=== PATIENT | male | born 1985 | race Caucasian/White ===

== ENCOUNTER 2016-03-06 23:48 | Emergency (ER) | payer OTHER ==
[2016-03-06 23:56] VITALS: RESP 20
--- NOTE | 2016-03-07 00:38 | ED ---
Abdominal Pain HPI - General Chief Complaint: Abdominal Pain Stated Complaint: Feeding Tube Replacement Time Seen by Provider: 03/07/16 00:32 Source: family, RN notes reviewed Mode of arrival: wheelchair Limitations: altered mental status, physical limitation - History of Present Illness Initial Comments: Patient is a 30-year-old male with chief complaint of his feeding tube has been removed. Patient's parents report that this happened multiple hours ago. He states that is draining from the site. Patient has been seen in the emergency room before for similar complaint. They state that he has a size 16 PEG tube. Patient has had the PEG tube for approximately 3 years. - Related Data Home Medications Medication Instructions Recorded Confirmed Hydrocortisone [Cortef] 10 mg PEG/G-TUBE BID 07/07/13 09/28/15 lamoTRIgine [LaMICtal] 25 mg PEG/G-TUBE BID 07/07/13 09/28/15 Aspirin 81 mg PEG/G-TUBE DAILY 07/12/14 09/28/15 Ranitidine HCl 150 mg PEG/G-TUBE BID PRN 09/28/15 09/28/15 Previous Rx's Medication Instructions Recorded Glycerin Adult Suppository 1 each RECTAL ONCE #4 supp 03/07/16 Allergies Allergy/AdvReac Type Severity Reaction Status Date / Time docusate sodium [From Colace] Allergy Rash/Hives Verified 03/06/16 23:56 lansoprazole [From Prevacid] Allergy Unknown Verified 03/06/16 23:56 metoclopramide HCl Allergy Unknown Verified 03/06/16 23:56 [From Reglan] peanut Allergy Rash/Hives Verified 03/06/16 23:56 Review of Systems ROS Statement: Those systems with pertinent positive or pertinent negative responses have been documented in the HPI. ROS Other: All systems not noted in ROS Statement are negative. Past Medical History Past Medical History: Cancer, CVA/TIA Additional Past Medical History / Comment(s): brain tumor, spinal cord tumor, seizure, HYPOTHERMIA R/T BRAIN TUMOR History of Any Multi-Drug Resistant Organisms: None Reported Past Surgical History: Ventriculoperitoneal Shunt Additional Past Surgical History / Comment(s): peg tube, svp research and strategic analysis shunt, BRAIN, SPINAL CORD Past Psychological History: No Psychological Hx Reported Smoking Status: Never smoker Past Alcohol Use History: None Reported Past Drug Use History: None Reported General Exam Limitations: altered mental status, physical limitation General appearance: alert, in no apparent distress Head exam: Present: atraumatic, normocephalic, normal inspection Eye exam: Present: normal appearance, PERRL, EOMI. Absent: scleral icterus, conjunctival injection, periorbital swelling ENT exam: Present: normal exam, mucous membranes moist Neck exam: Present: normal inspection. Absent: tenderness, meningismus, lymphadenopathy Respiratory exam: Present: normal lung sounds bilaterally. Absent: respiratory distress, wheezes, rales, rhonchi, stridor Cardiovascular Exam: Present: regular rate, normal rhythm, normal heart sounds, other. Absent: systolic murmur, diastolic murmur, rubs, gallop, clicks GI/Abdominal exam: Present: soft, distended (abdomen does feel firm showing signs of constipation. ), normal bowel sounds, other (evidence of Peg tube site and mild drainage. ). Absent: tenderness, guarding, rebound, rigid Extremities exam: Present: normal inspection, full ROM, normal capillary refill. Absent: tenderness, pedal edema, joint swelling, calf tenderness Back exam: Present: normal inspection Neurological exam: Present: alert Psychiatric exam: Present: normal affect, normal mood Skin exam: Present: warm, dry, intact, normal color. Absent: rash Course Vital Signs 03/06/16 03/07/16 23:53 00:56 Temperature 96.5 F L 97.7 F Pulse Rate 78 82 Respiratory 20 20 Rate Blood Pressure 95/74 102/74 O2 Sat by Pulse 96 97 Oximetry Procedures - Feeding Tube Replacement Reason for Replacement: fell out Initial Tube Inserted: greater than 2 weeks Type of Tube: gastrostomy Use of Tube: medications and feeding Insertion Site Prior to Procedure: clean, tender, GI fluid leaking Anesthesia Used: Lidocaine 1% Amount of Anesthesia Used (mls): 4 Nigerian Tube Size (F): 14 Balloon Size (mls): 5 Used for Assist in Placement: other Verification of Placement: auscultation, KUB Tube Secured by: tape/dressing Patient Tolerated Procedure: well, no complications Complications: other (initial complications after a few attempts, myself, STACY [place]. Dr. Ko was able to place tube successfully. ) Medical Decision Making - Medical Decision Making Patient is a 30 year old male with feeding tube dislocation a few hours ago. After a few failed attempts, a new 14 welsh feeding tube was placed by Dr. Ko. Xray shows significant stool and confirms placement. Patient given glyceriin suppository to use at home. Patient parents understand treatment plan and will comply. return parameters discussed. Disposition Clinical Impression: Encounter for feeding tube placement, Constipation Disposition: HOME SELF-CARE Condition: Good Instructions: How to Use and Care for Your PEG Tube (ED) Additional Instructions: Patient instructed to follow-up with primary care provider if any alarming signs or symptoms occur. Return the EC if feeding tube is removed. Use suppositories as directed. Prescriptions: Glycerin Adult Suppository 1 each RECTAL ONCE #4 supp Referrals: Whitney Ruiz MD [Primary Care Provider] - 1-2 days Time of Disposition: 02:40
[2016-03-07] MEDS ORDERED: LIDOCAINE 2% GEL 30 ML TUBE TOPICAL ONE (00:46)
--- NOTE | 2016-03-07 02:28 | XR ---
EXAMINATION TYPE: XR abdomen 2V DATE OF EXAM: 03/07/2016 2:14 AM COMPARISON: 09/28/2015 HISTORY: Feeding tube insertion. TECHNIQUE: 3 views. FINDINGS: There is a gastrostomy tube over the left upper quadrant. There is apparent ventriculoperitoneal shun t catheters. There is no evidence of intestinal obstruction or pneumoperitoneum. Fecal pattern is nor mal. I see no sign of constipation. There is no evidence of a mass. Lung bases are clear. IMPRESSION: Nonacute abdomen.
[2016-03-07] MEDS ORDERED: GLYCERIN ADULT SUPPOSITORY 1 EACH RECTAL STA (02:39)
[2016-03-07 02:50] VITALS: BP 102/74; PULSE 82; TEMP 97.7
== END 2016-03-07 02:50 | disposition home or self-care (01) ==
LOC: EC 23:48 → EEVIPCON 23:48 → EC 03-07 02:50
DX: Z43.1 Encounter for attention to gastrostomy (principal); K59.00 Constipation, unspecified; Z98.2 Presence of cerebrospinal fluid drainage device; Z88.8 Allergy status to other drugs, medicaments and biological substances; Z91.010 Allergy to peanuts; Z79.82 Long term (current) use of aspirin; Z79.899 Other long term (current) drug therapy; G40.909 Epilepsy, unspecified, not intractable, without status epilepticus
CPT/HCPCS: 43760; 74020; 99284

== ENCOUNTER → 2016-06-07 | Outpatient (CLI) | payer OTHER ==
[2016-06-07 08:32] LABS: CH 33.2; CHCM 33.3; HCT 51.4 % (39.0-53.0); HDW 3.13; HGB 16.7 gm/dL (13.0-17.5); MCH 32.6 pg (25.0-35.0); MCHC 32.5 g/dL (31.0-37.0); MCV 100.4 fL (80.0-100.0); Macrocytosis Slight; Mean Platelet Volume 9.9; RBC 5.12 m/uL (4.30-5.90); RDW 15.4 % (11.5-15.5); WBC 6.1 k/uL (3.8-10.6)
--- NOTE | 2016-06-07 15:47 | US ---
EXAMINATION TYPE: US abdomen comp/pelvis limited DATE OF EXAM: 06/07/2016 8:18 AM COMPARISON: CT 12/12/2015 CLINICAL HISTORY: 30-year-old male K76.9 nontraumatic N28.9 Kidney Lesion. Liver lesions and kidney l esion seen on previous CT. TECHNIQUE: Multiple sonographic images of the abdomen and bladder were obtained. FINDINGS: Liver Length: 15.3 cm Gallbladder Wall: 0.2 cm CBD: 0.3 cm Spleen: 12.8 cm Right Kidney: 9.0 x 4.9 x 5.0 cm Left Kidney: 10.3 x 5.8 x 4.9 cm Pancreas: visualized portions wnl, body and tail obscured by overlying midline bowel gas Liver: scanned intercostally, limited by rib shadowing, left lobe obscured by overlying midline ismael l gas. There are 1.4cm and 0.8cm hyperechoic non vascular lesions seen in right lobe the larger of w hich likely corresponds to the right hepatic lobe lesion seen on 12/12/2015 measuring 1.3 cm. The lef t lobe lesion seen on prior CT is not visualized on the current study. Gallbladder: Limited by rib shadowing. No abnormal gallbladder distention, wall thickening, perichol ecystic fluid, or shadowing calculi. CBD: visualized portions within normal limits Spleen: visualized portions within normal limits, limited by rib shadowing Right Kidney: No hydronephrosis. There is a 1.4 cm exophytic cyst at the lateral midpole. Internal ec hoes are felt to be artifactual or could represent debris. This likely corresponds to the lesion seen on prior CT. Left Kidney: visualized portions within normal limits, limited by rib shadowing Upper IVC: Not well seen. Abd Aorta: visualized portions wnl, proximal and distal portions obscured by overlying midline bowel gas Bladder: No gross abnormality. Bilateral Jets Seen yes. Small amount of free fluid seen posterior to bladder IMPRESSION: 1. A 1.4 cm and 0.8 cm echogenic lesion within the right hepatic lobe. One of these corresponds well to the previously seen CT lesion. However, the left lobe lesion seen on prior CT is not visualized on the current study. Findings may represent hemangiomas. More definitive characterization can be consi dered with a liver MRI. Otherwise, six-month follow-up ultrasound can be considered. 2. A 1.4 cm exophytic cyst from the lateral right kidney compatible with the previously questioned ri ght renal lesion. 3. Trace pelvic free fluid adjacent to the bladder.
== END | disposition home or self-care (01) ==
LOC: RADUSWWP 07:07
PROVIDERS: ATTEND Family Medicine
DX: N28.1 Cyst of kidney, acquired (principal); K76.9 Liver disease, unspecified
CPT/HCPCS: 36415; 76700; 76857; 85027

== ENCOUNTER 2016-07-12 11:18 | Emergency (ER) | payer OTHER ==
[2016-07-12 11:25] VITALS: BP 107/74; PULSE 60; RESP 18; TEMP 94.1
--- NOTE | 2016-07-12 11:50 | ED ---
General Adult HPI - General Chief complaint: Recheck/Abnormal Lab/Rx Stated complaint: HOLE IN FEEDING TUBE Time Seen by Provider: 07/12/16 11:31 Source: patient, family, RN notes reviewed, old records reviewed Mode of arrival: ambulatory Limitations: no limitations - History of Present Illness Initial comments: Chief complaint history of present illness is a 30-year-old male here with parents. The patient has had brain cancer and surgeries on the brain and subsequent strokes. He is debilitated. Receive his nourishment through a PEG tube. His current PEG tube is malfunctioning. Leaking. Needs to be replaced. No other complaints or problems this time. - Related Data Home Medications Medication Instructions Recorded Confirmed Hydrocortisone [Cortef] 10 mg PEG/G-TUBE BID 07/07/13 07/12/16 lamoTRIgine [LaMICtal] 25 mg PEG/G-TUBE BID 07/07/13 07/12/16 Ranitidine HCl 150 mg PEG/G-TUBE BID PRN 09/28/15 07/12/16 Allergies Allergy/AdvReac Type Severity Reaction Status Date / Time docusate sodium [From Colace] Allergy Rash/Hives Verified 07/12/16 11:39 lansoprazole [From Prevacid] Allergy Unknown Verified 07/12/16 11:39 metoclopramide HCl Allergy Unknown Verified 07/12/16 11:39 [From Reglan] peanut Allergy Rash/Hives Verified 07/12/16 11:39 Review of Systems ROS Statement: Those systems with pertinent positive or pertinent negative responses have been documented in the HPI. Review of systems no other complaints other than the leaking PEG tube at this time. 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 Family history noncontributory ALLERGIES docusate, lansoprazole metoclopramide peanuts. Nonsmoker nondrinker. ROS Other: All systems not noted in ROS Statement are negative. Past Medical History Past Medical History: Cancer, CVA/TIA Additional Past Medical History / Comment(s): brain tumor, spinal cord tumor, seizure, HYPOTHERMIA R/T BRAIN TUMOR History of Any Multi-Drug Resistant Organisms: None Reported Past Surgical History: Ventriculoperitoneal Shunt Additional Past Surgical History / Comment(s): peg tube, vp site shunt, BRAIN, SPINAL CORD Past Psychological History: No Psychological Hx Reported Smoking Status: Never smoker Past Alcohol Use History: None Reported Past Drug Use History: None Reported General Exam - General Exam Comments Initial Comments: The patient's here just for replacement of a malfunctioning deteriorating PEG tube. His vital signs shows temperature 94.1 pulse 60 respiratory rate 18 pulse ox 94 % room air blood pressure 107/74. Examination of the current PEG tube finds it to have a hole and is leaking. He can't administer the patient's feedings. Limitations: no limitations Course Vital Signs 07/12/16 11:20 Temperature 94.1 F L Pulse Rate 60 Respiratory 18 Rate Blood Pressure 107/74 O2 Sat by Pulse 94 L Oximetry Procedures - Procedures Initial comment: Procedure; patient is here just for replacement of his feeding PEG tube. A Kazakh 14 feeding PEG tube with balloon was reinserted without difficulty. Dr. Hines Disposition Clinical Impression: Leaking PEG tube Disposition: HOME SELF-CARE Condition: Fair Instructions: How to Use and Care for Your PEG Tube (ED) Additional Instructions: Follow-up with family doctor and kilnman as needed Referrals: Whitney Ruiz MD [Primary Care Provider] - 1-2 days Time of Disposition: 12:17
== END 2016-07-12 12:21 | disposition home or self-care (01) ==
LOC: EC 11:18
DX: K94.23 Gastrostomy malfunction (principal); R53.81 Other malaise; Z79.52 Long term (current) use of systemic steroids; Z79.899 Other long term (current) drug therapy; Z88.8 Allergy status to other drugs, medicaments and biological substances; Z91.010 Allergy to peanuts; Z85.841 Personal history of malignant neoplasm of brain; Z86.73 Personal history of transient ischemic attack (TIA), and cerebral infarction without residual deficits; Z86.69 Personal history of other diseases of the nervous system and sense organs; Z98.890 Other specified postprocedural states; Z98.2 Presence of cerebrospinal fluid drainage device; Y73.8 Miscellaneous gastroenterology and urology devices associated with adverse incidents, not elsewhere classified
CPT/HCPCS: 43760; 99283

== ENCOUNTER → 2017-01-04 | Outpatient (CLI) | payer OTHER ==
--- NOTE | 2017-01-04 11:08 | US ---
EXAMINATION TYPE: US abdomen complete DATE OF EXAM: 01/04/2017 COMPARISON: US 06/07/2016, CT 12/11/2016 CLINICAL HISTORY: 31-year-old male K76.9 Liver disease, unspecified. TECHNIQUE: Multiple sonographic images of the abdomen are obtained. FINDINGS: GREENS TIER NOTES: Extremely difficult and limited exam due to patient mental status and feeding tube in mid abdomen. Follow up to previous ultrasound Liver Length: 15.4 cm Gallbladder Wall: 0.2 cm CBD: 0.4 cm Spleen: 13.0 cm Right Kidney: 8.9 x 4.3 x 4.0 cm Left Kidney: 9.0 x 5.3 x 4.8 cm Pancreas: Obscured by bowel gas Liver: Limited evaluation due to rib shadowing and overlying bowel gas. Left hepatic lobe not visual ized due to bowel gas and intercostal windows. Two hyperechoic areas visualized in the right lobe, la rgest measuring 1.6 x 1.5 x 1.6 cm. This previously measured 1.3 x 1.4 x 1.1 cm on 06/07/2016 Gallbladder: wnl Evidence for sonographic Funez's sign: No CBD: wnl as visualized, distal portion obscured by bowel gas Spleen: Measuring upper limits of normal Right Kidney: No hydronephrosis. Redemonstrated mid pole cyst measuring 1.4 cm. Left Kidney: No hydronephrosis. Upper IVC: wnl as visualized Abd Aorta: Obscured by overlying bowel gas IMPRESSION: 1. Technically limited exam as mentioned above. 2. There are 2 hyperechoic lesions redemonstrated in the right liver lobe. These are minimally larger after 7 months with the largest measuring 1.6 x 1.6 cm versus 1.4 x 1.3 cm, previously. While марина iomas are possible, these remain due to their CT appearance. Either continued short interval follow-u p is recommended versus further characterization such as with liver MRI.
== END | disposition home or self-care (01) ==
LOC: RADUSWWP 08:42
PROVIDERS: ATTEND Family Medicine
DX: K76.9 Liver disease, unspecified (principal); R56.9 Unspecified convulsions
CPT/HCPCS: 36415; 76700; 80175

== ENCOUNTER 2017-01-31 12:39 | Emergency (ER) | payer OTHER ==
--- NOTE | 2017-01-31 13:02 | ED ---
General Adult HPI - General Chief complaint: Recheck/Abnormal Lab/Rx Stated complaint: FEEDING TUBE Time Seen by Provider: 01/31/17 12:50 Source: family, RN notes reviewed Mode of arrival: wheelchair Limitations: altered mental status, physical limitation - History of Present Illness Initial comments: Patient 31-year-old male with a past medical history for brain tumor, who presents to the emergency room today with his mother with a chief complaint of needing a new PEG tube. Please have PEG tube in place since 2012. This current tube has been in for the last 6 months. Mother states that during feeding last night noticed that there seemed to be a small hole on the side in some of the fluid was leaking out on the side of the tube. She states she did take it was an electrical tape. She denies any other complaints or symptoms. Patient denies any recent fever, nausea or vomiting, or any other complaints. - Related Data Home Medications Medication Instructions Recorded Confirmed Hydrocortisone [Cortef] 10 mg PEG/G-TUBE BID 07/07/13 07/12/16 lamoTRIgine [LaMICtal] 25 mg PEG/G-TUBE BID 07/07/13 07/12/16 Ranitidine HCl 150 mg PEG/G-TUBE BID PRN 09/28/15 07/12/16 Allergies Allergy/AdvReac Type Severity Reaction Status Date / Time docusate sodium [From Colace] Allergy Rash/Hives Verified 01/31/17 12:49 lansoprazole [From Prevacid] Allergy Unknown Verified 01/31/17 12:49 metoclopramide HCl Allergy Unknown Verified 01/31/17 12:49 [From Reglan] peanut Allergy Rash/Hives Verified 01/31/17 12:49 Review of Systems ROS Statement: Those systems with pertinent positive or pertinent negative responses have been documented in the HPI. ROS Other: All systems not noted in ROS Statement are negative. Past Medical History Past Medical History: Cancer, CVA/TIA, Seizure Disorder Additional Past Medical History / Comment(s): brain tumor, spinal cord tumor, seizure, HYPOTHERMIA R/T BRAIN TUMOR History of Any Multi-Drug Resistant Organisms: None Reported Past Surgical History: Ventriculoperitoneal Shunt Additional Past Surgical History / Comment(s): peg tube, vp of global marketing shunt, BRAIN, SPINAL CORD Past Psychological History: No Psychological Hx Reported Smoking Status: Never smoker Past Alcohol Use History: None Reported Past Drug Use History: None Reported General Exam - General Exam Comments Initial Comments: General: The patient is awake and alert, in no distress, and does not appear acutely ill. Eye: Pupils are equal, round and reactive to light, extra-ocular movements are intact. No nystagmus. There is normal conjunctiva bilaterally. Ears, nose, mouth and throat: There are moist mucous membranes and no oral lesions. Neck: The neck is supple, there is no tenderness or JVD. Cardiovascular: There is a regular rate and rhythm. No murmur, rub or gallop is appreciated. Respiratory: Lungs are clear to auscultation, respirations are non-labored, breath sounds are equal. No wheezes, stridor, rales, or rhonchi. Gastrointestinal: Soft, non-distended, non-tender abdomen without masses or organomegaly noted. Bowel sounds are unremarkable. Neurological: There are no obvious motor or sensory deficits. Skin: Skin is warm and dry and no rashes or lesions are noted. Limitations: altered mental status, physical limitation Course Vital Signs 01/31/17 01/31/17 12:41 13:13 Temperature 76.6 F L Pulse Rate 61 57 L Respiratory 18 18 Rate Blood Pressure 107/82 108/79 O2 Sat by Pulse 95 95 Oximetry Procedures - Procedures Initial comment: Patient did have a PEG tube in place. Balloon was deflated. Skin around the area was cleaned with ChloraPrep and a new PEG tube was placed and balloon inflated. Medical Decision Making - Medical Decision Making Patient will be discharged home to follow-up with family doctor. Advised return if any symptoms increase worsen. Disposition Clinical Impression: Leaking PEG tube Disposition: HOME SELF-CARE Condition: Good Instructions: How to Use and Care for Your PEG Tube (ED) Referrals: Whitney Ruiz MD [Primary Care Provider] - 1-2 days Time of Disposition: 13:49
[2017-01-31 14:16] VITALS: BP 107/62; PULSE 58; RESP 17; TEMP 97.4
== END 2017-01-31 14:15 | disposition home or self-care (01) ==
LOC: EC 12:39
DX: K94.23 Gastrostomy malfunction (principal); G40.909 Epilepsy, unspecified, not intractable, without status epilepticus; Z79.52 Long term (current) use of systemic steroids; Z79.899 Other long term (current) drug therapy; Z88.8 Allergy status to other drugs, medicaments and biological substances; Z91.010 Allergy to peanuts
CPT/HCPCS: 43760; 99282

== ENCOUNTER 2017-07-18 21:36 | Inpatient (IN) | payer OTHER ==
[2017-07-18] MEDS ORDERED: SODIUM CHLORIDE 0.9% 500 ML IV STA (22:09)
[2017-07-18] MEDS ORDERED: SODIUM CHLORIDE 0.9% 1,000 ML IV STA (22:09)
[2017-07-18 22:20] LABS: Basophils % (A) 0 %; Eosinophils % (A) 0 %; HGB 18.2 gm/dL (13.0-17.5); Lymphocytes # (A) 0.9 k/uL (1.0-4.8); Lymphocytes % (A) 6 %; MCH 31.4 pg (25.0-35.0); MCHC 32.9 g/dL (31.0-37.0); MCV 95.5 fL (80.0-100.0); Mean Platelet Volume 9.9; Monocytes # (A) 1.4 k/uL (0-1.0); Monocytes % (A) 10 %; Neutrophils # (A) 11.4 k/uL (1.3-7.7); Neutrophils % (A) 81 %; Platelet Count 182 k/uL (150-450); RBC 5.79 m/uL (4.30-5.90); RDW 14.5 % (11.5-15.5)
[2017-07-18 22:21] LABS: HCT 55.3 % (39.0-53.0)
[2017-07-18 22:27] LABS: ALT 81 U/L (21-72); AST 53 U/L (17-59); Albumin 4.2 g/dL (3.5-5.0); Alkaline Phosphatase 121 U/L (38-126); Amylase 54 U/L (30-110); Anion Gap 17 mmol/L; Blood Urea Nitrogen 15 mg/dL (9-20); Calcium 10.1 mg/dL (8.4-10.2); Carbon Dioxide 18 mmol/L (22-30); Chloride 110 mmol/L (98-107); Glucose 120 mg/dL (74-99); Lipase 71 U/L (23-300); Sodium 145 mmol/L (137-145); Total Bilirubin 2.2 mg/dL (0.2-1.3); Total Protein 7.3 g/dL (6.3-8.2)
--- NOTE | 2017-07-18 22:39 | XR ---
EXAMINATION TYPE: XR abdomen acute w cxr DATE OF EXAM: 07/18/2017 COMPARISON: Abdomen 03/07/2016 HISTORY: Abdominal pain and gas TECHNIQUE: Supine and upright chest and abdomen images. FINDINGS: There are bilateral shunt catheters. Lungs are clear of consolidation. There is no heart failure. The re is some large bowel intestinal gas and fecal material. There is no sign of free air. There is no e vidence of a mass. I see no pathologic calcifications over the kidneys. There appears to be gastrosto my tube. IMPRESSION: Nonacute abdomen. No active cardiopulmonary disease. No adverse change compared to old exam.
[2017-07-18 23:26] LABS: Appearance,Urine Clear (Clear); Bilirubin,Urine Negative (Negative); Blood,Urine Negative (Negative); Color,Urine Light Orange; Glucose,Urine (UA) Negative (Negative); Ketones,Urine 1+ (Negative); Leukocyte Esterase,Urine Negative (Negative); Mucus,Urine Moderate /hpf; Nitrite,Urine Negative (Negative); Protein,Urine 1+ (Negative); RBC,Urine 3 /hpf (0-5); Specific Gravity,Urine 1.026 (1.001-1.035); Sperm,Urine Occasional /hpf; WBC,Urine 4 /hpf (0-5)
[2017-07-18] MEDS ORDERED: PIPERACILLIN-TAZOBACTAM 3.375 GM in DEXTROSE/WATER 1 50ML.BAG IVPB STA (23:48)
--- NOTE | 2017-07-19 00:59 | CT ---
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 TECHNIQUE: Helical acquisition of images was performed from the lung bases through the pelvis. CONTRAST: Performed without Oral Contrast and with IV Contrast, patient injected with 100 mL of Isovue 300. FINDINGS: There is patchy atelectasis at the lung bases. Liver spleen pancreas appear normal. Bile ducts are no t dilated. Gallbladder appears normal. There is no sign of free air. There is retained fecal material in the right colon. There are peritoneal catheters noted. There is a small amount of free fluid in the pelvis. The kidneys show satisfactory contrast opacification. There is no hydronephrosis. Ureter s are not dilated. Urinary bladder is almost empty. IMPRESSION: THERE ARE DOUBLE VENTRICULOPERITONEAL SHUNT CATHETERS. THERE IS SOME FREE FLUID IN THE PELVIS. THERE IS ALSO SOME MILD FAT STRANDING IN THE PELVIS. THE POSSIBILITY OF PERITONITIS SHOULD BE CONSIDERED. T HIS IS A CHANGE COMPARED TO OLD CT SCAN. THERE IS NEW MILD INFILTRATE AND ATELECTASIS AT THE POSTERIO R LUNG BASES. NO EVIDENCE OF A BOWEL OBSTRUCTION.
[2017-07-19] MEDS ORDERED: metroNIDAZOLE-NS PMX 500 MG in SALINE 1 100ML.BAG IVPB STA (01:09)
--- NOTE | 2017-07-19 01:23 | ED ---
Abdominal Pain HPI - General Chief Complaint: Abdominal Pain Stated Complaint: Abd Pain Time Seen by Provider: 07/18/17 21:57 Source: patient Mode of arrival: ambulatory Limitations: no limitations - History of Present Illness Initial Comments: 31 years old male, he is nonverbal his caregivers his mom she noticed that his heart rate was elevated and numb he was in a discomfort because of the abdominal pain, this was also noticed by the caregiver nurse he does have a history of brain surgeries, he has a shunt for the ventricles to [place]. Mom is concerned about constipation. He only moves his bowels with the enema did not system is 3 his mother and she is not concerned about other things apart from tachycardia and abdominal pain I she felt that he has a fever of mild degree - Related Data Home Medications Medication Instructions Recorded Confirmed Hydrocortisone [Cortef] 10 mg PEG/G-TUBE BID 07/07/13 07/18/17 lamoTRIgine [LaMICtal] 25 mg PEG/G-TUBE HS 07/07/13 07/18/17 Allergies Allergy/AdvReac Type Severity Reaction Status Date / Time docusate sodium [From Colace] Allergy Rash/Hives Verified 07/18/17 22:21 lansoprazole [From Prevacid] Allergy Unknown Verified 07/18/17 22:21 metoclopramide HCl Allergy Unknown Verified 07/18/17 22:21 [From Reglan] peanut Allergy Rash/Hives Verified 07/18/17 22:21 Review of Systems ROS Statement: Those systems with pertinent positive or pertinent negative responses have been documented in the HPI. ROS Other: All systems not noted in ROS Statement are negative. Past Medical History Past Medical History: Cancer, CVA/TIA, Seizure Disorder Additional Past Medical History / Comment(s): brain tumor, spinal cord tumor, seizure, HYPOTHERMIA R/T BRAIN TUMOR History of Any Multi-Drug Resistant Organisms: None Reported Past Surgical History: Ventriculoperitoneal Shunt Additional Past Surgical History / Comment(s): peg tube, [employer] shunt, BRAIN, SPINAL CORD Past Psychological History: No Psychological Hx Reported Smoking Status: Never smoker Past Alcohol Use History: None Reported Past Drug Use History: None Reported General Exam - General Exam Comments Initial Comments: General: The patient is awake and alert, in no distress, and does not appear acutely ill. Skin: Skin is warm and dry and no rashes or lesions are noted. Eye: Pupils are equal, round and reactive to light, extra-ocular movements are intact; there is normal conjunctiva bilaterally. Ears, nose, mouth and throat: There are moist mucous membranes and no oral lesions. Neck: The neck is supple, there is no tenderness or JVD. Cardiovascular: There is a regular rate and rhythm. No murmur, rub or gallop is appreciated. Noticed tachycardia Respiratory: To auscultation bilateral, noticed times of secretions bilateral Gastrointestinal: Abdomen is quite hard, did discuss that with his mother said if this is baseline she said now mostly his abdomen is soft this exam makes me very bad peritonitis when you palpate down and he shows signs of distress Back: There is no tenderness to palpation in the midline. There is no obvious deformity. Musculoskeletal: Normal ROM, no tenderness, There is no pedal edema. There is no calf tenderness or swelling. No cords were appreciated. Neurological: CN II-XII intact, Cranial nerves III through XII are intact. There are no obvious motor or sensory deficits. Coordination appears grossly intact. Speech is normal. Psychiatric: Cooperative, Limitations: no limitations Course Vital Signs 07/18/17 07/18/17 07/18/17 21:40 21:48 22:48 Temperature 97.8 F 98.4 F Pulse Rate 134 H 127 H 103 H Respiratory 24 18 20 Rate Blood Pressure 100/76 117/82 117/78 O2 Sat by Pulse 91 L 89 L 97 Oximetry 07/18/17 23:00 Temperature Pulse Rate 115 H Respiratory 20 Rate Blood Pressure 124/99 O2 Sat by Pulse 97 Oximetry EKG sinus tachycardia ventricular rate is 124 [place] interval is 172 QRS duration is 88 QT/QTc is 312/448 review of this EKG reveals some mom T-wave inversions from V2 to V6 no ST elevation noticed Medical Decision Making - Lab Data Result diagrams: 07/18/17 22:03 07/18/17 22:03 Lab Results 07/18/17 07/18/17 07/18/17 Range/Units 22:03 22:03 22:03 WBC 14.0 H (3.8-10.6) k/uL RBC 5.79 (4.30-5.90) m/uL Hgb 18.2 H (13.0-17.5) gm/dL Hct 55.3 H (39.0-53.0) % MCV 95.5 (80.0-100.0) fL MCH 31.4 (25.0-35.0) pg MCHC 32.9 (31.0-37.0) g/dL RDW 14.5 (11.5-15.5) % Plt Count 182 (150-450) k/uL Neutrophils % 81 % Lymphocytes % 6 % Monocytes % 10 % Eosinophils % 0 % Basophils % 0 % Neutrophils # 11.4 H (1.3-7.7) k/uL Lymphocytes # 0.9 L (1.0-4.8) k/uL Monocytes # 1.4 H (0-1.0) k/uL Eosinophils # 0.0 (0-0.7) k/uL Basophils # 0.0 (0-0.2) k/uL Sodium 145 (137-145) mmol/L Potassium 4.0 (3.5-5.1) mmol/L Chloride 110 H (98-107) mmol/L Carbon Dioxide 18 L (22-30) mmol/L Anion Gap 17 mmol/L BUN 15 (9-20) mg/dL Creatinine 0.50 L (0.66-1.25) mg/dL Est GFR (CKD-EPI)AfAm >90 (>60 ml/min/1.73 sqM) Est GFR (CKD-EPI)NonAf >90 (>60 ml/min/1.73 sqM) Glucose 120 H (74-99) mg/dL Plasma Lactic Acid Terrence 1.6 (0.7-2.0) mmol/L Calcium 10.1 (8.4-10.2) mg/dL Total Bilirubin 2.2 H (0.2-1.3) mg/dL AST 53 (17-59) U/L ALT 81 H (21-72) U/L Alkaline Phosphatase 121 (38-126) U/L Total Protein 7.3 (6.3-8.2) g/dL Albumin 4.2 (3.5-5.0) g/dL Amylase 54 (30-110) U/L Lipase 71 (23-300) U/L Urine Color Urine Appearance (Clear) Urine pH (5.0-8.0) Ur Specific [place] (1.001-1.035) Urine Protein (Negative) Urine Glucose (UA) (Negative) Urine Ketones (Negative) Urine Blood (Negative) Urine Nitrite (Negative) Urine Bilirubin (Negative) Urine Urobilinogen (<2.0) mg/dL Ur Leukocyte Esterase (Negative) Urine RBC (0-5) /hpf Urine WBC (0-5) /hpf Urine Mucus (None) /hpf Urine Sperm (None) /hpf 07/18/17 Range/Units 23:12 WBC (3.8-10.6) k/uL RBC (4.30-5.90) m/uL Hgb (13.0-17.5) gm/dL Hct (39.0-53.0) % MCV (80.0-100.0) fL MCH (25.0-35.0) pg MCHC (31.0-37.0) g/dL RDW (11.5-15.5) % Plt Count (150-450) k/uL Neutrophils % % Lymphocytes % % Monocytes % % Eosinophils % % Basophils % % Neutrophils # (1.3-7.7) k/uL Lymphocytes # (1.0-4.8) k/uL Monocytes # (0-1.0) k/uL Eosinophils # (0-0.7) k/uL Basophils # (0-0.2) k/uL Sodium (137-145) mmol/L Potassium (3.5-5.1) mmol/L Chloride (98-107) mmol/L Carbon Dioxide (22-30) mmol/L Anion Gap mmol/L BUN (9-20) mg/dL Creatinine (0.66-1.25) mg/dL Est GFR (CKD-EPI)AfAm (>60 ml/min/1.73 sqM) Est GFR (CKD-EPI)NonAf (>60 ml/min/1.73 sqM) Glucose (74-99) mg/dL Plasma Lactic Acid Terrence (0.7-2.0) mmol/L Calcium (8.4-10.2) mg/dL Total Bilirubin (0.2-1.3) mg/dL AST (17-59) U/L ALT (21-72) U/L Alkaline Phosphatase (38-126) U/L Total Protein (6.3-8.2) g/dL Albumin (3.5-5.0) g/dL Amylase (30-110) U/L Lipase (23-300) U/L Urine Color Light Will Urine Appearance Clear (Clear) Urine pH 6.0 (5.0-8.0) Ur Specific [place] 1.026 (1.001-1.035) Urine Protein 1+ H (Negative) Urine Glucose (UA) Negative (Negative) Urine Ketones 1+ H (Negative) Urine Blood Negative (Negative) Urine Nitrite Negative (Negative) Urine Bilirubin Negative (Negative) Urine Urobilinogen 4.0 (<2.0) mg/dL Ur Leukocyte Esterase Negative (Negative) Urine RBC 3 (0-5) /hpf Urine WBC 4 (0-5) /hpf Urine Mucus Moderate H (None) /hpf Urine Sperm Occasional H (None) /hpf Critical Care Time Total Critical Care Time: 45 Critical Care Time: Unfortunately patient is nonverbal that he safely disposition white count is 14 CO2 was 18 total bili was slightly elevated urinalysis is normal and initial x-ray of the abdomen and chest were unremarkable examination noticed that his son and her belly was quite hard HEENT exam made my index of suspicion quite high for peritonitis CT abdomen was done and we start him on a antibiotics he was started on Zosyn and Flagyl he was resuscitated that did slow the tachycardia to some extent but every time he examined his belly his heart rate to 03/03/2019 plus, we discussed that with the Dr. Temple he be admitted to ICU Dr. Antonio will be consulted Disposition Clinical Impression: Peritonitis, Abdominal pain, Tachycardia Disposition: ADMITTED IP TO THIS HOSP Condition: Good Referrals: Whitney Ruiz MD [Primary Care Provider] - 1-2 days
[2017-07-19] MEDS ORDERED: NALOXONE 0.4 MG/ML 1 ML VIAL IV PRN (01:24)
[2017-07-19] MEDS ORDERED: MORPHINE SULFATE 2 MG/ML SYRINGE IV PRN (01:24)
[2017-07-19] MEDS ORDERED: ACETAMINOPHEN SUPPOSITORY 650 MG SUPP RECTAL PRN (01:24)
[2017-07-19] MEDS ORDERED: DEXTROSE 5%-0.9% NACL 1,000 ML IV SCH (01:30)
[2017-07-19] MEDS ORDERED: ONDANSETRON 4 MG/2 ML VIAL IVP STA (02:25)
[2017-07-19] MEDS: HYDROCORTISONE 10 MG TAB PEG/G-TUBE SCH (02:44)
[2017-07-19] MEDS: lamoTRIgine 25 MG TAB PEG/G-TUBE SCH (02:45)
[2017-07-19 04:38] LABS: Glucose,Whole Blood 145 mg/dL (75-99)
[2017-07-19 06:38] LABS: Basophils % (A) 0 %; Eosinophils % (A) 0 %; HCT 50.3 % (39.0-53.0); HGB 16.6 gm/dL (13.0-17.5); Lymphocytes # (A) 0.7 k/uL (1.0-4.8); Lymphocytes % (A) 6 %; MCH 31.9 pg (25.0-35.0); MCHC 33.1 g/dL (31.0-37.0); MCV 96.4 fL (80.0-100.0); Mean Platelet Volume 10.2; Monocytes % (A) 9 %; Neutrophils % (A) 84 %; Platelet Count 134 k/uL (150-450); RBC 5.21 m/uL (4.30-5.90); RDW 14.6 % (11.5-15.5)
[2017-07-19 06:55] LABS: Anion Gap 12 mmol/L; Blood Urea Nitrogen 14 mg/dL (9-20); Carbon Dioxide 23 mmol/L (22-30); Chloride 108 mmol/L (98-107); Glucose 134 mg/dL (74-99); Magnesium 1.8 mg/dL (1.6-2.3); Phosphorus 3.2 mg/dL (2.5-4.5); Potassium 4.2 mmol/L (3.5-5.1); Sodium 143 mmol/L (137-145)
[2017-07-19] MEDS ORDERED: Magnesium Replacement Protocol 1 EACH MISC MISCELLANE PRN (06:59)
[2017-07-19] MEDS ORDERED: PROPOFOL 100 ML IV ONE ×2 (07:43→09:54)
[2017-07-19] MEDS ORDERED: NOREPINEPHRIN 4 MG-0.9% NS PMX 4 MG/250 ML ML IV ONE (07:57)
[2017-07-19] MEDS ORDERED: fentaNYL (PF) 50 MCG/ML 2 ML AMP ONE (08:02)
--- NOTE | 2017-07-19 08:26 | XR ---
EXAMINATION TYPE: XR chest 1V DATE OF EXAM: 07/19/2017 COMPARISON: 07/19/2017 HISTORY: Endotracheal tube placement TECHNIQUE: Single frontal view of the chest is obtained. FINDINGS: Endotracheal tube appears slightly cephalad in position and could be advanced approximatel y 2 cm for optimal placement. Multiple overlying ventriculoperitoneal catheters are seen. New multifo liban linear left-sided probable atelectasis is seen. Cardiomediastinal silhouette is stable and nonenl arged. Osseous structures appear intact. IMPRESSION: Slight cephalad placement of the endotracheal tube. This could be advanced approximately 2 cm for optimal placement. New multifocal subsegmental left atelectasis.
--- NOTE | 2017-07-19 08:45 | P.PCN ---
Date of Procedure: 07/19/17 Preoperative Diagnosis: Brain tumor with [employer] shunt Paraplegia Mentally challenged patient High risk for aspiration due to difficulty maintaining the airway reflexes with high secretions Postoperative Diagnosis: Brain tumor with T[employer] shunt Paraplegia Mentally challenged patient Secured airway with endotracheal intubation Procedure(s) Performed: Endotracheal intubation using kaleidoscope Anesthesia: MAGO Surgeon: Tiffany Solitario Pathology: none sent Condition: stable Disposition: ICU Description of Procedure: This is a 31-year-old mentally challenged gentleman with history of brain tumor with T[employer] shunt and gastric tube. The patient has a history of paraplegia. Anesthesia services were called by the ICU staff to help with intubation of this gentleman. The patient was placed in the supine position his gastric tube was suctioned. He was then given propofol 200 mg and fentanyl 50 g IV,a choline was given due to his history of paraplegia and risk of hyperkalemia. I used [place] scope scope with size 3 blade. A size 8 endotracheal tube was passed through the vocal cords easily. The tube was taped at 22 cm by the patient's teeth. There was positive end-tidal CO2. Chest x-ray is pending to verify tube placement.
[2017-07-19 08:46] LABS: Appearance,Urine Cloudy (Clear); Bilirubin,Urine Negative (Negative); Blood,Urine Large (Negative); Color,Urine Dark Brown; Glucose,Urine (UA) Negative (Negative); Ketones,Urine 1+ (Negative); Leukocyte Esterase,Urine Small (Negative); Nitrite,Urine Negative (Negative); PH, Urine 5.5 (5.0-8.0); Protein,Urine 1+ (Negative); RBC,Urine >182 /hpf (0-5); WBC,Urine 60 /hpf (0-5)
[2017-07-19 09:01] LABS: ABG Base Excess -4.3 mmol/L; ABG HCO3 22 mmol/L (21-25); ABG Oxygen Saturation 99.5 % (94-97); ABG PCO2 41 mmHg (35-45); ABG PH 7.33 (7.35-7.45); ABG PO2 280 mmHg (83-108); ABG TCO2 23 mmol/L (19-24)
[2017-07-19] MEDS ORDERED: LORazepam 2 MG/ML INJ IV PRN (09:02)
[2017-07-19] MEDS ORDERED: LORazepam 2 MG/ML INJ ONE (09:03)
[2017-07-19] MEDS ORDERED: LORazepam 2 MG/ML INJ IV STA (09:03)
--- NOTE | 2017-07-19 09:34 | XR ---
EXAMINATION TYPE: XR chest 1V DATE OF EXAM: 07/19/2017 COMPARISON: 07/18/2017 HISTORY: Pain TECHNIQUE: Single frontal view of the chest is obtained. FINDINGS: Shunt catheters are again noted and there is a coarsened interstitium with subsegmental ch anges in both lung bases. No pneumothorax. No definite pleural effusion. IMPRESSION: Mild prominence of interstitium may relate to poor inspiration rather than venous conges tion or interstitial pneumonitis correlate clinically. Linear changes at the lung base on the left gill ggestive of atelectasis
[2017-07-19] MEDS ORDERED: PROPOFOL 1,000 MG in EMPTY BAG 1 BAG IV SCH (10:00)
[2017-07-19] MEDS ORDERED: CEFEPIME 1 GM in SODIUM CHLORIDE 0.9% 50 ML IVPB SCH (10:15)
[2017-07-19] MEDS: MAGNESIUM SULFATE-D5W PMX 1 GM in DEXTROSE/WATER 1 100ML.BAG IVPB SCH ×2 (10:43→12:04)
[2017-07-19] MEDS: metroNIDAZOLE-NS PMX 500 MG in SALINE 1 100ML.BAG IVPB SCH ×3 (10:53→20:22)
[2017-07-19] MEDS: HEPARIN SODIUM,PORCINE 5,000 UNIT/ML 1 ML VIAL SQ SCH ×2 (11:13→16:07)
[2017-07-19 13:19] LABS: Hemoglobin A1C 4.1 % (4.0-6.0)
[2017-07-19] MEDS ORDERED: SODIUM CHLORIDE 0.9% 1,000 ML IV ONE (13:52)
--- NOTE | 2017-07-19 14:44 | P.CONS ---
History of Present Illness - Reason for Consult Consult date: 07/19/17 - Chief Complaint abdominal pain - History of Present Illness 31-year-old male with a history of brain tumor with multiple surgeries over the years, mostly done at [facility]. Presents to the emergency center because of family became concerned that he was having increasing abdominal pain, difficulty with nutrition and that when they were feeding him through his PEG tube he seemed to be having some discomfort and retching. He apparently normally has some difficulties with some constipation and they do utilize a bowel program with enema. Apparently no recent stooling and with the abdominal discomforts was brought to the emergency center. The patient did appear to be ill, was found evidence of a leukocytosis. His temperature was 97 for which the parents relate is quite high for him because he has temperature regulation difficulties after his brain tumor and radiation. The patient was admitted to hospital and to the intensive care unit with concerns to peritonitis with a computed tomography scan showing evidence of some inflammation of the abdomen and with the 2 ventriculoperitoneal shunts present cause concern. With a relatively short period of time the patient had rapid onset of respiratory failure necessitating intubation with mechanical ventilation and some sedation. Of note his PEG tube also dislodged spontaneously, the family relates this has happened multiple times over the years. The patient this time appears to be comfortable status post intubation and sedation. Patient's mother provides further history. Review of Systems ROS unobtainable: due to endotracheal tube (however the patient's mother does relate that the patient was having some abdominal pain prior to admission. It was also having the difficulties related to tube feeds. He has not had a history of prior respiratory failure or peritonitis.) Past Medical History Past Medical History: Cancer, CVA/TIA, Seizure Disorder Additional Past Medical History / Comment(s): brain tumor, spinal cord tumor, seizure, HYPOTHERMIA R/T BRAIN TUMOR, 2 newly diagnosed brain tumors per mother (07/19/17) History of Any Multi-Drug Resistant Organisms: None Reported Past Surgical History: Ventriculoperitoneal Shunt Additional Past Surgical History / Comment(s): peg tube, vp site shunt, BRAIN, SPINAL CORD Past Anesthesia/Blood Transfusion Reactions: No Reported Reaction Past Psychological History: No Psychological Hx Reported Additional Psychological History / Comment(s): care for by the family and the family home. Apparently when he is well he can be up and ambulating. He does have the ability to communicate somewhat. there is no travel, no history, no animal exposures, no tobacco or alcohol use Smoking Status: Never smoker Past Alcohol Use History: None Reported Past Drug Use History: None Reported Medications and Allergies Home Medications and Allergies Comment(s): Current Medications Acetaminophen (Tylenol Suppository) 650 mg RECTAL Q4HR PRN PRN Reason: Fever And/ Or Mild Pain Chlorhexidine Gluconate (Peridex) 15 ml MUCOUS MEM BID [facility] Heparin Sodium (Porcine) (Heparin) 5,000 unit SQ Q8HR [facility] Last Admin: 07/19/17 11:13 Dose: 5,000 unit Hydrocortisone (Cortef) 10 mg PEG/G-TUBE BID [facility] Last Admin: 07/19/17 02:44 Dose: 10 mg Metronidazole 500 mg/ IV (Solution) 100 mls @ 100 mls/hr IVPB Q6H [facility] Last Admin: 07/19/17 14:34 Dose: 100 mls/hr Dextrose/Sodium Chloride (Dextrose 5%-Ns Iv Soln) 1,000 mls @ 65 mls/hr IV .[id number] [facility] Last Admin: 07/19/17 02:43 Dose: 65 mls/hr Propofol 1,000 mg/ IV Solution 100 mls @ 0 mls/hr IV .Q0M ROSA M; Titrate PRN Reason: Protocol Last Admin: 07/19/17 14:36 Dose: 25.19 mcg/kg/min, 9.6 mls/hr Cefepime HCl 1 gm/ Sodium (Chloride) 50 mls @ 100 mls/hr IVPB Q12HR [facility] Last Admin: 07/19/17 10:43 Dose: 100 mls/hr Sodium Chloride (Saline 0.9%) 1,000 mls @ 999 mls/hr IV .Q1H1M ONE Stop: 07/19/17 14:52 Last Admin: 07/19/17 14:34 Dose: 999 mls/hr Lamotrigine (Lamictal) 25 mg PEG/G-TUBE HS [facility] Last Admin: 07/19/17 02:45 Dose: 25 mg Lorazepam (Ativan) 2 mg IV Q2HR PRN PRN Reason: Sedation Miscellaneous Information (Magnesium Per Protocol) 1 each MISCELLANE DAILY PRN ; Protocol PRN Reason: Per Protocol Morphine Sulfate (Morphine Sulfate (Inj)) 2 mg IV Q2HR PRN PRN Reason: Pain Scale 4 to 5 Last Admin: 07/19/17 08:30 Dose: 2 mg Naloxone HCl (Narcan) 0.2 mg IV Q2M PRN PRN Reason: Opioid Reversal Home Medications Medication Instructions Recorded Confirmed Type Hydrocortisone [Cortef] 10 mg PEG/G-TUBE BID 07/07/13 07/18/17 History lamoTRIgine [LaMICtal] 25 mg PEG/G-TUBE HS 07/07/13 07/18/17 History Allergies Allergy/AdvReac Type Severity Reaction Status Date / Time docusate sodium [From Colace] Allergy Rash/Hives Verified 07/18/17 22:21 lansoprazole [From Prevacid] Allergy Unknown Verified 07/18/17 22:21 metoclopramide HCl Allergy Unknown Verified 07/18/17 22:21 [From Reglan] peanut Allergy Rash/Hives Verified 07/18/17 22:21 Physical Exam Vitals: Vital Signs Temp Pulse Pulse Resp BP BP Pulse Ox 07/19/17 13:00 105 H 14 82/60 99 07/19/17 12:40 105 H 89/65 98 07/19/17 12:00 111 H 14 86/58 98 07/19/17 11:30 115 H 13 83/74 98 07/19/17 11:00 97.5 F L 116 H 13 93/69 98 07/19/17 10:30 123 H 14 103/77 97 07/19/17 10:00 118 H 20 103/72 98 07/19/17 09:30 121 H 14 84/68 96 07/19/17 09:00 91 14 126/75 99 07/19/17 08:30 102 H 17 116/75 99 07/19/17 08:20 111 H 13 114/87 99 07/19/17 08:10 111 H 15 85/70 99 07/19/17 08:00 142 H 93 14 104/77 98 07/19/17 07:50 95 34 H 113/77 91 L 07/19/17 07:40 95 32 H 113/77 94 L 07/19/17 07:30 81 32 H 113/77 95 07/19/17 07:20 95 32 H 105/79 88 L 07/19/17 07:10 89 32 H 105/79 89 L 07/19/17 07:00 82 28 H 105/79 94 L 07/19/17 06:50 93 28 H 105/79 89 L 07/19/17 06:40 100 29 H 105/79 91 L 07/19/17 06:30 104 H 32 H 105/79 88 L 07/19/17 06:20 89 24 102/70 89 L 07/19/17 06:10 89 33 H 102/70 92 L 07/19/17 06:04 93 23 07/19/17 06:00 80 24 102/70 96 07/19/17 05:30 95 23 102/70 97 07/19/17 05:00 77 18 104/75 97 07/19/17 04:36 97.3 F L 96 20 104/75 97 07/19/17 04:30 95 18 109/79 95 07/19/17 03:00 104 H 18 115/79 97 07/19/17 02:00 98 187 H 111/78 97 07/19/17 01:44 98 F 93 16 120/70 95 07/19/17 01:00 99 20 115/89 96 07/19/17 00:00 102 H 20 116/88 95 07/18/17 23:00 115 H 20 124/99 97 07/18/17 22:48 103 H 20 117/78 97 07/18/17 21:48 98.4 F 127 H 18 117/82 89 L 07/18/17 21:40 97.8 F 134 H 24 100/76 91 L Intake and Output 07/18/17 07/19/17 07/19/17 22:59 06:59 14:59 Intake Total 65 2390 Output Total 275 Balance 65 2115 Intake: IV 65 2390 0.9 NACL 1575 Dextrose 5%-0.9% NaCl 1, 65 815 000 ml @ 65 mls/hr IV . [id number] [facility] Rx#:[id number] Output: Urine 275 Other: Voiding Method Diaper Diaper Weight 63.503 kg 63.503 kg 31-year-old male with evidence of the prior craniotomies HEENT: Anicteric conjunctiva are pink and moist nasal mucosa grossly intact without significant lesions, there is no thrushvisual around the endotracheal tube.the craniotomy scars are healed but there is distinct irregularity to the bony shape Neck: The neck is supple without significant lymphadenopathy or thyromegaly. Lungs: there is symmetrical air entry with bibasilar crackles no bronchial sounds are heard Heart: Regular rate and rhythm with an audible S1-S2, no S3 no S4. There is no significant murmur click or rub, PMI was nondisplaced. Abdomen: few bowel sounds, abdomen is firm but not rigid, no hepatosplenomegaly is noted. No palpable mass. Extremities: The upper extremities have excellent pulses they are symmetric, no significant petechiae or telangiectasia. No splinter hemorrhages were noted. The lower extremities are free from significant edema. The peripheral pulses were 2+ and symmetric. Neuro: the patient is intubated sedated and mechanically ventilated Results CBC & Chem 7: 07/19/17 05:49 07/19/17 05:49 Labs: Abnormal Lab Results - Last 24 Hours (Table) 07/18/17 07/18/17 07/18/17 Range/Units 22:03 22:03 23:12 WBC 14.0 H (3.8-10.6) k/uL Hgb 18.2 H (13.0-17.5) gm/dL Hct 55.3 H (39.0-53.0) % Plt Count (150-450) k/uL Neutrophils # 11.4 H (1.3-7.7) k/uL Lymphocytes # 0.9 L (1.0-4.8) k/uL Monocytes # 1.4 H (0-1.0) k/uL ABG pH (7.35-7.45) ABG pO2 (83-108) mmHg ABG O2 Saturation (94-97) % Chloride 110 H (98-107) mmol/L Carbon Dioxide 18 L (22-30) mmol/L Creatinine 0.50 L (0.66-1.25) mg/dL Glucose 120 H (74-99) mg/dL POC Glucose (mg/dL) (75-99) mg/dL Total Bilirubin 2.2 H (0.2-1.3) mg/dL ALT 81 H (21-72) U/L Ur Specific [place] (1.001-1.035) Urine Protein 1+ H (Negative) Urine Ketones 1+ H (Negative) Urine Blood (Negative) Ur Leukocyte Esterase (Negative) Urine RBC (0-5) /hpf Urine WBC (0-5) /hpf Urine Mucus Moderate H (None) /hpf Urine Sperm Occasional H (None) /hpf 07/19/17 07/19/17 07/19/17 Range/Units 04:35 05:49 05:49 WBC 12.0 H (3.8-10.6) k/uL Hgb (13.0-17.5) gm/dL Hct (39.0-53.0) % Plt Count 134 L (150-450) k/uL Neutrophils # 10.0 H (1.3-7.7) k/uL Lymphocytes # 0.7 L (1.0-4.8) k/uL Monocytes # (0-1.0) k/uL ABG pH (7.35-7.45) ABG pO2 (83-108) mmHg ABG O2 Saturation (94-97) % Chloride 108 H (98-107) mmol/L Carbon Dioxide (22-30) mmol/L Creatinine 0.50 L (0.66-1.25) mg/dL Glucose 134 H (74-99) mg/dL POC Glucose (mg/dL) 145 H (75-99) mg/dL Total Bilirubin (0.2-1.3) mg/dL ALT (21-72) U/L Ur Specific [place] (1.001-1.035) Urine Protein (Negative) Urine Ketones (Negative) Urine Blood (Negative) Ur Leukocyte Esterase (Negative) Urine RBC (0-5) /hpf Urine WBC (0-5) /hpf Urine Mucus (None) /hpf Urine Sperm (None) /hpf 07/19/17 07/19/17 Range/Units 07:42 08:32 WBC (3.8-10.6) k/uL Hgb (13.0-17.5) gm/dL Hct (39.0-53.0) % Plt Count (150-450) k/uL Neutrophils # (1.3-7.7) k/uL Lymphocytes # (1.0-4.8) k/uL Monocytes # (0-1.0) k/uL ABG pH 7.33 L (7.35-7.45) ABG pO2 280 H (83-108) mmHg ABG O2 Saturation 99.5 H (94-97) % Chloride (98-107) mmol/L Carbon Dioxide (22-30) mmol/L Creatinine (0.66-1.25) mg/dL Glucose (74-99) mg/dL POC Glucose (mg/dL) (75-99) mg/dL Total Bilirubin (0.2-1.3) mg/dL ALT (21-72) U/L Ur Specific [place] 1.040 H (1.001-1.035) Urine Protein 1+ H (Negative) Urine Ketones 1+ H (Negative) Urine Blood Large H (Negative) Ur Leukocyte Esterase Small H (Negative) Urine RBC >182 H (0-5) /hpf Urine WBC 60 H (0-5) /hpf Urine Mucus (None) /hpf Urine Sperm (None) /hpf Laboratory Results WBC 12.0 k/uL (3.8-10.6) H 07/19/17 05:49 RBC 5.21 m/uL (4.30-5.90) 07/19/17 05:49 Hgb 16.6 gm/dL (13.0-17.5) 07/19/17 05:49 Hct 50.3 % (39.0-53.0) 07/19/17 05:49 MCV 96.4 fL (80.0-100.0) 07/19/17 05:49 MCH 31.9 pg (25.0-35.0) 07/19/17 05:49 MCHC 33.1 g/dL (31.0-37.0) 07/19/17 05:49 RDW 14.6 % (11.5-15.5) 07/19/17 05:49 Plt Count 134 k/uL (150-450) L 07/19/17 05:49 Neutrophils % 84 % 07/19/17 05:49 Lymphocytes % 6 % 07/19/17 05:49 Monocytes % 9 % 07/19/17 05:49 Eosinophils % 0 % 07/19/17 05:49 Basophils % 0 % 07/19/17 05:49 Neutrophils # 10.0 k/uL (1.3-7.7) H 07/19/17 05:49 Lymphocytes # 0.7 k/uL (1.0-4.8) L 07/19/17 05:49 Monocytes # 1.0 k/uL (0-1.0) 07/19/17 05:49 Eosinophils # 0.0 k/uL (0-0.7) 07/19/17 05:49 Basophils # 0.0 k/uL (0-0.2) 07/19/17 05:49 Sample Site LRadial 07/19/17 07:42 ABG pH 7.33 (7.35-7.45) L 07/19/17 07:42 ABG pCO2 41 mmHg (35-45) 07/19/17 07:42 ABG pO2 280 mmHg (83-108) H 07/19/17 07:42 ABG HCO3 22 mmol/L (21-25) 07/19/17 07:42 ABG Total CO2 23 mmol/L (19-24) 07/19/17 07:42 ABG O2 Saturation 99.5 % (94-97) H 07/19/17 07:42 ABG Base Excess -4.3 mmol/L 07/19/17 07:42 Blas Test Yes 07/19/17 07:42 FiO2 100 % 07/19/17 07:42 Sodium 143 mmol/L (137-145) 07/19/17 05:49 Potassium 4.2 mmol/L (3.5-5.1) 07/19/17 05:49 Chloride 108 mmol/L (98-107) H 07/19/17 05:49 Carbon Dioxide 23 mmol/L (22-30) 07/19/17 05:49 Anion Gap 12 mmol/L 07/19/17 05:49 BUN 14 mg/dL (9-20) 07/19/17 05:49 Creatinine 0.50 mg/dL (0.66-1.25) L 07/19/17 05:49 Est GFR (CKD-EPI)AfAm >90 (>60 ml/min/1.73 sqM) 07/19/17 05:49 Est GFR (CKD-EPI)NonAf >90 (>60 ml/min/1.73 sqM) 07/19/17 05:49 Glucose 134 mg/dL (74-99) H 07/19/17 05:49 POC Glucose (mg/dL) 145 mg/dL (75-99) H 07/19/17 04:35 POC Glu Die Hardener ID 07/19/17 04:[address] Glu mg/dL 71 07/18/17 22:03 Hemoglobin A1c 4.1 % (4.0-6.0) 07/18/17 22:03 Plasma Lactic Acid [place] 1.6 mmol/L (0.7-2.0) 07/18/17 22:03 Calcium 9.0 mg/dL (8.4-10.2) 07/19/17 05:49 Phosphorus 3.2 mg/dL (2.5-4.5) 07/19/17 05:49 Magnesium 1.8 mg/dL (1.6-2.3) 07/19/17 05:49 Total Bilirubin 2.2 mg/dL (0.2-1.3) H 07/18/17 22:03 AST 53 U/L (17-59) 07/18/17 22:03 ALT 81 U/L (21-72) H 07/18/17 22:03 Alkaline Phosphatase 121 U/L (38-126) 07/18/17 22:03 Total Protein 7.3 g/dL (6.3-8.2) 07/18/17 22:03 Albumin 4.2 g/dL (3.5-5.0) 07/18/17 22:03 Amylase 54 U/L (30-110) 07/18/17 22:03 Lipase 71 U/L (23-300) 07/18/17 22:03 Urine Color Dark Brown 07/19/17 08:32 Urine Appearance Cloudy (Clear) 07/19/17 08:32 Urine pH 5.5 (5.0-8.0) 07/19/17 08:32 Ur Specific [place] 1.040 (1.001-1.035) H 07/19/17 08:32 Urine Protein 1+ (Negative) H 07/19/17 08:32 Urine Glucose (UA) Negative (Negative) 07/19/17 08:32 Urine Ketones 1+ (Negative) H 07/19/17 08:32 Urine Blood Large (Negative) H 07/19/17 08:32 Urine Nitrite Negative (Negative) 07/19/17 08:32 Urine Bilirubin Negative (Negative) 07/19/17 08:32 Urine Urobilinogen 2.0 mg/dL (<2.0) 07/19/17 08:32 Ur Leukocyte Esterase Small (Negative) H 07/19/17 08:32 Urine RBC >182 /hpf (0-5) H 07/19/17 08:32 Urine WBC 60 /hpf (0-5) H 07/19/17 08:32 Urine Mucus Moderate /hpf (None) H 07/18/17 23:12 Urine Sperm Occasional /hpf (None) H 07/18/17 23:12 Assessment and Plan (1) Abdominal pain Narrative/Plan: 31-year-old male with history of brain tumor cared for by his family and home over the years presents to the emergency center with a couple day history of abdominal pain. Associated with this there was some difficulties with his tube feeds and that in a couple of days before admission he seemed to have some retching and discomfort with the tube feeds. Of note upon care in the intensive care unit his PEG tube has spontaneously fallen out and surgery has been called for further evaluation. Concerns at this time will be for underlying sepsis as the etiology of his respiratory failure. There is concern he could have aspiration pneumonia. The computed tomography scan does reveal evidence of some inflammation of the abdominal cavity consistent with some peritonitis but no evidence of any [place] free air or ruptured viscus. Antibiotic therapy with Zosyn will be utilized at this time. The metronidazole may be discontinued at the third dose if he has further improvement. The patient had a temperature of 97.5 which the family relates is quite high for him. Concern that could be part of his underlying sepsis. Also with his adrenal insufficiency with the concerns that he needs further steroid supplementation and hydrocortisone 100 mg twice per day as requested at this time with a dose now. He be further followed by critical care. Blood cultures are requested Sputum and urine cultures are in process The case is discussed with the mother who was present Surgical consultation will be occurring. Current Visit: Yes Status: Acute Code(s): R10.9 - UNSPECIFIED ABDOMINAL PAIN SNOMED Code(s): 85317271 (2) Peritonitis Current Visit: Yes Status: Acute Code(s): K65.9 - PERITONITIS, UNSPECIFIED SNOMED Code(s): 17874121 (3) Adrenal insufficiency Current Visit: Yes Status: Acute Code(s): E27.40 - UNSPECIFIED ADRENOCORTICAL INSUFFICIENCY SNOMED Code(s): 487308516 (4) Respiratory failure Current Visit: Yes Status: Acute Code(s): J96.90 - RESPIRATORY FAILURE, UNSP , UNSP W HYPOXIA OR HYPERCAPNIA SNOMED Code(s): 224360702
[2017-07-19] MEDS: HYDROCORTISONE SUCCINATE 100 MG/2 ML VIAL IV SCH ×2 (15:41→21:21)
[2017-07-19] MEDS ORDERED: CEFDINIR ORAL SUSP 1,500 MG/60 ML BOTTLE PO STA (15:50)
[2017-07-19] MEDS: PIPERACILLIN-TAZOBACTAM 3.375 GM in DEXTROSE/WATER 1 50ML.BAG IVPB SCH (16:08)
--- NOTE | 2017-07-19 16:11 | P.GSHP ---
History of Present Illness H&P Date: 07/19/17 Chief Complaint: Abdominal pain Patient is a 31-year-old male with a history of meningioma requiring 3 separate ventriculoperitoneal shunts in the past. Last shunt revision 4 years ago. Most of his neurosurgical care is through [facility] at this time. He apparently has a history of chronic constipation. He has in the past on 30 days between bowel movements. Last week he was constipated but finally did have a bowel movement on Saturday. This was large per the family. Her last 2 days or so the family noticed his abdomen and be more distended and he appeared to be having some discomfort. He was having some difficulty with discomfort with standing. The patient is nonverbal although there is some communication made to his family that they comprehend. His heart rate was noted to be elevated. He was found have an elevated white blood cell count on arrival. He has been afebrile although does not mild fevers normally as a result of his neurosurgical issues. He has a 14-[place]oz[place] PEG tube which is a balloon KALYAN. This fell out accidentally ironically while he was in the ICU. They have not been having issues with his tube feeds. No vomiting described. Patient underwent CAT scan abdomen and pelvis. CAT scan shows 3 shunts entering the upper abdomen extending into the pelvis. There are fluid collections adjacent to the distal sigmoid proximal rectum that seemed to be related to the INSTALLATION AND SERVICE TECHNICIAN shunts. This portion of colon is showing evidence of inflammation with wall thickening. The bowel was collapsed at this point making it somewhat difficult to evaluate fully. The proximal sigmoid and distal rectum both appear normal however. There is some haziness in the fat in the pelvis adjacent to the colon at that location. There is no evidence of pneumoperitoneum seen. I first evaluated the patient's morning around 7 AM. The patient was having some degree of respiratory distress which necessitated intubation subsequently. Patient was tachycardic again this morning with low urine output although heart rate now in the 70s with clearish urine currently. Lactic acid was normal. No aspiration was identified however aspiration pneumonia is part of the working diagnosis currently. Patient apparently has recurrent meningiomas that may require upcoming intervention by neurosurgery. Patient's family would like to hold off on transfer to [facility] if possible. - Review of Systems ROS unobtainable: Reports: due to mental status Past Medical History Past Medical History: Cancer, CVA/TIA, Seizure Disorder Additional Past Medical History / Comment(s): brain tumor, spinal cord tumor, seizure, HYPOTHERMIA R/T BRAIN TUMOR, 2 newly diagnosed brain tumors per mother (07/19/17) History of Any Multi-Drug Resistant Organisms: None Reported Past Surgical History: Ventriculoperitoneal Shunt Additional Past Surgical History / Comment(s): peg tube, vp respiratory shunt, BRAIN, SPINAL CORD Past Anesthesia/Blood Transfusion Reactions: No Reported Reaction Past Psychological History: No Psychological Hx Reported Additional Psychological History / Comment(s): care for by the family and the family home. Apparently when he is well he can be up and ambulating. He does have the ability to communicate somewhat. there is no travel, no history, no animal exposures, no tobacco or alcohol use Smoking Status: Never smoker Past Alcohol Use History: None Reported Past Drug Use History: None Reported Medications and Allergies Home Medications Medication Instructions Recorded Confirmed Type Hydrocortisone [Cortef] 10 mg PEG/G-TUBE BID 07/07/13 07/18/17 History lamoTRIgine [LaMICtal] 25 mg PEG/G-TUBE HS 07/07/13 07/18/17 History Allergies Allergy/AdvReac Type Severity Reaction Status Date / Time docusate sodium [From Colace] Allergy Rash/Hives Verified 07/18/17 22:21 lansoprazole [From Prevacid] Allergy Unknown Verified 07/18/17 22:21 metoclopramide HCl Allergy Unknown Verified 07/18/17 22:21 [From Reglan] peanut Allergy Rash/Hives Verified 07/18/17 22:21 Surgical - Exam Vital Signs Temp Pulse Resp BP Pulse Ox 97.8 F 134 H 24 100/76 91 L 07/18/17 21:40 07/18/17 21:40 07/18/17 21:40 07/18/17 21:40 07/18/17 21:40 Physical exam: General: Well-developed, well-nourished HEENT: Normocephalic, sclerae nonicteric, multiple scalp incision scars Abdomen: Distended, lower abdominal tenderness appreciated, no masses or hernias noted, prior scars from shunts noted Extremities: No edema Neuro: Prior to intubation patient was arousable Results - Labs 07/19/17 05:49 07/19/17 05:49 Abnormal Lab Results - Last 24 Hours (Table) 07/18/17 07/18/17 07/18/17 Range/Units 22:03 22:03 23:12 WBC 14.0 H (3.8-10.6) k/uL Hgb 18.2 H (13.0-17.5) gm/dL Hct 55.3 H (39.0-53.0) % Plt Count (150-450) k/uL Neutrophils # 11.4 H (1.3-7.7) k/uL Lymphocytes # 0.9 L (1.0-4.8) k/uL Monocytes # 1.4 H (0-1.0) k/uL ABG pH (7.35-7.45) ABG pO2 (83-108) mmHg ABG O2 Saturation (94-97) % Chloride 110 H (98-107) mmol/L Carbon Dioxide 18 L (22-30) mmol/L Creatinine 0.50 L (0.66-1.25) mg/dL Glucose 120 H (74-99) mg/dL POC Glucose (mg/dL) (75-99) mg/dL Total Bilirubin 2.2 H (0.2-1.3) mg/dL ALT 81 H (21-72) U/L Ur Specific Banks (1.001-1.035) Urine Protein 1+ H (Negative) Urine Ketones 1+ H (Negative) Urine Blood (Negative) Ur Leukocyte Esterase (Negative) Urine RBC (0-5) /hpf Urine WBC (0-5) /hpf Urine Mucus Moderate H (None) /hpf Urine Sperm Occasional H (None) /hpf 07/19/17 07/19/17 07/19/17 Range/Units 04:35 05:49 05:49 WBC 12.0 H (3.8-10.6) k/uL Hgb (13.0-17.5) gm/dL Hct (39.0-53.0) % Plt Count 134 L (150-450) k/uL Neutrophils # 10.0 H (1.3-7.7) k/uL Lymphocytes # 0.7 L (1.0-4.8) k/uL Monocytes # (0-1.0) k/uL ABG pH (7.35-7.45) ABG pO2 (83-108) mmHg ABG O2 Saturation (94-97) % Chloride 108 H (98-107) mmol/L Carbon Dioxide (22-30) mmol/L Creatinine 0.50 L (0.66-1.25) mg/dL Glucose 134 H (74-99) mg/dL POC Glucose (mg/dL) 145 H (75-99) mg/dL Total Bilirubin (0.2-1.3) mg/dL ALT (21-72) U/L Ur Specific [place] (1.001-1.035) Urine Protein (Negative) Urine Ketones (Negative) Urine Blood (Negative) Ur Leukocyte Esterase (Negative) Urine RBC (0-5) /hpf Urine WBC (0-5) /hpf Urine Mucus (None) /hpf Urine Sperm (None) /hpf 07/19/17 07/19/17 Range/Units 07:42 08:32 WBC (3.8-10.6) k/uL Hgb (13.0-17.5) gm/dL Hct (39.0-53.0) % Plt Count (150-450) k/uL Neutrophils # (1.3-7.7) k/uL Lymphocytes # (1.0-4.8) k/uL Monocytes # (0-1.0) k/uL ABG pH 7.33 L (7.35-7.45) ABG pO2 280 H (83-108) mmHg ABG O2 Saturation 99.5 H (94-97) % Chloride (98-107) mmol/L Carbon Dioxide (22-30) mmol/L Creatinine (0.66-1.25) mg/dL Glucose (74-99) mg/dL POC Glucose (mg/dL) (75-99) mg/dL Total Bilirubin (0.2-1.3) mg/dL ALT (21-72) U/L Ur Specific [place] 1.040 H (1.001-1.035) Urine Protein 1+ H (Negative) Urine Ketones 1+ H (Negative) Urine Blood Large H (Negative) Ur Leukocyte Esterase Small H (Negative) Urine RBC >182 H (0-5) /hpf Urine WBC 60 H (0-5) /hpf Urine Mucus (None) /hpf Urine Sperm (None) /hpf Microbiology - Last 24 Hours (Table) 07/19/17 08:32 Urine Culture - Preliminary Urine,Catheterized Diabetes panel 07/18/17 07/18/17 07/19/17 Range/Units 22:03 22:03 05:49 Sodium 145 143 (137-145) mmol/L Potassium 4.0 4.2 (3.5-5.1) mmol/L Chloride 110 H 108 H (98-107) mmol/L Carbon Dioxide 18 L 23 (22-30) mmol/L BUN 15 14 (9-20) mg/dL Creatinine 0.50 L 0.50 L (0.66-1.25) mg/dL Glucose 120 H 134 H (74-99) mg/dL Hemoglobin A1c 4.1 (4.0-6.0) % Calcium 10.1 9.0 (8.4-10.2) mg/dL AST 53 (17-59) U/L ALT 81 H (21-72) U/L Alkaline Phosphatase 121 (38-126) U/L Total Protein 7.3 (6.3-8.2) g/dL Albumin 4.2 (3.5-5.0) g/dL Calcium panel 07/18/17 07/19/17 Range/Units 22:03 05:49 Calcium 10.1 9.0 (8.4-10.2) mg/dL Phosphorus 3.2 (2.5-4.5) mg/dL Albumin 4.2 (3.5-5.0) g/dL Pituitary panel 07/18/17 07/19/17 Range/Units 22:03 05:49 Sodium 145 143 (137-145) mmol/L Potassium 4.0 4.2 (3.5-5.1) mmol/L Chloride 110 H 108 H (98-107) mmol/L Carbon Dioxide 18 L 23 (22-30) mmol/L BUN 15 14 (9-20) mg/dL Creatinine 0.50 L 0.50 L (0.66-1.25) mg/dL Glucose 120 H 134 H (74-99) mg/dL Calcium 10.1 9.0 (8.4-10.2) mg/dL Adrenal panel 07/18/17 07/19/17 Range/Units 22:03 05:49 Sodium 145 143 (137-145) mmol/L Potassium 4.0 4.2 (3.5-5.1) mmol/L Chloride 110 H 108 H (98-107) mmol/L Carbon Dioxide 18 L 23 (22-30) mmol/L BUN 15 14 (9-20) mg/dL Creatinine 0.50 L 0.50 L (0.66-1.25) mg/dL Glucose 120 H 134 H (74-99) mg/dL Calcium 10.1 9.0 (8.4-10.2) mg/dL Total Bilirubin 2.2 H (0.2-1.3) mg/dL AST 53 (17-59) U/L ALT 81 H (21-72) U/L Alkaline Phosphatase 121 (38-126) U/L Total Protein 7.3 (6.3-8.2) g/dL Albumin 4.2 (3.5-5.0) g/dL Assessment and Plan (1) Abdominal pain Narrative/Plan: Patient with evidence of inflammatory changes in the pelvis along with abdominal pain. No definite perforation identified on recent CAT scan. Advise supportive care with IV antibiotics. Appreciate infectious disease input. Case was discussed by phone with Dr. Bowen. Continue ventilatory support and pulmonary consultation. Monitor hemodynamics. Repeat labs tomorrow. [place]- term follow-up CAT scan tenderly plan for Saturday or Saturday. If surgery is felt to be indicated would recommend evaluation at [facility] even the proximity of the INSTALLATION AND SERVICE TECHNICIAN shunt's to the area of inflammatory change. This was discussed with the family in detail. Current Visit: Yes Status: Acute Code(s): R10.9 - UNSPECIFIED ABDOMINAL PAIN SNOMED Code(s): 72164177
[2017-07-19] MEDS ORDERED: IOPAMIDOL-300 CONTRAST 30 ML VIAL (ORAL USE) PO ONE (16:15)
--- NOTE | 2017-07-19 16:33 | XR ---
EXAMINATION TYPE: XR abdomen 1V DATE OF EXAM: 07/19/2017 COMPARISON: NONE INDICATION: PEG tube placement TECHNIQUE: Single view abdomen supine view FINDINGS: Abundant bowel gas is present. Fecal debris is in the ascending colon. Psoas margins are normal. No organomegaly is present. Contrast is within a catheter. Contrast within the abdomen is within the stomach and duodenum. Shunt catheters are present within the abdomen as well. IMPRESSION: 1. Contrast appears to extend from the stomach into the duodenum. No extravasation of contrast is dago dent.
[2017-07-19] MEDS: NOREPINEPHRIN 4 MG-0.9% NS PMX 4 MG/250 ML ML IV SCH (17:28)
[2017-07-19] MEDS: SODIUM CHLORIDE 0.9% 1,000 ML IV SCH (17:30)
[2017-07-19] MEDS: CHLORHEXIDINE GLUCONATE 15 ML CUP MUCOUS MEM SCH (21:21)
[2017-07-20] MEDS: PIPERACILLIN-TAZOBACTAM 3.375 GM in DEXTROSE/WATER 1 50ML.BAG IVPB SCH ×3 (01:07→15:55)
[2017-07-20] MEDS: HEPARIN SODIUM,PORCINE 5,000 UNIT/ML 1 ML VIAL SQ SCH ×3 (01:07→15:56)
[2017-07-20] MEDS: SODIUM CHLORIDE 0.9% 1,000 ML IV SCH (01:08)
[2017-07-20] MEDS: metroNIDAZOLE-NS PMX 500 MG in SALINE 1 100ML.BAG IVPB SCH ×4 (02:04→20:43)
[2017-07-20 04:49] LABS: Basophils % (A) 0 %; Eosinophils % (A) 0 %; Lymphocytes # (A) 0.7 k/uL (1.0-4.8); Lymphocytes % (A) 6 %; MCH 32.3 pg (25.0-35.0); MCHC 32.9 g/dL (31.0-37.0); MCV 98.2 fL (80.0-100.0); Mean Platelet Volume 10.5; Monocytes # (A) 0.5 k/uL (0-1.0); Monocytes % (A) 4 %; Neutrophils # (A) 9.3 k/uL (1.3-7.7); Neutrophils % (A) 88 %; Platelet Count 132 k/uL (150-450); RBC 3.97 m/uL (4.30-5.90); RDW 14.3 % (11.5-15.5); WBC 10.6 k/uL (3.8-10.6)
[2017-07-20 05:00] LABS: Anion Gap 10 mmol/L; Blood Urea Nitrogen 8 mg/dL (9-20); Calcium 8.1 mg/dL (8.4-10.2); Carbon Dioxide 20 mmol/L (22-30); Glucose 123 mg/dL (74-99); Magnesium 2.2 mg/dL (1.6-2.3); Phosphorus 2.1 mg/dL (2.5-4.5); Potassium 3.6 mmol/L (3.5-5.1); Sodium 151 mmol/L (137-145)
[2017-07-20 05:02] LABS: Chloride 121 mmol/L (98-107)
[2017-07-20 05:10] LABS: HGB 12.8 gm/dL (13.0-17.5)
[2017-07-20 05:38] LABS: ABG HCO3 20 mmol/L (21-25); ABG Oxygen Saturation 99.1 % (94-97); ABG PCO2 40 mmHg (35-45); ABG PH 7.31 (7.35-7.45); ABG PO2 161 mmHg (83-108); ABG TCO2 21 mmol/L (19-24)
[2017-07-20 06:53] LABS: Glucose,Whole Blood 117 mg/dL (75-99)
--- NOTE | 2017-07-20 07:20 | XR ---
EXAMINATION TYPE: XR chest 1V portable DATE OF EXAM: 07/20/2017 COMPARISON: 07/19/2017 HISTORY: Ventilatory dependent respiratory failure TECHNIQUE: Single frontal view of the chest is obtained. FINDINGS: Endotracheal tube has been slightly advanced in the interim and is appropriately placed te rminating at the level aortic arch. Enteric tube has its fenestrated portion coursing beyond the michael roesophageal junction and is appropriately placed. The previously seen left midlung atelectasis has r esolved. Overall the lungs are clear. Multiple ventriculoperitoneal shunts are unchanged. Osseous str uctures appear intact. Cardia mediastinal silhouette is within normal limits of size. IMPRESSION: Improved aeration of the lungs. No focal consolidation.
[2017-07-20] MEDS: CHLORHEXIDINE GLUCONATE 15 ML CUP MUCOUS MEM SCH (08:29)
[2017-07-20] MEDS: HYDROCORTISONE SUCCINATE 100 MG/2 ML VIAL IV SCH ×3 (09:18→20:43)
[2017-07-20] MEDS ORDERED: Phosphorus Replacement Protoco 1 EACH MISC MISCELLANE PRN (12:22)
[2017-07-20] MEDS ORDERED: Potassium Replacement Protocol 1 EACH MISC MISCELLANE PRN (12:22)
[2017-07-20 12:49] LABS: Glucose,Whole Blood 95 mg/dL (75-99)
[2017-07-20] MEDS ORDERED: POTASSIUM PHOSPHATE 10 MMOL in SODIUM CHLORIDE 0.9% 250 ML IV ONE (13:00)
[2017-07-20] MEDS: SCOPOLAMINE 1.5MG/72HR PATCH TRANSDERM SCH (13:02)
[2017-07-20] MEDS: POTASSIUM CHLORIDE 10 MEQ in WATER FOR INJECTION 1 100ML.BAG IVPB SCH ×2 (13:08→15:13)
[2017-07-20] MEDS: DEXTROSE 5% IN WATER 1,000 ML IV SCH (13:09)
[2017-07-20] MEDS: NOREPINEPHRIN 4 MG-0.9% NS PMX 4 MG/250 ML ML IV SCH (13:15)
[2017-07-20] MEDS: HYDROCORTISONE 10 MG TAB PEG/G-TUBE SCH (14:20)
[2017-07-20 14:29] LABS: ABG Base Excess -0.1 mmol/L; ABG HCO3 25 mmol/L (21-25); ABG PCO2 38 mmHg (35-45); ABG PH 7.41 (7.35-7.45); ABG PO2 255 mmHg (83-108); ABG TCO2 26 mmol/L (19-24)
--- NOTE | 2017-07-20 14:33 | P.CNPUL ---
History of Present Illness Consult date: 07/19/17 (Late entry note, critical care time spend 60 min) Reason for consult: dyspnea, hypoxemia, other Chief complaint: Abdominal discomfort and pain, respiratory failure History of present illness: 31-year-old male who presented into the hospital with abdominal discomfort and pain started about a day to prior coming to the hospital, patient underwent a computed tomography scan of the abdomen pelvis in emergency department found to have evidence of peritonitis no evidence of acute abdomen however has been noted patient admitted into the ICU under service of Dr. Temple, in ICU patient initially was on 2 L oxygen however has been noted to excessive amount of oral secretions in respiratory secretions with gurgling sounds oxygen saturation continue to drop down on and in spite of increasing the fractional inspired oxygen at 100% patient becomes very tachypneic tachycardic and eventually was intubated for airway protection, labs reviewed computed tomography scan of the chest reviewed and medications reviewed as well along with radiographic studies. Data predominantly obtained from the chart as well as the father present at bedside. Patient has a significant history of brain tumors with multiple resections in the past in his early years due to intracranial hypertension patient underwent a MAMMOGRAPHER shunt a year ago patient developed acute stroke as well since then patient is extremely predispose to infections, patient has a spontaneously breathing but has problems associated with swallowing dysfunction requiring suctioning of the mouth he also has a PEG tube , patient does follow up at [facility] Patient presents to the emergency center because of family became concerned that he was having increasing abdominal pain, difficulty with nutrition and that when they were feeding him through his PEG tube he seemed to be having some discomfort and retching. He apparently normally has some difficulties with some constipation and they do utilize a bowel program with enema. Apparently no recent stooling and with the abdominal discomforts was brought to the emergency center. The patient did appear to be ill, was found evidence of a leukocytosis. His temperature was 97 for which the parents relate is quite high for him because he has temperature regulation difficulties after his brain tumor and radiation. The patient was admitted to hospital and to the intensive care unit with concerns to peritonitis with a computed tomography scan showing evidence of some inflammation of the abdomen and with the 2 ventriculoperitoneal shunts present cause concern. With a relatively short period of time the patient had rapid onset of respiratory failure necessitating intubation with mechanical ventilation and some sedation. Of note his PEG tube also dislodged spontaneously, the family relates this has happened multiple times over the years. During evaluation in that the patient in the ICU he is post intubated on propofol drip currently when setting includes assist control rate of 14 breathing 14, tidal volume is 400, 100% oxygen, PEEP of 5, patient has a Rodriguez' s catheter with very minimal urine output patient is also on propofol drip, IV fluids are being given D5 normal saline a liter has been given currently patient is on 100 mL an hour PEG tube site is intact Review of Systems All systems: negative Past Medical History Past Medical History: Cancer, CVA/TIA, Seizure Disorder Additional Past Medical History / Comment(s): brain tumor, spinal cord tumor, seizure, HYPOTHERMIA R/T BRAIN TUMOR, 2 newly diagnosed brain tumors per mother (07/19/17) History of Any Multi-Drug Resistant Organisms: None Reported Past Surgical History: Ventriculoperitoneal Shunt Additional Past Surgical History / Comment(s): peg tube, global vp creative + content marketing shunt, BRAIN, SPINAL CORD Past Anesthesia/Blood Transfusion Reactions: No Reported Reaction Past Psychological History: No Psychological Hx Reported Additional Psychological History / Comment(s): care for by the family and the family home. Apparently when he is well he can be up and ambulating. He does have the ability to communicate somewhat. there is no travel, no history, no animal exposures, no tobacco or alcohol use Smoking Status: Never smoker Past Alcohol Use History: None Reported Past Drug Use History: None Reported Medications and Allergies Home Medications Medication Instructions Recorded Confirmed Type Hydrocortisone [Cortef] 10 mg PEG/G-TUBE BID 07/07/13 07/18/17 History lamoTRIgine [LaMICtal] 25 mg PEG/G-TUBE HS 07/07/13 07/18/17 History Allergies Allergy/AdvReac Type Severity Reaction Status Date / Time docusate sodium [From Colace] Allergy Rash/Hives Verified 07/18/17 22:21 lansoprazole [From Prevacid] Allergy Unknown Verified 07/18/17 22:21 metoclopramide HCl Allergy Unknown Verified 07/18/17 22:21 [From Reglan] peanut Allergy Rash/Hives Verified 07/18/17 22:21 Physical Exam Vitals: Vital Signs Temp Pulse Pulse Resp BP Pulse Ox 07/20/17 13:00 72 19 105/79 97 07/20/17 12:30 58 L 15 90/58 97 07/20/17 12:00 97.9 F 56 L 14 92/56 97 07/20/17 11:30 56 L 14 92/56 96 07/20/17 11:00 97.6 F 64 14 97/51 96 07/20/17 10:30 63 14 95/55 95 07/20/17 10:00 94 F L 85 14 103/64 96 07/20/17 09:30 92 14 101/72 88 L 07/20/17 09:00 63 14 107/78 98 07/20/17 08:30 93.9 F L 59 L 14 115/81 99 07/20/17 08:00 39 L 14 104/66 99 07/20/17 07:30 40 L 14 112/69 99 07/20/17 07:00 42 L 14 119/64 99 07/20/17 06:30 45 L 14 107/63 98 07/20/17 06:00 45 L 14 97/65 99 07/20/17 05:30 43 L 14 97/65 99 07/20/17 05:00 46 L 14 91/60 99 07/20/17 04:30 46 L 14 94/57 99 07/20/17 04:00 97.6 F 49 L 14 95/62 100 07/20/17 03:30 50 L 14 111/73 99 07/20/17 03:00 49 L 14 100/70 99 07/20/17 02:30 67 14 89/54 100 07/20/17 02:00 47 L 14 89/54 99 07/20/17 01:30 47 L 14 110/70 99 07/20/17 01:00 50 L 14 100/60 100 07/20/17 00:30 51 L 14 95/60 100 07/20/17 00:00 97.8 F 56 L 14 99/59 100 07/19/17 23:30 51 L 14 107/67 100 07/19/17 23:00 51 L 14 95/62 99 07/19/17 22:30 52 L 14 96/61 99 07/19/17 22:00 54 L 14 100/63 99 07/19/17 21:30 59 L 14 98/74 99 07/19/17 21:00 60 14 108/75 99 07/19/17 20:30 63 14 96/63 99 07/19/17 20:00 97.6 F 59 L 14 96/65 99 07/19/17 19:30 61 14 95/60 99 07/19/17 19:00 92 22 93/73 98 07/19/17 18:30 67 13 92/63 99 07/19/17 18:00 69 13 92/63 99 07/19/17 17:30 70 13 93/63 99 07/19/17 17:00 65 14 89/61 99 07/19/17 16:30 80 13 92/64 98 07/19/17 16:00 97.6 F 79 93 14 91/62 98 07/19/17 15:30 78 14 95/66 100 07/19/17 15:00 77 14 86/61 99 07/19/17 14:30 91 13 76/57 98 Intake and Output 07/19/17 07/20/17 07/20/17 22:59 06:59 14:59 Intake Total 1411.44 1350.0 788.56 Output Total 925 465 502 Balance 486.44 885.0 286.56 Intake: IV 1350 1350.0 450 0.9 NACL 1200 1200 350 Piperacillin-Tazobactam 3 50 50.0 .375 gm In Dextrose/Water 1 50ml.bag @ 12.5 mls/hr IVPB Q8HR [facility] Rx#: [id number] metroNIDAZOLE-NS PMX 500 100 100 mg In Saline 1 100ml.bag @ 100 mls/hr IVPB [facility] Rx#:[id number] metroNIDAZOLE-NS PMX 500 100 mg In Saline 1 100ml.bag @ 100 mls/hr IVPB Q6H [facility] Rx#:[id number] Intake, IV Titration 61.44 338.56 Amount Norepinephrin 4 mg-0.9% 250 Ns Pmx 4 mg In 250 ml @ Titrate IV .Q0M [facility] Rx#: [id number] Piperacillin-Tazobactam 3 50.0 .375 gm In Dextrose/Water 1 50ml.bag @ 12.5 mls/hr IVPB Q8HR [facility] Rx#: [id number] Propofol 1,000 mg In 61.44 38.56 Empty Bag 1 bag @ Titrate IV .Q0M [facility] Rx#: [id number] Output: Gastric Drainage 50 Urine [id number] Other: Voiding Method Indwelling Catheter Indwelling Catheter Indwelling Catheter Weight 69.6 kg - Constitutional General appearance: mild distress, no acute distress, obese - EENT Evidence of prior multiple brain surgeries, detailed exam couldn't be performed Eyes: anicteric sclerae, PERRLA, poor dentition Ears: bilateral: normal - Neck Neck: normal ROM Thyroid: bilateral: normal size - Respiratory Respiratory: bilateral: CTA - Cardiovascular Heart sounds: normal: S1, S2 - Gastrointestinal General gastrointestinal: decreased bowel sounds, distended, tenderness - Integumentary Integumentary: decreased turgor - Neurologic Detailed neurological examination couldn't be performed as patient intubated on respirator with full support - Psychiatric Sedated with propofol drip on ventilator Results - Laboratory Findings CBC and BMP: 07/20/17 04:12 07/20/17 04:12 ABG ABG pH 7.31 (7.35-7.45) L 07/20/17 05:32 ABG pCO2 40 mmHg (35-45) 07/20/17 05:32 ABG pO2 161 mmHg (83-108) H 07/20/17 05:32 ABG O2 Saturation 99.1 % (94-97) H 07/20/17 05:32 Abnormal lab findings: Abnormal Labs 07/18/17 07/18/17 07/18/17 22:03 22:03 23:12 WBC 14.0 H RBC Hgb 18.2 H Hct 55.3 H Plt Count Neutrophils # 11.4 H Lymphocytes # 0.9 L Monocytes # 1.4 H ABG pH ABG pO2 ABG HCO3 ABG O2 Saturation Sodium Chloride 110 H Carbon Dioxide 18 L BUN Creatinine 0.50 L Glucose 120 H POC Glucose (mg/dL) Calcium Phosphorus Total Bilirubin 2.2 H ALT 81 H Ur Specific [place] Urine Protein 1+ H Urine Ketones 1+ H Urine Blood Ur Leukocyte Esterase Urine RBC Urine WBC Urine Mucus Moderate H Urine Sperm Occasional H 07/19/17 07/19/17 07/19/17 04:35 05:49 05:49 WBC 12.0 H RBC Hgb Hct Plt Count 134 L Neutrophils # 10.0 H Lymphocytes # 0.7 L Monocytes # ABG pH ABG pO2 ABG HCO3 ABG O2 Saturation Sodium Chloride 108 H Carbon Dioxide BUN Creatinine 0.50 L Glucose 134 H POC Glucose (mg/dL) 145 H Calcium Phosphorus Total Bilirubin ALT Ur Specific [place] Urine Protein Urine Ketones Urine Blood Ur Leukocyte Esterase Urine RBC Urine WBC Urine Mucus Urine Sperm 07/19/17 07/19/17 07/20/17 07:42 08:32 04:12 WBC RBC 3.97 L Hgb 12.8 L D Hct Plt Count 132 L Neutrophils # 9.3 H Lymphocytes # 0.7 L Monocytes # ABG pH 7.33 L ABG pO2 280 H ABG HCO3 ABG O2 Saturation 99.5 H Sodium Chloride Carbon Dioxide BUN Creatinine Glucose POC Glucose (mg/dL) Calcium Phosphorus Total Bilirubin ALT Ur Specific [place] 1.040 H Urine Protein 1+ H Urine Ketones 1+ H Urine Blood Large H Ur Leukocyte Esterase Small H Urine RBC >182 H Urine WBC 60 H Urine Mucus Urine Sperm 07/20/17 07/20/17 07/20/17 04:12 05:32 06:51 WBC RBC Hgb Hct Plt Count Neutrophils # Lymphocytes # Monocytes # ABG pH 7.31 L ABG pO2 161 H ABG HCO3 20 L ABG O2 Saturation 99.1 H Sodium 151 H Chloride 121 H* Carbon Dioxide 20 L BUN 8 L Creatinine 0.40 L Glucose 123 H POC Glucose (mg/dL) 117 H Calcium 8.1 L Phosphorus 2.1 L Total Bilirubin ALT Ur Specific [place] Urine Protein Urine Ketones Urine Blood Ur Leukocyte Esterase Urine RBC Urine WBC Urine Mucus Urine Sperm - Diagnostic Findings Chest x-ray: report reviewed, image reviewed (Computed tomography scan of the abdominal and pelvis, acute abdominal series, multiple chest x-rays performed pre-and post intubation reviewed with findings as noted above) Assessment and Plan Assessment: Severe sepsis Acute peritonitis etiology not clear Acute hypoxic respiratory failure related to excessive amount of oral secretions and respiratory secretions was Ongoing severe sepsis Acute renal failure/oliguria related to above History of multiple brain tumors requiring resection and hydrocephalus Ammann status post MAMMOGRAPHER shunt History of recent stroke Metabolic acidosis related ongoing sepsis Plan: Ventilator support and adjust ventilator accordingly Broad-spectrum antibiotics at cephapirin 2 Flagyl Sedation with propofol as well as Ativan and morphine on as needed basis Fluid resuscitation and monitor renal functions closely Vasopressors as needed to keep the map over 65 Mchugh cultures including urine and blood and sputum DVT and peptic ulcer disease prophylaxis Further recommendations pending plan of care as per clinical response of patient care plan discussed with the staff Service as well as the family at length Critical care time spent 60 minutes Time with Patient: Greater than 30
--- NOTE | 2017-07-20 14:44 | P.PN ---
Subjective Progress Note Date: 07/20/17 Principal diagnosis: Severe sepsis, acute peritonitis, acute hypoxic respiratory failure, acute renal failure, brain tumor, high-grade S requiring ACADEMIC ADVISEMENT DIRECTOR shunt, history of stroke, severe profound metabolic acidosis, severe hypernatremia 07/20/2017, patient seen eval examined during the rounds clinically patient is is slightly stable in terms of hemodynamics but however continued to require low -dose vasopressors currently patient is on 6 mics of levo fed which is gradually being titrated down he is borderline bradycardic blood pressure is stable amount of oral secretions are slightly better, labs reviewed medications reviewed chest x-ray remains stable no new infiltrates are seen interstitial edema is seen, patient has been aggressively resuscitated with crystalloid, now adequate urine output has been noted. Labs reviewed medications reviewed sodium is up to 151 now renal functions remain stable, arterial blood gas and ventilator setting and data reviewed as well, mother is present at bedside care plan discussed with her at length as well 31-year-old male who presented into the hospital with abdominal discomfort and pain started about a day to prior coming to the hospital, patient underwent a computed tomography scan of the abdomen pelvis in emergency department found to have evidence of peritonitis no evidence of acute abdomen however has been noted patient admitted into the ICU under service of Dr. Temple, in ICU patient initially was on 2 L oxygen however has been noted to excessive amount of oral secretions in respiratory secretions with gurgling sounds oxygen saturation continue to drop down on and in spite of increasing the fractional inspired oxygen at 100% patient becomes very tachypneic tachycardic and eventually was intubated for airway protection, labs reviewed computed tomography scan of the chest reviewed and medications reviewed as well along with radiographic studies. Data predominantly obtained from the chart as well as the father present at bedside. Patient has a significant history of brain tumors with multiple resections in the past in his early years due to intracranial hypertension patient underwent a ACADEMIC ADVISEMENT DIRECTOR shunt a year ago patient developed acute stroke as well since then patient is extremely predispose to infections, patient has a spontaneously breathing but has problems associated with swallowing dysfunction requiring suctioning of the mouth he also has a PEG tube , patient does follow up at [facility] Patient presents to the emergency center because of family became concerned that he was having increasing abdominal pain, difficulty with nutrition and that when they were feeding him through his PEG tube he seemed to be having some discomfort and retching. He apparently normally has some difficulties with some constipation and they do utilize a bowel program with enema. Apparently no recent stooling and with the abdominal discomforts was brought to the emergency center. The patient did appear to be ill, was found evidence of a leukocytosis. His temperature was 97 for which the parents relate is quite high for him because he has temperature regulation difficulties after his brain tumor and radiation. The patient was admitted to hospital and to the intensive care unit with concerns to peritonitis with a computed tomography scan showing evidence of some inflammation of the abdomen and with the 2 ventriculoperitoneal shunts present cause concern. With a relatively short period of time the patient had rapid onset of respiratory failure necessitating intubation with mechanical ventilation and some sedation. Of note his PEG tube also dislodged spontaneously, the family relates this has happened multiple times over the years. During evaluation in that the patient in the ICU he is post intubated on propofol drip currently when setting includes assist control rate of 14 breathing 14, tidal volume is 400, 100% oxygen, PEEP of 5, patient has a Rodriguez' s catheter with very minimal urine output patient is also on propofol drip, IV fluids are being given D5 normal saline a liter has been given currently patient is on 100 mL an hour PEG tube site is intact Objective - Vital Signs Vital signs: Vital Signs Temp 97.9 F 07/20/17 12:00 Pulse 67 07/20/17 14:00 Resp 20 07/20/17 14:00 BP 116/82 07/20/17 14:00 Pulse Ox 95 07/20/17 14:00 Intake & Output 07/19/17 07/20/17 07/20/17 18:59 06:59 18:59 Intake Total 2990 2161.44 847.435 Output Total 750 915 712 Balance 2240 1246.44 135.435 Weight 63.503 kg 69.6 kg Intake: IV 2990 2100.0 500 0.9 NACL 2175 1800 350 Dextrose 5% in Water 1, 50 000 ml @ 50 mls/hr IV . Q20H [facility] Rx#:[id number] Dextrose 5%-0.9% NaCl 1, 815 000 ml @ 65 mls/hr IV . [id number] [facility] Rx#:[id number] Piperacillin-Tazobactam 3 100.0 .375 gm In Dextrose/Water 1 50ml.bag @ 12.5 mls/hr IVPB Q8HR [facility] Rx#: [id number] metroNIDAZOLE-NS PMX 500 200 mg In Saline 1 100ml.bag @ 100 mls/hr IVPB ONCE [facility] Rx#:[id number] metroNIDAZOLE-NS PMX 500 100 mg In Saline 1 100ml.bag @ 100 mls/hr IVPB Q6H [facility] Rx#:[id number] Intake, IV Titration 61.44 347.435 Amount Norepinephrin 4 mg-0.9% 258.875 Ns Pmx 4 mg In 250 ml @ Titrate IV .Q0M [facility] Rx#: [id number] Piperacillin-Tazobactam 3 50.0 .375 gm In Dextrose/Water 1 50ml.bag @ 12.5 mls/hr IVPB Q8HR [facility] Rx#: [id number] Propofol 1,000 mg In 61.44 38.56 Empty Bag 1 bag @ Titrate IV .Q0M [facility] Rx#: [id number] Output: Gastric Drainage 200 Urine 750 915 512 Other: Voiding Method Diaper Indwelling Catheter Indwelling Catheter - Exam - Constitutional General appearance: mild distress, no acute distress, obese - EENT Evidence of prior multiple brain surgeries, detailed exam couldn't be performed Eyes: anicteric sclerae, PERRLA, poor dentition Ears: bilateral: normal - Neck Neck: normal ROM Thyroid: bilateral: normal size - Respiratory Respiratory: bilateral: CTA - Cardiovascular Heart sounds: normal: S1, S2 - Gastrointestinal General gastrointestinal: decreased bowel sounds, distended, tenderness - Integumentary Integumentary: decreased turgor - Neurologic Detailed neurological examination couldn't be performed as patient intubated on respirator with full support - Psychiatric Sedated with propofol drip on ventilator - Labs CBC & Chem 7: 07/20/17 04:12 07/20/17 04:12 Labs: Abnormal Lab Results - Last 24 Hours (Table) 07/20/17 07/20/17 07/20/17 Range/Units 04:12 04:12 05:32 RBC 3.97 L (4.30-5.90) m/uL Hgb 12.8 L D (13.0-17.5) gm/dL Plt Count 132 L (150-450) k/uL Neutrophils # 9.3 H (1.3-7.7) k/uL Lymphocytes # 0.7 L (1.0-4.8) k/uL ABG pH 7.31 L (7.35-7.45) ABG pO2 161 H (83-108) mmHg ABG HCO3 20 L (21-25) mmol/L ABG O2 Saturation 99.1 H (94-97) % Sodium 151 H (137-145) mmol/L Chloride 121 H* (98-107) mmol/L Carbon Dioxide 20 L (22-30) mmol/L BUN 8 L (9-20) mg/dL Creatinine 0.40 L (0.66-1.25) mg/dL Glucose 123 H (74-99) mg/dL POC Glucose (mg/dL) (75-99) mg/dL Calcium 8.1 L (8.4-10.2) mg/dL Phosphorus 2.1 L (2.5-4.5) mg/dL 07/20/17 Range/Units 06:51 RBC (4.30-5.90) m/uL Hgb (13.0-17.5) gm/dL Plt Count (150-450) k/uL Neutrophils # (1.3-7.7) k/uL Lymphocytes # (1.0-4.8) k/uL ABG pH (7.35-7.45) ABG pO2 (83-108) mmHg ABG HCO3 (21-25) mmol/L ABG O2 Saturation (94-97) % Sodium (137-145) mmol/L Chloride (98-107) mmol/L Carbon Dioxide (22-30) mmol/L BUN (9-20) mg/dL Creatinine (0.66-1.25) mg/dL Glucose (74-99) mg/dL POC Glucose (mg/dL) 117 H (75-99) mg/dL Calcium (8.4-10.2) mg/dL Phosphorus (2.5-4.5) mg/dL Microbiology - Last 24 Hours (Table) 07/19/17 08:32 Urine Culture - Final Urine,Catheterized 07/19/17 08:22 Gram Stain - Preliminary Sputum Sputum Culture - Preliminary Pseudomonas spec Assessment and Plan Assessment: Severe sepsis Acute peritonitis etiology not clear Acute hypoxic respiratory failure related to excessive amount of oral secretions and respiratory secretions was Ongoing severe sepsis Acute renal failure/oliguria related to above History of multiple brain tumors requiring resection and hydrocephalus Ammann status post ACADEMIC ADVISEMENT DIRECTOR shunt History of recent stroke Metabolic acidosis related ongoing sepsis Plan: Ventilator support and adjust ventilator accordingly, will initiate weaning parameters taper down the sedation and put patient on CPAP and pressure support as tolerated and likely extubate Scopolamine patch H2 blockers in the form of Pepcid 20 mg IV every 12 Broad-spectrum antibiotics being adjusted by infectious disease services Follow up on culture results and report Monitor and observe off of sedation Taper and DC the levo fed drip Fluid resuscitation and monitor renal functions closely Vasopressors as needed to keep the map over 65 Mchugh cultures including urine and blood and sputum DVT and peptic ulcer disease prophylaxis Further recommendations pending plan of care as per clinical response of patient care plan discussed with the staff Discussed with the family at length Critical care time spent 35 minutes Time with Patient: Greater than 30
--- NOTE | 2017-07-20 15:05 | P.PN ---
Subjective Progress Note Date: 07/20/17 Principal diagnosis: Abdominal pain Patient has been doing well since last night. He did require some low-dose Levophed with the tip her band drip. His heart rate was also somewhat unusually low with the debridement however once it was held blood pressure and heart rate have improved. He was noted to be less distended. No bowel function. Going through weaning trials currently. Chest x-ray improved. White blood cell count improved as well. Objective - Vital Signs Vital signs: Vital Signs Temp 97.9 F 07/20/17 12:00 Pulse 67 07/20/17 14:00 Resp 20 07/20/17 14:00 BP 116/82 07/20/17 14:00 Pulse Ox 95 07/20/17 14:00 Intake & Output 07/19/17 07/20/17 07/20/17 18:59 06:59 18:59 Intake Total 2990 2161.44 847.435 Output Total 750 915 712 Balance 2240 1246.44 135.435 Weight 63.503 kg 69.6 kg Intake: IV 2990 2100.0 500 0.9 NACL 2175 1800 350 Dextrose 5% in Water 1, 50 000 ml @ 50 mls/hr IV . Q20H [facility] Rx#:[id number] Dextrose 5%-0.9% NaCl 1, 815 000 ml @ 65 mls/hr IV . [id number] [facility] Rx#:[id number] Piperacillin-Tazobactam 3 100.0 .375 gm In Dextrose/Water 1 50ml.bag @ 12.5 mls/hr IVPB Q8HR [facility] Rx#: [id number] metroNIDAZOLE-NS PMX 500 200 mg In Saline 1 100ml.bag @ 100 mls/hr IVPB ONCE [facility] Rx#:[id number] metroNIDAZOLE-NS PMX 500 100 mg In Saline 1 100ml.bag @ 100 mls/hr IVPB Q6H [facility] Rx#:[id number] Intake, IV Titration 61.44 347.435 Amount Norepinephrin 4 mg-0.9% 258.875 Ns Pmx 4 mg In 250 ml @ Titrate IV .Q0M [facility] Rx#: [id number] Piperacillin-Tazobactam 3 50.0 .375 gm In Dextrose/Water 1 50ml.bag @ 12.5 mls/hr IVPB Q8HR [facility] Rx#: [id number] Propofol 1,000 mg In 61.44 38.56 Empty Bag 1 bag @ Titrate IV .Q0M [facility] Rx#: [id number] Output: Gastric Drainage 200 Urine 750 915 512 Other: Voiding Method Diaper Indwelling Catheter Indwelling Catheter - Exam Abdomen: Soft, much less distended, no appreciable tenderness although difficult to fully evaluate currently - Labs CBC & Chem 7: 07/20/17 04:12 07/20/17 04:12 Labs: Abnormal Lab Results - Last 24 Hours (Table) 07/20/17 07/20/17 07/20/17 Range/Units 04:12 04:12 05:32 RBC 3.97 L (4.30-5.90) m/uL Hgb 12.8 L D (13.0-17.5) gm/dL Plt Count 132 L (150-450) k/uL Neutrophils # 9.3 H (1.3-7.7) k/uL Lymphocytes # 0.7 L (1.0-4.8) k/uL ABG pH 7.31 L (7.35-7.45) ABG pO2 161 H (83-108) mmHg ABG HCO3 20 L (21-25) mmol/L ABG Total CO2 (19-24) mmol/L ABG O2 Saturation 99.1 H (94-97) % Sodium 151 H (137-145) mmol/L Chloride 121 H* (98-107) mmol/L Carbon Dioxide 20 L (22-30) mmol/L BUN 8 L (9-20) mg/dL Creatinine 0.40 L (0.66-1.25) mg/dL Glucose 123 H (74-99) mg/dL POC Glucose (mg/dL) (75-99) mg/dL Calcium 8.1 L (8.4-10.2) mg/dL Phosphorus 2.1 L (2.5-4.5) mg/dL 07/20/17 07/20/17 Range/Units 06:51 13:43 RBC (4.30-5.90) m/uL Hgb (13.0-17.5) gm/dL Plt Count (150-450) k/uL Neutrophils # (1.3-7.7) k/uL Lymphocytes # (1.0-4.8) k/uL ABG pH (7.35-7.45) ABG pO2 255 H (83-108) mmHg ABG HCO3 (21-25) mmol/L ABG Total CO2 26 H (19-24) mmol/L ABG O2 Saturation 100.0 H (94-97) % Sodium (137-145) mmol/L Chloride (98-107) mmol/L Carbon Dioxide (22-30) mmol/L BUN (9-20) mg/dL Creatinine (0.66-1.25) mg/dL Glucose (74-99) mg/dL POC Glucose (mg/dL) 117 H (75-99) mg/dL Calcium (8.4-10.2) mg/dL Phosphorus (2.5-4.5) mg/dL Microbiology - Last 24 Hours (Table) 07/19/17 08:32 Urine Culture - Final Urine,Catheterized 07/19/17 08:22 Gram Stain - Preliminary Sputum Sputum Culture - Preliminary Pseudomonas spec Assessment and Plan (1) Abdominal pain Narrative/Plan: Continue IV antibiotics for suspected colitis and pelvic infection. Continue weaning trials. With the patient extubated our ability to perform serial exams will be improved. Current Visit: Yes Status: Acute Code(s): R10.9 - UNSPECIFIED ABDOMINAL PAIN SNOMED Code(s): 63235081
--- NOTE | 2017-07-20 17:25 | P.CONS ---
History of Present Illness - Reason for Consult Consult date: 07/20/17 Medical management - Chief Complaint Abdominal pain - History of Present Illness Patient is a 31-year-old male with a known history of Brain tumor with RESEARCH HYDROLOGIST shunt , Paraplegia, Mentally challenged patient, CVA/TIA and seizure disorder came to ER with complaints of abdominal discomfort 2 days prior to admission. Patient was also having some difficulties with the feeding tube. Patient is on PEG tube feeding. Patient's mom is his caregiver. 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 Patient also having some issues with constipation as well. CT of abdomen pelvis on admission showed there is patchy atelectasis at the lung bases. Livers pain pancreas appears normal. There are double ventriculoperitoneal shunt catheters. There is some free fluid in the pelvis. There is also some mild fat stranding in the pelvis the possibility of adenitis should be considered. There is a change compared to old computed tomography scan. There is new mild infiltrate and atelectasis in the posterior lung bases. No evidence of bowel obstruction. Patient went into respiratory failure and is currently sedated and intubated. Patient is being treated for 4 colitis and possible aspiration pneumonia as well. Patient was also started on hydrocortisone 100 mg twice daily due to adrenal insufficiency. ID and pulmonary is following. X-rays abdomen on 07/19/2017 showed contrast appears to extend from the stomach into the duodenum no extravasation of contrast is evident. Chest x-ray today showed improved aeration of the lungs. No focal consolidation. Review of Systems Review of systems could not be obtained from the patient. Past Medical History Past Medical History: Cancer, CVA/TIA, Seizure Disorder Additional Past Medical History / Comment(s): brain tumor, spinal cord tumor, seizure, HYPOTHERMIA R/T BRAIN TUMOR, 2 newly diagnosed brain tumors per mother (07/19/17) History of Any Multi-Drug Resistant Organisms: None Reported Past Surgical History: Ventriculoperitoneal Shunt Additional Past Surgical History / Comment(s): peg tube, vp strategic planning shunt, BRAIN, SPINAL CORD Past Anesthesia/Blood Transfusion Reactions: No Reported Reaction Past Psychological History: No Psychological Hx Reported Additional Psychological History / Comment(s): care for by the family and the family home. Apparently when he is well he can be up and ambulating. He does have the ability to communicate somewhat. there is no travel, no history, no animal exposures, no tobacco or alcohol use Smoking Status: Never smoker Past Alcohol Use History: None Reported Past Drug Use History: None Reported Medications and Allergies Home Medications Medication Instructions Recorded Confirmed Type Hydrocortisone [Cortef] 10 mg PEG/G-TUBE BID 07/07/13 07/18/17 History lamoTRIgine [LaMICtal] 25 mg PEG/G-TUBE HS 07/07/13 07/18/17 History Allergies Allergy/AdvReac Type Severity Reaction Status Date / Time docusate sodium [From Colace] Allergy Rash/Hives Verified 07/18/17 22:21 lansoprazole [From Prevacid] Allergy Unknown Verified 07/18/17 22:21 metoclopramide HCl Allergy Unknown Verified 07/18/17 22:21 [From Reglan] peanut Allergy Rash/Hives Verified 07/18/17 22:21 Physical Exam Vitals: Vital Signs Temp Pulse Pulse Resp BP Pulse Ox 07/20/17 11:00 97.6 F 64 14 97/51 96 07/20/17 10:30 63 14 95/55 95 07/20/17 10:00 94 F L 85 14 103/64 96 07/20/17 09:30 92 14 101/72 88 L 07/20/17 09:00 63 14 107/78 98 07/20/17 08:30 93.9 F L 59 L 14 115/81 99 07/20/17 08:00 39 L 14 104/66 99 07/20/17 07:30 40 L 14 112/69 99 07/20/17 07:00 42 L 14 119/64 99 07/20/17 06:30 45 L 14 107/63 98 07/20/17 06:00 45 L 14 97/65 99 07/20/17 05:30 43 L 14 97/65 99 07/20/17 05:00 46 L 14 91/60 99 07/20/17 04:30 46 L 14 94/57 99 07/20/17 04:00 97.6 F 49 L 14 95/62 100 07/20/17 03:30 50 L 14 111/73 99 07/20/17 03:00 49 L 14 100/70 99 07/20/17 02:30 67 14 89/54 100 07/20/17 02:00 47 L 14 89/54 99 07/20/17 01:30 47 L 14 110/70 99 07/20/17 01:00 50 L 14 100/60 100 07/20/17 00:30 51 L 14 95/60 100 07/20/17 00:00 97.8 F 56 L 14 99/59 100 07/19/17 23:30 51 L 14 107/67 100 07/19/17 23:00 51 L 14 95/62 99 07/19/17 22:30 52 L 14 96/61 99 07/19/17 22:00 54 L 14 100/63 99 07/19/17 21:30 59 L 14 98/74 99 07/19/17 21:00 60 14 108/75 99 07/19/17 20:30 63 14 96/63 99 07/19/17 20:00 97.6 F 59 L 14 96/65 99 07/19/17 19:30 61 14 95/60 99 07/19/17 19:00 92 22 93/73 98 07/19/17 18:30 67 13 92/63 99 07/19/17 18:00 69 13 92/63 99 07/19/17 17:30 70 13 93/63 99 07/19/17 17:00 65 14 89/61 99 07/19/17 16:30 80 13 92/64 98 07/19/17 16:00 97.6 F 79 93 14 91/62 98 07/19/17 15:30 78 14 95/66 100 07/19/17 15:00 77 14 86/61 99 07/19/17 14:30 91 13 76/57 98 07/19/17 14:00 98 13 82/56 99 07/19/17 13:30 100 13 83/56 99 07/19/17 13:00 105 H 14 82/60 99 07/19/17 12:40 105 H 89/65 98 Intake and Output 07/19/17 07/20/17 07/20/17 22:59 06:59 14:59 Intake Total 1411.44 1350.0 637.5 Output Total 925 465 252 Balance 486.44 885.0 385.5 Intake: IV 1350 1350.0 350 0.9 NACL 1200 1200 250 Piperacillin-Tazobactam 3 50 50.0 .375 gm In Dextrose/Water 1 50ml.bag @ 12.5 mls/hr IVPB Q8HR [facility] Rx#: [id number] metroNIDAZOLE-NS PMX 500 100 100 mg In Saline 1 100ml.bag @ 100 mls/hr IVPB ONCE [facility] Rx#:[id number] metroNIDAZOLE-NS PMX 500 100 mg In Saline 1 100ml.bag @ 100 mls/hr IVPB Q6H [facility] Rx#:[id number] Intake, IV Titration 61.44 287.5 Amount Norepinephrin 4 mg-0.9% 250 Ns Pmx 4 mg In 250 ml @ Titrate IV .Q0M [facility] Rx#: [id number] Piperacillin-Tazobactam 3 37.5 .375 gm In Dextrose/Water 1 50ml.bag @ 12.5 mls/hr IVPB Q8HR [facility] Rx#: [id number] Propofol 1,000 mg In 61.44 Empty Bag 1 bag @ Titrate IV .Q0M [facility] Rx#: [id number] Output: Gastric Drainage 50 Urine 925 465 202 Other: Voiding Method Indwelling Catheter Indwelling Catheter Indwelling Catheter Weight 69.6 kg PHYSICAL EXAMINATION: Patient is lying in the bed comfortably. Patient currently sedated and intubated. HEENT: Normocephalic. Neck is supple. Pupils reactive. Nostrils clear. Oral cavity is moist. Ears reveal no drainage. Neck reveals no JVD, carotid bruits, or thyromegaly. CHEST EXAMINATION: Trachea is central. Endotracheal tube in place. Symmetrical expansion. Bibasilar crackles and minimal rhonchi CARDIAC: Normal S1, S2 with no gallops. No murmurs ABDOMEN: Soft. Bowel sounds normal. No organomegaly. No abdominal bruits. Extremities: reveal no edema. No clubbing or cyanosis Neurologically patient is currently sedated and intubated. Skin: No rash or skin lesions. Psychiatric: Could not assessed completely Musculoskeletal: No joint swelling or deformity. Results CBC & Chem 7: 07/20/17 04:12 07/20/17 04:12 Labs: Abnormal Lab Results - Last 24 Hours (Table) 07/20/17 07/20/17 07/20/17 Range/Units 04:12 04:12 05:32 RBC 3.97 L (4.30-5.90) m/uL Hgb 12.8 L D (13.0-17.5) gm/dL Plt Count 132 L (150-450) k/uL Neutrophils # 9.3 H (1.3-7.7) k/uL Lymphocytes # 0.7 L (1.0-4.8) k/uL ABG pH 7.31 L (7.35-7.45) ABG pO2 161 H (83-108) mmHg ABG HCO3 20 L (21-25) mmol/L ABG O2 Saturation 99.1 H (94-97) % Sodium 151 H (137-145) mmol/L Chloride 121 H* (98-107) mmol/L Carbon Dioxide 20 L (22-30) mmol/L BUN 8 L (9-20) mg/dL Creatinine 0.40 L (0.66-1.25) mg/dL Glucose 123 H (74-99) mg/dL POC Glucose (mg/dL) (75-99) mg/dL Calcium 8.1 L (8.4-10.2) mg/dL Phosphorus 2.1 L (2.5-4.5) mg/dL 07/20/17 Range/Units 06:51 RBC (4.30-5.90) m/uL Hgb (13.0-17.5) gm/dL Plt Count (150-450) k/uL Neutrophils # (1.3-7.7) k/uL Lymphocytes # (1.0-4.8) k/uL ABG pH (7.35-7.45) ABG pO2 (83-108) mmHg ABG HCO3 (21-25) mmol/L ABG O2 Saturation (94-97) % Sodium (137-145) mmol/L Chloride (98-107) mmol/L Carbon Dioxide (22-30) mmol/L BUN (9-20) mg/dL Creatinine (0.66-1.25) mg/dL Glucose (74-99) mg/dL POC Glucose (mg/dL) 117 H (75-99) mg/dL Calcium (8.4-10.2) mg/dL Phosphorus (2.5-4.5) mg/dL Microbiology - Last 24 Hours (Table) 07/19/17 08:22 Gram Stain - Preliminary Sputum Sputum Culture - Preliminary Pseudomonas spec 07/19/17 08:32 Urine Culture - Preliminary Urine,Catheterized Assessment and Plan Assessment: Acute hypoxic respiratory failure due to sepsis from aspiration with excessive oral secretions.. Currently on mechanical ventilator. Severe sepsis/septic shock requiring pressor support Acute colitis and possible pneumonia/aspiration Hypernatremia History of multiple brain surgeries due to Brain tumor with RESEARCH HYDROLOGIST shunt, Paraplegia Mentally challenged patient Recent CVA/TIA and seizure disorder Metabolic acidosis Plan: Patient be continued on mechanical ventilator. Currently and he was in the form of Zosyn and metronidazole. ID and pulmonary is following. Placed on scopolamine patch. IV fluids with D5 water. GI and DVT prophylaxis. Further recommendations based on the clinical course. Thank you for your consult Time with Patient: Greater than 30
[2017-07-20 18:05] LABS: Glucose,Whole Blood 96 mg/dL (75-99)
[2017-07-20] MEDS: lamoTRIgine 25 MG TAB PEG/G-TUBE SCH (20:44)
[2017-07-20] MEDS: FAMOTIDINE 20 MG/2 ML VIAL IV SCH (20:44)
[2017-07-21 00:22] LABS: Glucose,Whole Blood 94 mg/dL (75-99)
[2017-07-21] MEDS: HEPARIN SODIUM,PORCINE 5,000 UNIT/ML 1 ML VIAL SQ SCH ×3 (00:29→16:38)
[2017-07-21] MEDS: PIPERACILLIN-TAZOBACTAM 3.375 GM in DEXTROSE/WATER 1 50ML.BAG IVPB SCH ×3 (00:29→16:38)
[2017-07-21] MEDS: metroNIDAZOLE-NS PMX 500 MG in SALINE 1 100ML.BAG IVPB SCH ×4 (02:33→21:37)
[2017-07-21 04:42] LABS: Basophils % (A) 0 %; Eosinophils # (A) 0.1 k/uL (0-0.7); Eosinophils % (A) 1 %; HCT 37.4 % (39.0-53.0); HGB 12.3 gm/dL (13.0-17.5); Lymphocytes # (A) 1.6 k/uL (1.0-4.8); Lymphocytes % (A) 19 %; MCH 32.2 pg (25.0-35.0); MCHC 32.7 g/dL (31.0-37.0); MCV 98.2 fL (80.0-100.0); Mean Platelet Volume 8.7; Monocytes # (A) 0.4 k/uL (0-1.0); Monocytes % (A) 5 %; Neutrophils # (A) 6.5 k/uL (1.3-7.7); Neutrophils % (A) 74 %; Platelet Count 147 k/uL (150-450); RBC 3.81 m/uL (4.30-5.90); RDW 14.6 % (11.5-15.5); WBC 8.8 k/uL (3.8-10.6)
[2017-07-21 04:53] LABS: INR 1.1 (<1.2); Prothrombin Time 10.6 sec (9.0-12.0)
[2017-07-21 05:00] LABS: ALT 44 U/L (21-72); AST 17 U/L (17-59); Albumin 2.4 g/dL (3.5-5.0); Alkaline Phosphatase 62 U/L (38-126); Anion Gap 12 mmol/L; Blood Urea Nitrogen 8 mg/dL (9-20); Calcium 8.1 mg/dL (8.4-10.2); Carbon Dioxide 22 mmol/L (22-30); Chloride 118 mmol/L (98-107); Glucose 105 mg/dL (74-99); Phosphorus 2.4 mg/dL (2.5-4.5); Sodium 152 mmol/L (137-145); Total Bilirubin 0.6 mg/dL (0.2-1.3); Total Protein 4.7 g/dL (6.3-8.2)
[2017-07-21 05:05] LABS: Potassium 2.9 mmol/L (3.5-5.1)
[2017-07-21] MEDS: POTASSIUM CHLORIDE 10 MEQ in WATER FOR INJECTION 1 100ML.BAG IVPB SCH ×5 (05:34→13:26)
--- NOTE | 2017-07-21 07:22 | XR ---
EXAMINATION: XR chest 1V portable DATE AND TIME: 07/21/2017 6:26 AM ORDERING PROVIDER: Ho Antonio CLINICAL INDICATION: Tube placement TECHNIQUE: Upright AP portable COMPARISON: 07/20/2017 5:02 AM DESCRIPTION: The patient has been extubated in the interim. There is mild interval worsening in the overall lung inflation pattern in the interim, with ill-defin ed added opacity particularly seen in the right mid and lower lung zone. The hemidiaphragms are eleva trey, mildly more so than the prior study, consistent with low lung inflation at the moment of x-ray e xposure. Pleural spaces are negative as seen. Mildly enlarged cardiac silhouette redemonstrated. Bones and soft tissues are unremarkable. IMPRESSION: 1. POST EXTUBATION CHEST RADIOGRAPH. 2. PULMONARY FINDINGS LIKELY REPRESENTING ATELECTASIS; CONCURRENT MILD INTERSTITIAL PHASE PULMONARY E HANSA CAN BE CONSIDERED CLINICALLY.
[2017-07-21] MEDS: HYDROCORTISONE SUCCINATE 100 MG/2 ML VIAL IV SCH ×2 (08:05→21:38)
[2017-07-21] MEDS: FAMOTIDINE 20 MG/2 ML VIAL IV SCH ×2 (08:05→21:37)
[2017-07-21] MEDS: DEXTROSE 5% IN WATER 1,000 ML IV SCH ×3 (09:02→22:59)
--- NOTE | 2017-07-21 11:03 | P.PN ---
Subjective Progress Note Date: 07/21/17 (Critical care time spent 35 minutes) Principal diagnosis: Severe sepsis, acute peritonitis, acute hypoxic respiratory failure, acute renal failure, right lower lobe pneumonia likely aspiration and gram-negative related, Pseudomonas pneumonia, brain tumor, high-grade S requiring PAINTER PLATE shunt, history of stroke, severe profound metabolic acidosis, severe hypernatremia 07/21/2017, patient seen eval examined during the rounds clinically patient has been doing slightly better now, patient has been successfully weaned and extubated however postextubation patient has a significant problem of excessive oral secretions which were suctioned deeply by the RN and the family members which did help however patient needs to be induced and gag physical stimulation in order to bring up the secretions, issues about tracheostomy have been discussed with the family they feel it being a last resort currently patient FiO2 has been tapered down to 7 L now, patient continued to require levo fed he is on 6 mics are treated when he was sleeping is in mid 40s however when he is awake came up to 60, systolic blood pressure is in 90s, maps around 65 with a levo fed of 6 mics patient has been making adequate urine sodium however noted to be going slightly up patient may very well be is still volume depleted side, currently has been gently rehydrated with D5, I have reviewed the chest x-ray there is a new developing right lower lobe infiltrate are seen with the sputum being positive for Pseudomonas consistent with gram-negative pseudomonas pneumonia, patient is currently on IV Zosyn and vancomycin tolerating well, white cell count is coming down, hemoglobin remained stable no further declining hemoglobin has been noted no more coffee-ground stuff noted to be coming out through either PEG or through patient vomiting, sodium is 152, potassium is 2.9, renal functions remain stable, discussed the care plan with the mother present at bedside at length 07/20/2017, patient seen eval examined during the rounds clinically patient is is slightly stable in terms of hemodynamics but however continued to require low -dose vasopressors currently patient is on 6 mics of levo fed which is gradually being titrated down he is borderline bradycardic blood pressure is stable amount of oral secretions are slightly better, labs reviewed medications reviewed chest x-ray remains stable no new infiltrates are seen interstitial edema is seen, patient has been aggressively resuscitated with crystalloid, now adequate urine output has been noted. Labs reviewed medications reviewed sodium is up to 151 now renal functions remain stable, arterial blood gas and ventilator setting and data reviewed as well, mother is present at bedside care plan discussed with her at length as well 31-year-old male who presented into the hospital with abdominal discomfort and pain started about a day to prior coming to the hospital, patient underwent a computed tomography scan of the abdomen pelvis in emergency department found to have evidence of peritonitis no evidence of acute abdomen however has been noted patient admitted into the ICU under service of Dr. Temple, in ICU patient initially was on 2 L oxygen however has been noted to excessive amount of oral secretions in respiratory secretions with gurgling sounds oxygen saturation continue to drop down on and in spite of increasing the fractional inspired oxygen at 100% patient becomes very tachypneic tachycardic and eventually was intubated for airway protection, labs reviewed computed tomography scan of the chest reviewed and medications reviewed as well along with radiographic studies. Data predominantly obtained from the chart as well as the father present at bedside. Patient has a significant history of brain tumors with multiple resections in the past in his early years due to intracranial hypertension patient underwent a PAINTER PLATE shunt a year ago patient developed acute stroke as well since then patient is extremely predispose to infections, patient has a spontaneously breathing but has problems associated with swallowing dysfunction requiring suctioning of the mouth he also has a PEG tube , patient does follow up at [facility] Patient presents to the emergency center because of family became concerned that he was having increasing abdominal pain, difficulty with nutrition and that when they were feeding him through his PEG tube he seemed to be having some discomfort and retching. He apparently normally has some difficulties with some constipation and they do utilize a bowel program with enema. Apparently no recent stooling and with the abdominal discomforts was brought to the emergency center. The patient did appear to be ill, was found evidence of a leukocytosis. His temperature was 97 for which the parents relate is quite high for him because he has temperature regulation difficulties after his brain tumor and radiation. The patient was admitted to hospital and to the intensive care unit with concerns to peritonitis with a computed tomography scan showing evidence of some inflammation of the abdomen and with the 2 ventriculoperitoneal shunts present cause concern. With a relatively short period of time the patient had rapid onset of respiratory failure necessitating intubation with mechanical ventilation and some sedation. Of note his PEG tube also dislodged spontaneously, the family relates this has happened multiple times over the years. During evaluation in that the patient in the ICU he is post intubated on propofol drip currently when setting includes assist control rate of 14 breathing 14, tidal volume is 400, 100% oxygen, PEEP of 5, patient has a Rodriguez' s catheter with very minimal urine output patient is also on propofol drip, IV fluids are being given D5 normal saline a liter has been given currently patient is on 100 mL an hour PEG tube site is intact Objective - Vital Signs Vital signs: Vital Signs Temp 98.3 F 07/21/17 08:00 Pulse 46 L 07/21/17 10:00 Resp 24 07/21/17 10:00 BP 87/57 07/21/17 10:00 Pulse Ox 96 07/21/17 10:00 Intake & Output 07/20/17 07/21/17 07/21/17 18:59 06:59 18:59 Intake Total 1272.435 975.0 487.75 Output Total 854 265 155 Balance 418.435 710.0 332.75 Weight 73.7 kg Intake: IV 700 962.5 375.0 0.9 NACL 350 Dextrose 5% in Water 1, 250 600 150 000 ml @ 50 mls/hr IV . Q20H ROSA M Rx#:[id number] Piperacillin-Tazobactam 3 62.5 25.0 .375 gm In Dextrose/Water 1 50ml.bag @ 12.5 mls/hr IVPB Q8HR ROSA M Rx#: [id number] Potassium Chloride 10 meq 200 100 In Water For Injection 1 100ml.bag @ 100 mls/hr IVPB Q1H ROSA M Rx#: [id number] metroNIDAZOLE-NS PMX 500 100 100 100 mg In Saline 1 100ml.bag @ 100 mls/hr IVPB Q6H ROSA M Rx#:[id number] Intake, IV Titration 572.435 12.5 112.75 Amount Norepinephrin 4 mg-0.9% 258.875 0 112.75 Ns Pmx 4 mg In 250 ml @ Titrate IV .Q0M ROSA M Rx#: [id number] Piperacillin-Tazobactam 3 75.0 12.5 .375 gm In Dextrose/Water 1 50ml.bag @ 12.5 mls/hr IVPB Q8HR ROSA M Rx#: [id number] Potassium Chloride 10 meq 200 In Water For Injection 1 100ml.bag @ 100 mls/hr IVPB Q1H ROSA M Rx#: [id number] Propofol 1,000 mg In 38.56 Empty Bag 1 bag @ Titrate IV .Q0M ROSA M Rx#: [id number] Output: Gastric Drainage 200 Urine 654 265 155 Other: Voiding Method Indwelling Catheter Indwelling Catheter Indwelling Catheter # Voids 1 - Exam - Constitutional General appearance: mild distress, no acute distress, obese, readily arousable - EENT Evidence of prior multiple brain surgeries, detailed exam couldn't be performed Eyes: anicteric sclerae, PERRLA, poor dentition Ears: bilateral: normal - Neck Neck: normal ROM Thyroid: bilateral: normal size - Respiratory Respiratory: bilateral: Coarse breath sounds with crackles predominantly on the right base - Cardiovascular Heart sounds: normal: S1, S2 - Gastrointestinal General gastrointestinal: decreased bowel sounds, distended, tenderness, the tenderness and distention appears to have improved compared to yesterday exam - Integumentary Integumentary: decreased turgor - Neurologic Detailed neurological examination couldn't be performed as patient fairly incapacitated and mostly does not follow commands sleep most of the time - Psychiatric Unable to assess due to his baseline neurological status - Labs CBC & Chem 7: 07/21/17 04:25 07/21/17 04:25 Labs: Abnormal Lab Results - Last 24 Hours (Table) 07/20/17 07/21/17 07/21/17 Range/Units 13:43 04:25 04:25 RBC 3.81 L (4.30-5.90) m/uL Hgb 12.3 L (13.0-17.5) gm/dL Hct 37.4 L (39.0-53.0) % Plt Count 147 L (150-450) k/uL ABG pO2 255 H (83-108) mmHg ABG Total CO2 26 H (19-24) mmol/L ABG O2 Saturation 100.0 H (94-97) % Sodium 152 H (137-145) mmol/L Potassium 2.9 L* (3.5-5.1) mmol/L Chloride 118 H (98-107) mmol/L BUN 8 L (9-20) mg/dL Creatinine 0.50 L (0.66-1.25) mg/dL Glucose 105 H (74-99) mg/dL Calcium 8.1 L (8.4-10.2) mg/dL Phosphorus 2.4 L (2.5-4.5) mg/dL Total Protein 4.7 L (6.3-8.2) g/dL Albumin 2.4 L (3.5-5.0) g/dL Microbiology - Last 24 Hours (Table) 07/19/17 16:05 Blood Culture - Preliminary Blood No Growth after 24 hours 07/19/17 15:43 Blood Culture - Preliminary Blood No Growth after 24 hours 07/19/17 08:32 Urine Culture - Final Urine,Catheterized 07/19/17 08:22 Gram Stain - Preliminary Sputum Sputum Culture - Preliminary Pseudomonas spec Assessment and Plan Assessment: Severe sepsis and septic shock Acute aspiration pneumonia right lower lobe related to gram-negative organism( pseudomonas aeruginosa Acute peritonitis etiology not clear Acute hypoxic respiratory failure related to excessive amount of oral secretions and respiratory secretions was Ongoing severe sepsis and contributed from aspiration pneumonia and Pseudomonas pneumonia Acute renal failure/oliguria related to above, significantly improved with aggressive fluid resuscitation Severe hypernatremia History of multiple brain tumors requiring resection and hydrocephalus Ammann status post PAINTER PLATE shunt History of recent stroke Metabolic acidosis related ongoing sepsis Plan: Oral care deep suctioning as tolerated along with supplemental oxygen, titrated oxygen down as tolerated Discussed with surgical services if gentle rehydration through the PEG tube can be initiated with close monitoring and observation that will help hypernatremia as well, will aim free water 30-40 mL an hour a total of a liter in one day approximately Scopolamine patch H2 blockers in the form of Pepcid 20 mg IV every 12 Broad-spectrum antibiotics being adjusted by infectious disease services Follow up on culture results and report Monitor and observe off of sedation Taper and DC the levo fed drip Fluid resuscitation and monitor renal functions closely Vasopressors as needed to keep the map over 65 Mchugh cultures including urine and blood and sputum results reviewed DVT and peptic ulcer disease prophylaxis Further recommendations pending plan of care as per clinical response of patient care plan discussed with the staff Discussed with the family at length Critical care time spent 35 minutes Time with Patient: Greater than 30
[2017-07-21 11:50] LABS: Glucose,Whole Blood 131 mg/dL (75-99)
--- NOTE | 2017-07-21 12:46 | P.PN ---
Subjective Progress Note Date: 07/21/17 Principal diagnosis: Abdominal pain Patient doing better today. He was extubated last night. Earlier today he denied pain when asked by myself and the nursing staff however with his mother present he complained of mild pain. His white blood cell count is normal. He is afebrile. Objective - Vital Signs Vital signs: Vital Signs Temp 97.8 F 07/21/17 12:00 Pulse 48 L 07/21/17 12:00 Resp 20 07/21/17 12:00 BP 109/68 07/21/17 12:00 Pulse Ox 95 07/21/17 12:00 Intake & Output 07/20/17 07/21/17 07/21/17 18:59 06:59 18:59 Intake Total 1272.435 975.0 760.75 Output Total 854 265 250 Balance 418.435 710.0 510.75 Weight 73.7 kg Intake: IV 700 962.5 600.0 0.9 NACL 350 Dextrose 5% in Water 1, 100 000 ml @ 100 mls/hr IV . Q10H ROSA M Rx#:[id number] Dextrose 5% in Water 1, 250 600 250 000 ml @ 50 mls/hr IV . Q20H ROSA M Rx#:[id number] Piperacillin-Tazobactam 3 62.5 50.0 .375 gm In Dextrose/Water 1 50ml.bag @ 12.5 mls/hr IVPB Q8HR ROSA M Rx#: [id number] Potassium Chloride 10 meq 200 100 In Water For Injection 1 100ml.bag @ 100 mls/hr IVPB Q1H ROSA M Rx#: [id number] metroNIDAZOLE-NS PMX 500 100 100 100 mg In Saline 1 100ml.bag @ 100 mls/hr IVPB Q6H ROSA M Rx#:[id number] Intake, IV Titration 572.435 12.5 160.75 Amount Norepinephrin 4 mg-0.9% 258.875 0 160.75 Ns Pmx 4 mg In 250 ml @ Titrate IV .Q0M ROSA M Rx#: [id number] Piperacillin-Tazobactam 3 75.0 12.5 .375 gm In Dextrose/Water 1 50ml.bag @ 12.5 mls/hr IVPB Q8HR ROSA M Rx#: [id number] Potassium Chloride 10 meq 200 In Water For Injection 1 100ml.bag @ 100 mls/hr IVPB Q1H ROSA M Rx#: [id number] Propofol 1,000 mg In 38.56 Empty Bag 1 bag @ Titrate IV .Q0M ROSA M Rx#: [id number] Output: Gastric Drainage 200 Urine 654 265 250 Other: Voiding Method Indwelling Catheter Indwelling Catheter Indwelling Catheter # Voids 1 - Exam Abdomen: Soft, mild distention, mild left lower quadrant tenderness - Labs CBC & Chem 7: 07/21/17 04:25 07/21/17 10:01 Labs: Abnormal Lab Results - Last 24 Hours (Table) 07/20/17 07/21/17 07/21/17 Range/Units 13:43 04:25 04:25 RBC 3.81 L (4.30-5.90) m/uL Hgb 12.3 L (13.0-17.5) gm/dL Hct 37.4 L (39.0-53.0) % Plt Count 147 L (150-450) k/uL ABG pO2 255 H (83-108) mmHg ABG Total CO2 26 H (19-24) mmol/L ABG O2 Saturation 100.0 H (94-97) % Sodium 152 H (137-145) mmol/L Potassium 2.9 L* (3.5-5.1) mmol/L Chloride 118 H (98-107) mmol/L BUN 8 L (9-20) mg/dL Creatinine 0.50 L (0.66-1.25) mg/dL Glucose 105 H (74-99) mg/dL POC Glucose (mg/dL) (75-99) mg/dL Calcium 8.1 L (8.4-10.2) mg/dL Phosphorus 2.4 L (2.5-4.5) mg/dL Total Protein 4.7 L (6.3-8.2) g/dL Albumin 2.4 L (3.5-5.0) g/dL 07/21/17 Range/Units 11:48 RBC (4.30-5.90) m/uL Hgb (13.0-17.5) gm/dL Hct (39.0-53.0) % Plt Count (150-450) k/uL ABG pO2 (83-108) mmHg ABG Total CO2 (19-24) mmol/L ABG O2 Saturation (94-97) % Sodium (137-145) mmol/L Potassium (3.5-5.1) mmol/L Chloride (98-107) mmol/L BUN (9-20) mg/dL Creatinine (0.66-1.25) mg/dL Glucose (74-99) mg/dL POC Glucose (mg/dL) 131 H (75-99) mg/dL Calcium (8.4-10.2) mg/dL Phosphorus (2.5-4.5) mg/dL Total Protein (6.3-8.2) g/dL Albumin (3.5-5.0) g/dL Microbiology - Last 24 Hours (Table) 07/19/17 08:22 Gram Stain - Final Sputum Sputum Culture - Final Pseudomonas aeruginosa 07/19/17 16:05 Blood Culture - Preliminary Blood No Growth after 24 hours 07/19/17 15:43 Blood Culture - Preliminary Blood No Growth after 24 hours 07/19/17 08:32 Urine Culture - Final Urine,Catheterized Assessment and Plan (1) Abdominal pain Narrative/Plan: Continue antibiotics. Will check repeat CAT scan tomorrow. Will start free water through PEG tube because of his rising sodium level. Current Visit: Yes Status: Acute Code(s): R10.9 - UNSPECIFIED ABDOMINAL PAIN SNOMED Code(s): 29480485
[2017-07-21] MEDS: NOREPINEPHRIN 4 MG-0.9% NS PMX 4 MG/250 ML ML IV SCH (13:26)
[2017-07-21 18:56] LABS: Glucose,Whole Blood 131 mg/dL (75-99)
[2017-07-21] MEDS: lamoTRIgine 25 MG TAB PEG/G-TUBE SCH (21:38)
--- NOTE | 2017-07-21 23:21 | P.PN ---
Subjective Progress Note Date: 07/21/17 Principal diagnosis: Colitis and pneumonia possible aspiration Patient is a 31-year-old male with a known history of Brain tumor with ELECTRON BEAM [employer] shunt , Paraplegia, Mentally challenged patient, CVA/TIA and seizure disorder came to ER with complaints of abdominal discomfort 2 days prior to admission. Patient was also having some difficulties with the feeding tube. Patient is on PEG tube feeding. Patient's mom is his caregiver. 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 Patient also having some issues with constipation as well. CT of abdomen pelvis on admission showed there is patchy atelectasis at the lung bases. Livers pain pancreas appears normal. There are double ventriculoperitoneal shunt catheters. There is some free fluid in the pelvis. There is also some mild fat stranding in the pelvis the possibility of adenitis should be considered. There is a change compared to old computed tomography scan. There is new mild infiltrate and atelectasis in the posterior lung bases. No evidence of bowel obstruction. Patient went into respiratory failure and is currently sedated and intubated. Patient is being treated for 4 colitis and possible aspiration pneumonia as well. Patient was also started on hydrocortisone 100 mg twice daily due to adrenal insufficiency. ID and pulmonary is following. X-rays abdomen on 07/19/2017 showed contrast appears to extend from the stomach into the duodenum no extravasation of contrast is evident. Chest x-ray today showed improved aeration of the lungs. No focal consolidation. 07/21/2017 Patient was extubated yesterday. Otherwise patient is in no acute distress. Saturating well on nausea cannula. Patient is being continued on antibiotics in the form of Zosyn and metronidazole. No abdominal tenderness. No fever no chills. WBC count is normal. Otherwise potassium level is 2. 9 this morning which is being replaced. Review of systems could not be obtained from the patient. Discussed with his mother at bedside in detail. Active Medications Generic Name Dose Route Start Last Admin Trade Name Freq PRN Reason Stop Dose Admin Acetaminophen 650 mg 07/19/17 01:24 Tylenol Suppository RECTAL Q4HR PRN Fever And/ Or Mild Pain Famotidine 20 mg 07/20/17 21:00 07/21/17 21:37 Pepcid IV 20 mg Q12HR ROSA M Administration Heparin Sodium (Porcine) 5,000 unit 07/19/17 08:00 07/21/17 16:38 Heparin SQ 5,000 unit Q8HR ROSA M Administration Hydrocortisone Sodium Succinate 50 mg 07/20/17 14:45 07/21/17 21:38 Solu-Cortef IV 50 mg Q12HR ROSA M Administration Metronidazole 500 mg/ IV 100 mls @ 100 mls/hr 07/19/17 08:00 07/21/17 21:37 Solution IVPB 100 mls/hr Q6H ROSA M Administration Piperacillin/Tazobactam/ 50 mls @ 12.5 mls/hr 07/19/17 16:00 07/21/17 16:38 Dextrose 3.375 gm/ IV Solution IVPB 12.5 mls/hr Q8HR ROSA M Administration Norepinephrine Bitartrate 4 mg in 250 mls @ 0 mls/hr 07/19/17 16:00 07/21/17 18:05 Levophed-0.9% Nacl 4 Mg/250ml Pmx IV 3 mcg/min .Q0M ROSA M 11.25 mls/hr Protocol Titration Titrate Dextrose/Water 1,000 mls @ 100 mls/hr 07/21/17 10:27 07/21/17 22:59 Dextrose 5%-Water Iv Soln IV 100 mls/hr .Q10H ROSA M Administration Iopamidol 30 ml 07/21/17 12:44 Isovue-300 30 Ml (For Oral Use) PO 07/22/17 12:[address] Scan Lamotrigine 25 mg 07/19/17 21:00 07/21/17 21:38 Lamictal PEG/G-TUBE 25 mg HS ROSA M Administration Lorazepam 2 mg 07/19/17 09:02 Ativan IV Q2HR PRN Sedation Miscellaneous Information 1 each 07/19/17 06:59 Magnesium Per Protocol MISCELLANE DAILY PRN Per Protocol Protocol Miscellaneous Information 1 each 07/20/17 12:22 Phosphorus Per Protocol MISCELLANE DAILY PRN Per Protocol Protocol Miscellaneous Information 1 each 07/20/17 12:22 Potassium Per Protocol MISCELLANE DAILY PRN Per Protocol Protocol Morphine Sulfate 2 mg 07/19/17 01:24 07/19/17 08:30 Morphine Sulfate (Inj) IV 2 mg Q2HR PRN Administration Pain Scale 4 to 5 Naloxone HCl 0.2 mg 07/19/17 01:24 Narcan IV Q2M PRN Opioid Reversal Scopolamine 1 patch 07/20/17 12:30 07/20/17 13:02 Transderm-Scop 1.5mg/72hr Patch TRANSDERM 1 patch Q72H ROSA M Administration Objective - Vital Signs Vital signs: Vital Signs Temp 97.8 F 07/21/17 12:00 Pulse 43 L 07/21/17 15:00 Resp 23 07/21/17 15:00 BP 98/67 07/21/17 15:00 Pulse Ox 98 07/21/17 15:00 Intake & Output 07/20/17 07/21/17 07/21/17 18:59 06:59 18:59 Intake Total 1272.435 975.0 1526.313 Output Total 854 265 362 Balance 418.435 710.0 1164.313 Weight 73.7 kg Intake: IV 700 962.5 1100.0 0.9 NACL 350 Dextrose 5% in Water 1, 400 000 ml @ 100 mls/hr IV . Q10H ROSA M Rx#:[id number] Dextrose 5% in Water 1, 250 600 250 000 ml @ 50 mls/hr IV . Q20H ROSA M Rx#:[id number] Piperacillin-Tazobactam 3 62.5 50.0 .375 gm In Dextrose/Water 1 50ml.bag @ 12.5 mls/hr IVPB Q8HR ROSA M Rx#: [id number] Potassium Chloride 10 meq 200 200 In Water For Injection 1 100ml.bag @ 100 mls/hr IVPB Q1H ROSA M Rx#: [id number] metroNIDAZOLE-NS PMX 500 100 100 200 mg In Saline 1 100ml.bag @ 100 mls/hr IVPB Q6H ROSA M Rx#:[id number] Intake, IV Titration 572.435 12.5 386.313 Amount Norepinephrin 4 mg-0.9% 258.875 0 186.313 Ns Pmx 4 mg In 250 ml @ Titrate IV .Q0M ROSA M Rx#: [id number] Piperacillin-Tazobactam 3 75.0 12.5 .375 gm In Dextrose/Water 1 50ml.bag @ 12.5 mls/hr IVPB Q8HR ROSA M Rx#: [id number] Potassium Chloride 10 meq 200 In Water For Injection 1 100ml.bag @ 100 mls/hr IVPB Q1H ROSA M Rx#: [id number] Potassium Chloride 10 meq 200 In Water For Injection 1 100ml.bag @ 100 mls/hr IVPB Q1H ROSA M Rx#: [id number] Propofol 1,000 mg In 38.56 Empty Bag 1 bag @ Titrate IV .Q0M ROSA M Rx#: [id number] Other 40 Output: Gastric Drainage 200 Urine 654 265 362 Other: Voiding Method Indwelling Catheter Indwelling Catheter Indwelling Catheter # Voids 1 - Exam PHYSICAL EXAMINATION: Patient is lying in the bed comfortably, no acute distress, awake alert but not oriented. patient is mentally challenged HEENT: Normocephalic. Neck is supple. Pupils reactive. Nostrils clear. Oral cavity is moist. Ears reveal no drainage. Neck reveals no JVD, carotid bruits, or thyromegaly. CHEST EXAMINATION: Trachea is central. Symmetrical expansion. Diminished bibasilar air entry. Minimal crackles. No wheezing. Lung alfaro clear to auscultation and percussion. CARDIAC: Normal S1, S2 with no gallops. No murmurs ABDOMEN: Soft. Nontender. Bowel sounds normal. No organomegaly. No abdominal bruits. Extremities: reveal no edema. No clubbing or cyanosis Neurologically awake, alert. Patient does have paraplegia Skin: No rash or skin lesions. Psychiatric: Coperative. Could not be assessed completely Musculoskeletal: No joint swelling or deformity. Normal range of motion. - Labs CBC & Chem 7: 07/21/17 04:25 07/21/17 16:09 Labs: Abnormal Lab Results - Last 24 Hours (Table) 07/21/17 07/21/17 07/21/17 Range/Units 04:25 04:25 11:48 RBC 3.81 L (4.30-5.90) m/uL Hgb 12.3 L (13.0-17.5) gm/dL Hct 37.4 L (39.0-53.0) % Plt Count 147 L (150-450) k/uL Sodium 152 H (137-145) mmol/L Potassium 2.9 L* (3.5-5.1) mmol/L Chloride 118 H (98-107) mmol/L BUN 8 L (9-20) mg/dL Creatinine 0.50 L (0.66-1.25) mg/dL Glucose 105 H (74-99) mg/dL POC Glucose (mg/dL) 131 H (75-99) mg/dL Calcium 8.1 L (8.4-10.2) mg/dL Phosphorus 2.4 L (2.5-4.5) mg/dL Total Protein 4.7 L (6.3-8.2) g/dL Albumin 2.4 L (3.5-5.0) g/dL Microbiology - Last 24 Hours (Table) 07/19/17 08:22 Gram Stain - Final Sputum Sputum Culture - Final Pseudomonas aeruginosa 07/19/17 16:05 Blood Culture - Preliminary Blood No Growth after 24 hours 07/19/17 15:43 Blood Culture - Preliminary Blood No Growth after 24 hours 07/19/17 08:32 Urine Culture - Final Urine,Catheterized Assessment and Plan Assessment: Acute hypoxic respiratory failure due to sepsis from aspiration with excessive oral secretions.. Currently extubated on 07/20/2017. Severe sepsis/septic shock requiring pressor support Acute colitis and possible pneumonia/aspiration Hypernatremia History of multiple brain surgeries due to Brain tumor with ELECT[employer] shunt, Paraplegia Mentally challenged patient Recent CVA/TIA and seizure disorder Metabolic acidosis Plan: Patient patient is saturating well on nasal cannula oxygen. Currently and he was in the form of Zosyn and metronidazole. ID and pulmonary is following. Placed on scopolamine patch. IV fluids with D5 water. GI and DVT prophylaxis. Further recommendations based on the clinical course. Prognosis is guarded. Thank you for your consult Time with Patient: Greater than 30
[2017-07-21 23:39] LABS: Glucose,Whole Blood 124 mg/dL (75-99)
[2017-07-22] MEDS: PIPERACILLIN-TAZOBACTAM 3.375 GM in DEXTROSE/WATER 1 50ML.BAG IVPB SCH ×3 (00:10→15:06)
[2017-07-22] MEDS: HEPARIN SODIUM,PORCINE 5,000 UNIT/ML 1 ML VIAL SQ SCH ×3 (00:10→15:08)
[2017-07-22] MEDS: metroNIDAZOLE-NS PMX 500 MG in SALINE 1 100ML.BAG IVPB SCH ×3 (02:53→13:34)
[2017-07-22 04:35] LABS: Basophils % (A) 1 %; Eosinophils % (A) 1 %; HCT 36.4 % (39.0-53.0); HGB 12.1 gm/dL (13.0-17.5); Lymphocytes # (A) 1.1 k/uL (1.0-4.8); Lymphocytes % (A) 26 %; MCH 31.9 pg (25.0-35.0); MCHC 33.2 g/dL (31.0-37.0); MCV 96.2 fL (80.0-100.0); Mean Platelet Volume 9.1; Monocytes # (A) 0.3 k/uL (0-1.0); Monocytes % (A) 6 %; Neutrophils # (A) 2.8 k/uL (1.3-7.7); Neutrophils % (A) 65 %; Platelet Count 168 k/uL (150-450); RBC 3.79 m/uL (4.30-5.90); RDW 14.2 % (11.5-15.5); WBC 4.3 k/uL (3.8-10.6)
[2017-07-22 04:47] LABS: Anion Gap 9 mmol/L; Blood Urea Nitrogen 3 mg/dL (9-20); Calcium 7.8 mg/dL (8.4-10.2); Carbon Dioxide 28 mmol/L (22-30); Chloride 110 mmol/L (98-107); Glucose 129 mg/dL (74-99); Magnesium 1.7 mg/dL (1.6-2.3); Phosphorus 2.7 mg/dL (2.5-4.5); Sodium 147 mmol/L (137-145)
[2017-07-22 04:49] LABS: Potassium 2.9 mmol/L (3.5-5.1)
[2017-07-22 06:01] LABS: Glucose,Whole Blood 137 mg/dL (75-99)
[2017-07-22] MEDS: POTASSIUM CHLORIDE 10 MEQ in WATER FOR INJECTION 1 100ML.BAG IVPB SCH ×3 (06:37→08:22)
[2017-07-22] MEDS: MAGNESIUM SULFATE-D5W PMX 1 GM in DEXTROSE/WATER 1 100ML.BAG IVPB SCH ×2 (06:37→08:27)
[2017-07-22] MEDS: DEXTROSE 5% IN WATER 1,000 ML IV SCH ×2 (06:57→17:46)
--- NOTE | 2017-07-22 08:25 | XR ---
EXAMINATION TYPE: XR chest 1V portable DATE OF EXAM: 07/22/2017 COMPARISON: 07/21/2017 HISTORY: Tube for TECHNIQUE: Single frontal view of the chest is obtained. FINDINGS: There is mild interval worsening in the overall lung inflation pattern in the interim, wit h ill-defined added opacity particularly seen in the right mid and lower lung zone. The hemidiaphragm s are elevated, mildly more so than the prior study, consistent with low lung inflation at the moment of x- ray exposure. Pleural spaces are negative as seen. Mildly enlarged cardiac silhouette redemons trated. Bones and soft tissues are unremarkable. IMPRESSION: Interval improvement areas of consolidation on the right with persistent interstitial alexandria nges and areas of subsegmental consolidation. Differential include pneumonia or CHF.
[2017-07-22] MEDS: HYDROCORTISONE SUCCINATE 100 MG/2 ML VIAL IV SCH ×2 (08:34→21:58)
[2017-07-22] MEDS: FAMOTIDINE 20 MG/2 ML VIAL IV SCH ×2 (08:34→21:58)
[2017-07-22] MEDS: POTASSIUM BICARBONATE/CIT AC 20 MEQ TABLET.EFF NG-TUBE SCH ×4 (08:34→14:59)
[2017-07-22] MEDS: IOPAMIDOL-300 CONTRAST 30 ML VIAL (ORAL USE) PO PRN ×2 (08:55→09:42)
--- NOTE | 2017-07-22 11:11 | CT ---
EXAMINATION TYPE: CT abdomen pelvis w con DATE OF EXAM: 07/22/2017 COMPARISON: CT abdomen and pelvis from 3 days ago HISTORY: Pelvic inflammation. CT DLP: 2329 mGycm, Automated Exposure Control for Dose Reduction was Utilized. CONTRAST: CT scan of the abdomen and pelvis is performed with oral and with IV Contrast, patient injected with 100 mL of Isovue 300. FINDINGS: LUNG BASES: There are new small to tiny right greater than left pleural effusions and associated comp ressive atelectasis. LIVER/GB: There is better visualized 1.5 cm vague nonspecific hypodense lesion left hepatic dome axia l image 11. There is stable subcentimeter right hepatic hypodense lesion axial image 13. PANCREAS: No significant abnormality is seen. SPLEEN: No significant abnormality is seen. ADRENALS: No significant abnormality is seen. KIDNEYS: There are 3-5 small calculi redemonstrated scattered throughout both kidneys. There is symme tric cortical medullary uptake and excretion from both kidneys without evidence of hydronephrosis reid aterally. There are few subcentimeter low dense lesions throughout both kidneys too small to further characterize per presumed benign. There is stable exophytic 1.1 cm low dense lesion posteriorly upper to mid pole level right kidney axial image 32. New Rodriguez catheter is seen within urinary bladder. Fo yoshi balloon appears perhaps overinflated more prominent with air-fluid level. BOWEL: Oral contrast reaches level of rectum. There is no suspicious small or large bowel dilatation. There is mild wall thickening in the distal left colon and slightly redundant proximal to mid sigmoi d colon above left pelvic fluid collection. There is however interval improvement in fat stranding an d ill-defined fluid throughout the pelvis residual change left infracolic gutter and upper pelvis otilio r axial image 69 noted. PROSTATE/SEMINAL VESICLES: No gross abnormality seen. LYMPH NODES: No greater than 1cm abdominal or pelvic lymph nodes are appreciated. OSSEOUS STRUCTURES: No significant abnormality is seen. OTHER: There are persistent bilateral pelvic fluid collections with percutaneous shunt catheters. Lef t-sided collection measures 3.7 x 3.2 cm on axial image 73 increased in size from most recent study w ith more mass effect on adjacent sigmoid colon noted. Right-sided collection is diminished in size me asuring 4.4 x 2.0 cm axial image 76 from 4.8 x 2.7 cm prior study image 78. Right-sided tip terminate s just above fluid collection axial image 68 unchanged in position from prior. There is discontinuity of the right lateral catheter coronal image 9 over the mid abdomen similar prior. Left-sided cathete r terminates just inferior to the anterior aspect of liver axial image 25 this position is not signif icantly changed from prior also. IMPRESSION: 1. Interval improvement in degree of inflammatory change throughout the pelvis with some residual lef t-sided inflammatory change noted. Suspect residual mild colitis of the distal left and proximal to m id redundant sigmoid colon. 2. Persistent thin-walled pelvic fluid collections with local mass effect along course of right-sided [employer] shunt catheter. There is interval increase in size left-sided collection with more local mass eff ect noted. [employer] A[employer]ST shunt tip positioning has not changed in the interval and are both away from these flui d collections. There appears to be discontinuity of the lateral right-sided [employer] SYSTEM[employer] A[employer]ST shunt catheter redemon strated. Medial right-sided catheter is intact.
[2017-07-22 11:53] LABS: Glucose,Whole Blood 138 mg/dL (75-99)
[2017-07-22] MEDS: NOREPINEPHRIN 4 MG-0.9% NS PMX 4 MG/250 ML ML IV SCH (12:28)
[2017-07-22] MEDS ORDERED: SODIUM CHLORIDE 0.9% 500 ML IV ONE (16:45)
--- NOTE | 2017-07-22 17:17 | P.PN ---
Subjective Progress Note Date: 07/22/17 (Critical care time 35 minutes) Principal diagnosis: Severe sepsis, acute peritonitis, acute hypoxic respiratory failure, acute renal failure, right lower lobe pneumonia likely aspiration and gram-negative related, Pseudomonas pneumonia, brain tumor, high-grade S requiring [employer]LECTION [employer] LE[employer] shunt, history of stroke, severe profound metabolic acidosis, severe hypernatremia, hypokalemia 07/22/2017, patient seen eval examined during the rounds he is awake sitting upright on the bed, patient is still have significant oral secretion however intensity has improved, patient remains on levo fed drip and currently patient is on 2 mics blood pressure and maps are stable on that. Chest x-ray performed today reviewed and the infiltrate noted in the right basal and lower lobe slightly have shown evidence of clearing up, labs reviewed patient has significant hypernatremia which is slowly improving with free water which is being through the PEG tube, the patient is tolerating free water fairly well currently is on 20 mL an hour, IV fluids are D5 100 mL an hour, given that patient is still have hypotensive episodes and significant unchanged bradycardia which appears to be chronic we'll give another fluid resuscitation of normal saline about 500 mL and change the IV fluids to D5 half-normal suspect some of the hyper natremia and hypokalemia is likely related to high stress dose steroids, care plan discussed with staff as well as patient's mother at length, x-ray reviewed laboratory data reviewed, medications reviewed 07/21/2017, patient seen eval examined during the rounds clinically patient has been doing slightly better now, patient has been successfully weaned and extubated however postextubation patient has a significant problem of excessive oral secretions which were suctioned deeply by the RN and the family members which did help however patient needs to be induced and gag physical stimulation in order to bring up the secretions, issues about tracheostomy have been discussed with the family they feel it being a last resort currently patient FiO2 has been tapered down to 7 L now, patient continued to require levo fed he is on 6 mics are treated when he was sleeping is in mid 40s however when he is awake came up to 60, systolic blood pressure is in 90s, maps around 65 with a levo fed of 6 mics patient has been making adequate urine sodium however noted to be going slightly up patient may very well be is still volume depleted side, currently has been gently rehydrated with D5, I have reviewed the chest x-ray there is a new developing right lower lobe infiltrate are seen with the sputum being positive for Pseudomonas consistent with gram-negative pseudomonas pneumonia, patient is currently on IV Zosyn and vancomycin tolerating well, white cell count is coming down, hemoglobin remained stable no further declining hemoglobin has been noted no more coffee-ground stuff noted to be coming out through either PEG or through patient vomiting, sodium is 152, potassium is 2.9, renal functions remain stable, discussed the care plan with the mother present at bedside at length 07/20/2017, patient seen eval examined during the rounds clinically patient is is slightly stable in terms of hemodynamics but however continued to require low -dose vasopressors currently patient is on 6 mics of levo fed which is gradually being titrated down he is borderline bradycardic blood pressure is stable amount of oral secretions are slightly better, labs reviewed medications reviewed chest x-ray remains stable no new infiltrates are seen interstitial edema is seen, patient has been aggressively resuscitated with crystalloid, now adequate urine output has been noted. Labs reviewed medications reviewed sodium is up to 151 now renal functions remain stable, arterial blood gas and ventilator setting and data reviewed as well, mother is present at bedside care plan discussed with her at length as well 31-year-old male who presented into the hospital with abdominal discomfort and pain started about a day to prior coming to the hospital, patient underwent a computed tomography scan of the abdomen pelvis in emergency department found to have evidence of peritonitis no evidence of acute abdomen however has been noted patient admitted into the ICU under service of Dr. Temple, in ICU patient initially was on 2 L oxygen however has been noted to excessive amount of oral secretions in respiratory secretions with gurgling sounds oxygen saturation continue to drop down on and in spite of increasing the fractional inspired oxygen at 100% patient becomes very tachypneic tachycardic and eventually was intubated for airway protection, labs reviewed computed tomography scan of the chest reviewed and medications reviewed as well along with radiographic studies. Data predominantly obtained from the chart as well as the father present at bedside. Patient has a significant history of brain tumors with multiple resections in the past in his early years due to intracranial hypertension patient underwent a [employer]LECTION TE[employer] LEAD shunt a year ago patient developed acute stroke as well since then patient is extremely predispose to infections, patient has a spontaneously breathing but has problems associated with swallowing dysfunction requiring suctioning of the mouth he also has a PEG tube , patient does follow up at [facility] Patient presents to the emergency center because of family became concerned that he was having increasing abdominal pain, difficulty with nutrition and that when they were feeding him through his PEG tube he seemed to be having some discomfort and retching. He apparently normally has some difficulties with some constipation and they do utilize a bowel program with enema. Apparently no recent stooling and with the abdominal discomforts was brought to the emergency center. The patient did appear to be ill, was found evidence of a leukocytosis. His temperature was 97 for which the parents relate is quite high for him because he has temperature regulation difficulties after his brain tumor and radiation. The patient was admitted to hospital and to the intensive care unit with concerns to peritonitis with a computed tomography scan showing evidence of some inflammation of the abdomen and with the 2 ventriculoperitoneal shunts present cause concern. With a relatively short period of time the patient had rapid onset of respiratory failure necessitating intubation with mechanical ventilation and some sedation. Of note his PEG tube also dislodged spontaneously, the family relates this has happened multiple times over the years. During evaluation in that the patient in the ICU he is post intubated on propofol drip currently when setting includes assist control rate of 14 breathing 14, tidal volume is 400, 100% oxygen, PEEP of 5, patient has a Rodriguez' s catheter with very minimal urine output patient is also on propofol drip, IV fluids are being given D5 normal saline a liter has been given currently patient is on 100 mL an hour PEG tube site is intact Objective - Vital Signs Vital signs: Vital Signs Temp 98.8 F 07/22/17 08:00 Pulse 43 L 07/22/17 12:30 Resp 19 07/22/17 12:30 BP 92/53 07/22/17 12:30 Pulse Ox 98 07/22/17 12:30 Intake & Output 07/21/17 07/22/17 07/22/17 18:59 06:59 18:59 Intake Total 8850.800 4363.001 1393.249 Output Total 527 1440 1880 Balance 1454.063 707.001 -486.751 Weight 75.9 kg 75.9 kg Intake: IV 1425.0 1750.0 700 Dextrose 5% in Water 1, 700 1200 400 000 ml @ 100 mls/hr IV . Q10H [facility] Rx#:[id number] Dextrose 5% in Water 1, 250 000 ml @ 50 mls/hr IV . Q20H [facility] Rx#:[id number] Magnesium Sulfate-D5w Pmx 100 100 1 gm In Dextrose/Water 1 100ml.bag @ 100 mls/hr IVPB Q1H [facility] Rx#: [id number] NS 100 50 Piperacillin-Tazobactam 3 75.0 50.0 50 .375 gm In Dextrose/Water 1 50ml.bag @ 12.5 mls/hr IVPB Q8HR [facility] Rx#: [id number] Potassium Chloride 10 meq 200 In Water For Injection 1 100ml.bag @ 100 mls/hr IVPB Q1H [facility] Rx#: [id number] Potassium Chloride 10 meq 100 In Water For Injection 1 100ml.bag @ 100 mls/hr IVPB Q1H [facility] Rx#: [id number] metroNIDAZOLE-NS PMX 500 200 200 100 mg In Saline 1 100ml.bag @ 100 mls/hr IVPB Q6H [facility] Rx#:[id number] Intake, IV Titration 456.063 127.001 53.249 Amount Norepinephrin 4 mg-0.9% 256.063 127.001 53.249 Ns Pmx 4 mg In 250 ml @ Titrate IV .Q0M [facility] Rx#: [id number] Potassium Chloride 10 meq 200 In Water For Injection 1 100ml.bag @ 100 mls/hr IVPB Q1H [facility] Rx#: [id number] Other 100 270 640 Output: Urine 527 1440 1880 Other: Voiding Method Indwelling Catheter Indwelling Catheter Indwelling Catheter # Voids 1 # Bowel Movements 1 - Exam - Constitutional General appearance: mild distress, no acute distress, obese, readily arousable - EENT Evidence of prior multiple brain surgeries, detailed exam couldn't be performed Eyes: anicteric sclerae, PERRLA, poor dentition Ears: bilateral: normal - Neck Neck: normal ROM Thyroid: bilateral: normal size - Respiratory Respiratory: bilateral: Coarse breath sounds with crackles predominantly on the right base - Cardiovascular Heart sounds: normal: S1, S2 - Gastrointestinal General gastrointestinal: decreased bowel sounds, distended, tenderness, the tenderness and distention appears to have improved compared to yesterday exam - Integumentary Integumentary: decreased turgor - Neurologic Detailed neurological examination couldn't be performed as patient fairly incapacitated and mostly does not follow commands sleep most of the time - Psychiatric Unable to assess due to his baseline neurological status - Labs CBC & Chem 7: 07/22/17 03:56 07/22/17 11:27 Labs: Abnormal Lab Results - Last 24 Hours (Table) 07/21/17 07/21/17 07/22/17 Range/Units 18:54 23:37 03:56 RBC 3.79 L (4.30-5.90) m/uL Hgb 12.1 L (13.0-17.5) gm/dL Hct 36.4 L (39.0-53.0) % Sodium (137-145) mmol/L Potassium (3.5-5.1) mmol/L Chloride (98-107) mmol/L BUN (9-20) mg/dL Creatinine (0.66-1.25) mg/dL Glucose (74-99) mg/dL POC Glucose (mg/dL) 131 H 124 H (75-99) mg/dL Calcium (8.4-10.2) mg/dL 07/22/17 07/22/17 07/22/17 Range/Units 03:56 05:59 11:27 RBC (4.30-5.90) m/uL Hgb (13.0-17.5) gm/dL Hct (39.0-53.0) % Sodium 147 H (137-145) mmol/L Potassium 2.9 L* 3.1 L (3.5-5.1) mmol/L Chloride 110 H (98-107) mmol/L BUN 3 L (9-20) mg/dL Creatinine 0.46 L (0.66-1.25) mg/dL Glucose 129 H (74-99) mg/dL POC Glucose (mg/dL) 137 H (75-99) mg/dL Calcium 7.8 L (8.4-10.2) mg/dL 07/22/17 Range/Units 11:52 RBC (4.30-5.90) m/uL Hgb (13.0-17.5) gm/dL Hct (39.0-53.0) % Sodium (137-145) mmol/L Potassium (3.5-5.1) mmol/L Chloride (98-107) mmol/L BUN (9-20) mg/dL Creatinine (0.66-1.25) mg/dL Glucose (74-99) mg/dL POC Glucose (mg/dL) 138 H (75-99) mg/dL Calcium (8.4-10.2) mg/dL Microbiology - Last 24 Hours (Table) 07/19/17 16:05 Blood Culture - Preliminary Blood No Growth after 48 hours 07/19/17 15:43 Blood Culture - Preliminary Blood No Growth after 48 hours Assessment and Plan Assessment: Severe sepsis and septic shock Acute aspiration pneumonia right lower lobe related to gram-negative organism( pseudomonas aeruginosa Acute peritonitis etiology not clear Acute hypoxic respiratory failure related to excessive amount of oral secretions and respiratory secretions was Acute renal failure/oliguria related to above, significantly improved with aggressive fluid resuscitation Severe hypernatremia Severe hypokalemia History of multiple brain tumors requiring resection and hydrocephalus Ammann status post [employer]LECTION [employer] LEAD shunt History of recent stroke Metabolic acidosis related ongoing sepsis Plan: Oral care deep suctioning as tolerated along with supplemental oxygen, titrated oxygen down as tolerated Discussed with surgical services if gentle rehydration through the PEG tube can be initiated with close monitoring and observation that will help hypernatremia as well, will aim free water 40 mL an hour a total of a liter in one day approximately Scopolamine patch H2 blockers in the form of Pepcid 20 mg IV every 12 Broad-spectrum antibiotics being adjusted by infectious disease services Follow up on culture results and report Monitor and observe off of sedation Taper and DC the levo fed drip Will give the 500 mL of crystalloid bolus to see if patient can comes of levo fed drip Fluid resuscitation and monitor renal functions closely Vasopressors as needed to keep the map over 65 Mchugh cultures including urine and blood and sputum results reviewed DVT and peptic ulcer disease prophylaxis Further recommendations pending plan of care as per clinical response of patient care plan discussed with the staff Discussed with the family at length Critical care time spent 35 minutes Time with Patient: Greater than 30
--- NOTE | 2017-07-22 17:51 | P.PN ---
Subjective Progress Note Date: 07/22/17 31-year-old male with a history of brain tumor with multiple surgeries over the years, mostly done at [facility]. Presents to the emergency center because of family became concerned that he was having increasing abdominal pain, difficulty with nutrition and that when they were feeding him through his PEG tube he seemed to be having some discomfort and retching. He apparently normally has some difficulties with some constipation and they do utilize a bowel program with enema. Apparently no recent stooling and with the abdominal discomforts was brought to the emergency center. The patient did appear to be ill, was found evidence of a leukocytosis. His temperature was 97 for which the parents relate is quite high for him because he has temperature regulation difficulties after his brain tumor and radiation. The patient was admitted to hospital and to the intensive care unit with concerns to peritonitis with a computed tomography scan showing evidence of some inflammation of the abdomen and with the 2 ventriculoperitoneal shunts present cause concern. With a relatively short period of time the patient had rapid onset of respiratory failure necessitating intubation with mechanical ventilation and some sedation. Of note his PEG tube also dislodged spontaneously, the family relates this has happened multiple times over the years. The patient this time appears to be comfortable status post intubation and sedation. Patient's mother provides further history. 07/22/2017 patient is extubated, sitting upright, has his glasses on, opens his eyes and interacts with the observer briefly. Patient's mother is present and is pleased with his current level of activity. Patient appears to be comfortable. Appears to be having some difficulties with his oral secretions. Objective - Vital Signs Vital signs: Vital Signs Temp 98.8 F 07/22/17 08:00 Pulse 43 L 07/22/17 12:30 Resp 19 07/22/17 12:30 BP 92/53 07/22/17 12:30 Pulse Ox 98 07/22/17 12:30 Intake & Output 07/21/17 07/22/17 07/22/17 18:59 06:59 18:59 Intake Total 8071.801 6888.001 1393.249 Output Total 527 1440 1880 Balance 1454.063 707.001 -486.751 Weight 75.9 kg 75.9 kg Intake: IV 1425.0 1750.0 700 Dextrose 5% in Water 1, 700 1200 400 000 ml @ 100 mls/hr IV . Q10H ROSA M Rx#:[id number] Dextrose 5% in Water 1, 250 000 ml @ 50 mls/hr IV . Q20H ROSA M Rx#:[id number] Magnesium Sulfate-D5w Pmx 100 100 1 gm In Dextrose/Water 1 100ml.bag @ 100 mls/hr IVPB Q1H ROSA M Rx#: [id number] NS 100 50 Piperacillin-Tazobactam 3 75.0 50.0 50 .375 gm In Dextrose/Water 1 50ml.bag @ 12.5 mls/hr IVPB Q8HR ROSA M Rx#: [id number] Potassium Chloride 10 meq 200 In Water For Injection 1 100ml.bag @ 100 mls/hr IVPB Q1H ROSA M Rx#: [id number] Potassium Chloride 10 meq 100 In Water For Injection 1 100ml.bag @ 100 mls/hr IVPB Q1H ROSA M Rx#: [id number] metroNIDAZOLE-NS PMX 500 200 200 100 mg In Saline 1 100ml.bag @ 100 mls/hr IVPB Q6H ROSA M Rx#:[id number] Intake, IV Titration 456.063 127.001 53.249 Amount Norepinephrin 4 mg-0.9% 256.063 127.001 53.249 Ns Pmx 4 mg In 250 ml @ Titrate IV .Q0M ROSA M Rx#: [id number] Potassium Chloride 10 meq 200 In Water For Injection 1 100ml.bag @ 100 mls/hr IVPB Q1H ROSA M Rx#: [id number] Other 100 270 640 Output: Urine 527 1440 1880 Other: Voiding Method Indwelling Catheter Indwelling Catheter Indwelling Catheter # Voids 1 # Bowel Movements 1 - Exam 31-year-old male with evidence of the prior craniotomies HEENT: Anicteric conjunctiva are pink and moist nasal mucosa grossly intact without significant lesions, there is no thrush The HE has excellent hygiene at this time the craniotomy scars are healed but there is distinct irregularity to the bony shape Neck: The neck is supple without significant lymphadenopathy or thyromegaly. Lungs: there is symmetrical air entry with bibasilar crackles no bronchial sounds are heard, patient does need to have his mouth suctioned once while I'm in the room may be having some difficulties with handling his oral secretions Heart: Regular rate and rhythm with an audible S1-S2, no S3 no S4. There is no significant murmur click or rub, PMI was nondisplaced. Abdomen: few bowel sounds, abdomen is firm but not rigid, no hepatosplenomegaly is noted. No palpable mass. Extremities: The upper extremities have excellent pulses they are symmetric, no significant petechiae or telangiectasia. No splinter hemorrhages were noted. The lower extremities are free from significant edema. The peripheral pulses were 2+ and symmetric. Neuro: Extubated, sitting upright, glasses are on and does open his eyes and interact with the observer briefly. - Labs CBC & Chem 7: 07/22/17 03:56 07/22/17 11:27 Labs: Abnormal Lab Results - Last 24 Hours (Table) 07/21/17 07/21/17 07/22/17 Range/Units 18:54 23:37 03:56 RBC 3.79 L (4.30-5.90) m/uL Hgb 12.1 L (13.0-17.5) gm/dL Hct 36.4 L (39.0-53.0) % Sodium (137-145) mmol/L Potassium (3.5-5.1) mmol/L Chloride (98-107) mmol/L BUN (9-20) mg/dL Creatinine (0.66-1.25) mg/dL Glucose (74-99) mg/dL POC Glucose (mg/dL) 131 H 124 H (75-99) mg/dL Calcium (8.4-10.2) mg/dL 07/22/17 07/22/17 07/22/17 Range/Units 03:56 05:59 11:27 RBC (4.30-5.90) m/uL Hgb (13.0-17.5) gm/dL Hct (39.0-53.0) % Sodium 147 H (137-145) mmol/L Potassium 2.9 L* 3.1 L (3.5-5.1) mmol/L Chloride 110 H (98-107) mmol/L BUN 3 L (9-20) mg/dL Creatinine 0.46 L (0.66-1.25) mg/dL Glucose 129 H (74-99) mg/dL POC Glucose (mg/dL) 137 H (75-99) mg/dL Calcium 7.8 L (8.4-10.2) mg/dL 07/22/17 Range/Units 11:52 RBC (4.30-5.90) m/uL Hgb (13.0-17.5) gm/dL Hct (39.0-53.0) % Sodium (137-145) mmol/L Potassium (3.5-5.1) mmol/L Chloride (98-107) mmol/L BUN (9-20) mg/dL Creatinine (0.66-1.25) mg/dL Glucose (74-99) mg/dL POC Glucose (mg/dL) 138 H (75-99) mg/dL Calcium (8.4-10.2) mg/dL Microbiology - Last 24 Hours (Table) 07/19/17 16:05 Blood Culture - Preliminary Blood No Growth after 48 hours 07/19/17 15:43 Blood Culture - Preliminary Blood No Growth after 48 hours Laboratory Results WBC 4.3 k/uL (3.8-10.6) 07/22/17 03:56 RBC 3.79 m/uL (4.30-5.90) L 07/22/17 03:56 Hgb 12.1 gm/dL (13.0-17.5) L 07/22/17 03:56 Hct 36.4 % (39.0-53.0) L 07/22/17 03:56 MCV 96.2 fL (80.0-100.0) 07/22/17 03:56 MCH 31.9 pg (25.0-35.0) 07/22/17 03:56 MCHC 33.2 g/dL (31.0-37.0) 07/22/17 03:56 RDW 14.2 % (11.5-15.5) 07/22/17 03:56 Plt Count 168 k/uL (150-450) 07/22/17 03:56 Neutrophils % 65 % 07/22/17 03:56 Lymphocytes % 26 % 07/22/17 03:56 Monocytes % 6 % 07/22/17 03:56 Eosinophils % 1 % 07/22/17 03:56 Basophils % 1 % 07/22/17 03:56 Neutrophils # 2.8 k/uL (1.3-7.7) 07/22/17 03:56 Lymphocytes # 1.1 k/uL (1.0-4.8) 07/22/17 03:56 Monocytes # 0.3 k/uL (0-1.0) 07/22/17 03:56 Eosinophils # 0.0 k/uL (0-0.7) 07/22/17 03:56 Basophils # 0.0 k/uL (0-0.2) 07/22/17 03:56 PT 10.6 sec (9.0-12.0) 07/21/17 04:25 INR 1.1 (<1.2) 07/21/17 04:25 Sample Site R brachial 07/20/17 13:43 ABG pH 7.41 (7.35-7.45) 07/20/17 13:43 ABG pCO2 38 mmHg (35-45) 07/20/17 13:43 ABG pO2 255 mmHg (83-108) H 07/20/17 13:43 ABG HCO3 25 mmol/L (21-25) 07/20/17 13:43 ABG Total CO2 26 mmol/L (19-24) H 07/20/17 13:43 ABG O2 Saturation 100.0 % (94-97) H 07/20/17 13:43 ABG Base Excess -0.1 mmol/L 07/20/17 13:43 Blas Test Yes 07/20/17 13:43 FiO2 35 % 07/20/17 13:43 Sodium 147 mmol/L (137-145) H 07/22/17 03:56 Potassium 3.1 mmol/L (3.5-5.1) L 07/22/17 11:27 Chloride 110 mmol/L (98-107) H 07/22/17 03:56 Carbon Dioxide 28 mmol/L (22-30) 07/22/17 03:56 Anion Gap 9 mmol/L 07/22/17 03:56 BUN 3 mg/dL (9-20) L 07/22/17 03:56 Creatinine 0.46 mg/dL (0.66-1.25) L 07/22/17 03:56 Est GFR (CKD-EPI)AfAm >90 (>60 ml/min/1.73 sqM) 07/22/17 03:56 Est GFR (CKD-EPI)NonAf >90 (>60 ml/min/1.73 sqM) 07/22/17 03:56 Glucose 129 mg/dL (74-99) H 07/22/17 03:56 POC Glucose (mg/dL) 138 mg/dL (75-99) H 07/22/17 11:52 POC Glu [employer] Up And Delivery Driver ID Jessica Henderson 07/22/17 11:[address] Glu mg/dL 71 07/18/17 22:03 Hemoglobin A1c 4.1 % (4.0-6.0) 07/18/17 22:03 Plasma Lactic Acid Terrence 1.6 mmol/L (0.7-2.0) 07/18/17 22:03 Calcium 7.8 mg/dL (8.4-10.2) L 07/22/17 03:56 Phosphorus 2.7 mg/dL (2.5-4.5) 07/22/17 03:56 Magnesium 1.7 mg/dL (1.6-2.3) 07/22/17 03:56 Total Bilirubin 0.6 mg/dL (0.2-1.3) 07/21/17 04:25 AST 17 U/L (17-59) 07/21/17 04:25 ALT 44 U/L (21-72) 07/21/17 04:25 Alkaline Phosphatase 62 U/L (38-126) 07/21/17 04:25 Total Protein 4.7 g/dL (6.3-8.2) L 07/21/17 04:25 Albumin 2.4 g/dL (3.5-5.0) L 07/21/17 04:25 Amylase 54 U/L (30-110) 07/18/17 22:03 Lipase 71 U/L (23-300) 07/18/17 22:03 Urine Color Dark Brown 07/19/17 08:32 Urine Appearance Cloudy (Clear) 07/19/17 08:32 Urine pH 5.5 (5.0-8.0) 07/19/17 08:32 Ur Specific [place] 1.040 (1.001-1.035) H 07/19/17 08:32 Urine Protein 1+ (Negative) H 07/19/17 08:32 Urine Glucose (UA) Negative (Negative) 07/19/17 08:32 Urine Ketones 1+ (Negative) H 07/19/17 08:32 Urine Blood Large (Negative) H 07/19/17 08:32 Urine Nitrite Negative (Negative) 07/19/17 08:32 Urine Bilirubin Negative (Negative) 07/19/17 08:32 Urine Urobilinogen 2.0 mg/dL (<2.0) 07/19/17 08:32 Ur Leukocyte Esterase Small (Negative) H 07/19/17 08:32 Urine RBC >182 /hpf (0-5) H 07/19/17 08:32 Urine WBC 60 /hpf (0-5) H 07/19/17 08:32 Urine Mucus Moderate /hpf (None) H 07/18/17 23:12 Urine Sperm Occasional /hpf (None) H 07/18/17 23:12 Microbiology 07/19/17 16:05 Blood Blood Culture - Preliminary No Growth after 48 hours 07/19/17 15:43 Blood Blood Culture - Preliminary No Growth after 48 hours 07/19/17 08:22 Sputum Gram Stain - Final 07/19/17 08:22 Sputum Sputum Culture - Final Pseudomonas aeruginosa 07/19/17 08:32 Urine,Catheterized Urine Culture - Final Assessment and Plan (1) Abdominal pain Narrative/Plan: 31-year-old male with history of brain tumor cared for by his family and home over the years presents to the emergency center with a couple day history of abdominal pain. Associated with this there was some difficulties with his tube feeds and that in a couple of days before admission he seemed to have some retching and discomfort with the tube feeds. Of note upon care in the intensive care unit his PEG tube has spontaneously fallen out and surgery has been called for further evaluation. Concerns at this time will be for underlying sepsis as the etiology of his respiratory failure. There is concern he could have aspiration pneumonia. The computed tomography scan does reveal evidence of some inflammation of the abdominal cavity consistent with some peritonitis but no evidence of any [place]ia [place] free air or ruptured viscus. Antibiotic therapy with Zosyn will be utilized at this time. The metronidazole may be discontinued at the third dose if he has further improvement. The patient had a temperature of 97.5 which the family relates is quite high for him. Concern that could be part of his underlying sepsis. Also with his adrenal insufficiency with the concerns that he needs further steroid supplementation and hydrocortisone 100 mg twice per day as requested at this time with a dose now. He be further followed by critical care. Blood cultures are requested Sputum and urine cultures are in process The case is discussed with the mother who was present Surgical consultation 07/22/2017 the patient is extubated sitting upright in seems to be improved. Tolerating some free water per his PEG tube at this time. He is being followed by pulmonary critical care also. Recent chest x-ray shows no acute changes. Computed tomography scan has been performed and continues to show some changes related to the [employer] shunt into the right lower quadrant. However was improvement of inflammatory change of the pelvis with some mild residual colitis of the distal left and proximal sigmoid colon. At this time the patient has had some significant improvement. We'll continue Zosyn for now. Pseudomonas aeruginosa was discovered in the sputum culture at the time of his intubation and present on admission. Zosyn is adequate at this time. Seems to be tolerating free water through his PEG. Await surgical interpretation of the computed tomography scan for next potential steps. Leukocytosis has resolved. Family relates that with his brain tumor does not have fevers. Current Visit: Yes Status: Acute Code(s): R10.9 - UNSPECIFIED ABDOMINAL PAIN SNOMED Code(s): 51044296 (2) Peritonitis Current Visit: Yes Status: Acute Code(s): K65.9 - PERITONITIS, UNSPECIFIED SNOMED Code(s): 09478717 (3) Adrenal insufficiency Current Visit: Yes Status: Acute Code(s): E27.40 - UNSPECIFIED ADRENOCORTICAL INSUFFICIENCY SNOMED Code(s): 994496161 (4) Respiratory failure Current Visit: Yes Status: Acute Code(s): J96.90 - RESPIRATORY FAILURE, UNSP , UNSP W HYPOXIA OR HYPERCAPNIA SNOMED Code(s): 407955590
[2017-07-22] MEDS ORDERED: D5-0.45% NACL WITH KCL 20MEQ/L 1,000 ML IV SCH (18:00)
[2017-07-22 18:04] LABS: Glucose,Whole Blood 122 mg/dL (75-99)
--- NOTE | 2017-07-22 21:28 | P.PN ---
Subjective Progress Note Date: 07/22/17 Principal diagnosis: Abdominal pain Per the family the patient seems to be doing even better today. He is alert. Does admit to some pain however when asked. Off pressors currently. Objective - Vital Signs Vital signs: Vital Signs Temp 97.8 F 07/22/17 20:00 Pulse 50 L 07/22/17 20:00 Resp 24 07/22/17 20:00 BP 90/61 07/22/17 20:00 Pulse Ox 98 07/22/17 20:00 Intake & Output 07/22/17 07/22/17 07/23/17 06:59 18:59 06:59 Intake Total 2147.001 2512.249 160 Output Total 1440 2906 290 Balance 707.001 -393.751 -130 Weight 75.9 kg 75.9 kg Intake: IV 1750.0 1210 70 D5-0.45% NaCl with KCl 50 20Meq/l 1,000 ml @ 50 mls /hr IV .Q20H ROSA M Rx#: [id number] Dextrose 5% in Water 1, 1200 850 000 ml @ 100 mls/hr IV . Q10H ROSA M Rx#:[id number] Magnesium Sulfate-D5w Pmx 100 100 1 gm In Dextrose/Water 1 100ml.bag @ 100 mls/hr IVPB Q1H ROSA M Rx#: [id number] NS 100 110 20 Piperacillin-Tazobactam 3 50.0 50 .375 gm In Dextrose/Water 1 50ml.bag @ 12.5 mls/hr IVPB Q8HR ROSA M Rx#: [id number] Potassium Chloride 10 meq 100 In Water For Injection 1 100ml.bag @ 100 mls/hr IVPB Q1H ROSA M Rx#: [id number] metroNIDAZOLE-NS PMX 500 200 100 mg In Saline 1 100ml.bag @ 100 mls/hr IVPB Q6H ROSA M Rx#:[id number] Intake, IV Titration 127.001 662.249 50 Amount D5-0.45% NaCl with KCl 75 50 20Meq/l 1,000 ml @ 50 mls /hr IV .Q20H ROSA M Rx#: [id number] Norepinephrin 4 mg-0.9% 127.001 87.249 Ns Pmx 4 mg In 250 ml @ Titrate IV .Q0M ROSA M Rx#: [id number] Sodium Chloride 0.9% 500 500 ml @ 999 mls/hr IV .Q31M ONE Rx#:[id number] Other 270 640 40 Output: Urine 1440 2905 290 Emesis 1 Other: Voiding Method Indwelling Catheter Indwelling Catheter # Bowel Movements 1 2 - Exam Abdomen: Soft, nondistended, mild left lower quadrant tenderness - Labs CBC & Chem 7: 07/22/17 03:56 07/22/17 17:28 Labs: Abnormal Lab Results - Last 24 Hours (Table) 07/21/17 07/22/17 07/22/17 Range/Units 23:37 03:56 03:56 RBC 3.79 L (4.30-5.90) m/uL Hgb 12.1 L (13.0-17.5) gm/dL Hct 36.4 L (39.0-53.0) % Sodium 147 H (137-145) mmol/L Potassium 2.9 L* (3.5-5.1) mmol/L Chloride 110 H (98-107) mmol/L BUN 3 L (9-20) mg/dL Creatinine 0.46 L (0.66-1.25) mg/dL Glucose 129 H (74-99) mg/dL POC Glucose (mg/dL) 124 H (75-99) mg/dL Calcium 7.8 L (8.4-10.2) mg/dL 07/22/17 07/22/17 07/22/17 Range/Units 05:59 11:27 11:52 RBC (4.30-5.90) m/uL Hgb (13.0-17.5) gm/dL Hct (39.0-53.0) % Sodium (137-145) mmol/L Potassium 3.1 L (3.5-5.1) mmol/L Chloride (98-107) mmol/L BUN (9-20) mg/dL Creatinine (0.66-1.25) mg/dL Glucose (74-99) mg/dL POC Glucose (mg/dL) 137 H 138 H (75-99) mg/dL Calcium (8.4-10.2) mg/dL 07/22/17 Range/Units 18:03 RBC (4.30-5.90) m/uL Hgb (13.0-17.5) gm/dL Hct (39.0-53.0) % Sodium (137-145) mmol/L Potassium (3.5-5.1) mmol/L Chloride (98-107) mmol/L BUN (9-20) mg/dL Creatinine (0.66-1.25) mg/dL Glucose (74-99) mg/dL POC Glucose (mg/dL) 122 H (75-99) mg/dL Calcium (8.4-10.2) mg/dL Microbiology - Last 24 Hours (Table) 07/19/17 16:05 Blood Culture - Preliminary Blood No Growth after 72 hours 07/19/17 15:43 Blood Culture - Preliminary Blood No Growth after 72 hours Assessment and Plan (1) Abdominal pain Narrative/Plan: Repeat CAT scan from today was reviewed. The inflammatory changes in the pelvis are for the most part gone. There still remains fluid collections on either side of the distal sigmoid colon at the region of the [employer] shunt's. Unclear whether this represents infected fluid although suspect this is related to peritoneal shunt drainage. Continue antibiotics. Recommend neurosurgical evaluation once able to be seen by them. This can be performed as an outpatient assuming the patient continues to improve. Current Visit: Yes Status: Acute Code(s): R10.9 - UNSPECIFIED ABDOMINAL PAIN SNOMED Code(s): 67321017
[2017-07-22] MEDS: lamoTRIgine 25 MG TAB PEG/G-TUBE SCH (21:58)
[2017-07-23 00:24] LABS: Glucose,Whole Blood 92 mg/dL (75-99)
[2017-07-23] MEDS: PIPERACILLIN-TAZOBACTAM 3.375 GM in DEXTROSE/WATER 1 50ML.BAG IVPB SCH ×3 (00:28→16:57)
[2017-07-23] MEDS: HEPARIN SODIUM,PORCINE 5,000 UNIT/ML 1 ML VIAL SQ SCH ×3 (00:28→16:58)
--- NOTE | 2017-07-23 00:28 | P.PN ---
Subjective Progress Note Date: 07/22/17 Principal diagnosis: Colitis and pneumonia possible aspiration Patient is a 31-year-old male with a known history of Brain tumor with DATA STEWARD shunt , Paraplegia, Mentally challenged patient, CVA/TIA and seizure disorder came to ER with complaints of abdominal discomfort 2 days prior to admission. Patient was also having some difficulties with the feeding tube. Patient is on PEG tube feeding. Patient's mom is his caregiver. 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 Patient also having some issues with constipation as well. CT of abdomen pelvis on admission showed there is patchy atelectasis at the lung bases. Livers pain pancreas appears normal. There are double ventriculoperitoneal shunt catheters. There is some free fluid in the pelvis. There is also some mild fat stranding in the pelvis the possibility of adenitis should be considered. There is a change compared to old computed tomography scan. There is new mild infiltrate and atelectasis in the posterior lung bases. No evidence of bowel obstruction. Patient went into respiratory failure and is currently sedated and intubated. Patient is being treated for 4 colitis and possible aspiration pneumonia as well. Patient was also started on hydrocortisone 100 mg twice daily due to adrenal insufficiency. ID and pulmonary is following. X-rays abdomen on 07/19/2017 showed contrast appears to extend from the stomach into the duodenum no extravasation of contrast is evident. Chest x-ray today showed improved aeration of the lungs. No focal consolidation. 07/21/2017 Patient was extubated yesterday. Otherwise patient is in no acute distress. Saturating well on nausea cannula. Patient is being continued on antibiotics in the form of Zosyn and metronidazole. No abdominal tenderness. No fever no chills. WBC count is normal. Otherwise potassium level is 2. 9 this morning which is being replaced. 07/22/2017 Currently patient is saturating well on room air. No complaints of abdominal pain. No fever no chills. Repeat CT chest was ordered. Chest x-ray showed interval improvement ARDS of consolidation on the right with persistent interstitial changes and areas of subsegmental consolidation. Patient is being continued on antibiotics. No fever no chills. Review of systems could not be obtained from the patient. Discussed with his mother at bedside in detail. Active Medications Generic Name Dose Route Start Last Admin Trade Name Freq PRN Reason Stop Dose Admin Acetaminophen 650 mg 07/19/17 01:24 Tylenol Suppository RECTAL Q4HR PRN Fever And/ Or Mild Pain Famotidine 20 mg 07/20/17 21:00 07/21/17 21:37 Pepcid IV 20 mg Q12HR ROSA M Administration Heparin Sodium (Porcine) 5,000 unit 07/19/17 08:00 07/21/17 16:38 Heparin SQ 5,000 unit Q8HR ROSA M Administration Hydrocortisone Sodium Succinate 50 mg 07/20/17 14:45 07/21/17 21:38 Solu-Cortef IV 50 mg Q12HR ROSA M Administration Metronidazole 500 mg/ IV 100 mls @ 100 mls/hr 07/19/17 08:00 07/21/17 21:37 Solution IVPB 100 mls/hr Q6H ROSA M Administration Piperacillin/Tazobactam/ 50 mls @ 12.5 mls/hr 07/19/17 16:00 07/21/17 16:38 Dextrose 3.375 gm/ IV Solution IVPB 12.5 mls/hr Q8HR ROSA M Administration Norepinephrine Bitartrate 4 mg in 250 mls @ 0 mls/hr 07/19/17 16:00 07/21/17 18:05 Levophed-0.9% Nacl 4 Mg/250ml Pmx IV 3 mcg/min .Q0M ROSA M 11.25 mls/hr Protocol Titration Titrate Dextrose/Water 1,000 mls @ 100 mls/hr 07/21/17 10:27 07/21/17 22:59 Dextrose 5%-Water Iv Soln IV 100 mls/hr .Q10H ROSA M Administration Iopamidol 30 ml 07/21/17 12:44 Isovue-300 30 Ml (For Oral Use) PO 07/22/17 12:[address] Scan Lamotrigine 25 mg 07/19/17 21:00 07/21/17 21:38 Lamictal PEG/G-TUBE 25 mg HS ROSA M Administration Lorazepam 2 mg 07/19/17 09:02 Ativan IV Q2HR PRN Sedation Miscellaneous Information 1 each 07/19/17 06:59 Magnesium Per Protocol MISCELLANE DAILY PRN Per Protocol Protocol Miscellaneous Information 1 each 07/20/17 12:22 Phosphorus Per Protocol MISCELLANE DAILY PRN Per Protocol Protocol Miscellaneous Information 1 each 07/20/17 12:22 Potassium Per Protocol MISCELLANE DAILY PRN Per Protocol Protocol Morphine Sulfate 2 mg 07/19/17 01:24 07/19/17 08:30 Morphine Sulfate (Inj) IV 2 mg Q2HR PRN Administration Pain Scale 4 to 5 Naloxone HCl 0.2 mg 07/19/17 01:24 Narcan IV Q2M PRN Opioid Reversal Scopolamine 1 patch 07/20/17 12:30 07/20/17 13:02 Transderm-Scop 1.5mg/72hr Patch TRANSDERM 1 patch Q72H ROSA M Administration Objective - Vital Signs Vital signs: Vital Signs Temp 98.8 F 07/22/17 08:00 Pulse 52 L 07/22/17 19:00 Resp 21 07/22/17 19:00 BP 83/57 07/22/17 19:00 Pulse Ox 97 07/22/17 19:00 Intake & Output 07/22/17 07/22/17 07/23/17 06:59 18:59 06:59 Intake Total 2147.001 2512.249 60 Output Total 1440 2906 100 Balance 707.001 -393.751 -40 Weight 75.9 kg 75.9 kg Intake: IV 1750.0 1210 10 Dextrose 5% in Water 1, 1200 850 000 ml @ 100 mls/hr IV . Q10H ROSA M Rx#:[id number] Magnesium Sulfate-D5w Pmx 100 100 1 gm In Dextrose/Water 1 100ml.bag @ 100 mls/hr IVPB Q1H ROSA M Rx#: [id number] NS 100 110 10 Piperacillin-Tazobactam 3 50.0 50 .375 gm In Dextrose/Water 1 50ml.bag @ 12.5 mls/hr IVPB Q8HR ROSA M Rx#: [id number] Potassium Chloride 10 meq 100 In Water For Injection 1 100ml.bag @ 100 mls/hr IVPB Q1H ROSA M Rx#: [id number] metroNIDAZOLE-NS PMX 500 200 100 mg In Saline 1 100ml.bag @ 100 mls/hr IVPB Q6H ROSA M Rx#:[id number] Intake, IV Titration 127.001 662.249 50 Amount D5-0.45% NaCl with KCl 75 50 20Meq/l 1,000 ml @ 50 mls /hr IV .Q20H ROSA M Rx#: [id number] Norepinephrin 4 mg-0.9% 127.001 87.249 Ns Pmx 4 mg In 250 ml @ Titrate IV .Q0M [facility] Rx#: [id number] Sodium Chloride 0.9% 500 500 ml @ 999 mls/hr IV .Q31M ONE Rx#:[id number] Other 270 640 Output: Urine 1440 2905 100 Emesis 1 Other: Voiding Method Indwelling Catheter Indwelling Catheter # Bowel Movements 1 - Exam PHYSICAL EXAMINATION: Patient is lying in the bed comfortably, no acute distress, awake alert but not oriented. patient is mentally challenged HEENT: Normocephalic. Neck is supple. Pupils reactive. Nostrils clear. Oral cavity is moist. Ears reveal no drainage. Neck reveals no JVD, carotid bruits, or thyromegaly. CHEST EXAMINATION: Trachea is central. Symmetrical expansion. Diminished bibasilar air entry. Minimal crackles. No wheezing. Lung alfaro clear to auscultation and percussion. CARDIAC: Normal S1, S2 with no gallops. No murmurs ABDOMEN: Soft. Nontender. Bowel sounds normal. No organomegaly. No abdominal bruits. Extremities: reveal no edema. No clubbing or cyanosis Neurologically awake, alert. Patient does have paraplegia Skin: No rash or skin lesions. Psychiatric: Coperative. Could not be assessed completely Musculoskeletal: No joint swelling or deformity. Normal range of motion. - Labs CBC & Chem 7: 07/22/17 03:56 07/22/17 17:28 Labs: Abnormal Lab Results - Last 24 Hours (Table) 07/21/17 07/22/17 07/22/17 Range/Units 23:37 03:56 03:56 RBC 3.79 L (4.30-5.90) m/uL Hgb 12.1 L (13.0-17.5) gm/dL Hct 36.4 L (39.0-53.0) % Sodium 147 H (137-145) mmol/L Potassium 2.9 L* (3.5-5.1) mmol/L Chloride 110 H (98-107) mmol/L BUN 3 L (9-20) mg/dL Creatinine 0.46 L (0.66-1.25) mg/dL Glucose 129 H (74-99) mg/dL POC Glucose (mg/dL) 124 H (75-99) mg/dL Calcium 7.8 L (8.4-10.2) mg/dL 07/22/17 07/22/17 07/22/17 Range/Units 05:59 11:27 11:52 RBC (4.30-5.90) m/uL Hgb (13.0-17.5) gm/dL Hct (39.0-53.0) % Sodium (137-145) mmol/L Potassium 3.1 L (3.5-5.1) mmol/L Chloride (98-107) mmol/L BUN (9-20) mg/dL Creatinine (0.66-1.25) mg/dL Glucose (74-99) mg/dL POC Glucose (mg/dL) 137 H 138 H (75-99) mg/dL Calcium (8.4-10.2) mg/dL 07/22/17 Range/Units 18:03 RBC (4.30-5.90) m/uL Hgb (13.0-17.5) gm/dL Hct (39.0-53.0) % Sodium (137-145) mmol/L Potassium (3.5-5.1) mmol/L Chloride (98-107) mmol/L BUN (9-20) mg/dL Creatinine (0.66-1.25) mg/dL Glucose (74-99) mg/dL POC Glucose (mg/dL) 122 H (75-99) mg/dL Calcium (8.4-10.2) mg/dL Microbiology - Last 24 Hours (Table) 07/19/17 16:05 Blood Culture - Preliminary Blood No Growth after 72 hours 07/19/17 15:43 Blood Culture - Preliminary Blood No Growth after 72 hours Assessment and Plan Assessment: Acute hypoxic respiratory failure due to sepsis from aspiration with excessive oral secretions.. Currently extubated on 07/20/2017. Severe sepsis/septic shock requiring pressor support Acute colitis and possible pneumonia/aspiration Hypernatremia History of multiple brain surgeries due to Brain tumor with DATA STEWARD shunt, Paraplegia Mentally challenged patient Recent CVA/TIA and seizure disorder Metabolic acidosis Plan: Patient patient is saturating well on nasal cannula oxygen. Titrated down to room air. Currently and he was in the form of Zosyn . DC'd metronidazole. ID and pulmonary is following. Placed on scopolamine patch. IV fluids with D5 water. GI and DVT prophylaxis. Further recommendations based on the clinical course. Prognosis is guarded. Thank you for your consult Time with Patient: Greater than 30
[2017-07-23] MEDS: POTASSIUM BICARBONATE/CIT AC 20 MEQ TABLET.EFF NG-TUBE SCH ×2 (01:20→02:13)
[2017-07-23 04:17] LABS: Basophils % (A) 1 %; Eosinophils % (A) 1 %; HCT 38.8 % (39.0-53.0); HGB 12.9 gm/dL (13.0-17.5); Lymphocytes % (A) 20 %; MCH 31.9 pg (25.0-35.0); MCHC 33.1 g/dL (31.0-37.0); MCV 96.5 fL (80.0-100.0); Monocytes # (A) 0.3 k/uL (0-1.0); Monocytes % (A) 7 %; Neutrophils # (A) 3.4 k/uL (1.3-7.7); Neutrophils % (A) 71 %; Platelet Count 171 k/uL (150-450); RBC 4.03 m/uL (4.30-5.90); RDW 14.1 % (11.5-15.5); WBC 4.9 k/uL (3.8-10.6)
[2017-07-23 04:31] LABS: Anion Gap 9 mmol/L; Blood Urea Nitrogen 3 mg/dL (9-20); Calcium 8.1 mg/dL (8.4-10.2); Carbon Dioxide 23 mmol/L (22-30); Chloride 112 mmol/L (98-107); Glucose 97 mg/dL (74-99); Magnesium 2.2 mg/dL (1.6-2.3); Phosphorus 2.4 mg/dL (2.5-4.5); Potassium 4.2 mmol/L (3.5-5.1); Sodium 144 mmol/L (137-145)
[2017-07-23 08:02] LABS: Glucose,Whole Blood 102 mg/dL (75-99)
[2017-07-23] MEDS: POTASSIUM PHOSPHATE 10 MMOL in SODIUM CHLORIDE 0.9% 250 ML IV ONE ×2 (08:37→09:18)
[2017-07-23] MEDS: HYDROCORTISONE SUCCINATE 100 MG/2 ML VIAL IV SCH (08:37)
[2017-07-23] MEDS: FAMOTIDINE 20 MG/2 ML VIAL IV SCH ×2 (08:38→21:33)
[2017-07-23] MEDS ORDERED: SODIUM PHOSPHATE 10 MMOL in SODIUM CHLORIDE 0.9% 250 ML IVPB ONE (09:00)
--- NOTE | 2017-07-23 10:07 | XR ---
EXAMINATION TYPE: XR chest 1V portable DATE OF EXAM: 07/23/2017 COMPARISON: Prior chest x-ray 07/22/2017 HISTORY: Abnormal chest x-ray TECHNIQUE: Single frontal view of the chest is obtained. FINDINGS: Findings are similar to prior exam. Patient is rotated, lung volumes are low. Bilateral ve ntriculoperitoneal shunt tubing is present. There are overlying cardiac leads. No pneumothorax or ple ural effusion evident. Central vascularity and interstitium are similar in appearance. PEG tube prese nt in the left upper quadrant. Heart is enlarged. Vague groundglass opacity suspected within the lung s. IMPRESSION: Rotated expiratory exam. Correlate to exclude volume overload, pulmonary venous hyperten tresa and interstitial edema.
[2017-07-23] MEDS: SCOPOLAMINE 1.5MG/72HR PATCH TRANSDERM SCH (13:06)
[2017-07-23 13:07] LABS: Glucose,Whole Blood 96 mg/dL (75-99)
--- NOTE | 2017-07-23 13:39 | P.PN ---
Subjective Progress Note Date: 07/23/17 Principal diagnosis: Severe sepsis, acute peritonitis, acute hypoxic respiratory failure, acute renal failure, right lower lobe pneumonia likely aspiration and gram-negative related, Pseudomonas pneumonia, brain tumor, high-grade S requiring [employer] shunt, history of stroke, severe profound metabolic acidosis, severe hypernatremia, hypokalemia 07/23/2017, patient seen eval examined during the rounds clinically patient is doing much better he is been off of levo fed drip since last night, patient has adequate urine output he remains on IV fluid D5 half-normal saline 50 mL an hour with potassium tolerating very well patient is being replaced with potassium, potassium level has improved today, every feed has been initiated, patient has been getting free water through the PEG tube as well, amount of oral secretion has substantially improved since has been placed on scopolamine patch, labs and radiographic studies reviewed, medications reviewed 07/22/2017, patient seen eval examined during the rounds he is awake sitting upright on the bed, patient is still have significant oral secretion however intensity has improved, patient remains on levo fed drip and currently patient is on 2 mics blood pressure and maps are stable on that. Chest x-ray performed today reviewed and the infiltrate noted in the right basal and lower lobe slightly have shown evidence of clearing up, labs reviewed patient has significant hypernatremia which is slowly improving with free water which is being through the PEG tube, the patient is tolerating free water fairly well currently is on 20 mL an hour, IV fluids are D5 100 mL an hour, given that patient is still have hypotensive episodes and significant unchanged bradycardia which appears to be chronic we'll give another fluid resuscitation of normal saline about 500 mL and change the IV fluids to D5 half-normal suspect some of the hyper natremia and hypokalemia is likely related to high stress dose steroids, care plan discussed with staff as well as patient's mother at length, x-ray reviewed laboratory data reviewed, medications reviewed 07/21/2017, patient seen eval examined during the rounds clinically patient has been doing slightly better now, patient has been successfully weaned and extubated however postextubation patient has a significant problem of excessive oral secretions which were suctioned deeply by the RN and the family members which did help however patient needs to be induced and gag physical stimulation in order to bring up the secretions, issues about tracheostomy have been discussed with the family they feel it being a last resort currently patient FiO2 has been tapered down to 7 L now, patient continued to require levo fed he is on 6 mics are treated when he was sleeping is in mid 40s however when he is awake came up to 60, systolic blood pressure is in 90s, maps around 65 with a levo fed of 6 mics patient has been making adequate urine sodium however noted to be going slightly up patient may very well be is still volume depleted side, currently has been gently rehydrated with D5, I have reviewed the chest x-ray there is a new developing right lower lobe infiltrate are seen with the sputum being positive for Pseudomonas consistent with gram-negative pseudomonas pneumonia, patient is currently on IV Zosyn and vancomycin tolerating well, white cell count is coming down, hemoglobin remained stable no further declining hemoglobin has been noted no more coffee-ground stuff noted to be coming out through either PEG or through patient vomiting, sodium is 152, potassium is 2.9, renal functions remain stable, discussed the care plan with the mother present at bedside at length 07/20/2017, patient seen eval examined during the rounds clinically patient is is slightly stable in terms of hemodynamics but however continued to require low -dose vasopressors currently patient is on 6 mics of levo fed which is gradually being titrated down he is borderline bradycardic blood pressure is stable amount of oral secretions are slightly better, labs reviewed medications reviewed chest x-ray remains stable no new infiltrates are seen interstitial edema is seen, patient has been aggressively resuscitated with crystalloid, now adequate urine output has been noted. Labs reviewed medications reviewed sodium is up to 151 now renal functions remain stable, arterial blood gas and ventilator setting and data reviewed as well, mother is present at bedside care plan discussed with her at length as well 31-year-old male who presented into the hospital with abdominal discomfort and pain started about a day to prior coming to the hospital, patient underwent a computed tomography scan of the abdomen pelvis in emergency department found to have evidence of peritonitis no evidence of acute abdomen however has been noted patient admitted into the ICU under service of Dr. Temple, in ICU patient initially was on 2 L oxygen however has been noted to excessive amount of oral secretions in respiratory secretions with gurgling sounds oxygen saturation continue to drop down on and in spite of increasing the fractional inspired oxygen at 100% patient becomes very tachypneic tachycardic and eventually was intubated for airway protection, labs reviewed computed tomography scan of the chest reviewed and medications reviewed as well along with radiographic studies. Data predominantly obtained from the chart as well as the father present at bedside. Patient has a significant history of brain tumors with multiple resections in the past in his early years due to intracranial hypertension patient underwent a [employer] shunt a year ago patient developed acute stroke as well since then patient is extremely predispose to infections, patient has a spontaneously breathing but has problems associated with swallowing dysfunction requiring suctioning of the mouth he also has a PEG tube , patient does follow up at [facility] Patient presents to the emergency center because of family became concerned that he was having increasing abdominal pain, difficulty with nutrition and that when they were feeding him through his PEG tube he seemed to be having some discomfort and retching. He apparently normally has some difficulties with some constipation and they do utilize a bowel program with enema. Apparently no recent stooling and with the abdominal discomforts was brought to the emergency center. The patient did appear to be ill, was found evidence of a leukocytosis. His temperature was 97 for which the parents relate is quite high for him because he has temperature regulation difficulties after his brain tumor and radiation. The patient was admitted to hospital and to the intensive care unit with concerns to peritonitis with a computed tomography scan showing evidence of some inflammation of the abdomen and with the 2 ventriculoperitoneal shunts present cause concern. With a relatively short period of time the patient had rapid onset of respiratory failure necessitating intubation with mechanical ventilation and some sedation. Of note his PEG tube also dislodged spontaneously, the family relates this has happened multiple times over the years. During evaluation in that the patient in the ICU he is post intubated on propofol drip currently when setting includes assist control rate of 14 breathing 14, tidal volume is 400, 100% oxygen, PEEP of 5, patient has a Rodriguez' s catheter with very minimal urine output patient is also on propofol drip, IV fluids are being given D5 normal saline a liter has been given currently patient is on 100 mL an hour PEG tube site is intact Objective - Vital Signs Vital signs: Vital Signs Temp 97.7 F 07/23/17 08:00 Pulse 49 L 07/23/17 10:30 Resp 9 L 07/23/17 10:30 BP 90/63 07/23/17 10:30 Pulse Ox 95 07/23/17 10:30 Intake & Output 06/11/18 06/12/18 06/12/18 18:59 06:59 18:59 Intake Total 2732.249 1640.0 675 Output Total 2906 1425 275 Balance -173.751 215.0 400 Weight 75.9 kg 73.9 kg Intake: IV 1210 680.0 290 D5-0.45% NaCl with KCl 550 200 20Meq/l 1,000 ml @ 50 mls /hr IV .Q20H [facility]A M Rx#: [id number] Dextrose 5% in Water 1, 850 000 ml @ 100 mls/hr IV . Q10H ROSA M Rx#:[id number] Magnesium Sulfate-D5w Pmx 100 1 gm In Dextrose/Water 1 100ml.bag @ 100 mls/hr IVPB Q1H [facility] M Rx#: [id number] NS 110 80 40 Piperacillin-Tazobactam 3 50 50.0 50 .375 gm In Dextrose/Water 1 50ml.bag @ 12.5 mls/hr IVPB Q8HR ROSA M Rx#: [id number] metroNIDAZOLE-NS PMX 500 100 mg In Saline 1 100ml.bag @ 100 mls/hr IVPB Q6H [facility] Rx#:[id number] Intake, IV Titration 662.249 50 125 Amount D5-0.45% NaCl with KCl 75 50 20Meq/l 1,000 ml @ 50 mls /hr IV .Q20H [facility] Rx#: [id number] Norepinephrin 4 mg-0.9% 87.249 Ns Pmx 4 mg In 250 ml @ Titrate IV .Q0M [facility]A M Rx#: [id number] Sodium Chloride 0.9% 500 500 ml @ 999 mls/hr IV .Q31M [facility] Rx#:[id number] Sodium Phosphate 10 mmol 125 In Sodium Chloride 0.9% 250 ml @ 125 mls/hr IVPB ONCE ONE Rx#:[id number] Tube Feeding 240 80 Other 860 670 180 Output: Urine 2905 1425 275 Emesis 1 Other: Voiding Method Indwelling Catheter Indwelling Catheter Indwelling Catheter # Bowel Movements 2 - Exam - Constitutional General appearance: mild distress, no acute distress, obese, readily arousable - EENT Evidence of prior multiple brain surgeries, detailed exam couldn't be performed Eyes: anicteric sclerae, PERRLA, poor dentition Ears: bilateral: normal - Neck Neck: normal ROM Thyroid: bilateral: normal size - Respiratory Respiratory: bilateral: Coarse breath sounds with crackles predominantly on the right base - Cardiovascular Heart sounds: normal: S1, S2 - Gastrointestinal General gastrointestinal: decreased bowel sounds, distended, tenderness, the tenderness and distention appears to have improved compared to yesterday exam - Integumentary Integumentary: decreased turgor - Neurologic Detailed neurological examination couldn't be performed as patient fairly incapacitated and mostly does not follow commands sleep most of the time - Psychiatric Unable to assess due to his baseline neurological status - Labs CBC & Chem 7: 07/23/17 03:46 07/23/17 12:45 Labs: Abnormal Lab Results - Last 24 Hours (Table) 07/22/17 07/22/17 07/23/17 Range/Units 18:03 23:57 03:46 RBC 4.03 L (4.30-5.90) m/uL Hgb 12.9 L (13.0-17.5) gm/dL Hct 38.8 L (39.0-53.0) % Potassium 3.3 L (3.5-5.1) mmol/L Chloride (98-107) mmol/L BUN (9-20) mg/dL Creatinine (0.66-1.25) mg/dL POC Glucose (mg/dL) 122 H (75-99) mg/dL Calcium (8.4-10.2) mg/dL Phosphorus (2.5-4.5) mg/dL 07/23/17 07/23/17 Range/Units 03:46 07:57 RBC (4.30-5.90) m/uL Hgb (13.0-17.5) gm/dL Hct (39.0-53.0) % Potassium (3.5-5.1) mmol/L Chloride 112 H (98-107) mmol/L BUN 3 L (9-20) mg/dL Creatinine 0.40 L (0.66-1.25) mg/dL POC Glucose (mg/dL) 102 H (75-99) mg/dL Calcium 8.1 L (8.4-10.2) mg/dL Phosphorus 2.4 L (2.5-4.5) mg/dL Microbiology - Last 24 Hours (Table) 07/19/17 16:05 Blood Culture - Preliminary Blood No Growth after 72 hours 07/19/17 15:43 Blood Culture - Preliminary Blood No Growth after 72 hours Assessment and Plan Assessment: Severe sepsis and septic shock Acute aspiration pneumonia right lower lobe related to gram-negative organism( pseudomonas aeruginosa Chronic adrenal insufficiency Acute peritonitis etiology not clear Acute hypoxic respiratory failure related to excessive amount of oral secretions and respiratory secretions was Acute renal failure/oliguria related to above, significantly improved with aggressive fluid resuscitation Severe hypernatremia Severe hypokalemia History of multiple brain tumors requiring resection and hydrocephalus Ammann status post [employer] shunt History of recent stroke Metabolic acidosis related ongoing sepsis Plan: Oral care deep suctioning as tolerated along with supplemental oxygen, titrated oxygen down as tolerated Discussed with surgical services if gentle rehydration through the PEG tube to be maintained along with the 2 feet, will DC the supplemental IV rehydration We will stop hydrocortisone and reinitiate patient on Cortef 10 mg by mouth 2 times a day as taking at home Scopolamine patch H2 blockers in the form of Pepcid 20 mg IV every 12 Broad-spectrum antibiotics being adjusted by infectious disease services monitor renal functions closely Vasopressors as needed to keep the map over 65 Mchugh cultures including urine and blood and sputum results reviewed DVT and peptic ulcer disease prophylaxis Further recommendations pending plan of care as per clinical response of patient care plan discussed with the staff Discussed with the family at length Can be moved out of the ICU to MedSurg unit with remote telemetry Time with Patient: Greater than 30
[2017-07-23 14:20] VITALS: BMI 27.9
[2017-07-23] MEDS ORDERED: POTASSIUM BICARBONATE/CIT AC 20 MEQ TABLET.EFF NG-TUBE ONE (16:00)
--- NOTE | 2017-07-23 16:18 | P.PN ---
Subjective 31-year-old male with a known history of Brain tumor with BRAIDED RUG MAKER shunt, Paraplegia, Mentally challenged patient, CVA/TIA and seizure disorder came to ER with complaints of abdominal discomfort 2 days prior to admission. Patient was also having some difficulties with the feeding tube. Patient is on PEG tube feeding. Patient's mom is his caregiver. 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 Patient also having some issues with constipation as well. CT of abdomen pelvis on admission showed there is patchy atelectasis at the lung bases. Livers pain pancreas appears normal. There are double ventriculoperitoneal shunt catheters. There is some free fluid in the pelvis. There is also some mild fat stranding in the pelvis the possibility of adenitis should be considered. There is a change compared to old computed tomography scan. There is new mild infiltrate and atelectasis in the posterior lung bases. No evidence of bowel obstruction. Patient went into respiratory failure and is currently sedated and intubated. Patient is being treated for 4 colitis and possible aspiration pneumonia as well. Patient was also started on hydrocortisone 100 mg twice daily due to adrenal insufficiency. ID and pulmonary is following. X-rays abdomen on 07/19/2017 showed contrast appears to extend from the stomach into the duodenum no extravasation of contrast is evident. Chest x-ray today showed improved aeration of the lungs. No focal consolidation. 07/21/2017 Patient was extubated yesterday. Otherwise patient is in no acute distress. Saturating well on nausea cannula. Patient is being continued on antibiotics in the form of Zosyn and metronidazole. No abdominal tenderness. No fever no chills. WBC count is normal. Otherwise potassium level is 2. 9 this morning which is being replaced. 07/22/2017 Currently patient is saturating well on room air. No complaints of abdominal pain. No fever no chills. Repeat CT chest was ordered. Chest x-ray showed interval improvement ARDS of consolidation on the right with persistent interstitial changes and areas of subsegmental consolidation. Patient is being continued on antibiotics. No fever no chills. 07/23/2017 No overnight events, patient probably will transfer out of ICU today. Objective - Vital Signs Vital signs: Vital Signs Temp 97.7 F 07/23/17 12:00 Pulse 46 L 07/23/17 15:00 Resp 21 07/23/17 15:00 BP 83/57 07/23/17 15:00 Pulse Ox 95 07/23/17 15:00 Intake & Output 07/22/17 07/23/17 07/23/17 18:59 06:59 18:59 Intake Total 2732.249 1640.0 855 Output Total 2906 1425 525 Balance -173.751 215.0 330 Weight 75.9 kg 73.9 kg 73.9 kg Intake: IV 1210 680.0 470 D5-0.45% NaCl with KCl 550 350 20Meq/l 1,000 ml @ 50 mls /hr IV .Q20H ROSA M Rx#: [id number] Dextrose 5% in Water 1, 850 000 ml @ 100 mls/hr IV . Q10H ROSA M Rx#:[id number] Magnesium Sulfate-D5w Pmx 100 1 gm In Dextrose/Water 1 100ml.bag @ 100 mls/hr IVPB Q1H ROSA M Rx#: [id number] NS 110 80 70 Piperacillin-Tazobactam 3 50 50.0 50 .375 gm In Dextrose/Water 1 50ml.bag @ 12.5 mls/hr IVPB Q8HR ROSA M Rx#: [id number] metroNIDAZOLE-NS PMX 500 100 mg In Saline 1 100ml.bag @ 100 mls/hr IVPB Q6H ROSA M Rx#:[id number] Intake, IV Titration 662.249 50 125 Amount D5-0.45% NaCl with KCl 75 50 20Meq/l 1,000 ml @ 50 mls /hr IV .Q20H ROSA M Rx#: [id number] Norepinephrin 4 mg-0.9% 87.249 Ns Pmx 4 mg In 250 ml @ Titrate IV .Q0M ROSA M Rx#: [id number] Sodium Chloride 0.9% 500 500 ml @ 999 mls/hr IV .Q31M ONE Rx#:[id number] Sodium Phosphate 10 mmol 125 In Sodium Chloride 0.9% 250 ml @ 125 mls/hr IVPB ONCE ONE Rx#:[id number] Tube Feeding 240 80 Other 860 670 180 Output: Urine 2905 1425 525 Emesis 1 Other: Voiding Method Indwelling Catheter Indwelling Catheter Indwelling Catheter # Bowel Movements 2 1 - Exam PHYSICAL EXAMINATION: Patient is lying in the bed comfortably, no acute distress, awake alert but not oriented. patient is mentally challenged HEENT: Normocephalic. Neck is supple. Pupils reactive. Nostrils clear. Oral cavity is moist. Ears reveal no drainage. Neck reveals no JVD, carotid bruits, or thyromegaly. CHEST EXAMINATION: Trachea is central. Symmetrical expansion. Diminished bibasilar air entry. Minimal crackles. No wheezing. Lung alfaro clear to auscultation and percussion. CARDIAC: Normal S1, S2 with no gallops. No murmurs ABDOMEN: Soft. Nontender. Bowel sounds normal. No organomegaly. No abdominal bruits. Extremities: reveal no edema. No clubbing or cyanosis Neurologically awake, alert. Patient does have paraplegia Skin: No rash or skin lesions. Psychiatric: Coperative. Could not be assessed completely Musculoskeletal: No joint swelling or deformity. Normal range of motion. - Labs CBC & Chem 7: 07/23/17 03:46 07/23/17 12:45 Labs: Abnormal Lab Results - Last 24 Hours (Table) 07/22/17 07/22/17 07/23/17 Range/Units 18:03 23:57 03:46 RBC 4.03 L (4.30-5.90) m/uL Hgb 12.9 L (13.0-17.5) gm/dL Hct 38.8 L (39.0-53.0) % Potassium 3.3 L (3.5-5.1) mmol/L Chloride (98-107) mmol/L BUN (9-20) mg/dL Creatinine (0.66-1.25) mg/dL POC Glucose (mg/dL) 122 H (75-99) mg/dL Calcium (8.4-10.2) mg/dL Phosphorus (2.5-4.5) mg/dL 07/23/17 07/23/17 Range/Units 03:46 07:57 RBC (4.30-5.90) m/uL Hgb (13.0-17.5) gm/dL Hct (39.0-53.0) % Potassium (3.5-5.1) mmol/L Chloride 112 H (98-107) mmol/L BUN 3 L (9-20) mg/dL Creatinine 0.40 L (0.66-1.25) mg/dL POC Glucose (mg/dL) 102 H (75-99) mg/dL Calcium 8.1 L (8.4-10.2) mg/dL Phosphorus 2.4 L (2.5-4.5) mg/dL Microbiology - Last 24 Hours (Table) 07/19/17 16:05 Blood Culture - Preliminary Blood No Growth after 72 hours 07/19/17 15:43 Blood Culture - Preliminary Blood No Growth after 72 hours Assessment and Plan Plan: Acute hypoxic respiratory failure due to sepsis from aspiration with excessive oral secretions.. Currently extubated on 07/20/2017. 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 Titrated down to room air. Currently and he was in the form of Zosyn . Off metronidazole. ID and pulmonary is following. on scopolamine patch. GI and DVT prophylaxis. Further recommendations based on the clinical course. Prognosis is guarded. Patient is able to tolerate PEG tube feedings today patient was reinitiated on PEG tube feedings Thank you for your consult
--- NOTE | 2017-07-23 17:26 | P.PN ---
Subjective Progress Note Date: 07/23/17 Principal diagnosis: Abdominal pain Patient doing well today. He did have a seizure earlier. He had 4 loose stools since yesterday. Pain seems improved per the family compared to yesterday. Tolerating tube feeds at 30 mL per hour Objective - Vital Signs Vital signs: Vital Signs Temp 97.7 F 07/23/17 12:00 Pulse 46 L 07/23/17 15:00 Resp 21 07/23/17 15:00 BP 83/57 07/23/17 15:00 Pulse Ox 95 07/23/17 15:00 Intake & Output 07/22/17 07/23/17 07/23/17 18:59 06:59 18:59 Intake Total 2732.249 1640.0 855 Output Total 2906 1425 525 Balance -173.751 215.0 330 Weight 75.9 kg 73.9 kg 73.9 kg Intake: IV 1210 680.0 470 D5-0.45% NaCl with KCl 550 350 20Meq/l 1,000 ml @ 50 mls /hr IV .Q20H ROSA M Rx#: [id number] Dextrose 5% in Water 1, 850 000 ml @ 100 mls/hr IV . Q10H ROSA M Rx#:[id number] Magnesium Sulfate-D5w Pmx 100 1 gm In Dextrose/Water 1 100ml.bag @ 100 mls/hr IVPB Q1H ROSA M Rx#: [id number] NS 110 80 70 Piperacillin-Tazobactam 3 50 50.0 50 .375 gm In Dextrose/Water 1 50ml.bag @ 12.5 mls/hr IVPB Q8HR ROSA M Rx#: [id number] metroNIDAZOLE-NS PMX 500 100 mg In Saline 1 100ml.bag @ 100 mls/hr IVPB Q6H ROSA M Rx#:[id number] Intake, IV Titration 662.249 50 125 Amount D5-0.45% NaCl with KCl 75 50 20Meq/l 1,000 ml @ 50 mls /hr IV .Q20H ROSA M Rx#: [id number] Norepinephrin 4 mg-0.9% 87.249 Ns Pmx 4 mg In 250 ml @ Titrate IV .Q0M ROSA M Rx#: [id number] Sodium Chloride 0.9% 500 500 ml @ 999 mls/hr IV .Q31M ONE Rx#:[id number] Sodium Phosphate 10 mmol 125 In Sodium Chloride 0.9% 250 ml @ 125 mls/hr IVPB ONCE ONE Rx#:[id number] Tube Feeding 240 80 Other 860 670 180 Output: Urine 2905 1425 525 Emesis 1 Other: Voiding Method Indwelling Catheter Indwelling Catheter Indwelling Catheter # Bowel Movements 2 1 - Exam Abdomen: Soft, minimal left lower quadrant tenderness, nondistended - Labs CBC & Chem 7: 07/23/17 03:46 07/23/17 12:45 Labs: Abnormal Lab Results - Last 24 Hours (Table) 07/22/17 07/22/17 07/23/17 Range/Units 18:03 23:57 03:46 RBC 4.03 L (4.30-5.90) m/uL Hgb 12.9 L (13.0-17.5) gm/dL Hct 38.8 L (39.0-53.0) % Potassium 3.3 L (3.5-5.1) mmol/L Chloride (98-107) mmol/L BUN (9-20) mg/dL Creatinine (0.66-1.25) mg/dL POC Glucose (mg/dL) 122 H (75-99) mg/dL Calcium (8.4-10.2) mg/dL Phosphorus (2.5-4.5) mg/dL 07/23/17 07/23/17 Range/Units 03:46 07:57 RBC (4.30-5.90) m/uL Hgb (13.0-17.5) gm/dL Hct (39.0-53.0) % Potassium (3.5-5.1) mmol/L Chloride 112 H (98-107) mmol/L BUN 3 L (9-20) mg/dL Creatinine 0.40 L (0.66-1.25) mg/dL POC Glucose (mg/dL) 102 H (75-99) mg/dL Calcium 8.1 L (8.4-10.2) mg/dL Phosphorus 2.4 L (2.5-4.5) mg/dL Microbiology - Last 24 Hours (Table) 07/19/17 16:05 Blood Culture - Preliminary Blood No Growth after 72 hours 07/19/17 15:43 Blood Culture - Preliminary Blood No Growth after 72 hours Assessment and Plan (1) Abdominal pain Narrative/Plan: Continue antibiotics per infectious disease. Continue advancing tube feeds to goal. Outpatient evaluation by neurosurgery to help with management of pelvic fluid collections. Current Visit: Yes Status: Acute Code(s): R10.9 - UNSPECIFIED ABDOMINAL PAIN SNOMED Code(s): 82842643
[2017-07-23 17:47] LABS: Glucose,Whole Blood 98 mg/dL (75-99)
--- NOTE | 2017-07-23 20:21 | P.PN ---
Subjective Progress Note Date: 07/23/17 31-year-old male with a history of brain tumor with multiple surgeries over the years, mostly done at [facility]. Presents to the emergency center because of family became concerned that he was having increasing abdominal pain, difficulty with nutrition and that when they were feeding him through his PEG tube he seemed to be having some discomfort and retching. He apparently normally has some difficulties with some constipation and they do utilize a bowel program with enema. Apparently no recent stooling and with the abdominal discomforts was brought to the emergency center. The patient did appear to be ill, was found evidence of a leukocytosis. His temperature was 97 for which the parents relate is quite high for him because he has temperature regulation difficulties after his brain tumor and radiation. The patient was admitted to hospital and to the intensive care unit with concerns to peritonitis with a computed tomography scan showing evidence of some inflammation of the abdomen and with the 2 ventriculoperitoneal shunts present cause concern. With a relatively short period of time the patient had rapid onset of respiratory failure necessitating intubation with mechanical ventilation and some sedation. Of note his PEG tube also dislodged spontaneously, the family relates this has happened multiple times over the years. The patient this time appears to be comfortable status post intubation and sedation. Patient's mother provides further history. 07/22/2017 patient is extubated, sitting upright, has his glasses on, opens his eyes and interacts with the observer briefly. Patient's mother is present and is pleased with his current level of activity. Patient appears to be comfortable. Appears to be having some difficulties with his oral secretions. 07/23/2017 patient is showing some further improvement today. He has been well enough to be able to move out of the intensive care unit to the general medical floor. He is more awake and interactive and the parents are pleased with his current functional status. Scopolamine patch was added and with some drying of secretions seems to be more comfortable. He did have multiple loose stools of a thin watery material that did not have a distinct odor, of concern because of his history of prior C. diff but is not malodorous as would be expected. Objective - Vital Signs Vital signs: Vital Signs Temp 97.7 F 07/23/17 16:00 Pulse 55 L 07/23/17 17:30 Resp 23 07/23/17 17:30 BP 80/53 07/23/17 17:30 Pulse Ox 97 07/23/17 17:30 Intake & Output 07/23/17 07/23/17 07/24/17 06:59 18:59 06:59 Intake Total 1640.0 1475 Output Total 1425 675 Balance 215.0 800 Weight 73.9 kg 73.9 kg Intake: IV 680.0 520 D5-0.45% NaCl with KCl 550 350 20Meq/l 1,000 ml @ 50 mls /hr IV .Q20H ROSA M Rx#: [id number] NS 80 70 Piperacillin-Tazobactam 3 50.0 100 .375 gm In Dextrose/Water 1 50ml.bag @ 12.5 mls/hr IVPB Q8HR ROSA M Rx#: [id number] Intake, IV Titration 50 125 Amount D5-0.45% NaCl with KCl 50 20Meq/l 1,000 ml @ 50 mls /hr IV .Q20H ROSA M Rx#: [id number] Sodium Phosphate 10 mmol 125 In Sodium Chloride 0.9% 250 ml @ 125 mls/hr IVPB ONCE ONE Rx#:[id number] Tube Feeding 240 260 Other 670 570 Output: Urine 1425 675 Other: Voiding Method Indwelling Catheter Indwelling Catheter # Bowel Movements 2 1 - Exam 31-year-old male with evidence of the prior craniotomies HEENT: Anicteric conjunctiva are pink and moist nasal mucosa grossly intact without significant lesions, there is no thrush The HE has excellent hygiene at this time the craniotomy scars are healed but there is distinct irregularity to the bony shape Neck: The neck is supple without significant lymphadenopathy or thyromegaly. Lungs: there is symmetrical air entry with bibasilar crackles no bronchial sounds are heard, patient does need to have his mouth suctioned once while I'm in the room may be having some difficulties with handling his oral secretions Heart: Regular rate and rhythm with an audible S1-S2, no S3 no S4. There is no significant murmur click or rub, PMI was nondisplaced. Abdomen: few bowel sounds, abdomen is firm but not rigid, no hepatosplenomegaly is noted. No palpable mass. Extremities: The upper extremities have excellent pulses they are symmetric, no significant petechiae or telangiectasia. No splinter hemorrhages were noted. The lower extremities are free from significant edema. The peripheral pulses were 2+ and symmetric. Neuro: sitting upright, glasses are on eyes open interacts and relates that he has a 3 wheeled Schwinn bike - Labs CBC & Chem 7: 07/23/17 03:46 07/23/17 12:45 Labs: Abnormal Lab Results - Last 24 Hours (Table) 07/22/17 07/23/17 07/23/17 Range/Units 23:57 03:46 03:46 RBC 4.03 L (4.30-5.90) m/uL Hgb 12.9 L (13.0-17.5) gm/dL Hct 38.8 L (39.0-53.0) % Potassium 3.3 L (3.5-5.1) mmol/L Chloride 112 H (98-107) mmol/L BUN 3 L (9-20) mg/dL Creatinine 0.40 L (0.66-1.25) mg/dL POC Glucose (mg/dL) (75-99) mg/dL Calcium 8.1 L (8.4-10.2) mg/dL Phosphorus 2.4 L (2.5-4.5) mg/dL 07/23/17 Range/Units 07:57 RBC (4.30-5.90) m/uL Hgb (13.0-17.5) gm/dL Hct (39.0-53.0) % Potassium (3.5-5.1) mmol/L Chloride (98-107) mmol/L BUN (9-20) mg/dL Creatinine (0.66-1.25) mg/dL POC Glucose (mg/dL) 102 H (75-99) mg/dL Calcium (8.4-10.2) mg/dL Phosphorus (2.5-4.5) mg/dL Microbiology - Last 24 Hours (Table) 07/19/17 16:05 Blood Culture - Preliminary Blood No Growth after 96 hours 07/19/17 15:43 Blood Culture - Preliminary Blood No Growth after 96 hours Laboratory Results WBC 4.9 k/uL (3.8-10.6) 07/23/17 03:46 RBC 4.03 m/uL (4.30-5.90) L 07/23/17 03:46 Hgb 12.9 gm/dL (13.0-17.5) L 07/23/17 03:46 Hct 38.8 % (39.0-53.0) L 07/23/17 03:46 MCV 96.5 fL (80.0-100.0) 07/23/17 03:46 MCH 31.9 pg (25.0-35.0) 07/23/17 03:46 MCHC 33.1 g/dL (31.0-37.0) 07/23/17 03:46 RDW 14.1 % (11.5-15.5) 07/23/17 03:46 Plt Count 171 k/uL (150-450) 07/23/17 03:46 Neutrophils % 71 % 07/23/17 03:46 Lymphocytes % 20 % 07/23/17 03:46 Monocytes % 7 % 07/23/17 03:46 Eosinophils % 1 % 07/23/17 03:46 Basophils % 1 % 07/23/17 03:46 Neutrophils # 3.4 k/uL (1.3-7.7) 07/23/17 03:46 Lymphocytes # 1.0 k/uL (1.0-4.8) 07/23/17 03:46 Monocytes # 0.3 k/uL (0-1.0) 07/23/17 03:46 Eosinophils # 0.0 k/uL (0-0.7) 07/23/17 03:46 Basophils # 0.0 k/uL (0-0.2) 07/23/17 03:46 PT 10.6 sec (9.0-12.0) 07/21/17 04:25 INR 1.1 (<1.2) 07/21/17 04:25 Sample Site R brachial 07/20/17 13:43 ABG pH 7.41 (7.35-7.45) 07/20/17 13:43 ABG pCO2 38 mmHg (35-45) 07/20/17 13:43 ABG pO2 255 mmHg (83-108) H 07/20/17 13:43 ABG HCO3 25 mmol/L (21-25) 07/20/17 13:43 ABG Total CO2 26 mmol/L (19-24) H 07/20/17 13:43 ABG O2 Saturation 100.0 % (94-97) H 07/20/17 13:43 ABG Base Excess -0.1 mmol/L 07/20/17 13:43 Blas Test Yes 07/20/17 13:43 FiO2 35 % 07/20/17 13:43 Sodium 144 mmol/L (137-145) 07/23/17 03:46 Potassium 3.7 mmol/L (3.5-5.1) 07/23/17 12:45 Chloride 112 mmol/L (98-107) H 07/23/17 03:46 Carbon Dioxide 23 mmol/L (22-30) 07/23/17 03:46 Anion Gap 9 mmol/L 07/23/17 03:46 BUN 3 mg/dL (9-20) L 07/23/17 03:46 Creatinine 0.40 mg/dL (0.66-1.25) L 07/23/17 03:46 Est GFR (CKD-EPI)AfAm >90 (>60 ml/min/1.73 sqM) 07/23/17 03:46 Est GFR (CKD-EPI)NonAf >90 (>60 ml/min/1.73 sqM) 07/23/17 03:46 Glucose 97 mg/dL (74-99) 07/23/17 03:46 POC Glucose (mg/dL) 98 mg/dL (75-99) 07/23/17 17:46 POC Glu Roller Checker ID [place] 07/23/17 17:[address] Glu mg/dL 71 07/18/17 22:03 Hemoglobin A1c 4.1 % (4.0-6.0) 07/18/17 22:03 Plasma Lactic Acid [place] 1.6 mmol/L (0.7-2.0) 07/18/17 22:03 Calcium 8.1 mg/dL (8.4-10.2) L 07/23/17 03:46 Phosphorus 2.4 mg/dL (2.5-4.5) L 07/23/17 03:46 Magnesium 2.2 mg/dL (1.6-2.3) 07/23/17 03:46 Total Bilirubin 0.6 mg/dL (0.2-1.3) 07/21/17 04:25 AST 17 U/L (17-59) 07/21/17 04:25 ALT 44 U/L (21-72) 07/21/17 04:25 Alkaline Phosphatase 62 U/L (38-126) 07/21/17 04:25 Total Protein 4.7 g/dL (6.3-8.2) L 07/21/17 04:25 Albumin 2.4 g/dL (3.5-5.0) L 07/21/17 04:25 Amylase 54 U/L (30-110) 07/18/17 22:03 Lipase 71 U/L (23-300) 07/18/17 22:03 Urine Color Dark Brown 07/19/17 08:32 Urine Appearance Cloudy (Clear) 07/19/17 08:32 Urine pH 5.5 (5.0-8.0) 07/19/17 08:32 Ur Specific [place] 1.040 (1.001-1.035) H 07/19/17 08:32 Urine Protein 1+ (Negative) H 07/19/17 08:32 Urine Glucose (UA) Negative (Negative) 07/19/17 08:32 Urine Ketones 1+ (Negative) H 07/19/17 08:32 Urine Blood Large (Negative) H 07/19/17 08:32 Urine Nitrite Negative (Negative) 07/19/17 08:32 Urine Bilirubin Negative (Negative) 07/19/17 08:32 Urine Urobilinogen 2.0 mg/dL (<2.0) 07/19/17 08:32 Ur Leukocyte Esterase Small (Negative) H 07/19/17 08:32 Urine RBC >182 /hpf (0-5) H 07/19/17 08:32 Urine WBC 60 /hpf (0-5) H 07/19/17 08:32 Urine Mucus Moderate /hpf (None) H 07/18/17 23:12 Urine Sperm Occasional /hpf (None) H 07/18/17 23:12 Microbiology 07/19/17 16:05 Blood Blood Culture - Preliminary No Growth after 96 hours 07/19/17 15:43 Blood Blood Culture - Preliminary No Growth after 96 hours 07/19/17 08:22 Sputum Gram Stain - Final 07/19/17 08:22 Sputum Sputum Culture - Final Pseudomonas aeruginosa 07/19/17 08:32 Urine,Catheterized Urine Culture - Final Assessment and Plan (1) Abdominal pain Narrative/Plan: 31-year-old male with history of brain tumor cared for by his family and home over the years presents to the emergency center with a couple day history of abdominal pain. Associated with this there was some difficulties with his tube feeds and that in a couple of days before admission he seemed to have some retching and discomfort with the tube feeds. Of note upon care in the intensive care unit his PEG tube has spontaneously fallen out and surgery has been called for further evaluation. Concerns at this time will be for underlying sepsis as the etiology of his respiratory failure. There is concern he could have aspiration pneumonia. The computed tomography scan does reveal evidence of some inflammation of the abdominal cavity consistent with some peritonitis but no evidence of any [place]ia [place] free air or ruptured viscus. Antibiotic therapy with Zosyn will be utilized at this time. The metronidazole may be discontinued at the third dose if he has further improvement. The patient had a temperature of 97.5 which the family relates is quite high for him. Concern that could be part of his underlying sepsis. Also with his adrenal insufficiency with the concerns that he needs further steroid supplementation and hydrocortisone 100 mg twice per day as requested at this time with a dose now. He be further followed by critical care. Blood cultures are requested Sputum and urine cultures are in process The case is discussed with the mother who was present Surgical consultation 07/22/2017 the patient is extubated sitting upright in seems to be improved. Tolerating some free water per his PEG tube at this time. He is being followed by pulmonary critical care also. Recent chest x-ray shows no acute changes. Computed tomography scan has been performed and continues to show some changes related to the COMPTROLLER shunt into the right lower quadrant. However was improvement of inflammatory change of the pelvis with some mild residual colitis of the distal left and proximal sigmoid colon. At this time the patient has had some significant improvement. We'll continue Zosyn for now. Pseudomonas aeruginosa was discovered in the sputum culture at the time of his intubation and present on admission. Zosyn is adequate at this time. Seems to be tolerating free water through his PEG. Await surgical interpretation of the computed tomography scan for next potential steps. Leukocytosis has resolved. Family relates that with his brain tumor does not have fevers. 07/23/2017reveals the patient to have further improvement. Is moving out of the ICU with further improvement of his pulmonary status. His had some loose stool but we will monitor closely and if is of concern for C. diff further testing can be performed. He has done well with the current antibiotic therapy of Zosyn for treating of his pneumonia which appears to be aspiration in nature with pseudomonas aeruginosa being isolated. As he improves we will review the potential for him to have transitioned to oral therapy with ciprofloxacin to complete the treatment of his Pseudomonas pneumonia. The patient's stress doses of steroids have not been reduced back to his routine dosing and he is doing well. Current Visit: Yes Status: Acute Code(s): R10.9 - UNSPECIFIED ABDOMINAL PAIN SNOMED Code(s): 32258474 (2) Peritonitis Current Visit: Yes Status: Acute Code(s): K65.9 - PERITONITIS, UNSPECIFIED SNOMED Code(s): 35129595 (3) Adrenal insufficiency Current Visit: Yes Status: Acute Code(s): E27.40 - UNSPECIFIED ADRENOCORTICAL INSUFFICIENCY SNOMED Code(s): 338517671 (4) Respiratory failure Current Visit: Yes Status: Acute Code(s): J96.90 - RESPIRATORY FAILURE, UNSP , UNSP W HYPOXIA OR HYPERCAPNIA SNOMED Code(s): 085996936
[2017-07-23] MEDS: lamoTRIgine 25 MG TAB PEG/G-TUBE SCH (21:34)
[2017-07-23] MEDS: HYDROCORTISONE 10 MG TAB PO SCH (21:34)
[2017-07-23] MEDS: POTASSIUM CHLORIDE 20 MEQ in WATER FOR INJECTION 1 100ML.BAG IVPB SCH (22:24)
[2017-07-23 23:45] LABS: Glucose,Whole Blood 77 mg/dL (75-99)
[2017-07-23 23:45] LABS: Glucose,Whole Blood 81 mg/dL (75-99)
[2017-07-24] MEDS ORDERED: DEXTROSE 50%-WATER 50 ML SYRINGE IVP ONE (00:08)
[2017-07-24] MEDS ORDERED: DEXTROSE 50%-WATER 50 ML SYRINGE IVP STA (00:09)
[2017-07-24] MEDS: HEPARIN SODIUM,PORCINE 5,000 UNIT/ML 1 ML VIAL SQ SCH ×4 (00:10→21:17)
[2017-07-24] MEDS: POTASSIUM CHLORIDE 20 MEQ in WATER FOR INJECTION 1 100ML.BAG IVPB SCH (00:26)
[2017-07-24] MEDS: PIPERACILLIN-TAZOBACTAM 3.375 GM in DEXTROSE/WATER 1 50ML.BAG IVPB SCH ×4 (00:30→23:48)
[2017-07-24 00:33] LABS: Glucose,Whole Blood 133 mg/dL (75-99)
[2017-07-24] MEDS: POTASSIUM BICARBONATE/CIT AC 20 MEQ TABLET.EFF PO SCH ×2 (00:57→02:00)
[2017-07-24 05:13] LABS: Anion Gap 7 mmol/L; Blood Urea Nitrogen 6 mg/dL (9-20); Calcium 8.4 mg/dL (8.4-10.2); Carbon Dioxide 23 mmol/L (22-30); Chloride 113 mmol/L (98-107); Glucose 73 mg/dL (74-99); Phosphorus 2.9 mg/dL (2.5-4.5); Potassium 4.1 mmol/L (3.5-5.1); Sodium 143 mmol/L (137-145)
[2017-07-24 05:22] LABS: Basophils # (A) 0.1 k/uL (0-0.2); Basophils % (A) 1 %; Eosinophils # (A) 0.1 k/uL (0-0.7); Eosinophils % (A) 2 %; HCT 41.8 % (39.0-53.0); Lymphocytes # (A) 1.9 k/uL (1.0-4.8); Lymphocytes % (A) 33 %; MCHC 33.4 g/dL (31.0-37.0); MCV 95.8 fL (80.0-100.0); Mean Platelet Volume 8.8; Monocytes # (A) 0.4 k/uL (0-1.0); Monocytes % (A) 6 %; Neutrophils # (A) 3.2 k/uL (1.3-7.7); Neutrophils % (A) 56 %; Platelet Count 202 k/uL (150-450); RBC 4.37 m/uL (4.30-5.90); RDW 14.4 % (11.5-15.5); WBC 5.6 k/uL (3.8-10.6)
[2017-07-24 05:32] LABS: Glucose,Whole Blood 87 mg/dL (75-99)
[2017-07-24] MEDS: FAMOTIDINE 20 MG/2 ML VIAL IV SCH ×2 (07:44→21:17)
[2017-07-24] MEDS: HYDROCORTISONE 10 MG TAB PO SCH ×2 (07:45→21:17)
--- NOTE | 2017-07-24 08:33 | P.PN ---
Subjective Progress Note Date: 07/24/17 Principal diagnosis: Abdominal pain Patient's father present at the bedside. Apparently he had a rough evening. He did not sleep well. His blood sugars were low at times. He had 2 additional seizures. He is tolerating his tube feeds at 40 a low he appears to be having some abdominal discomfort. tube feed residuals have been normal. Objective - Vital Signs Vital signs: Vital Signs Temp 97.7 F 07/24/17 07:02 Pulse 75 07/24/17 07:02 Resp 18 07/24/17 07:02 BP 94/61 07/24/17 07:02 Pulse Ox 91 L 07/24/17 07:02 Intake & Output 07/23/17 07/24/17 07/24/17 18:59 06:59 18:59 Intake Total 1475 90 Output Total 675 3400 Balance 800 -3310 Weight 73.9 kg Intake: IV 520 D5-0.45% NaCl with KCl 350 20Meq/l 1,000 ml @ 50 mls /hr IV .Q20H [facility] Rx#: [id number] NS 70 Piperacillin-Tazobactam 3 100 .375 gm In Dextrose/Water 1 50ml.bag @ 12.5 mls/hr IVPB Q8HR [facility] Rx#: [id number] Intake, IV Titration 125 Amount Sodium Phosphate 10 mmol 125 In Sodium Chloride 0.9% 250 ml @ 125 mls/hr IVPB ONCE ONE Rx#:[id number] Oral 0 Tube Feeding 260 90 Other 570 Output: Urine 675 3400 Other: Voiding Method Indwelling Catheter Indwelling Catheter # Bowel Movements 1 - Exam Abdomen: Soft, nondistended, mild upper abdominal tenderness - Labs CBC & Chem 7: 07/24/17 03:57 07/24/17 03:57 Labs: Abnormal Lab Results - Last 24 Hours (Table) 07/24/17 07/24/17 Range/Units 00:31 03:57 Chloride 113 H (98-107) mmol/L BUN 6 L (9-20) mg/dL Creatinine 0.40 L (0.66-1.25) mg/dL Glucose 73 L (74-99) mg/dL POC Glucose (mg/dL) 133 H (75-99) mg/dL Microbiology - Last 24 Hours (Table) 07/19/17 16:05 Blood Culture - Preliminary Blood No Growth after 96 hours 07/19/17 15:43 Blood Culture - Preliminary Blood No Growth after 96 hours Assessment and Plan (1) Abdominal pain Narrative/Plan: We'll decrease tube feed rate. We'll have dietitian discussed with the family regarding possibly changing the tube feed. Continue antibiotics. Current Visit: Yes Status: Acute Code(s): R10.9 - UNSPECIFIED ABDOMINAL PAIN SNOMED Code(s): 92747364
[2017-07-24] MEDS: DEXTROSE 5%-0.9% NACL 1,000 ML IV SCH (08:59)
--- NOTE | 2017-07-24 09:08 | P.PN ---
Subjective Progress Note Date: 07/24/17 Principal diagnosis: Hypoglycemic episodes, Severe sepsis, acute peritonitis, acute hypoxic respiratory failure, acute renal failure, right lower lobe pneumonia likely aspiration and gram-negative related, Pseudomonas pneumonia, brain tumor, high- grade S requiring TRANSIT MIXER OPERATOR shunt, history of stroke, severe profound metabolic acidosis, severe hypernatremia, hypokalemia 07/24/2017, patient seen eval examined during the rounds clinically patient has been doing well overall in terms of breathing aspect however patient has intermittent episodes of hypoglycemia as per family he does well with Glucerna have advised RN to look into it and discussed with nitrate if the tube feed can be changed to Glucerna, in the meantime we'll do a D5 50 mL an hour labs reviewed medications reviewed 07/23/2017, patient seen eval examined during the rounds clinically patient is doing much better he is been off of levo fed drip since last night, patient has adequate urine output he remains on IV fluid D5 half-normal saline 50 mL an hour with potassium tolerating very well patient is being replaced with potassium, potassium level has improved today, every feed has been initiated, patient has been getting free water through the PEG tube as well, amount of oral secretion has substantially improved since has been placed on scopolamine patch, labs and radiographic studies reviewed, medications reviewed 07/22/2017, patient seen eval examined during the rounds he is awake sitting upright on the bed, patient is still have significant oral secretion however intensity has improved, patient remains on levo fed drip and currently patient is on 2 mics blood pressure and maps are stable on that. Chest x-ray performed today reviewed and the infiltrate noted in the right basal and lower lobe slightly have shown evidence of clearing up, labs reviewed patient has significant hypernatremia which is slowly improving with free water which is being through the PEG tube, the patient is tolerating free water fairly well currently is on 20 mL an hour, IV fluids are D5 100 mL an hour, given that patient is still have hypotensive episodes and significant unchanged bradycardia which appears to be chronic we'll give another fluid resuscitation of normal saline about 500 mL and change the IV fluids to D5 half-normal suspect some of the hyper natremia and hypokalemia is likely related to high stress dose steroids, care plan discussed with staff as well as patient's mother at length, x-ray reviewed laboratory data reviewed, medications reviewed 07/21/2017, patient seen eval examined during the rounds clinically patient has been doing slightly better now, patient has been successfully weaned and extubated however postextubation patient has a significant problem of excessive oral secretions which were suctioned deeply by the RN and the family members which did help however patient needs to be induced and gag physical stimulation in order to bring up the secretions, issues about tracheostomy have been discussed with the family they feel it being a last resort currently patient FiO2 has been tapered down to 7 L now, patient continued to require levo fed he is on 6 mics are treated when he was sleeping is in mid 40s however when he is awake came up to 60, systolic blood pressure is in 90s, maps around 65 with a levo fed of 6 mics patient has been making adequate urine sodium however noted to be going slightly up patient may very well be is still volume depleted side, currently has been gently rehydrated with D5, I have reviewed the chest x-ray there is a new developing right lower lobe infiltrate are seen with the sputum being positive for Pseudomonas consistent with gram-negative pseudomonas pneumonia, patient is currently on IV Zosyn and vancomycin tolerating well, white cell count is coming down, hemoglobin remained stable no further declining hemoglobin has been noted no more coffee-ground stuff noted to be coming out through either PEG or through patient vomiting, sodium is 152, potassium is 2.9, renal functions remain stable, discussed the care plan with the mother present at bedside at length 07/20/2017, patient seen eval examined during the rounds clinically patient is is slightly stable in terms of hemodynamics but however continued to require low -dose vasopressors currently patient is on 6 mics of levo fed which is gradually being titrated down he is borderline bradycardic blood pressure is stable amount of oral secretions are slightly better, labs reviewed medications reviewed chest x-ray remains stable no new infiltrates are seen interstitial edema is seen, patient has been aggressively resuscitated with crystalloid, now adequate urine output has been noted. Labs reviewed medications reviewed sodium is up to 151 now renal functions remain stable, arterial blood gas and ventilator setting and data reviewed as well, mother is present at bedside care plan discussed with her at length as well 31-year-old male who presented into the hospital with abdominal discomfort and pain started about a day to prior coming to the hospital, patient underwent a computed tomography scan of the abdomen pelvis in emergency department found to have evidence of peritonitis no evidence of acute abdomen however has been noted patient admitted into the ICU under service of Dr. Temple, in ICU patient initially was on 2 L oxygen however has been noted to excessive amount of oral secretions in respiratory secretions with gurgling sounds oxygen saturation continue to drop down on and in spite of increasing the fractional inspired oxygen at 100% patient becomes very tachypneic tachycardic and eventually was intubated for airway protection, labs reviewed computed tomography scan of the chest reviewed and medications reviewed as well along with radiographic studies. Data predominantly obtained from the chart as well as the father present at bedside. Patient has a significant history of brain tumors with multiple resections in the past in his early years due to intracranial hypertension patient underwent a TRANSIT MIXER OPERATOR shunt a year ago patient developed acute stroke as well since then patient is extremely predispose to infections, patient has a spontaneously breathing but has problems associated with swallowing dysfunction requiring suctioning of the mouth he also has a PEG tube , patient does follow up at [facility] Patient presents to the emergency center because of family became concerned that he was having increasing abdominal pain, difficulty with nutrition and that when they were feeding him through his PEG tube he seemed to be having some discomfort and retching. He apparently normally has some difficulties with some constipation and they do utilize a bowel program with enema. Apparently no recent stooling and with the abdominal discomforts was brought to the emergency center. The patient did appear to be ill, was found evidence of a leukocytosis. His temperature was 97 for which the parents relate is quite high for him because he has temperature regulation difficulties after his brain tumor and radiation. The patient was admitted to hospital and to the intensive care unit with concerns to peritonitis with a computed tomography scan showing evidence of some inflammation of the abdomen and with the 2 ventriculoperitoneal shunts present cause concern. With a relatively short period of time the patient had rapid onset of respiratory failure necessitating intubation with mechanical ventilation and some sedation. Of note his PEG tube also dislodged spontaneously, the family relates this has happened multiple times over the years. During evaluation in that the patient in the ICU he is post intubated on propofol drip currently when setting includes assist control rate of 14 breathing 14, tidal volume is 400, 100% oxygen, PEEP of 5, patient has a Rodriguez' s catheter with very minimal urine output patient is also on propofol drip, IV fluids are being given D5 normal saline a liter has been given currently patient is on 100 mL an hour PEG tube site is intact Objective - Vital Signs Vital signs: Vital Signs Temp 97.7 F 07/24/17 07:02 Pulse 75 07/24/17 07:02 Resp 18 07/24/17 07:02 BP 94/61 07/24/17 07:02 Pulse Ox 91 L 07/24/17 07:02 Intake & Output 07/23/17 07/24/17 07/24/17 18:59 06:59 18:59 Intake Total 1475 90 Output Total 675 3400 Balance 800 -3310 Weight 73.9 kg Intake: IV 520 D5-0.45% NaCl with KCl 350 20Meq/l 1,000 ml @ 50 mls /hr IV .Q20H [facility] Rx#: [id number] NS 70 Piperacillin-Tazobactam 3 100 .375 gm In Dextrose/Water 1 50ml.bag @ 12.5 mls/hr IVPB Q8HR [facility] Rx#: [id number] Intake, IV Titration 125 Amount Sodium Phosphate 10 mmol 125 In Sodium Chloride 0.9% 250 ml @ 125 mls/hr IVPB ONCE ONE Rx#:[id number] Oral 0 Tube Feeding 260 90 Other 570 Output: Urine 675 3400 Other: Voiding Method Indwelling Catheter Indwelling Catheter # Bowel Movements 1 - Exam - Constitutional General appearance: mild distress, no acute distress, obese, readily arousable - EENT Evidence of prior multiple brain surgeries, detailed exam couldn't be performed Eyes: anicteric sclerae, PERRLA, poor dentition Ears: bilateral: normal - Neck Neck: normal ROM Thyroid: bilateral: normal size - Respiratory Respiratory: bilateral: Coarse breath sounds with crackles predominantly on the right base - Cardiovascular Heart sounds: normal: S1, S2 - Gastrointestinal General gastrointestinal: decreased bowel sounds, distended, tenderness, the tenderness and distention appears to have improved compared to yesterday exam - Integumentary Integumentary: decreased turgor - Neurologic Detailed neurological examination couldn't be performed as patient fairly incapacitated and mostly does not follow commands sleep most of the time - Psychiatric Unable to assess due to his baseline neurological status - Labs CBC & Chem 7: 07/24/17 03:57 07/24/17 03:57 Labs: Abnormal Lab Results - Last 24 Hours (Table) 07/24/17 07/24/17 Range/Units 00:31 03:57 Chloride 113 H (98-107) mmol/L BUN 6 L (9-20) mg/dL Creatinine 0.40 L (0.66-1.25) mg/dL Glucose 73 L (74-99) mg/dL POC Glucose (mg/dL) 133 H (75-99) mg/dL Microbiology - Last 24 Hours (Table) 07/19/17 16:05 Blood Culture - Preliminary Blood No Growth after 96 hours 07/19/17 15:43 Blood Culture - Preliminary Blood No Growth after 96 hours Assessment and Plan Assessment: Hypoglycemic episode Severe sepsis and septic shock Acute aspiration pneumonia related to Pseudomonas, right lower lobe Chronic adrenal insufficiency Acute peritonitis etiology not clear Acute hypoxic respiratory failure related to excessive amount of oral secretions and respiratory secretions was Acute renal failure/oliguria related to above, significantly improved with aggressive fluid resuscitation Severe hypernatremia Severe hypokalemia History of multiple brain tumors requiring resection and hydrocephalus Ammann status post TRANSIT MIXER OPERATOR shunt History of recent stroke Metabolic acidosis related ongoing sepsis Plan: Adjustment of tube feed D5 50 mL an hour for now Oral care deep suctioning as tolerated along with supplemental oxygen, titrated oxygen down as tolerated Discussed with surgical services if gentle rehydration through the PEG tube to be maintained as tolerated Intake and patient on Cortef 10 mg by mouth 2 times a day as taking at home Scopolamine patch H2 blockers in the form of Pepcid 20 mg IV every 12 Broad-spectrum antibiotics being adjusted by infectious disease services monitor renal functions closely Mchugh cultures including urine and blood and sputum results reviewed DVT and peptic ulcer disease prophylaxis Further recommendations pending plan of care as per clinical response of patient care plan discussed with the staff Discussed with the family at length Time with Patient: Greater than 30
--- NOTE | 2017-07-24 09:34 | XR ---
EXAMINATION TYPE: XR chest 1V portable DATE OF EXAM: 07/24/2017 COMPARISON: Prior chest x-ray 07/23/2017 HISTORY: Abnormal chest x-ray, tube placement TECHNIQUE: Single frontal view of the chest is obtained. FINDINGS: Findings are similar to prior exam. Patient is rotated. Exam is expiratory. There are over lying cardiac leads. Shunt tubings are again noted. No pneumothorax or pleural effusion. Heart is enl arged. Interstitium mildly increased. Question some bilateral groundglass opacities suggesting airspa ce disease. IMPRESSION: Expiratory rotated exam. Findings similar to prior exam. Follow-up suggested.
[2017-07-24 11:27] LABS: Glucose,Whole Blood 102 mg/dL (75-99)
[2017-07-24] MEDS ORDERED: levETIRAcetam IV 1,000 MG in SALINE 1 100ML.BAG IVPB STA (16:31)
[2017-07-24] MEDS ORDERED: levETIRAcetam IV 500 MG in SODIUM CHLORIDE 0.9% 100 ML IVPB STA (17:01)
[2017-07-24 18:11] LABS: Glucose,Whole Blood 103 mg/dL (75-99)
--- NOTE | 2017-07-24 18:24 | P.PN ---
Subjective Progress Note Date: 07/24/17 Progress Note being dictated for Dr. Garvin Interval history:31-year-old male with a known history of Brain tumor with W[employer] SCIENCE [employer] shunt, Paraplegia, Mentally challenged patient, CVA/TIA and seizure disorder came to ER with complaints of abdominal discomfort 2 days prior to admission. Patient was also having some difficulties with the feeding tube. Patient is on PEG tube feeding. Patient's mom is his caregiver. 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 Patient also having some issues with constipation as well. CT of abdomen pelvis on admission showed there is patchy atelectasis at the lung bases. Livers pain pancreas appears normal. There are double ventriculoperitoneal shunt catheters. There is some free fluid in the pelvis. There is also some mild fat stranding in the pelvis the possibility of adenitis should be considered. There is a change compared to old computed tomography scan. There is new mild infiltrate and atelectasis in the posterior lung bases. No evidence of bowel obstruction. Patient went into respiratory failure and is currently sedated and intubated. Patient is being treated for 4 colitis and possible aspiration pneumonia as well. Patient was also started on hydrocortisone 100 mg twice daily due to adrenal insufficiency. ID and pulmonary is following. X-rays abdomen on 07/19/2017 showed contrast appears to extend from the stomach into the duodenum no extravasation of contrast is evident. Chest x-ray today showed improved aeration of the lungs. No focal consolidation. 07/21/2017 Patient was extubated yesterday. Otherwise patient is in no acute distress. Saturating well on nausea cannula. Patient is being continued on antibiotics in the form of Zosyn and metronidazole. No abdominal tenderness. No fever no chills. WBC count is normal. Otherwise potassium level is 2. 9 this morning which is being replaced. 07/22/2017 Currently patient is saturating well on room air. No complaints of abdominal pain. No fever no chills. Repeat CT chest was ordered. Chest x-ray showed interval improvement ARDS of consolidation on the right with persistent interstitial changes and areas of subsegmental consolidation. Patient is being continued on antibiotics. No fever no chills. 07/23/2017 No overnight events, patient probably will transfer out of ICU today. 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 Follows with [facility] neurologist. Required dextrose earlier this morning for low blood sugars documented in the 70s. Maintained on IV fluids of dextrose 5% . Abdominal discomfort also reported, residuals normal. further evaluated by a general surgery, tube feeds rate decreased, with further recommendations pending from gate operator. Chest x-ray reports similar. Objective - Vital Signs Vital signs: Vital Signs Temp 98.1 F 07/24/17 15:30 Pulse 79 07/24/17 15:30 Resp 16 07/24/17 16:00 BP 92/56 07/24/17 15:30 Pulse Ox 95 07/24/17 15:30 Intake & Output 07/23/17 07/24/17 07/24/17 18:59 06:59 18:59 Intake Total 1475 90 90 Output Total 675 3400 900 Balance 800 -3310 -810 Weight 73.9 kg Intake: IV 520 D5-0.45% NaCl with KCl 350 20Meq/l 1,000 ml @ 50 mls /hr IV .Q20H [facility] Rx#: [id number] NS 70 Piperacillin-Tazobactam 3 100 .375 gm In Dextrose/Water 1 50ml.bag @ 12.5 mls/hr IVPB Q8HR [facility] Rx#: [id number] Intake, IV Titration 125 Amount Sodium Phosphate 10 mmol 125 In Sodium Chloride 0.9% 250 ml @ 125 mls/hr IVPB ONCE ONE Rx#:[id number] Oral 0 Tube Feeding 260 90 90 Other 570 Output: Urine 675 3400 900 Other: Voiding Method Indwelling Catheter Indwelling Catheter Indwelling Catheter # Bowel Movements 1 2 - Exam PHYSICAL EXAMINATION: Patient is sitting up in chair comfortably, no acute distress, awake alert but not oriented. patient is mentally challenged HEENT: Normocephalic. Neck is supple. Pupils reactive. Nostrils clear. Oral cavity is moist. Ears reveal no drainage. Neck reveals no JVD, carotid bruits, or thyromegaly. CHEST EXAMINATION: Trachea is central. Symmetrical expansion. Diminished bibasilar air entry. Minimal crackles, greater in right base. No wheezing. Upper Lung alfaro clear. CARDIAC: Normal S1, S2 with no gallops. No murmurs ABDOMEN: Soft. Nondistended, diffuse upper abdominal tenderness. Bowel sounds normal. Extremities: reveal no edema. No clubbing or cyanosis Neurologically awake, alert. Patient does have paraplegia Skin: No rash or skin lesions. Microbiology 07/19/17 15:43 Blood Blood Culture - Preliminary No Growth after 120 hours 07/19/17 16:05 Blood Blood Culture - Preliminary No Growth after 96 hours 07/19/17 08:22 Sputum Gram Stain - Final 07/19/17 08:22 Sputum Sputum Culture - Final Pseudomonas aeruginosa 07/19/17 08:32 Urine,Catheterized Urine Culture - Final - Labs CBC & Chem 7: 07/24/17 03:57 07/24/17 03:57 Labs: Abnormal Lab Results - Last 24 Hours (Table) 07/24/17 07/24/17 07/24/17 Range/Units 00:31 03:57 11:24 Chloride 113 H (98-107) mmol/L BUN 6 L (9-20) mg/dL Creatinine 0.40 L (0.66-1.25) mg/dL Glucose 73 L (74-99) mg/dL POC Glucose (mg/dL) 133 H 102 H (75-99) mg/dL Microbiology - Last 24 Hours (Table) 07/19/17 15:43 Blood Culture - Preliminary Blood No Growth after 120 hours 07/19/17 16:05 Blood Culture - Preliminary Blood No Growth after 96 hours Assessment and Plan Assessment: Acute hypoxic respiratory failure due to sepsis from aspiration with excessive oral secretions.. Currently extubated on 07/20/2017. Severe sepsis/septic shock status post pressor support Acute colitis and pneumonia/aspiration with pseudomonas aeruginosa Hypernatremia History of multiple brain surgeries due to Brain tumor with [employer] shunt, Paraplegia Mentally challenged patient Recent CVA/TIA and seizure disorder with possible seizure breakthrough Metabolic acidosis Mild sinus bradycardia, asymptomatic at this time Hypoglycemia Plan: Continue on current medication regime ,monitoring and symptomatic treatment. Maintain seizure precautions. Strict aspiration precautions. Neurology consulted. Lamictal level ordered. Close monitoring of Accu- Cheks.Antibiotics as per infectious disease. Dietitian recommendations pending. GI and DVT prophylaxis. Further recommendations based on the clinical course. Prognosis is guarded. The impression and plan of care has been dictated as directed. : I performed a history and examination of this patient, discussed the same with the dictator. I agree with the dictator's note ,documented as a scribe. Any additional findings or plans will be noted.
--- NOTE | 2017-07-24 18:47 | EEG ---
ELECTROENCEPHALOGRAM REPORT DATE OF SERVICE: 07/24/2017 REASON FOR TESTING: Seizure. CURRENT ANTI-EPILEPTIC MEDICATIONS: Lamictal. DESCRIPTION OF THE PROCEDURE: This EEG was performed using a 21-channel digital electroencephalograph, following international 10-20 system. DESCRIPTION OF THE RECORDING: From the beginning of the tracing, and with the patient's eyes closed, the background rhythm was mostly consisting of 8 Hz alpha frequency in the posterior occipital leads. No obvious asymmetry is seen. Photic stimulation was performed with no driving response seen. No pathological waves were elicited. Hyperventilation was not performed. Occasional lead and movement artifacts are seen. No epileptiform discharges were seen. The patient remains awake throughout the tracing. His EKG lead showed a regular rate and rhythm. INTERPRETATION: This awake EEG can be considered within normal limits. There was no asymmetry seen. No epileptiform discharges were noticed. The absence of epileptiform discharges does not rule out the diagnosis of epilepsy; therefore clinical correlation is recommended. LOLY / EMMANUELLE: [id number] /
[2017-07-24] MEDS: levETIRAcetam 250 MG TAB PO SCH (21:17)
[2017-07-24] MEDS: lamoTRIgine 25 MG TAB PEG/G-TUBE SCH (21:17)
--- NOTE | 2017-07-24 23:11 | P.PN ---
Subjective Progress Note Date: 07/24/17 31-year-old male with a history of brain tumor with multiple surgeries over the years, mostly done at [facility]. Presents to the emergency center because of family became concerned that he was having increasing abdominal pain, difficulty with nutrition and that when they were feeding him through his PEG tube he seemed to be having some discomfort and retching. He apparently normally has some difficulties with some constipation and they do utilize a bowel program with enema. Apparently no recent stooling and with the abdominal discomforts was brought to the emergency center. The patient did appear to be ill, was found evidence of a leukocytosis. His temperature was 97 for which the parents relate is quite high for him because he has temperature regulation difficulties after his brain tumor and radiation. The patient was admitted to hospital and to the intensive care unit with concerns to peritonitis with a computed tomography scan showing evidence of some inflammation of the abdomen and with the 2 ventriculoperitoneal shunts present cause concern. With a relatively short period of time the patient had rapid onset of respiratory failure necessitating intubation with mechanical ventilation and some sedation. Of note his PEG tube also dislodged spontaneously, the family relates this has happened multiple times over the years. The patient this time appears to be comfortable status post intubation and sedation. Patient's mother provides further history. 07/22/2017 patient is extubated, sitting upright, has his glasses on, opens his eyes and interacts with the observer briefly. Patient's mother is present and is pleased with his current level of activity. Patient appears to be comfortable. Appears to be having some difficulties with his oral secretions. 07/23/2017 patient is showing some further improvement today. He has been well enough to be able to move out of the intensive care unit to the general medical floor. He is more awake and interactive and the parents are pleased with his current functional status. Scopolamine patch was added and with some drying of secretions seems to be more comfortable. He did have multiple loose stools of a thin watery material that did not have a distinct odor, of concern because of his history of prior C. diff but is not malodorous as would be expected. 07/24/2017 patient has had a difficulty with multiple seizures. Is being reevaluated by neurology, there is a question of antibiotic therapy specifically Zosyn. This is discussed with the neurologist that it would be unusual this many days into treatment to be the etiology, he is not on carbapenem. Objective - Vital Signs Vital signs: Vital Signs Temp 97.8 F 07/24/17 22:59 Pulse 66 07/24/17 22:59 Resp 24 07/24/17 22:59 BP 95/54 07/24/17 22:59 Pulse Ox 96 07/24/17 22:59 Intake & Output 07/24/17 07/24/17 07/25/17 06:59 18:59 06:59 Intake Total 90 90 40 Output Total 3400 900 1100 Balance -3310 -810 -1060 Weight 73.9 kg Intake: Oral 0 Tube Feeding 90 90 40 Output: Urine 3400 900 1100 Other: Voiding Method Indwelling Catheter Indwelling Catheter Indwelling Catheter # Bowel Movements 2 - Exam 31-year-old male with evidence of the prior craniotomies HEENT: Anicteric conjunctiva are pink and moist nasal mucosa grossly intact without significant lesions, there is no thrush The HE has excellent hygiene at this time the craniotomy scars are healed but there is distinct irregularity to the bony shape Neck: The neck is supple without significant lymphadenopathy or thyromegaly. Lungs: there is symmetrical air entry with bibasilar crackles no bronchial sounds are heard, patient does need to have his mouth suctioned once while I'm in the room may be having some difficulties with handling his oral secretions Heart: Regular rate and rhythm with an audible S1-S2, no S3 no S4. There is no significant murmur click or rub, PMI was nondisplaced. Abdomen: few bowel sounds, abdomen is firm but not rigid, no hepatosplenomegaly is noted. No palpable mass. Extremities: The upper extremities have excellent pulses they are symmetric, no significant petechiae or telangiectasia. No splinter hemorrhages were noted. The lower extremities are free from significant edema. The peripheral pulses were 2+ and symmetric. Neuro: sitting upright, glasses are on eyes open less interactive - Labs CBC & Chem 7: 07/24/17 03:57 07/24/17 03:57 Labs: Abnormal Lab Results - Last 24 Hours (Table) 07/24/17 07/24/17 07/24/17 Range/Units 00:31 03:57 11:24 Chloride 113 H (98-107) mmol/L BUN 6 L (9-20) mg/dL Creatinine 0.40 L (0.66-1.25) mg/dL Glucose 73 L (74-99) mg/dL POC Glucose (mg/dL) 133 H 102 H (75-99) mg/dL 07/24/17 Range/Units 18:08 Chloride (98-107) mmol/L BUN (9-20) mg/dL Creatinine (0.66-1.25) mg/dL Glucose (74-99) mg/dL POC Glucose (mg/dL) 103 H (75-99) mg/dL Microbiology - Last 24 Hours (Table) 07/19/17 16:05 Blood Culture - Preliminary Blood No Growth after 120 hours 07/19/17 15:43 Blood Culture - Preliminary Blood No Growth after 120 hours Laboratory Results WBC 5.6 k/uL (3.8-10.6) 07/24/17 03:57 RBC 4.37 m/uL (4.30-5.90) 07/24/17 03:57 Hgb 14.0 gm/dL (13.0-17.5) 07/24/17 03:57 Hct 41.8 % (39.0-53.0) 07/24/17 03:57 MCV 95.8 fL (80.0-100.0) 07/24/17 03:57 MCH 32.0 pg (25.0-35.0) 07/24/17 03:57 MCHC 33.4 g/dL (31.0-37.0) 07/24/17 03:57 RDW 14.4 % (11.5-15.5) 07/24/17 03:57 Plt Count 202 k/uL (150-450) 07/24/17 03:57 Neutrophils % 56 % 07/24/17 03:57 Lymphocytes % 33 % 07/24/17 03:57 Monocytes % 6 % 07/24/17 03:57 Eosinophils % 2 % 07/24/17 03:57 Basophils % 1 % 07/24/17 03:57 Neutrophils # 3.2 k/uL (1.3-7.7) 07/24/17 03:57 Lymphocytes # 1.9 k/uL (1.0-4.8) 07/24/17 03:57 Monocytes # 0.4 k/uL (0-1.0) 07/24/17 03:57 Eosinophils # 0.1 k/uL (0-0.7) 07/24/17 03:57 Basophils # 0.1 k/uL (0-0.2) 07/24/17 03:57 PT 10.6 sec (9.0-12.0) 07/21/17 04:25 INR 1.1 (<1.2) 07/21/17 04:25 Sample Site R brachial 07/20/17 13:43 ABG pH 7.41 (7.35-7.45) 07/20/17 13:43 ABG pCO2 38 mmHg (35-45) 07/20/17 13:43 ABG pO2 255 mmHg (83-108) H 07/20/17 13:43 ABG HCO3 25 mmol/L (21-25) 07/20/17 13:43 ABG Total CO2 26 mmol/L (19-24) H 07/20/17 13:43 ABG O2 Saturation 100.0 % (94-97) H 07/20/17 13:43 ABG Base Excess -0.1 mmol/L 07/20/17 13:43 Blas Test Yes 07/20/17 13:43 FiO2 35 % 07/20/17 13:43 Sodium 143 mmol/L (137-145) 07/24/17 03:57 Potassium 4.1 mmol/L (3.5-5.1) 07/24/17 03:57 Chloride 113 mmol/L (98-107) H 07/24/17 03:57 Carbon Dioxide 23 mmol/L (22-30) 07/24/17 03:57 Anion Gap 7 mmol/L 07/24/17 03:57 BUN 6 mg/dL (9-20) L 07/24/17 03:57 Creatinine 0.40 mg/dL (0.66-1.25) L 07/24/17 03:57 Est GFR (CKD-EPI)AfAm >90 (>60 ml/min/1.73 sqM) 07/24/17 03:57 Est GFR (CKD-EPI)NonAf >90 (>60 ml/min/1.73 sqM) 07/24/17 03:57 Glucose 73 mg/dL (74-99) L 07/24/17 03:57 POC Glucose (mg/dL) 103 mg/dL (75-99) H 07/24/17 18:08 POC Glu Sliver Chopper ID Opal Manzo 07/24/17 18:[address] Glu mg/dL 71 07/18/17 22:03 Hemoglobin A1c 4.1 % (4.0-6.0) 07/18/17 22:03 Plasma Lactic Acid Terrence 1.6 mmol/L (0.7-2.0) 07/18/17 22:03 Calcium 8.4 mg/dL (8.4-10.2) 07/24/17 03:57 Phosphorus 2.9 mg/dL (2.5-4.5) 07/24/17 03:57 Magnesium 2.0 mg/dL (1.6-2.3) 07/24/17 03:57 Total Bilirubin 0.6 mg/dL (0.2-1.3) 07/21/17 04:25 AST 17 U/L (17-59) 07/21/17 04:25 ALT 44 U/L (21-72) 07/21/17 04:25 Alkaline Phosphatase 62 U/L (38-126) 07/21/17 04:25 Total Protein 4.7 g/dL (6.3-8.2) L 07/21/17 04:25 Albumin 2.4 g/dL (3.5-5.0) L 07/21/17 04:25 Amylase 54 U/L (30-110) 07/18/17 22:03 Lipase 71 U/L (23-300) 07/18/17 22:03 Urine Color Dark Brown 07/19/17 08:32 Urine Appearance Cloudy (Clear) 07/19/17 08:32 Urine pH 5.5 (5.0-8.0) 07/19/17 08:32 Ur Specific Langston 1.040 (1.001-1.035) H 07/19/17 08:32 Urine Protein 1+ (Negative) H 07/19/17 08:32 Urine Glucose (UA) Negative (Negative) 07/19/17 08:32 Urine Ketones 1+ (Negative) H 07/19/17 08:32 Urine Blood Large (Negative) H 07/19/17 08:32 Urine Nitrite Negative (Negative) 07/19/17 08:32 Urine Bilirubin Negative (Negative) 07/19/17 08:32 Urine Urobilinogen 2.0 mg/dL (<2.0) 07/19/17 08:32 Ur Leukocyte Esterase Small (Negative) H 07/19/17 08:32 Urine RBC >182 /hpf (0-5) H 07/19/17 08:32 Urine WBC 60 /hpf (0-5) H 07/19/17 08:32 Urine Mucus Moderate /hpf (None) H 07/18/17 23:12 Urine Sperm Occasional /hpf (None) H 07/18/17 23:12 Microbiology 07/19/17 16:05 Blood Blood Culture - Preliminary No Growth after 120 hours 07/19/17 15:43 Blood Blood Culture - Preliminary No Growth after 120 hours 07/19/17 08:22 Sputum Gram Stain - Final 07/19/17 08:22 Sputum Sputum Culture - Final Pseudomonas aeruginosa 07/19/17 08:32 Urine,Catheterized Urine Culture - Final Assessment and Plan (1) Abdominal pain Narrative/Plan: 31-year-old male with history of brain tumor cared for by his family and home over the years presents to the emergency center with a couple day history of abdominal pain. Associated with this there was some difficulties with his tube feeds and that in a couple of days before admission he seemed to have some retching and discomfort with the tube feeds. Of note upon care in the intensive care unit his PEG tube has spontaneously fallen out and surgery has been called for further evaluation. Concerns at this time will be for underlying sepsis as the etiology of his respiratory failure. There is concern he could have aspiration pneumonia. The computed tomography scan does reveal evidence of some inflammation of the abdominal cavity consistent with some peritonitis but no evidence of any maria del rosario free air or ruptured viscus. Antibiotic therapy with Zosyn will be utilized at this time. The metronidazole may be discontinued at the third dose if he has further improvement. The patient had a temperature of 97.5 which the family relates is quite high for him. Concern that could be part of his underlying sepsis. Also with his adrenal insufficiency with the concerns that he needs further steroid supplementation and hydrocortisone 100 mg twice per day as requested at this time with a dose now. He be further followed by critical care. Blood cultures are requested Sputum and urine cultures are in process The case is discussed with the mother who was present Surgical consultation 07/22/2017 the patient is extubated sitting upright in seems to be improved. Tolerating some free water per his PEG tube at this time. He is being followed by pulmonary critical care also. Recent chest x-ray shows no acute changes. Computed tomography scan has been performed and continues to show some changes related to the [employer] shunt into the right lower quadrant. However was improvement of inflammatory change of the pelvis with some mild residual colitis of the distal left and proximal sigmoid colon. At this time the patient has had some significant improvement. We'll continue Zosyn for now. Pseudomonas aeruginosa was discovered in the sputum culture at the time of his intubation and present on admission. Zosyn is adequate at this time. Seems to be tolerating free water through his PEG. Await surgical interpretation of the computed tomography scan for next potential steps. Leukocytosis has resolved. Family relates that with his brain tumor does not have fevers. 07/23/2017reveals the patient to have further improvement. Is moving out of the ICU with further improvement of his pulmonary status. His had some loose stool but we will monitor closely and if is of concern for C. diff further testing can be performed. He has done well with the current antibiotic therapy of Zosyn for treating of his pneumonia which appears to be aspiration in nature with pseudomonas aeruginosa being isolated. As he improves we will review the potential for him to have transitioned to oral therapy with ciprofloxacin to complete the treatment of his Pseudomonas pneumonia. The patient's stress doses of steroids have not been reduced back to his routine dosing and he is doing well. 07/24/2017 patient has had a rough day. He's had multiple seizures and is being seen by neurology with potential changes of his medications. If he has further improvement of his respiratory status and no fevers would consider transitioning him to ciprofloxacin to complete the treatment of his Pseudomonas pneumonia. There is a potential this could also assist the neurologist. Family 's questions are answered. Current Visit: Yes Status: Acute Code(s): R10.9 - UNSPECIFIED ABDOMINAL PAIN SNOMED Code(s): 02435990 (2) Peritonitis Current Visit: Yes Status: Acute Code(s): K65.9 - PERITONITIS, UNSPECIFIED SNOMED Code(s): 62239380 (3) Adrenal insufficiency Current Visit: Yes Status: Acute Code(s): E27.40 - UNSPECIFIED ADRENOCORTICAL INSUFFICIENCY SNOMED Code(s): 591954772 (4) Respiratory failure Current Visit: Yes Status: Acute Code(s): J96.90 - RESPIRATORY FAILURE, UNSP , UNSP W HYPOXIA OR HYPERCAPNIA SNOMED Code(s): 406756181
[2017-07-25 00:33] LABS: Glucose,Whole Blood 94 mg/dL (75-99)
[2017-07-25] MEDS: DEXTROSE 5%-0.9% NACL 1,000 ML IV SCH ×2 (04:29→20:40)
[2017-07-25 06:17] LABS: Glucose,Whole Blood 96 mg/dL (75-99)
[2017-07-25] MEDS: HEPARIN SODIUM,PORCINE 5,000 UNIT/ML 1 ML VIAL SQ SCH ×3 (08:47→23:10)
[2017-07-25] MEDS: levETIRAcetam 250 MG TAB PO SCH ×2 (08:48→20:28)
[2017-07-25] MEDS: HYDROCORTISONE 10 MG TAB PO SCH ×2 (08:48→20:28)
[2017-07-25] MEDS: PIPERACILLIN-TAZOBACTAM 3.375 GM in DEXTROSE/WATER 1 50ML.BAG IVPB SCH (08:51)
[2017-07-25] MEDS: FAMOTIDINE 20 MG/2 ML VIAL IV SCH ×2 (08:52→20:28)
--- NOTE | 2017-07-25 10:48 | CONS ---
CONSULTATION DATE OF CONSULTATION: 07/24/2017 CHIEF COMPLAINT: Seizures. HISTORY OF PRESENT ILLNESS: The patient is a 31-year-old, male, who is being evaluated today on 07/24/2017 by the neurology service per the request of Dr. Temple for seizures. The patient is nonverbal and requires. / care due to multiple brain tumor resections during his childhood. His parents brought him to [facility] with the complaints of abdominal pain and tachycardia. Through the workup, there was a suspicion for peritonitis and pneumonia. The patient does have 2 PRINCIPAL TECH[employer]IST shunt placements. Dr. Bowen from infectious disease has been following the patient and he is currently on Zosyn. The patient was witnessed to have a generalized tonic colonic seizure by the nursing staff, which lasted 2 to 3 minutes and was followed by a prolonged postictal drowsiness. According to the parents, the patient has at least one seizure per week. In reviewing his home medications, he is on Lamictal 25 mg once daily. which is no where near a therapeutic dose. His father informs me that the patient is very sensitive to medications and that is why he is on a very low dose of Lamictal. When the patient had the seizure, I did order for Keppra 500 mg IV piggyback to be started and I started him on a maintenance dose of Keppra 250 mg b.i.d. I did review his EEG which showed no epileptiform discharges. His CBC and basic metabolic profile today were normal. At the time of my evaluation, the patient is postictal and is not responding to any verbal stimuli. 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 SOCIAL HISTORY: There is no history of any tobacco, alcohol or drug use. FAMILY HISTORY: Noncontributory. HOME MEDICATIONS: Reviewed in the chart. ALLERGIES: REGLAN, PREVACID, COLACE, PEANUTS. REVIEW OF SYSTEMS: Unable to obtain, as the patient is postictal and nonverbal. PHYSICAL EXAM: Vital signs show a temperature of 98.1, pulse 79, respiration 16, blood pressure 92/56. GENERAL APPEARANCE: The patient is a male who is sleeping in his bed and appears to be resting. HEENT: Postsurgical changes are seen. No obvious facial asymmetry is noticed. NECK: Supple with no masses felt. CARDIOVASCULAR: Regular rate and rhythm. ABDOMEN: Slightly distended. PEG tube is present. Extremities showed no edema or clubbing. NEUROLOGICAL EXAM: The patient is postictal at this time and unarousable. No seizure- like activity is seen. No obvious facial asymmetry is seen on cranial nerve testing. No tremors are seen. IMPRESSION: 1. Uncontrolled seizures. 2. History of brain cancer, status post resection. 3. Altered mental status/postictal state. RECOMMENDATION: The patient has been having frequent seizures as mentioned above. He is only on Lamictal 25 mg daily, which is not considered a therapeutic dose. I had a lengthy discussion with the patient's parents regarding the need to start IV therapy. The patient was given Keppra 500 mg IV and will be started on a maintenance dose of 250 mg every 12 hours. I did review his EEG which showed no epileptiform discharges. If the patient tolerates Keppra but continues to have frequent breakthrough seizures, on I will increase his Keppra dose to 500 mg b.i.d. and will re-evaluate him at that time. Continue seizure precautions and continue neuro checks. I will continue to follow with you. Further recommendations to follow. Thank you for allowing me to participate in the care of your patient. If you have any questions, please feel free to contact me. LOLY / EMMANUELLE: [id number] /
[2017-07-25 12:18] LABS: Glucose,Whole Blood 112 mg/dL (75-99)
--- NOTE | 2017-07-25 15:21 | P.PN ---
Subjective Progress Note Date: 07/25/17 Principal diagnosis: Seizures This is a 31-year-old male continue be evaluated by the neurology service for seizures. He has an extensive history of multiple brain tumor resections throughout his childhood. He was brought to [facility] with complaints of abdominal pain and tachycardia. During his stay she had some witnessed generalized tonic-clonic seizure activity. In reviewing his medication he was only on Lamictal 25 mg at night. We did give him IV Keppra 500 mg loading dose and 250 mg twice daily for maintenance. He has had no adverse reaction to the medication, and has had no seizure activity since starting it. We have discontinued the Lamictal. At time my exam he is sitting up in his bedside chair or playing on his computer, he is in no acute distress. Objective - Vital Signs Vital signs: Vital Signs Temp 98.0 F 07/25/17 14:42 Pulse 83 07/25/17 14:42 Resp 16 07/25/17 14:42 BP 89/54 07/25/17 14:42 Pulse Ox 94 L 07/25/17 14:42 Intake & Output 07/24/17 07/25/17 07/25/17 18:59 06:59 18:59 Intake Total 90 60 50 Output Total 900 3800 Balance -810 -3740 50 Weight 73.9 kg 73.9 kg Intake: Tube Feeding 90 60 50 Output: Urine 900 3800 Other: Voiding Method Indwelling Catheter Indwelling Catheter Incontinent # Bowel Movements 2 1 - Constitutional General appearance: Present: cooperative, no acute distress - EENT Eyes: Present: PERRLA. Absent: abnormal pupil, ptosis ENT: Present: hearing grossly normal - Neck Neck: Present: normal ROM. Absent: rigidity - Respiratory Respiratory: negative: prolonged expiration, prolonged inspiration - Cardiovascular Rhythm: regular - Gastrointestinal General gastrointestinal: Absent: distended, tenderness - Neurologic Neurologic Comment(s): Patient is alert awake and nonverbal. There is no facial asymmetry. There is no lateralizing weakness. No tremors or seizure-like activities are seen. - Labs CBC & Chem 7: 07/24/17 03:57 07/24/17 03:57 Labs: Abnormal Lab Results - Last 24 Hours (Table) 07/24/17 07/24/17 07/25/17 Range/Units 03:57 18:08 12:13 POC Glucose (mg/dL) 103 H 112 H (75-99) mg/dL Lamotrigine 0.5 L (2.0-15.0) ug/mL Microbiology - Last 24 Hours (Table) 07/19/17 16:05 Blood Culture - Preliminary Blood No Growth after 120 hours 07/19/17 15:43 Blood Culture - Preliminary Blood No Growth after 120 hours Assessment and Plan (1) Generalized convulsive seizures Current Visit: Yes Status: Chronic Code(s): R56.9 - UNSPECIFIED CONVULSIONS SNOMED Code(s): 587347691 (2) Abdominal pain Current Visit: Yes Status: Acute Code(s): R10.9 - UNSPECIFIED ABDOMINAL PAIN SNOMED Code(s): 27207762 (3) Peritonitis Current Visit: Yes Status: Acute Code(s): K65.9 - PERITONITIS, UNSPECIFIED SNOMED Code(s): 25211190 Plan: The patient was having breakthrough seizures on a subtherapeutic dose of Lamictal. Lamictal is been discontinued. Recommend continuing Keppra 250 mg twice daily. If he were to have breakthrough seizures this could be increased to 500 mg twice daily. His EEG showed no epileptiform activity. Continue seizure precautions and neurological checks. We can be consulted on as-needed basis for any changes neurological status. Otherwise, he is cleared from a neurological standpoint. I have performed a history and physical on the above patient. I have reviewed the above note, and agree.
--- NOTE | 2017-07-25 17:02 | P.PN ---
Subjective Progress Note Date: 07/25/17 Principal diagnosis: Hypoglycemic episodes, Severe sepsis, acute peritonitis, acute hypoxic respiratory failure, acute renal failure, right lower lobe pneumonia likely aspiration and gram-negative related, Pseudomonas pneumonia, brain tumor, high- grade S requiring GUN PERFORATOR LOADER shunt, history of stroke, severe profound metabolic acidosis, severe hypernatremia, hypokalemia 07/25/2017, patient seen eval examined during the rounds clinically patient is not much change patient has been tolerating tube feed relatively better no evidence of seizure-like activity has been seen neurology service has been following and being treated with Keppra and continued on Lamictal, severity of oral secretions have improved on oxygen is 94% on room air 07/24/2017, patient seen eval examined during the rounds clinically patient has been doing well overall in terms of breathing aspect however patient has intermittent episodes of hypoglycemia as per family he does well with Glucerna have advised RN to look into it and discussed with nitrate if the tube feed can be changed to Glucerna, in the meantime we'll do a D5 50 mL an hour labs reviewed medications reviewed 07/23/2017, patient seen eval examined during the rounds clinically patient is doing much better he is been off of levo fed drip since last night, patient has adequate urine output he remains on IV fluid D5 half-normal saline 50 mL an hour with potassium tolerating very well patient is being replaced with potassium, potassium level has improved today, every feed has been initiated, patient has been getting free water through the PEG tube as well, amount of oral secretion has substantially improved since has been placed on scopolamine patch, labs and radiographic studies reviewed, medications reviewed 07/22/2017, patient seen eval examined during the rounds he is awake sitting upright on the bed, patient is still have significant oral secretion however intensity has improved, patient remains on levo fed drip and currently patient is on 2 mics blood pressure and maps are stable on that. Chest x-ray performed today reviewed and the infiltrate noted in the right basal and lower lobe slightly have shown evidence of clearing up, labs reviewed patient has significant hypernatremia which is slowly improving with free water which is being through the PEG tube, the patient is tolerating free water fairly well currently is on 20 mL an hour, IV fluids are D5 100 mL an hour, given that patient is still have hypotensive episodes and significant unchanged bradycardia which appears to be chronic we'll give another fluid resuscitation of normal saline about 500 mL and change the IV fluids to D5 half-normal suspect some of the hyper natremia and hypokalemia is likely related to high stress dose steroids, care plan discussed with staff as well as patient's mother at length, x-ray reviewed laboratory data reviewed, medications reviewed 07/21/2017, patient seen eval examined during the rounds clinically patient has been doing slightly better now, patient has been successfully weaned and extubated however postextubation patient has a significant problem of excessive oral secretions which were suctioned deeply by the RN and the family members which did help however patient needs to be induced and gag physical stimulation in order to bring up the secretions, issues about tracheostomy have been discussed with the family they feel it being a last resort currently patient FiO2 has been tapered down to 7 L now, patient continued to require levo fed he is on 6 mics are treated when he was sleeping is in mid 40s however when he is awake came up to 60, systolic blood pressure is in 90s, maps around 65 with a levo fed of 6 mics patient has been making adequate urine sodium however noted to be going slightly up patient may very well be is still volume depleted side, currently has been gently rehydrated with D5, I have reviewed the chest x-ray there is a new developing right lower lobe infiltrate are seen with the sputum being positive for Pseudomonas consistent with gram-negative pseudomonas pneumonia, patient is currently on IV Zosyn and vancomycin tolerating well, white cell count is coming down, hemoglobin remained stable no further declining hemoglobin has been noted no more coffee-ground stuff noted to be coming out through either PEG or through patient vomiting, sodium is 152, potassium is 2.9, renal functions remain stable, discussed the care plan with the mother present at bedside at length 07/20/2017, patient seen eval examined during the rounds clinically patient is is slightly stable in terms of hemodynamics but however continued to require low -dose vasopressors currently patient is on 6 mics of levo fed which is gradually being titrated down he is borderline bradycardic blood pressure is stable amount of oral secretions are slightly better, labs reviewed medications reviewed chest x-ray remains stable no new infiltrates are seen interstitial edema is seen, patient has been aggressively resuscitated with crystalloid, now adequate urine output has been noted. Labs reviewed medications reviewed sodium is up to 151 now renal functions remain stable, arterial blood gas and ventilator setting and data reviewed as well, mother is present at bedside care plan discussed with her at length as well 31-year-old male who presented into the hospital with abdominal discomfort and pain started about a day to prior coming to the hospital, patient underwent a computed tomography scan of the abdomen pelvis in emergency department found to have evidence of peritonitis no evidence of acute abdomen however has been noted patient admitted into the ICU under service of Dr. Temple, in ICU patient initially was on 2 L oxygen however has been noted to excessive amount of oral secretions in respiratory secretions with gurgling sounds oxygen saturation continue to drop down on and in spite of increasing the fractional inspired oxygen at 100% patient becomes very tachypneic tachycardic and eventually was intubated for airway protection, labs reviewed computed tomography scan of the chest reviewed and medications reviewed as well along with radiographic studies. Data predominantly obtained from the chart as well as the father present at bedside. Patient has a significant history of brain tumors with multiple resections in the past in his early years due to intracranial hypertension patient underwent a GUN PERFORATOR LOADER shunt a year ago patient developed acute stroke as well since then patient is extremely predispose to infections, patient has a spontaneously breathing but has problems associated with swallowing dysfunction requiring suctioning of the mouth he also has a PEG tube , patient does follow up at [facility] Patient presents to the emergency center because of family became concerned that he was having increasing abdominal pain, difficulty with nutrition and that when they were feeding him through his PEG tube he seemed to be having some discomfort and retching. He apparently normally has some difficulties with some constipation and they do utilize a bowel program with enema. Apparently no recent stooling and with the abdominal discomforts was brought to the emergency center. The patient did appear to be ill, was found evidence of a leukocytosis. His temperature was 97 for which the parents relate is quite high for him because he has temperature regulation difficulties after his brain tumor and radiation. The patient was admitted to hospital and to the intensive care unit with concerns to peritonitis with a computed tomography scan showing evidence of some inflammation of the abdomen and with the 2 ventriculoperitoneal shunts present cause concern. With a relatively short period of time the patient had rapid onset of respiratory failure necessitating intubation with mechanical ventilation and some sedation. Of note his PEG tube also dislodged spontaneously, the family relates this has happened multiple times over the years. During evaluation in that the patient in the ICU he is post intubated on propofol drip currently when setting includes assist control rate of 14 breathing 14, tidal volume is 400, 100% oxygen, PEEP of 5, patient has a Rodriguez' s catheter with very minimal urine output patient is also on propofol drip, IV fluids are being given D5 normal saline a liter has been given currently patient is on 100 mL an hour PEG tube site is intact Objective - Vital Signs Vital signs: Vital Signs Temp 98.0 F 07/25/17 14:42 Pulse 83 07/25/17 14:42 Resp 16 07/25/17 14:42 BP 89/54 07/25/17 14:42 Pulse Ox 94 L 07/25/17 14:42 Intake & Output 07/24/17 07/25/17 07/25/17 18:59 06:59 18:59 Intake Total 90 60 80 Output Total 900 3800 Balance -810 -3740 80 Weight 73.9 kg 73.9 kg Intake: Tube Feeding 90 60 80 Output: Urine 900 3800 Other: Voiding Method Indwelling Catheter Indwelling Catheter Indwelling Catheter # Bowel Movements 2 1 - Exam - Constitutional General appearance: mild distress, no acute distress, obese, readily arousable - EENT Evidence of prior multiple brain surgeries, detailed exam couldn't be performed Eyes: anicteric sclerae, PERRLA, poor dentition Ears: bilateral: normal - Neck Neck: normal ROM Thyroid: bilateral: normal size - Respiratory Respiratory: bilateral: Coarse breath sounds with crackles predominantly on the right base - Cardiovascular Heart sounds: normal: S1, S2 - Gastrointestinal General gastrointestinal: decreased bowel sounds, distended, tenderness, the tenderness and distention appears to have improved compared to yesterday exam - Integumentary Integumentary: decreased turgor - Neurologic Detailed neurological examination couldn't be performed as patient fairly incapacitated and mostly does not follow commands sleep most of the time - Psychiatric Unable to assess due to his baseline neurological status - Labs CBC & Chem 7: 07/24/17 03:57 07/24/17 03:57 Labs: Abnormal Lab Results - Last 24 Hours (Table) 07/24/17 07/24/17 07/25/17 Range/Units 03:57 18:08 12:13 POC Glucose (mg/dL) 103 H 112 H (75-99) mg/dL Lamotrigine 0.5 L (2.0-15.0) ug/mL Microbiology - Last 24 Hours (Table) 07/19/17 16:05 Blood Culture - Preliminary Blood No Growth after 120 hours 07/19/17 15:43 Blood Culture - Preliminary Blood No Growth after 120 hours Assessment and Plan Assessment: 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 and intra-ventricular hypertension, neurology is following and adjusting anti-seizure medications Hypoglycemic episode Severe sepsis and septic shock Acute aspiration pneumonia related to Pseudomonas, right lower lobe Chronic adrenal insufficiency Acute peritonitis etiology not clear Acute hypoxic respiratory failure related to excessive amount of oral secretions and respiratory secretions was Acute renal failure/oliguria related to above, significantly improved with aggressive fluid resuscitation Severe hypernatremia Severe hypokalemia History of multiple brain tumors requiring resection and hydrocephalus Ammann status post GUN PERFORATOR LOADER shunt History of recent stroke Metabolic acidosis related ongoing sepsis Plan: Adjustment of tube feed D5 50 mL an hour for now Oral care deep suctioning as tolerated along with supplemental oxygen, titrated oxygen down as tolerated Discussed with surgical services if gentle rehydration through the PEG tube to be maintained as tolerated Intake and patient on Cortef 10 mg by mouth 2 times a day as taking at home Scopolamine patch H2 blockers in the form of Pepcid 20 mg IV every 12 Broad-spectrum antibiotics being adjusted by infectious disease services monitor renal functions closely Mchugh cultures including urine and blood and sputum results reviewed DVT and peptic ulcer disease prophylaxis Further recommendations pending plan of care as per clinical response of patient care plan discussed with the staff Discussed with the family at length Time with Patient: Greater than 30
[2017-07-25 17:28] LABS: Glucose,Whole Blood 109 mg/dL (75-99)
--- NOTE | 2017-07-25 17:35 | P.PN ---
Subjective Progress Note Date: 07/25/17 Principal diagnosis: Abdominal pain Patient tolerating tube feeds at 30 per hour. His nausea seems better. Less bloated. Seizure activity improved. No obvious pain at this time. Objective - Vital Signs Vital signs: Vital Signs Temp 98.0 F 07/25/17 14:42 Pulse 83 07/25/17 14:42 Resp 16 07/25/17 14:42 BP 89/54 07/25/17 14:42 Pulse Ox 94 L 07/25/17 14:42 Intake & Output 07/24/17 07/25/17 07/25/17 18:59 06:59 18:59 Intake Total 90 60 80 Output Total 900 3800 Balance -810 -3740 80 Weight 73.9 kg 73.9 kg Intake: Tube Feeding 90 60 80 Output: Urine 900 3800 Other: Voiding Method Indwelling Catheter Indwelling Catheter Indwelling Catheter # Bowel Movements 2 1 - Exam Abdomen: Soft, nondistended, questionable mild left lower quadrant tenderness persists but certainly improved - Labs CBC & Chem 7: 07/24/17 03:57 07/24/17 03:57 Labs: Abnormal Lab Results - Last 24 Hours (Table) 07/24/17 07/24/17 07/25/17 Range/Units 03:57 18:08 12:13 POC Glucose (mg/dL) 103 H 112 H (75-99) mg/dL Lamotrigine 0.5 L (2.0-15.0) ug/mL 07/25/17 Range/Units 17:24 POC Glucose (mg/dL) 109 H (75-99) mg/dL Lamotrigine (2.0-15.0) ug/mL Microbiology - Last 24 Hours (Table) 07/19/17 16:05 Blood Culture - Preliminary Blood No Growth after 120 hours 07/19/17 15:43 Blood Culture - Preliminary Blood No Growth after 120 hours Assessment and Plan (1) Abdominal pain Narrative/Plan: Continue antibiotics per infectious disease. Continue tube feeds. His seizure activity improved possible discharge in 24-48 hours. Spoke with the patient's neurosurgeon from [facility]. He would like to see the patient in the office post discharge. Current Visit: Yes Status: Acute Code(s): R10.9 - UNSPECIFIED ABDOMINAL PAIN SNOMED Code(s): 64104071
--- NOTE | 2017-07-25 17:54 | P.PN ---
Subjective Progress Note Date: 07/25/17 Progress Note being dictated for Dr. Garvin Interval history:31-year-old male with a known history of Brain tumor with MAINTENANCE DATA ANALYST shunt, Paraplegia, Mentally challenged patient, CVA/TIA and seizure disorder came to ER with complaints of abdominal discomfort 2 days prior to admission. Patient was also having some difficulties with the feeding tube. Patient is on PEG tube feeding. Patient's mom is his caregiver. 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 Patient also having some issues with constipation as well. CT of abdomen pelvis on admission showed there is patchy atelectasis at the lung bases. Livers pain pancreas appears normal. There are double ventriculoperitoneal shunt catheters. There is some free fluid in the pelvis. There is also some mild fat stranding in the pelvis the possibility of adenitis should be considered. There is a change compared to old computed tomography scan. There is new mild infiltrate and atelectasis in the posterior lung bases. No evidence of bowel obstruction. Patient went into respiratory failure and is currently sedated and intubated. Patient is being treated for 4 colitis and possible aspiration pneumonia as well. Patient was also started on hydrocortisone 100 mg twice daily due to adrenal insufficiency. ID and pulmonary is following. X-rays abdomen on 07/19/2017 showed contrast appears to extend from the stomach into the duodenum no extravasation of contrast is evident. Chest x-ray today showed improved aeration of the lungs. No focal consolidation. 07/21/2017 Patient was extubated yesterday. Otherwise patient is in no acute distress. Saturating well on nausea cannula. Patient is being continued on antibiotics in the form of Zosyn and metronidazole. No abdominal tenderness. No fever no chills. WBC count is normal. Otherwise potassium level is 2. 9 this morning which is being replaced. 07/22/2017 Currently patient is saturating well on room air. No complaints of abdominal pain. No fever no chills. Repeat CT chest was ordered. Chest x-ray showed interval improvement ARDS of consolidation on the right with persistent interstitial changes and areas of subsegmental consolidation. Patient is being continued on antibiotics. No fever no chills. 07/23/2017 No overnight events, patient probably will transfer out of ICU today. 07/24/2017 father at bedside, reports patient had seizures during the night and police booking officer hours 3; reported as staring episodes, not tonic-clonic. Follows with [facility] neurologist. Required dextrose earlier this morning for low blood sugars documented in the 70s. Maintained on IV fluids of dextrose 5% . Abdominal discomfort also reported, residuals normal. further evaluated by a general surgery, tube feeds rate decreased, with further recommendations pending from boiler water tester. Chest x-ray reports similar. 07/25/2017 with Lamictal level low, subtherapeutic. Evaluated by neurology. Lamictal discontinued, Keppra added to med regime. No further breakthrough seizures reported. EEG reporting no epileptiform activity. Tolerating tube feeds, blood sugars stable. Father reports no nausea, no abdominal discomfort. Afebrile. Oral secretions have lessened. Objective - Vital Signs Vital signs: Vital Signs Temp 98.0 F 07/25/17 14:42 Pulse 83 07/25/17 14:42 Resp 16 07/25/17 14:42 BP 89/54 07/25/17 14:42 Pulse Ox 94 L 07/25/17 14:42 Intake & Output 07/24/17 07/25/17 07/25/17 18:59 06:59 18:59 Intake Total 90 60 80 Output Total 900 3800 Balance -810 -3740 80 Weight 73.9 kg 73.9 kg Intake: Tube Feeding 90 60 80 Output: Urine 900 3800 Other: Voiding Method Indwelling Catheter Indwelling Catheter Indwelling Catheter # Bowel Movements 2 1 - Exam PHYSICAL EXAMINATION: Patient is sitting up in bed comfortably, no acute distress, currently resting. patient is mentally challenged HEENT: Normocephalic. Neck is supple. Pupils reactive. Nostrils clear. Oral cavity is moist. Neck reveals no JVD, carotid bruits, or thyromegaly. CHEST EXAMINATION: Trachea is central. Symmetrical expansion. Diminished bibasilar air entry. Minimal crackles, greater in right base. No wheezing. Upper Lung alfaro clear. CARDIAC: Normal S1, S2 with no gallops. No murmurs ABDOMEN: Soft. Nondistended, diffuse left lower quadrant tenderness. Bowel sounds normal. Extremities: reveal no edema. No clubbing or cyanosis Neurologically; Patient does have paraplegia, no tremors. Microbiology 07/19/17 16:05 Blood Blood Culture - Preliminary No Growth after 120 hours 07/19/17 15:43 Blood Blood Culture - Preliminary No Growth after 120 hours 07/19/17 08:22 Sputum Gram Stain - Final 07/19/17 08:22 Sputum Sputum Culture - Final Pseudomonas aeruginosa 07/19/17 08:32 Urine,Catheterized Urine Culture - Final - Labs CBC & Chem 7: 07/24/17 03:57 07/24/17 03:57 Labs: Abnormal Lab Results - Last 24 Hours (Table) 07/24/17 07/24/17 07/25/17 Range/Units 03:57 18:08 12:13 POC Glucose (mg/dL) 103 H 112 H (75-99) mg/dL Lamotrigine 0.5 L (2.0-15.0) ug/mL 07/25/17 Range/Units 17:24 POC Glucose (mg/dL) 109 H (75-99) mg/dL Lamotrigine (2.0-15.0) ug/mL Microbiology - Last 24 Hours (Table) 07/19/17 16:05 Blood Culture - Preliminary Blood No Growth after 120 hours 07/19/17 15:43 Blood Culture - Preliminary Blood No Growth after 120 hours Assessment and Plan Assessment: Acute hypoxic respiratory failure due to sepsis from aspiration with excessive oral secretions.. Currently extubated on 07/20/2017. Severe sepsis/septic shock status post pressor support Acute colitis and pneumonia/aspiration with pseudomonas aeruginosa Hypernatremia History of multiple brain surgeries due to Brain tumor with MAINTENANCE DATA ANALYST shunt, Paraplegia Mentally challenged patient Recent CVA/TIA and seizure disorder with possible seizure breakthrough Metabolic acidosis Mild sinus bradycardia, asymptomatic at this time Hypoglycemia Plan: Continue on current medication regime ,monitoring and symptomatic treatment. Anticonvulsant therapy as per neurology. Maintain seizure and strict aspiration precautions. Antibiotics per infectious disease. Discharge planning in progress as per surgery. The impression and plan of care has been dictated as directed. : I performed a history and examination of this patient, discussed the same with the dictator. I agree with the dictator's note ,documented as a scribe. Any additional findings or plans will be noted.
[2017-07-25] MEDS: CIPROFLOXACIN/DEXTROSE PMX 400 MG in DEXTROSE/WATER 1 200ML.BAG IVPB SCH (20:28)
[2017-07-26 00:06] LABS: Glucose,Whole Blood 109 mg/dL (75-99)
[2017-07-26 05:56] LABS: Glucose,Whole Blood 107 mg/dL (75-99)
[2017-07-26 06:04] VITALS: BP 100/63; PULSE 55; RESP 14; TEMP 98
[2017-07-26] MEDS: HYDROCORTISONE 10 MG TAB PO SCH (09:24)
[2017-07-26] MEDS: levETIRAcetam 250 MG TAB PO SCH (09:24)
[2017-07-26] MEDS: HEPARIN SODIUM,PORCINE 5,000 UNIT/ML 1 ML VIAL SQ SCH ×2 (09:24→16:45)
[2017-07-26] MEDS: CIPROFLOXACIN/DEXTROSE PMX 400 MG in DEXTROSE/WATER 1 200ML.BAG IVPB SCH (09:24)
[2017-07-26] MEDS: FAMOTIDINE 20 MG/2 ML VIAL IV SCH (09:24)
[2017-07-26 12:11] LABS: Glucose,Whole Blood 109 mg/dL (75-99)
--- NOTE | 2017-07-26 13:01 | P.PN ---
Subjective Progress Note Date: 07/26/17 Interval history: Patient is being seen examined and evaluated today while covering Dr. Antonio. He is a principal diagnosis of Hypoglycemic episodes, Severe sepsis, acute peritonitis, acute hypoxic respiratory failure, acute renal failure, right lower lobe pneumonia likely aspiration and gram-negative related , Pseudomonas pneumonia, brain tumor, high-grade S requiring MANAGER FASHION shunt, history of stroke, severe profound metabolic acidosis, severe hypernatremia, hypokalemia. Upon examination today he is resting up in bed on room air. He has had no evidence of seizure like activities. Neurology is following the patient closely. His oxygen saturations are in the mid to high 90s on room air. He continues to have a congested cough however is bringing up secretions adequately. He does have bedside suction for his oral secretions. He is afebrile no further complaints. Objective - Vital Signs Vital signs: Vital Signs Temp 98.0 F 07/26/17 06:03 Pulse 55 L 07/26/17 06:03 Resp 14 07/26/17 06:03 BP 100/63 07/26/17 06:03 Pulse Ox 95 07/26/17 06:03 Intake & Output 07/25/17 07/26/17 07/26/17 18:59 06:59 18:59 Intake Total 80 360 320 Output Total 850 1700 Balance -770 -1340 320 Weight 73.9 kg 73.9 kg Intake: Oral 200 Tube Feeding 80 360 120 Output: Urine 850 1700 Other: Voiding Method Indwelling Catheter Indwelling Catheter Indwelling Catheter - Exam GENERAL EXAM: Alert, comfortable in no apparent distress. LUNGS: Lungs noted to be coarse. Bases diminished CVS: S1 and S2 normal with no audible mumurs, regular rhythm. ABDOMEN: No hepatosplenomegaly, normal bowel sounds, no guarding or rigidity. EXTREMITIES: No edema noted, pedal pulses palpable. SKIN: No rashes CENTRAL NERVOUS SYSTEM: Patient has had multiple brain surgeries unable to assess baseline neurological status - Labs CBC & Chem 7: 07/24/17 03:57 07/24/17 03:57 Labs: Abnormal Lab Results - Last 24 Hours (Table) 07/24/17 07/25/17 07/26/17 Range/Units 03:57 17:24 00:04 POC Glucose (mg/dL) 109 H 109 H (75-99) mg/dL Lamotrigine 0.5 L (2.0-15.0) ug/mL 07/26/17 07/26/17 Range/Units 05:51 11:50 POC Glucose (mg/dL) 107 H 109 H (75-99) mg/dL Lamotrigine (2.0-15.0) ug/mL Microbiology - Last 24 Hours (Table) 07/19/17 16:05 Blood Culture - Final Blood No Growth after 144 hours 07/19/17 15:43 Blood Culture - Final Blood No Growth after 144 hours Assessment and Plan Assessment: Assessment: 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 and intra-ventricular hypertension, neurology is following and adjusting anti-seizure medications Hypoglycemic episode Severe sepsis and septic shock Acute aspiration pneumonia related to Pseudomonas, right lower lobe Chronic adrenal insufficiency Acute peritonitis etiology not clear Acute hypoxic respiratory failure related to excessive amount of oral secretions and respiratory secretions was Acute renal failure/oliguria related to above, significantly improved with aggressive fluid resuscitation Severe hypernatremia Severe hypokalemia History of multiple brain tumors requiring resection and hydrocephalus, status post MANAGER FASHION shunt History of recent stroke Metabolic acidosis related ongoing sepsis Plan: Medications have been reviewed and will be continued as ordered. Continue with pulmonary hygiene, coughing and deep breathing exercises, and supportive care. Supplemental oxygen to maintain oxygen saturations of 92% or better. Continue nebulizer treatments. GI and DVT prophylaxis. Adjustment of tube feed per dietary Oral care deep suctioning as tolerated along with supplemental oxygen, titrated oxygen down as tolerated Discussed with surgical services if gentle rehydration through the PEG tube to be maintained as tolerated Intake and patient on Cortef 10 mg by mouth 2 times a day as taking at home Scopolamine patch H2 blockers in the form of Pepcid 20 mg IV every 12 Broad-spectrum antibiotics being adjusted by infectious disease services monitor renal functions closely Mchugh cultures including urine and blood and sputum results reviewed PT and OT Consults include: Infectious disease, neurology, pulmonology, internal medicine and surgical services Further recommendations pending plan of care as per clinical response of patient care plan discussed with the staff We are covering for I performed an examination of the patient and discussed their management with the nurse practitioner. I have reviewed the nurse practitioner's note and agree with the documented findings and plan of care.
[2017-07-26] MEDS: SCOPOLAMINE 1.5MG/72HR PATCH TRANSDERM SCH (13:11)
[2017-07-26] MEDS ORDERED: ALBUTEROL NEBULIZED 2.5 MG/3 ML INHALATION PRN (13:26)
--- NOTE | 2017-07-26 15:25 | P.DS ---
Providers Date of admission: 07/19/17 01:23 Expected date of discharge: 07/26/17 Attending physician: Hugo Temple Consults: 07/19/17 01:24 Consult Physician Stat Consulting Provider: Ho Antonio Consult Reason/Comments: Right tinnitus, tachycardia, requiring intensive care Do you want consulting provider notified?: Yes 07/19/17 07:36 Consult Physician Routine Consulting Provider: Brian Bowen Consult Reason/Comments: peritonitis Do you want consulting provider notified?: Yes 07/19/17 17:57 Consult Physician Routine Consulting Provider: Roberto Floyd Consult Reason/Comments: medical managment Do you want consulting provider notified?: Yes 07/24/17 11:47 Consult Physician Routine Consulting Provider: Soto Olmstead Consult Reason/Comments: seizures Do you want consulting provider notified?: Yes Primary care physician: Whitney Ruiz - Discharge Diagnosis(es) (1) Abdominal pain Patient in the hospital with lower abdominal pain and CAT scan findings suggesting inflammatory changes in the pelvis. The patient was started on IV antibiotics and seen by infectious disease. 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 Please refer to H&P and progress notes for full details. Patient developed acute respiratory failure shortly after admission requiring intubation. There was thought to be some component of aspiration. Patient has a history of chronic constipation but started having stools while hospitalized. Repeat CAT scan performed 3 days after admission showed improvement in the inflammatory changes. There remains 2 fluid collections in the pelvis that are at the site of INSURANCE MARKETING SPECIALIST shunts and may be physiologic. No free air or pneumoperitoneum was seen. Case was discussed with the patient's neurosurgeon during this hospital stay. Outpatient follow-up was advised. He was started back on his tube feeds. Patient doing well today. Was having some seizures and seen by neurology for this reason. Recent antibiotics use was thought to possibly lower his seizure threshold. Patient's family is comfortable with plans for discharge. Patient will follow up with his primary care physician and neurosurgery post discharge. Prescription for antibiotics provided by infectious disease. Current Visit: Yes Status: Acute Patient Condition at Discharge: Good Plan - Discharge Summary Discharge Rx Participant: Yes New Discharge Prescriptions: New Ciprofloxacin [Cipro Susp] 500 mg PO BID #100 ml No Action lamoTRIgine [LaMICtal] 25 mg PEG/G-TUBE HS Hydrocortisone [Cortef] 10 mg PEG/G-TUBE BID Discharge Medication List Hydrocortisone [Cortef] 10 mg PEG/G-TUBE BID 07/07/13 [History] lamoTRIgine [LaMICtal] 25 mg PEG/G-TUBE HS 07/07/13 [History] Ciprofloxacin [Cipro Susp] 500 mg PO BID #100 ml 07/26/17 [Rx] Follow up Appointment(s)/Referral(s): Whitney Ruiz MD [Primary Care Provider] - 1-2 days Ho Antonio MD [STAFF PHYSICIAN] - 1 Week Patient Instructions/Handouts: Peritonitis (DC) Activity/Diet/Wound Care/Special Instructions: Suction equipment ordered through [facility]: #[phone] PEG feedings through [facility]: #[phone] Aspiration precautions, HOB elevated while PEG feeds infusing. Change positions every 2 hours while awake to prevent skin breakdown. Elevate heels off bed.
--- NOTE | 2017-07-26 17:44 | P.PN ---
Subjective Progress Note Date: 07/26/17 Progress Note being dictated for Dr. Garvin Interval history:31-year-old male with a known history of Brain tumor with CERTIFIED MEDICAL AIDE shunt, Paraplegia, Mentally challenged patient, CVA/TIA and seizure disorder came to ER with complaints of abdominal discomfort 2 days prior to admission. Patient was also having some difficulties with the feeding tube. Patient is on PEG tube feeding. Patient's mom is his caregiver. 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 Patient also having some issues with constipation as well. CT of abdomen pelvis on admission showed there is patchy atelectasis at the lung bases. Livers pain pancreas appears normal. There are double ventriculoperitoneal shunt catheters. There is some free fluid in the pelvis. There is also some mild fat stranding in the pelvis the possibility of adenitis should be considered. There is a change compared to old computed tomography scan. There is new mild infiltrate and atelectasis in the posterior lung bases. No evidence of bowel obstruction. Patient went into respiratory failure and is currently sedated and intubated. Patient is being treated for 4 colitis and possible aspiration pneumonia as well. Patient was also started on hydrocortisone 100 mg twice daily due to adrenal insufficiency. ID and pulmonary is following. X-rays abdomen on 07/19/2017 showed contrast appears to extend from the stomach into the duodenum no extravasation of contrast is evident. Chest x-ray today showed improved aeration of the lungs. No focal consolidation. 07/21/2017 Patient was extubated yesterday. Otherwise patient is in no acute distress. Saturating well on nausea cannula. Patient is being continued on antibiotics in the form of Zosyn and metronidazole. No abdominal tenderness. No fever no chills. WBC count is normal. Otherwise potassium level is 2. 9 this morning which is being replaced. 07/22/2017 Currently patient is saturating well on room air. No complaints of abdominal pain. No fever no chills. Repeat CT chest was ordered. Chest x-ray showed interval improvement ARDS of consolidation on the right with persistent interstitial changes and areas of subsegmental consolidation. Patient is being continued on antibiotics. No fever no chills. 07/23/2017 No overnight events, patient probably will transfer out of ICU today. 07/24/2017 father at bedside, reports patient had seizures during the night and ip attorney hours 3; reported as staring episodes, not tonic-clonic. Follows with [facility] neurologist. Required dextrose earlier this morning for low blood sugars documented in the 70s. Maintained on IV fluids of dextrose 5% . Abdominal discomfort also reported, residuals normal. further evaluated by a general surgery, tube feeds rate decreased, with further recommendations pending from key sander. Chest x-ray reports similar. 07/25/2017 with Lamictal level low, subtherapeutic. Evaluated by neurology. Lamictal discontinued, Keppra added to med regime. No further breakthrough seizures reported. EEG reporting no epileptiform activity. Tolerating tube feeds, blood sugars stable. Father reports no nausea, no abdominal discomfort. Afebrile. Oral secretions have lessened. 07/26/2017 continues on antibiotics as per infectious disease. Maintained on Keppra. No further seizure activity reported. Father currently discussing tube feed with dietary. Blood sugars controlled. Afebrile. Objective - Vital Signs Vital signs: Vital Signs Temp 98.0 F 07/26/17 06:03 Pulse 55 L 07/26/17 06:03 Resp 14 07/26/17 06:03 BP 100/63 07/26/17 06:03 Pulse Ox 95 07/26/17 06:03 Intake & Output 07/25/17 07/26/17 07/26/17 18:59 06:59 18:59 Intake Total 80 360 1160 Output Total 850 1700 Balance -770 -1340 1160 Weight 73.9 kg 73.9 kg Intake: Oral 800 Tube Feeding 80 360 360 Output: Urine 850 1700 Other: Voiding Method Indwelling Catheter Indwelling Catheter Diaper Incontinent - Exam PHYSICAL EXAMINATION: Patient is sitting up in bed comfortably, no acute distress, watching a movie HEENT: Normocephalic. Neck is supple. Pupils reactive. Nostrils clear. Oral cavity is moist. Neck reveals no JVD, carotid bruits, or thyromegaly. CHEST EXAMINATION: Trachea is central. Symmetrical expansion. Diminished bibasilar air entry. Occasional scattered rhonchi, bilateral bases diminished. CARDIAC: Normal S1, S2 with no gallops. No murmurs ABDOMEN: Soft. Nondistended, non tender. Positive BS Extremities: reveal no edema. No clubbing or cyanosis Neurologically; Patient does have paraplegia, no tremors. Microbiology 07/19/17 16:05 Blood Blood Culture - Final No Growth after 144 hours 07/19/17 15:43 Blood Blood Culture - Final No Growth after 144 hours 07/19/17 08:22 Sputum Gram Stain - Final 07/19/17 08:22 Sputum Sputum Culture - Final Pseudomonas aeruginosa 07/19/17 08:32 Urine,Catheterized Urine Culture - Final - Labs CBC & Chem 7: 07/24/17 03:57 07/24/17 03:57 Labs: Abnormal Lab Results - Last 24 Hours (Table) 07/26/17 07/26/17 07/26/17 Range/Units 00:04 05:51 11:50 POC Glucose (mg/dL) 109 H 107 H 109 H (75-99) mg/dL Microbiology - Last 24 Hours (Table) 07/19/17 16:05 Blood Culture - Final Blood No Growth after 144 hours 07/19/17 15:43 Blood Culture - Final Blood No Growth after 144 hours Assessment and Plan Assessment: Acute hypoxic respiratory failure due to sepsis from aspiration with excessive oral secretions.. Currently extubated on 07/20/2017. Severe sepsis/septic shock status post pressor support Acute colitis and pneumonia/aspiration with pseudomonas aeruginosa Hypernatremia, resolved History of multiple brain surgeries due to Brain tumor with CERTIFIED MEDICAL AIDE shunt, Paraplegia Mentally challenged patient Recent CVA/TIA and seizure disorder with possible seizure breakthrough Metabolic acidosis Mild sinus bradycardia, asymptomatic at this time Hypoglycemia, resolved Plan: Continue on current medication regime ,monitoring and symptomatic treatment. Discharge planning in progress as per primary. Anticonvulsant therapy as per neurology. Antibiotics per infectious disease. Maintain seizure and strict aspiration precautions. Follow-up with PCP in 3 days, follow-up with neurosurgeon at [facility] as advised. Prognosis guarded given multiple complex medical issues. The impression and plan of care has been dictated as directed. : I performed a history and examination of this patient, discussed the same with the dictator. I agree with the dictator's note ,documented as a scribe. Any additional findings or plans will be noted.
== END 2017-07-26 18:57 | disposition home or self-care (01) | DRG 871 ==
LOC: EC 21:36 → 6ICU 07-19 01:23 → 4MS4W 07-23 18:28
PROVIDERS: ADMIT Surgery; ATTEND Surgery
PROC: 5A1935Z Respiratory Ventilation, Less than 24 Consecutive Hours (ICD-10-PCS; principal; 2017-07-19)
PROC: 0BH18EZ Insertion of Endotracheal Airway into Trachea, Via Natural or Artificial Opening Endoscopic (ICD-10-PCS; principal; 2017-07-19)
DX: A41.9 Sepsis, unspecified organism (principal); J15.1 Pneumonia due to Pseudomonas; J69.0 Pneumonitis due to inhalation of food and vomit; J96.01 Acute respiratory failure with hypoxia; K65.0 Generalized (acute) peritonitis; R65.21 Severe sepsis with septic shock; E27.40 Unspecified adrenocortical insufficiency; E87.0 Hyperosmolality and hypernatremia; E87.2 Acidosis; G82.20 Paraplegia, unspecified; N17.9 Acute kidney failure, unspecified; Z43.1 Encounter for attention to gastrostomy; R65.20 Severe sepsis without septic shock; E87.6 Hypokalemia; G40.409 Other generalized epilepsy and epileptic syndromes, not intractable, without status epilepticus; H93.19 Tinnitus, unspecified ear; I10 Essential (primary) hypertension; K52.9 Noninfective gastroenteritis and colitis, unspecified; K59.00 Constipation, unspecified; I69.391 Dysphagia following cerebral infarction; R13.10 Dysphagia, unspecified; Z79.899 Other long term (current) drug therapy; Z85.841 Personal history of malignant neoplasm of brain; Z86.011 Personal history of benign neoplasm of the brain; Z86.19 Personal history of other infectious and parasitic diseases; Z98.2 Presence of cerebrospinal fluid drainage device; Z88.8 Allergy status to other drugs, medicaments and biological substances; Z91.010 Allergy to peanuts
CPT/HCPCS: 36415; 36600; 71045; 74018; 74022; 74177; 80048; 80053; 80175; 81001; 82150; 82805; 83036; 83605; 83690; 83735; 84100; 84132; 85025; 85610; 87040; 87070; 87077; 87086; 87186; 87205; 93005; 94002; 94003; 95819

== ENCOUNTER 2017-07-31 07:35 | Inpatient (IN) | payer OTHER ==
[2017-07-31] MEDS ORDERED: cefTRIAXone IN SWFI 1,000 MG/10 ML SYRINGE IVP STA ×2 (07:52→09:19)
[2017-07-31] MEDS ORDERED: ACETAMINOPHEN IV (For NPO) 1,000 MG in EMPTY BAG 1 BAG IVPB STA (07:52)
--- NOTE | 2017-07-31 07:57 | ED ---
General Adult HPI - General Chief complaint: Seizure Stated complaint: seizure Time Seen by Provider: 07/31/17 07:40 Source: family, EMS, RN notes reviewed Mode of arrival: EMS Limitations: altered mental status, physical limitation - History of Present Illness Initial comments: Patient is a 31-year-old male presenting to the emergency Department with mother by EMS. Patient does not provide any significant history at this time. Patient has known significant disabilities. Patient has a brain tumor and shunt and seizures. Patient did have seizure this morning and EMS did provide versed. Mother states this morning patient was more lethargic than normal. Patient was seeming to breathe very fast. Patient was weak all over and had difficulty walking even with assistance. Normally patient is able to walk with some assistance. Patient was recently discharged from the hospital with pneumonia. Patient is currently on Cipro. Patient recently had his seizure medication changed to Keppra. - Related Data Home Medications Medication Instructions Recorded Confirmed Hydrocortisone [Cortef] 10 mg PEG/G-TUBE BID 07/07/13 07/18/17 Previous Rx's Medication Instructions Recorded Ciprofloxacin [Cipro Susp] 500 mg PO BID #100 ml 07/26/17 Scopolamine 1.5MG/72Hr Patch 1 patch TRANSDERM Q72H #3 patch 07/26/17 [TransDerm Scop] levETIRAcetam [Keppra] 250 mg PEG/G-TUBE Q12HR #60 tab 07/26/17 Allergies Allergy/AdvReac Type Severity Reaction Status Date / Time docusate sodium [From Colace] Allergy Rash/Hives Verified 07/18/17 22:21 lansoprazole [From Prevacid] Allergy Unknown Verified 07/18/17 22:21 metoclopramide HCl Allergy Unknown Verified 07/18/17 22:21 [From Reglan] peanut Allergy Rash/Hives Verified 07/18/17 22:21 Review of Systems ROS Statement: Those systems with pertinent positive or pertinent negative responses have been documented in the HPI. ROS Other: All systems not noted in ROS Statement are negative. Limitations: ROS unobtainable due to patients medical condition Respiratory: Reports: dyspnea Endocrine: Reports: fatigue Past Medical History Past Medical History: CVA/TIA, Pneumonia, Seizure Disorder Additional Past Medical History / Comment(s): brain tumor - benign, spinal cord tumor, seizure, HYPOTHERMIA R/T BRAIN TUMOR, 2 newly diagnosed brain tumors per mother (07/19/17); positive c diff 2015 & 2011 had fecal replacement at [facility] History of Any Multi-Drug Resistant Organisms: None Reported Past Surgical History: Ventriculoperitoneal Shunt Additional Past Surgical History / Comment(s): peg tube, vp site shunt, BRAIN, SPINAL CORD Past Anesthesia/Blood Transfusion Reactions: No Reported Reaction Past Psychological History: No Psychological Hx Reported Smoking Status: Never smoker Past Alcohol Use History: None Reported Past Drug Use History: None Reported General Exam Limitations: no limitations, altered mental status General appearance: lethargic, other (Patient is drowsy and nonverbal. Limited exam. Patient does have tachypnea) Head exam: Present: other (Postsurgical changes) Eye exam: Present: PERRL ENT exam: Present: mucous membranes dry Neck exam: Present: normal inspection. Absent: meningismus Respiratory exam: Present: other (Tachypnea) Cardiovascular Exam: Present: tachycardia GI/Abdominal exam: Present: soft. Absent: distended, tenderness, rigid Extremities exam: Present: normal inspection Back exam: Present: normal inspection Neurological exam: Present: other (Drowsy. Limited exam.) Psychiatric exam: Present: other (Nonverbal) Skin exam: Present: normal color. Absent: rash Course Vital Signs 07/31/17 07/31/17 07/31/17 07:36 08:25 08:30 Temperature 102.3 F H 104.2 F H Pulse Rate 136 H 138 H Respiratory 30 H 40 H Rate Blood Pressure 107/61 142/73 O2 Sat by Pulse 93 L 96 Oximetry 07/31/17 07/31/17 08:43 09:12 Temperature 105.1 F H Pulse Rate 132 H 131 H Respiratory 52 H 60 H Rate Blood Pressure 141/77 145/63 O2 Sat by Pulse 98 96 Oximetry - Reevaluation(s) Reevaluation #1: 07/31/17 08:52 Patient reevaluated and not significantly changed. Father is now present who states patient was lethargic most the day yesterday and started seeing some changes on Saturday. He states patient normally is verbal and able to communicate. 07/31/17 09:39 Case was discussed in detail with Dr. Miller, who will admit for Dr. Na Floyd. Case also discussed in detail with Dr. Antonio was previously seen the patient and will consult again. He does agree with Vashti and adding Flagyl. Dr. Bowen and Dr. Belle have been paged. Patient reevaluated again and is slightly improved. Heart rate 126. Family is updated on results to this time and further plan including further CT scans and ICU admission. Patient does have 2 IV lines placed. Family is made aware of concern regarding elevated lactic acid. Patient is full code at this time. Patient does meet criteria for septic shock diagnosed at 9:39 AM. 07/31/17 09:41 Patient is felt to need computed tomography scan of the brain and abdomen as the next step for determining source of fever. 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 Abdomen remains soft. Patient however does have concern for recent abdominal infection and computed tomography scan will also be beneficial. EKG Findings - EKG Comments: EKG Findings:: Sinus tachycardia 119. SC 128. QRS 82. QT 304. QTC 427. Left axis. LVH. There is some T-wave inversion leads V1 through V6. Procedures - Sepsis Sepsis Focused Exam #1 Time Sepsis Criteria Met: 09:39 Sepsis Focused Exam Date: 07/31/17 Sepsis Focused Exam Time: 09:40 Sepsis Focused Exam Complete: Yes Vital Signs & RN Notes Reviewed: Yes Capillary Refill: < 2 Seconds: Fingers, Toes Peripheral Pulses: Normal: Radial (R), Radial (L) Skin Color: Normal for Patient Respiratory Exam: normal lung sounds (Tachypnea) Cardiovascular Exam: tachycardia Medical Decision Making - Lab Data Result diagrams: 07/31/17 07:52 07/31/17 07:52 Lab Results 07/31/17 07/31/17 07/31/17 Range/Units 07:52 07:52 07:52 WBC 11.1 H (3.8-10.6) k/uL RBC 4.72 (4.30-5.90) m/uL Hgb 14.7 (13.0-17.5) gm/dL Hct 44.8 (39.0-53.0) % MCV 94.9 (80.0-100.0) fL MCH 31.3 (25.0-35.0) pg MCHC 32.9 (31.0-37.0) g/dL RDW 13.5 (11.5-15.5) % Plt Count 546 H D (150-450) k/uL Neutrophils % 79 % Lymphocytes % 12 % Monocytes % 7 % Eosinophils % 0 % Basophils % 0 % Neutrophils # 8.8 H (1.3-7.7) k/uL Lymphocytes # 1.3 (1.0-4.8) k/uL Monocytes # 0.8 (0-1.0) k/uL Eosinophils # 0.0 (0-0.7) k/uL Basophils # 0.1 (0-0.2) k/uL PT (9.0-12.0) sec INR (<1.2) APTT (22.0-30.0) sec Sodium 142 (137-145) mmol/L Potassium 4.6 (3.5-5.1) mmol/L Chloride 102 (98-107) mmol/L Carbon Dioxide 15 L (22-30) mmol/L Anion Gap 25 mmol/L BUN 16 (9-20) mg/dL Creatinine 0.60 L (0.66-1.25) mg/dL Est GFR (CKD-EPI)AfAm >90 (>60 ml/min/1.73 sqM) Est GFR (CKD-EPI)NonAf >90 (>60 ml/min/1.73 sqM) Glucose 111 H (74-99) mg/dL Plasma Lactic Acid Terrence 11.6 H* (0.7-2.0) mmol/L Calcium 9.7 (8.4-10.2) mg/dL Total Bilirubin 0.4 (0.2-1.3) mg/dL AST 41 (17-59) U/L ALT 36 (21-72) U/L Alkaline Phosphatase 148 H (38-126) U/L Total Creatine Kinase (55-170) U/L CK-MB (CK-2) (0.0-2.4) ng/mL CK-MB (CK-2) Rel Index Troponin I (0.000-0.034) ng/mL Total Protein 6.8 (6.3-8.2) g/dL Albumin 3.8 (3.5-5.0) g/dL Cortisol 28 ug/dL Urine Color Urine Appearance (Clear) Urine pH (5.0-8.0) Ur Specific [place] (1.001-1.035) Urine Protein (Negative) Urine Glucose (UA) (Negative) Urine Ketones (Negative) Urine Blood (Negative) Urine Nitrite (Negative) Urine Bilirubin (Negative) Urine Urobilinogen (<2.0) mg/dL Ur Leukocyte Esterase (Negative) Urine RBC (0-5) /hpf Urine WBC (0-5) /hpf Ur Squamous Epith Cells (0-4) /hpf Hyaline Casts (0-2) /lpf Urine Mucus (None) /hpf 07/31/17 07/31/17 07/31/17 Range/Units 07:52 07:52 08:32 WBC (3.8-10.6) k/uL RBC (4.30-5.90) m/uL Hgb (13.0-17.5) gm/dL Hct (39.0-53.0) % MCV (80.0-100.0) fL MCH (25.0-35.0) pg MCHC (31.0-37.0) g/dL RDW (11.5-15.5) % Plt Count (150-450) k/uL Neutrophils % % Lymphocytes % % Monocytes % % Eosinophils % % Basophils % % Neutrophils # (1.3-7.7) k/uL Lymphocytes # (1.0-4.8) k/uL Monocytes # (0-1.0) k/uL Eosinophils # (0-0.7) k/uL Basophils # (0-0.2) k/uL PT 10.3 (9.0-12.0) sec INR 1.0 (<1.2) APTT 22.2 (22.0-30.0) sec Sodium (137-145) mmol/L Potassium (3.5-5.1) mmol/L Chloride (98-107) mmol/L Carbon Dioxide (22-30) mmol/L Anion Gap mmol/L BUN (9-20) mg/dL Creatinine (0.66-1.25) mg/dL Est GFR (CKD-EPI)AfAm (>60 ml/min/1.73 sqM) Est GFR (CKD-EPI)NonAf (>60 ml/min/1.73 sqM) Glucose (74-99) mg/dL Plasma Lactic Acid Terrence (0.7-2.0) mmol/L Calcium (8.4-10.2) mg/dL Total Bilirubin (0.2-1.3) mg/dL AST (17-59) U/L ALT (21-72) U/L Alkaline Phosphatase (38-126) U/L Total Creatine Kinase <20 L (55-170) U/L CK-MB (CK-2) <0.2 (0.0-2.4) ng/mL CK-MB (CK-2) Rel Index Troponin I 0.042 H* (0.000-0.034) ng/mL Total Protein (6.3-8.2) g/dL Albumin (3.5-5.0) g/dL Cortisol ug/dL Urine Color Yellow Urine Appearance Clear (Clear) Urine pH 8.5 H (5.0-8.0) Ur Specific [place] 1.021 (1.001-1.035) Urine Protein 1+ H (Negative) Urine Glucose (UA) Negative (Negative) Urine Ketones Trace H (Negative) Urine Blood Moderate H (Negative) Urine Nitrite Negative (Negative) Urine Bilirubin Negative (Negative) Urine Urobilinogen <2.0 (<2.0) mg/dL Ur Leukocyte Esterase Negative (Negative) Urine RBC 86 H (0-5) /hpf Urine WBC 9 H (0-5) /hpf Ur Squamous Epith Cells <1 (0-4) /hpf Hyaline Casts 3 H (0-2) /lpf Urine Mucus Occasional H (None) /hpf Critical Care Time Critical Care Time: Yes Total Critical Care Time: 45 Disposition Clinical Impression: Septic shock Disposition: ADMITTED IP TO THIS [facility] Condition: Critical Referrals: Whitney Ruiz MD [Primary Care Provider] - 1-2 days Decision Time: 09:41
[2017-07-31] MEDS: SODIUM CHLORIDE 0.9% 500 ML IV SCH ×2 (08:02→08:49)
[2017-07-31] MEDS ORDERED: SODIUM CHLORIDE 0.9% 500 ML IV STA ×4 (08:28→09:10)
[2017-07-31] MEDS ORDERED: HYDROCORTISONE SUCCINATE 100 MG/2 ML VIAL IV STA (08:29)
[2017-07-31] MEDS ORDERED: IBUPROFEN IV 600 MG in SODIUM CHLORIDE 0.9% 250 ML IV ONE (08:30)
--- NOTE | 2017-07-31 08:31 | XR ---
EXAMINATION TYPE: XR chest 1V portable DATE OF EXAM: 07/31/2017 Comparison: 07/24/2017 Clinical History: 31-year-old male Fever Findings: 2 BLAST FURNACE CHECKER shunt catheters are present on the right and one on the left coursing down the hemithorax. Heart borderline in size. Mild diffuse interstitial prominence with hazy densities and low lung volumes. N o [place] consolidation or pleural effusion seen. Impression: Hypoventilatory changes. Interstitial prominence and hazy densities probably related to generalized a reas of atelectasis. Follow-up with improved inspiration may be helpful. No convincing evidence for p neumonia at this time.
[2017-07-31 08:53] LABS: Basophils # (A) 0.1 k/uL (0-0.2); Basophils % (A) 0 %; Eosinophils % (A) 0 %; HCT 44.8 % (39.0-53.0); HGB 14.7 gm/dL (13.0-17.5); Lymphocytes # (A) 1.3 k/uL (1.0-4.8); Lymphocytes % (A) 12 %; MCH 31.3 pg (25.0-35.0); MCHC 32.9 g/dL (31.0-37.0); MCV 94.9 fL (80.0-100.0); Mean Platelet Volume 8.1; Monocytes # (A) 0.8 k/uL (0-1.0); Monocytes % (A) 7 %; Neutrophils # (A) 8.8 k/uL (1.3-7.7); Neutrophils % (A) 79 %; RBC 4.72 m/uL (4.30-5.90); RDW 13.5 % (11.5-15.5); WBC 11.1 k/uL (3.8-10.6)
[2017-07-31 08:54] LABS: ALT 36 U/L (21-72); AST 41 U/L (17-59); Albumin 3.8 g/dL (3.5-5.0); Alkaline Phosphatase 148 U/L (38-126); Anion Gap 25 mmol/L; Blood Urea Nitrogen 16 mg/dL (9-20); Calcium 9.7 mg/dL (8.4-10.2); Carbon Dioxide 15 mmol/L (22-30); Chloride 102 mmol/L (98-107); Glucose 111 mg/dL (74-99); Potassium 4.6 mmol/L (3.5-5.1); Sodium 142 mmol/L (137-145); Total Bilirubin 0.4 mg/dL (0.2-1.3); Total Protein 6.8 g/dL (6.3-8.2)
[2017-07-31 08:57] LABS: Platelet Count 546 k/uL (150-450)
[2017-07-31 08:58] LABS: Partial Thromboplastin Time 22.2 sec (22.0-30.0); Prothrombin Time 10.3 sec (9.0-12.0)
[2017-07-31 09:00] LABS: Appearance,Urine Clear (Clear); Bilirubin,Urine Negative (Negative); Blood,Urine Moderate (Negative); Color,Urine Yellow; Glucose,Urine (UA) Negative (Negative); Hyaline Casts,Urine 3 /lpf (0-2); Ketones,Urine Trace (Negative); Leukocyte Esterase,Urine Negative (Negative); Mucus,Urine Occasional /hpf; Nitrite,Urine Negative (Negative); PH, Urine 8.5 (5.0-8.0); Protein,Urine 1+ (Negative); RBC,Urine 86 /hpf (0-5); Specific Gravity,Urine 1.021 (1.001-1.035); Squamous Epithelial Cell,Urine <1 /hpf (0-4); Urobilinogen,Urine <2.0 mg/dL (<2.0); WBC,Urine 9 /hpf (0-5)
[2017-07-31 09:09] LABS: Creatine Kinase <20 U/L (55-170)
[2017-07-31 09:21] LABS: Creatine Kinase MB <0.2 ng/mL (0.0-2.4)
[2017-07-31 09:23] LABS: Troponin I 0.042 ng/mL (0.000-0.034)
[2017-07-31] MEDS ORDERED: metroNIDAZOLE-NS PMX 500 MG in SALINE 1 100ML.BAG IVPB STA (09:42)
[2017-07-31] MEDS ORDERED: VANCOMYCIN IV PER PHARMACY 1 EACH MISC MISCELLANE PRN (09:43)
[2017-07-31] MEDS ORDERED: VANCOMYCIN 1,250 MG in SODIUM CHLORIDE 0.9% 250 ML IVPB STA (09:58)
--- NOTE | 2017-07-31 10:39 | CT ---
EXAMINATION TYPE: CT brain wo con DATE OF EXAM: 07/31/2017 COMPARISON: 10/02/2013 INDICATION: Fever, sepsis, history of tumor DLP: 875.8 mGycm, Automated exposure control for dose reduction was used. CONTRAST: None CT of the brain is performed utilizing 3 mm thick sections through the posterior fossa and 3 mm thick sections through the remaining calvarium. Study is performed within 24 hours of arrival to the hosp ital. No abnormal hyperdensity is present to suggest an acute intracranial hemorrhage. No mass lesion is evident. No acute infarcts are evident. There is a shunt catheter on the right frontal region which extends in to the left lateral ventricle. This is stable in appearance. There is prominence of the ventricles with rounding of the temporal horns compatible with hydrocephal us. This is a significant change from the comparison which did not have dilated ventricles. Consider shunt malfunction. There is a catheter entering on the left frontal region into the extra-axial space crosses midline in to the right small extra-axial space. This area is diminished over the interval. The catheters stable in position. There is an extra-axial collection with calcification along the ventral margin at the left frontal pa rietal vertex. This currently measures approximately 1.7 cm in depth which is slightly diminished. Sm all amount of pneumocephalus is present on the right in the extra-axial space. This area also appears smaller than comparison. Prior craniotomies are evident. Paranasal sinuses and mastoid air cells within the [id number] are clear. IMPRESSIONS: 1. Marked interval dilatation of the ventricles with surrounding the temporal horns compatible with hydrocephalus, a change from the eighth 02/04/2013 comparison study. Hydrocephalus is present. Consid er shunt malfunction.
[2017-07-31] MEDS: SODIUM CHLORIDE 0.9% 1,000 ML IV SCH ×5 (11:36→17:17)
--- NOTE | 2017-07-31 11:36 | CT ---
EXAMINATION TYPE: CT abdomen pelvis w con DATE OF EXAM: 07/31/2017 COMPARISON: 07/22/2017 HISTORY: 31-year-old female Fever, sepsis TECHNIQUE: Contiguous axial scanning of the abdomen and pelvis following administration of 100 ml Iso merritt 300 IV contrast. Delayed images through the kidneys and coronal/sagittal reconstructions perform ed. CT DLP: 776.50 mGycm Automated exposure control for dose reduction was used. FINDINGS: Heart upper limits of normal in size without pericardial effusion. Interval resolution of previous sm all effusions. Suggestion of some emphysematous changes in the lower lungs. Moderate bilateral gyneco mastia. There is motion artifact and some artifact from the patient's arms down. Within this limitation, no focal liver lesion is seen. Limited assessment of the main portal vein due to motion, difficult to exclude some central filling defect, axial image 21 and coronal image 39. Gallbladder, adrenal glands, spleen, and pancreas show no gross abnormality. Bilateral nephrolithiasis with scattered 3 mm calculi on both sides. Limited detailed assessment due to diffuse motion. Exophytic 1.3 cm lateral right renal cyst stable from 12/12/2015. PEG tube is in place. There are 2 right-sided SPACECRAFT SYSTEMS ENGINEER shunt catheters and one SPACECRAFT SYSTEMS ENGINEER shunt catheter which courses down the left but also crosses towards the right side of the abdomen to terminate in the right upper quadrant. The right lateral SPACECRAFT SYSTEMS ENGINEER shunt catheter is again noted to be discontinuous within the subcutaneous region of the right upper quadrant. The more medial right-sided SPACECRAFT SYSTEMS ENGINEER shunt catheter tip is located within the median upper pelvis and is surrounded by a 4.7 cm fluid collection. On 07/22/2017, this measured 3.7 cm. The right-sided pelvic fluid collection is no longer present. There is persistent moderate inflammatory fat stranding and tracking edema in the pelvis tracking up into the left lower quadrant with adjacent wall thickening of the mid to distal sigmoid. The proximal sigmoid is redundant. Trace residual presacral edema remains. Prominent but nonenlarged 6 mm left paramedian mid to lower mesenteric lymph node, axial image 53 lola w some increase in size from 07/2017. Nondilated small bowel or free air. [place] catheter is present in the bladder. There is some nondependent bladder air decreased from prior and similar bladder wall thickening. Bones: No osseous destructive process. Stable calcification within the spinal canal of the upper sacr um probably chronic post inflammatory in etiology. IMPRESSION: 1. PERSISTENT MODERATE INFLAMMATORY CHANGES IN THE PELVIS EXTENDING UP TO THE LEFT UPPER QUADRANT. TH ERE SEEMS TO BE PERSISTENT WALL THICKENING OF THE MID TO DISTAL SIGMOID. THIS WALL THICKENING COULD B E SECONDARY TO A COLITIS OR COULD BE REACTIVE TO PERITONITIS. 2. PATIENT'S MORE MEDIAL RIGHT-SIDED SPACECRAFT SYSTEMS ENGINEER SHUNT CATHETER TERMINATES IN THE UPPER PELVIS AND IS SURROUND ED BY A 4.7 CM ROUNDED FLUID COLLECTION WHICH HAS ENLARGED FROM 07/22/2017 WHERE IT MEASURED 3.7 CM. B OTH ENLARGING CSF PSEUDOCYST AND ABDOMINAL ABSCESS ARE IN THE DIFFERENTIAL. THE RIGHT SIDED PELVIC FL UID COLLECTION HAS RESOLVED IN THE INTERVAL. 3. EXAM LIMITATIONS INCLUDE PROMINENT PATIENT MOTION. UNABLE TO EXCLUDE A CENTRAL FILLING DEFECT/CLOT IN THE MAIN PORTAL VEIN. SHORT INTERVAL FOLLOW-UP IS RECOMMENDED. ULTRASOUND OF THE MAIN PORTAL VEIN MAY ALSO BE HELPFUL. 4. INTRALUMINAL BLADDER AIR HAS DECREASED. [place] CATHETER REMAINS IN PLACE. PERSISTENT LATERAL WALL T HICKENING PROBABLY DUE TO CHRONIC BLADDER WALL HYPERTROPHY. CYSTITIS CAN BE EXCLUDED CLINICALLY.
[2017-07-31] MEDS ORDERED: CISATRACURIUM 2 MG/ML 5 ML VIAL IV ONE (12:07)
[2017-07-31] MEDS ORDERED: PROPOFOL 100 ML IV ONE (12:11)
--- NOTE | 2017-07-31 12:18 | P.HPIM ---
History of Present Illness Patient is a 31-year-old gentleman with a history of brain tumor resection when he was a kid, patient has a ventriculoperitoneal shunt. Patient today came in with symptoms of sepsis severely lethargic increased respiratory rate found to have lactic acidosis source of infection is not clear. Patient doesn't have any cough, patient doesn't have any nausea vomiting patient was febrile. Patient is being admitted to ICU received 3.5 L of IV normal saline and patient is presently in 1 50 mL per hour of normal saline patient respiratory rate presently improved compared to when he came and patient was admitted to ICU bit setter was consulted patient may need a central line. Patient had a CAT scan of the head which showed dilated ventricles and possible malfunctioning of OFFAL SEPARATOR shunt. Because of which patient may need to be transferred to [facility] where he had neurosurgical interventions in the past. Other significant lab abnormalities include mildly elevated troponin to 0.042 probably secondary to sepsis UA are not significantly abnormal with the 9 WBC in the urine. Patient was recently discharged from the hospital. Patient has a PEG tube in place during his last hospitalization patient was admitted to general surgery for possibility of peritonitis. At that time patient's free air in the abdomen was believed secondary to the PEG tube. Patient's PEG tube was repositioned patient tolerated PEG tube feedings. Patient's source of infection at the time was believed to be pneumonia and the patient's sputum cultures were positive for Pseudomonas which was pansensitive patient was on Zosyn. During the hospitalization course patient had seizures after which Zosyn was subsequently discontinued patient was discharged in stable medical condition on ciprofloxacin for Pseudomonas in the sputum. Patient was started on Keppra for his seizures during his last hospitalization. There is no evidence of any seizure activity during this hospitalization. Patient blood pressure presently is 106 with 51 respiratory the for on 34 which is getting better now pulse rate of 72. Patient's chest x-ray showing some interstitial prominence and atelectasis on the right side without any significant pneumonic process. Patient was started on cefepime, metronidazole and vancomycin. After evaluation by bit setter patient may need to be transferred to [facility] awaiting for the bit setter evaluate the patient and to evaluate for the necessity of a central line. Review of Systems Unable to obtain Past Medical History Past Medical History: CVA/TIA, Pneumonia, Seizure Disorder Additional Past Medical History / Comment(s): Pt had recent admission to [facility] on 07/19/17 with low abdominal pain-inflammation per cat scan and ended up with acute respiratory failure-possibly d/t aspiration-vented. Other HX: Benign brain tumors-meningiomas, spinal cord tumor, seizures which started 5 years ago, HYPOTHERMIA R/T BRAIN TUMOR, 2 recently new brain tumors per mother, CVA 2013 with slightly increased R sided weakness, prior R sided weakness, neuro care thru [facility], positive c diff 2015 & 2011 had fecal replacement at [facility], hypoglycemia, adrenal insufficiency. History of Any Multi-Drug Resistant Organisms: None Reported Past Surgical History: Ventriculoperitoneal Shunt Additional Past Surgical History / Comment(s): OFFAL SEPARATOR shunts (2) with 3 leads (one extra lead)-L sided shunt is nonfunctioning, shunt revisions, spinal cord tumor removal, peg tube, fecal transplant Past Anesthesia/Blood Transfusion Reactions: No Reported Reaction Smoking Status: Never smoker - Past Family History Mother Family Medical History: No Reported History Father Family Medical History: No Reported History Medications and Allergies Home Medications Medication Instructions Recorded Confirmed Type Hydrocortisone [Cortef] 10 mg PEG/G-TUBE BID 07/07/13 07/31/17 History Ciprofloxacin [Cipro Susp] 500 mg PO BID #100 ml 07/26/17 07/31/17 Rx Scopolamine 1.5MG/72Hr Patch 1 patch TRANSDERM Q72H #3 patch 07/26/17 07/31/17 Rx [TransDerm Scop] levETIRAcetam [Keppra] 250 mg PEG/G-TUBE Q12HR #60 tab 07/26/17 07/31/17 Rx Allergies Allergy/AdvReac Type Severity Reaction Status Date / Time docusate sodium [From Colace] Allergy Rash/Hives Verified 07/31/17 11:17 lansoprazole [From Prevacid] Allergy Unknown Verified 07/31/17 11:17 metoclopramide HCl Allergy Unknown Verified 07/31/17 11:17 [From Reglan] peanut Allergy Rash/Hives Verified 07/31/17 11:17 Physical Exam Vitals: Vital Signs Temp Pulse Resp BP Pulse Ox 07/31/17 11:30 72 34 H 106/51 95 07/31/17 10:52 106/51 07/31/17 10:36 99.5 F 109 H 50 H 07/31/17 09:56 102.3 F H 118 H 54 H 127/62 95 07/31/17 09:42 130 H 52 H 132/66 92 L 07/31/17 09:12 105.1 F H 131 H 60 H 145/63 96 07/31/17 08:43 132 H 52 H 141/77 98 07/31/17 08:30 138 H 40 H 142/73 96 07/31/17 08:25 104.2 F H 07/31/17 07:36 102.3 F H 136 H 30 H 107/61 93 L Intake and Output 07/30/17 07/31/17 07/31/17 22:59 06:59 14:59 Output Total 445 Balance -445 Output: Urine 445 Coude 20 Other: Voiding Method Incontinent Indwelling Catheter Weight 63.503 kg PHYSICAL EXAMINATION: GENERAL: Patient appears toxic septic, tachypneic, sweaty HEENT: Pupils are round and equally reacting to light. EOMI. No scleral icterus. No conjunctival pallor. Normocephalic, atraumatic. No pharyngeal erythema. No thyromegaly. CARDIOVASCULAR: S1 and S2 present. No murmurs, rubs, or gallops. PULMONARY: Chest is clear to auscultation, no wheezing or crackles. ABDOMEN: Soft, nontender, PEG tube in place EXTREMITIES: No cyanosis, clubbing, or pedal edema. NEUROLOGICAL: And able to evaluate SKIN: No rashes. Results CBC & Chem 7: 07/31/17 07:52 07/31/17 07:52 Labs: Abnormal Lab Results - Last 24 Hours (Table) 07/31/17 07/31/17 07/31/17 Range/Units 07:52 07:52 07:52 WBC 11.1 H (3.8-10.6) k/uL Plt Count 546 H D (150-450) k/uL Neutrophils # 8.8 H (1.3-7.7) k/uL Carbon Dioxide 15 L (22-30) mmol/L Creatinine 0.60 L (0.66-1.25) mg/dL Glucose 111 H (74-99) mg/dL Plasma Lactic Acid Terrence 11.6 H* (0.7-2.0) mmol/L Alkaline Phosphatase 148 H (38-126) U/L Total Creatine Kinase (55-170) U/L Troponin I (0.000-0.034) ng/mL Urine pH (5.0-8.0) Urine Protein (Negative) Urine Ketones (Negative) Urine Blood (Negative) Urine RBC (0-5) /hpf Urine WBC (0-5) /hpf Hyaline Casts (0-2) /lpf Urine Mucus (None) /hpf 07/31/17 07/31/17 Range/Units 07:52 08:32 WBC (3.8-10.6) k/uL Plt Count (150-450) k/uL Neutrophils # (1.3-7.7) k/uL Carbon Dioxide (22-30) mmol/L Creatinine (0.66-1.25) mg/dL Glucose (74-99) mg/dL Plasma Lactic Acid Terrence (0.7-2.0) mmol/L Alkaline Phosphatase (38-126) U/L Total Creatine Kinase <20 L (55-170) U/L Troponin I 0.042 H* (0.000-0.034) ng/mL Urine pH 8.5 H (5.0-8.0) Urine Protein 1+ H (Negative) Urine Ketones Trace H (Negative) Urine Blood Moderate H (Negative) Urine RBC 86 H (0-5) /hpf Urine WBC 9 H (0-5) /hpf Hyaline Casts 3 H (0-2) /lpf Urine Mucus Occasional H (None) /hpf Thrombosis Risk Factor Assmnt - Choose All That Apply Any of the Below Risk Factors Present?: Yes Each Factor Represents 1 point: Medical pt on bed rest, Sepsis (< 1month), Serious lung disease incl. pneumonia (< 1month) Other Risk Factors: Yes Each Risk Factor Represents 2 Points: Patient confined to bed Other congenital or acquired thrombophilia - If yes, enter type in comment: No Thrombosis Risk Factor Assessment Total Risk Factor Score: 5 Thrombosis Risk Factor Assessment Level: High Risk Assessment and Plan Plan: -Severe sepsis with highly elevated lactic acid: Source of infection is not clear patient will be started on broad-spectrum antibiotic can be related to be patient related infection. Patient will be continued on vancomycin, cefepime and metronidazole and possibly need to be transferred to a facility where neurosurgical intervention can be done. -Severe lactic acidosis secondary to sepsis leading to increased respiratory rate -Elevated troponin secondary to sepsis -History of seizure disorder and history of brain tumor in the past with OFFAL SEPARATOR shunt in place. -Possible malfunctioning of OFFAL SEPARATOR shunt -Paraplegia secondary to his previous brain surgeries and chronic
[2017-07-31] MEDS: PROPOFOL 1,000 MG in EMPTY BAG 1 BAG IV SCH ×2 (12:40→17:17)
--- NOTE | 2017-07-31 13:10 | P.GSCN ---
History of Present Illness Consult date: 07/31/17 Reason for Consult: Sepsis of unclear cause History of present illness: The patient is a 32-year-old gentleman who comes in with sepsis. He has baseline cognitive impairment and has a WOOD SKI MAKER shunt. He presented to the ER unresponsive and sepsis of unknown origin. Patient had previous history of colitis. With his previous history of colitis, Gen. surgery is consulted for evaluation for cause of sepsis including intra-abdominal source. Much of his history is obtained via chart as the patient is nonverbal. Review of Systems ROS unobtainable: due to endotracheal tube, due to mental status Past Medical History Past Medical History: CVA/TIA, Pneumonia, Seizure Disorder Additional Past Medical History / Comment(s): Pt had recent admission to [facility] on 07/19/17 with low abdominal pain-inflammation per cat scan and ended up with acute respiratory failure-possibly d/t aspiration-vented. Other HX: Benign brain tumors-meningiomas, spinal cord tumor, seizures which started 5 years ago, HYPOTHERMIA R/T BRAIN TUMOR, 2 recently new brain tumors per mother, CVA 2013 with slightly increased R sided weakness, prior R sided weakness, neuro care thru [facility], positive c diff 2015 & 2011 had fecal replacement at [facility], hypoglycemia, adrenal insufficiency. History of Any Multi-Drug Resistant Organisms: None Reported Past Surgical History: Ventriculoperitoneal Shunt Additional Past Surgical History / Comment(s): WOOD SKI MAKER shunts (2) with 3 leads (one extra lead)-L sided shunt is nonfunctioning, shunt revisions, spinal cord tumor removal, peg tube, fecal transplant Past Anesthesia/Blood Transfusion Reactions: No Reported Reaction Smoking Status: Never smoker - Past Family History Mother Family Medical History: No Reported History Father Family Medical History: No Reported History Medications and Allergies Home Medications Medication Instructions Recorded Confirmed Type Hydrocortisone [Cortef] 10 mg PEG/G-TUBE BID 07/07/13 07/31/17 History Ciprofloxacin [Cipro Susp] 500 mg PO BID #100 ml 07/26/17 07/31/17 Rx Scopolamine 1.5MG/72Hr Patch 1 patch TRANSDERM Q72H #3 patch 07/26/17 07/31/17 Rx [TransDerm Scop] levETIRAcetam [Keppra] 250 mg PEG/G-TUBE Q12HR #60 tab 07/26/17 07/31/17 Rx Allergies Allergy/AdvReac Type Severity Reaction Status Date / Time docusate sodium [From Colace] Allergy Rash/Hives Verified 07/31/17 11:17 lansoprazole [From Prevacid] Allergy Unknown Verified 07/31/17 11:17 metoclopramide HCl Allergy Unknown Verified 07/31/17 11:17 [From Reglan] peanut Allergy Rash/Hives Verified 07/31/17 11:17 Surgical - Exam Vital Signs Temp Pulse Resp BP Pulse Ox 102.3 F H 136 H 30 H 107/61 93 L 07/31/17 07:36 07/31/17 07:36 07/31/17 07:36 07/31/17 07:36 07/31/17 07:36 GENERAL: Well developed in ICU bed. Unresponsive. HEENT: No sclera icterus. Moist buccal mucosa. Head is atraumatic. No nasal drainage. NECK: Supple without lymphadenopathy. CHEST: Patient currently on ventilator. CARDIOVASCULAR: Tachycardic. Palpable 2+ radial pulses. ABDOMEN: Soft, nontender. Nondistended. MUSCULOSKELETAL: No clubbing, cyanosis or edema. NEUROLOGIC: Patient is unresponsive with WOOD SKI MAKER shunt noted PSYCH: Unresponsive. SKIN: Cold to touch. Clammy. Results - Labs 07/31/17 07:52 07/31/17 07:52 Abnormal Lab Results - Last 24 Hours (Table) 07/31/17 07/31/17 07/31/17 Range/Units 07:52 07:52 07:52 WBC 11.1 H (3.8-10.6) k/uL Plt Count 546 H D (150-450) k/uL Neutrophils # 8.8 H (1.3-7.7) k/uL Carbon Dioxide 15 L (22-30) mmol/L Creatinine 0.60 L (0.66-1.25) mg/dL Glucose 111 H (74-99) mg/dL Plasma Lactic Acid Terrence 11.6 H* (0.7-2.0) mmol/L Alkaline Phosphatase 148 H (38-126) U/L Total Creatine Kinase (55-170) U/L Troponin I (0.000-0.034) ng/mL Urine pH (5.0-8.0) Urine Protein (Negative) Urine Ketones (Negative) Urine Blood (Negative) Urine RBC (0-5) /hpf Urine WBC (0-5) /hpf Hyaline Casts (0-2) /lpf Urine Mucus (None) /hpf 07/31/17 07/31/17 Range/Units 07:52 08:32 WBC (3.8-10.6) k/uL Plt Count (150-450) k/uL Neutrophils # (1.3-7.7) k/uL Carbon Dioxide (22-30) mmol/L Creatinine (0.66-1.25) mg/dL Glucose (74-99) mg/dL Plasma Lactic Acid Terrence (0.7-2.0) mmol/L Alkaline Phosphatase (38-126) U/L Total Creatine Kinase <20 L (55-170) U/L Troponin I 0.042 H* (0.000-0.034) ng/mL Urine pH 8.5 H (5.0-8.0) Urine Protein 1+ H (Negative) Urine Ketones Trace H (Negative) Urine Blood Moderate H (Negative) Urine RBC 86 H (0-5) /hpf Urine WBC 9 H (0-5) /hpf Hyaline Casts 3 H (0-2) /lpf Urine Mucus Occasional H (None) /hpf Diabetes panel 07/31/17 Range/Units 07:52 Sodium 142 (137-145) mmol/L Potassium 4.6 (3.5-5.1) mmol/L Chloride 102 (98-107) mmol/L Carbon Dioxide 15 L (22-30) mmol/L BUN 16 (9-20) mg/dL Creatinine 0.60 L (0.66-1.25) mg/dL Glucose 111 H (74-99) mg/dL Calcium 9.7 (8.4-10.2) mg/dL AST 41 (17-59) U/L ALT 36 (21-72) U/L Alkaline Phosphatase 148 H (38-126) U/L Total Protein 6.8 (6.3-8.2) g/dL Albumin 3.8 (3.5-5.0) g/dL Calcium panel 07/31/17 Range/Units 07:52 Calcium 9.7 (8.4-10.2) mg/dL Albumin 3.8 (3.5-5.0) g/dL Pituitary panel 07/31/17 Range/Units 07:52 Sodium 142 (137-145) mmol/L Potassium 4.6 (3.5-5.1) mmol/L Chloride 102 (98-107) mmol/L Carbon Dioxide 15 L (22-30) mmol/L BUN 16 (9-20) mg/dL Creatinine 0.60 L (0.66-1.25) mg/dL Glucose 111 H (74-99) mg/dL Calcium 9.7 (8.4-10.2) mg/dL Adrenal panel 07/31/17 Range/Units 07:52 Sodium 142 (137-145) mmol/L Potassium 4.6 (3.5-5.1) mmol/L Chloride 102 (98-107) mmol/L Carbon Dioxide 15 L (22-30) mmol/L BUN 16 (9-20) mg/dL Creatinine 0.60 L (0.66-1.25) mg/dL Glucose 111 H (74-99) mg/dL Calcium 9.7 (8.4-10.2) mg/dL Total Bilirubin 0.4 (0.2-1.3) mg/dL AST 41 (17-59) U/L ALT 36 (21-72) U/L Alkaline Phosphatase 148 H (38-126) U/L Total Protein 6.8 (6.3-8.2) g/dL Albumin 3.8 (3.5-5.0) g/dL - Imaging CT scan - abdomen: report reviewed, image reviewed CT scan - pelvis: report reviewed (No evidence of free air. WOOD SKI MAKER shunt and organized fluid collection), image reviewed Assessment and Plan (1) Infection of WOOD SKI MAKER (ventriculoperitoneal) shunt Status: Acute Code(s): T85.730A - I/I REACT D/T VENTRICULAR INTRACRANIAL SHUNT , INIT SNOMED Code(s): 972860650 (2) Respiratory failure Status: Acute Code(s): J96.90 - RESPIRATORY FAILURE, UNSP, UNSP W HYPOXIA OR HYPERCAPNIA SNOMED Code(s): 635237230 (3) Septic shock Status: Acute Code(s): A41.9 - SEPSIS, UNSPECIFIED ORGANISM; R65.21 - SEVERE SEPSIS WITH SEPTIC SHOCK SNOMED Code(s): 17514820 (4) Generalized convulsive seizures Status: Chronic Code(s): R56.9 - UNSPECIFIED CONVULSIONS SNOMED Code(s): 461301516 Plan: 1. Abdomen is soft without peritoneal signs. 2. CT of the abdomen confirms fluid at WOOD SKI MAKER shunt. 3. Recommend transfer to facility with neurosugical support for WOOD SKI MAKER shunt management
[2017-07-31 13:24] LABS: ABG Base Excess -4.8 mmol/L; ABG HCO3 21 mmol/L (21-25); ABG PCO2 40 mmHg (35-45); ABG PH 7.34 (7.35-7.45); ABG PO2 176 mmHg (83-108); ABG TCO2 22 mmol/L (19-24)
[2017-07-31] MEDS: LORazepam 2 MG/ML INJ IV PRN ×2 (13:33→17:18)
--- NOTE | 2017-07-31 13:34 | XR ---
EXAMINATION TYPE: XR chest 1V confirm line [facility] DATE OF EXAM: 07/31/2017 COMPARISON: 07/31/2017 HISTORY: Tube placement TECHNIQUE: Single frontal view of the chest is obtained. FINDINGS: ET tube approximately 2.1 cm above roberto. 2 [employer] shunt catheters are present on the right and one on the left coursing down the hemithorax. Heart borderline in size. Mild diffuse interstitial prominence with hazy densities and low lung volumes. N o [place] consolidation or pleural effusion seen. Contrast within the collecting systems noted. Correla te for possible G-tube. Gastric bubble is slightly distended. IMPRESSION: 1. ET tube 2.1 cm above roberto. 2. Pleural-parenchymal changes are stable.
--- NOTE | 2017-07-31 13:40 | P.CNPUL ---
History of Present Illness Consult date: 07/31/17 (Critical care time 60 minutes, excluding timing of the procedure) Chief complaint: Critical care consult/ICU management History of present illness: 31-year-old male well-known to me patient was recently hospitalized for acute pericarditis peritonitis and aspiration pneumonia about 2 weeks ago patient recovered nicely was discharged in stable condition patient was on respirator support for almost a day at that time, patient was in back to baseline status family noted he's been more sleepy yesterday and today he had 2-3 episodes of seizure in addition patient spiked a fever of 105 earlier this morning transferred to emergency department at [facility] where he was seen eval reexamined and admitted into the ICU, patient underwent a computed tomography scan of the head which revealed developing hydrocephalus, patient mental status is marginal he is more somnolent he was extremely tachypneic and tachycardic respiratory rate was in 40s however he did settle down with respiratory rate came down into the 20s though blood pressure and heart rate otherwise were stable, but patient has unstable upper airway with high risk of aspiration given the history of recent aspiration and aspiration pneumonia related to Pseudomonas, patient will be intubated for airway protection and given that significant hydro-calf listhesis present appears to be shunt malfunction and possible secondary infection will be transferred to tertiary care facility so revision can be performed patient has been given IV Vanco and Zosyn and Flagyl This is a 31-year-old male with history of brain tumor which has been resected in the past during childhood, patient has a PEG nightly as well along with a POUND ATTENDANT shunt patient is predominantly bedbound and wheelchair-bound but does communicate baseline status is oriented 1 with a history of seizure few years ago noted after stroke Review of Systems All systems: negative Past Medical History Past Medical History: CVA/TIA, Pneumonia, Seizure Disorder Additional Past Medical History / Comment(s): Pt had recent admission to [facility] on 07/19/17 with low abdominal pain-inflammation per cat scan and ended up with acute respiratory failure-possibly d/t aspiration-vented. Other HX: Benign brain tumors-meningiomas, spinal cord tumor, seizures which started 5 years ago, HYPOTHERMIA R/T BRAIN TUMOR, 2 recently new brain tumors per mother, CVA 2013 with slightly increased R sided weakness, prior R sided weakness, neuro care thru [facility], positive c diff 2015 & 2011 had fecal replacement at [facility], hypoglycemia, adrenal insufficiency. History of Any Multi-Drug Resistant Organisms: None Reported Past Surgical History: Ventriculoperitoneal Shunt Additional Past Surgical History / Comment(s): POUND ATTENDANT shunts (2) with 3 leads (one extra lead)-L sided shunt is nonfunctioning, shunt revisions, spinal cord tumor removal, peg tube, fecal transplant Past Anesthesia/Blood Transfusion Reactions: No Reported Reaction Smoking Status: Never smoker - Past Family History Mother Family Medical History: No Reported History Father Family Medical History: No Reported History Medications and Allergies Home Medications Medication Instructions Recorded Confirmed Type Hydrocortisone [Cortef] 10 mg PEG/G-TUBE BID 07/07/13 07/31/17 History Ciprofloxacin [Cipro Susp] 500 mg PO BID #100 ml 07/26/17 07/31/17 Rx Scopolamine 1.5MG/72Hr Patch 1 patch TRANSDERM Q72H #3 patch 07/26/17 07/31/17 Rx [TransDerm Scop] levETIRAcetam [Keppra] 250 mg PEG/G-TUBE Q12HR #60 tab 07/26/17 07/31/17 Rx Allergies Allergy/AdvReac Type Severity Reaction Status Date / Time docusate sodium [From Colace] Allergy Rash/Hives Verified 07/31/17 11:17 lansoprazole [From Prevacid] Allergy Unknown Verified 07/31/17 11:17 metoclopramide HCl Allergy Unknown Verified 07/31/17 11:17 [From Reglan] peanut Allergy Rash/Hives Verified 07/31/17 11:17 Physical Exam Vitals: Vital Signs Temp Pulse Resp BP Pulse Ox 07/31/17 11:30 72 34 H 106/51 95 07/31/17 10:52 106/51 07/31/17 10:36 99.5 F 109 H 50 H 07/31/17 09:56 102.3 F H 118 H 54 H 127/62 95 07/31/17 09:42 130 H 52 H 132/66 92 L 07/31/17 09:12 105.1 F H 131 H 60 H 145/63 96 07/31/17 08:43 132 H 52 H 141/77 98 07/31/17 08:30 138 H 40 H 142/73 96 07/31/17 08:25 104.2 F H 07/31/17 07:36 102.3 F H 136 H 30 H 107/61 93 L Intake and Output 07/30/17 07/31/17 07/31/17 22:59 06:59 14:59 Output Total 445 Balance -445 Output: Urine 445 Coude 20 Other: Voiding Method Incontinent Indwelling Catheter Weight 63.503 kg - Constitutional General appearance: average body habitus, disheveled, mild distress - EENT Pupils have sluggish responding midsize dilated bilaterally Eyes: abnormal pupil, anicteric sclerae, poor dentition Ears: bilateral: normal - Neck Carotids: bilateral: upstroke normal, bruit absent Thyroid: bilateral: normal size - Respiratory Respiratory: bilateral: CTA - Cardiovascular Heart sounds: normal: S1, S2 - Gastrointestinal General gastrointestinal: normal bowel sounds, soft - Integumentary Integumentary: normal turgor - Neurologic Patient is extremely lethargic and nonresponsive just withdraws to deep painful stimuli does move all 4 extremity appears anxious and moves and thrash about spontaneously with eyes closed Results - Laboratory Findings CBC and BMP: 07/31/17 07:52 07/31/17 07:52 PT/INR, D-dimer PT 10.3 sec (9.0-12.0) 07/31/17 07:52 INR 1.0 (<1.2) 07/31/17 07:52 Abnormal lab findings: Abnormal Labs 07/31/17 07/31/17 07/31/17 07:52 07:52 07:52 WBC 11.1 H Plt Count 546 H D Neutrophils # 8.8 H Carbon Dioxide 15 L Creatinine 0.60 L Glucose 111 H Plasma Lactic Acid Terrence 11.6 H* Alkaline Phosphatase 148 H Total Creatine Kinase Troponin I Urine pH Urine Protein Urine Ketones Urine Blood Urine RBC Urine WBC Hyaline Casts Urine Mucus 07/31/17 07/31/17 07:52 08:32 WBC Plt Count Neutrophils # Carbon Dioxide Creatinine Glucose Plasma Lactic Acid Terrence Alkaline Phosphatase Total Creatine Kinase <20 L Troponin I 0.042 H* Urine pH 8.5 H Urine Protein 1+ H Urine Ketones Trace H Urine Blood Moderate H Urine RBC 86 H Urine WBC 9 H Hyaline Casts 3 H Urine Mucus Occasional H - Diagnostic Findings Chest x-ray: report reviewed, image reviewed (Chest x-ray on arrival revealed interstitial edema and basal atelectasis, EKG sinus tachycardia with heart rate of 120, computed tomography scan of the head revealed no evidence of intracranial hemorrhage, no mass lesion is seen there is a shunt catheter seen in the right frontal region extending to the left lateral ventricle stable, significant prominence of ventricle were seen with rounding of temporal on consistent with hydrocephalus likely shunt malfunction) Additional studies: Postintubation chest x-ray reviewed ET tube is in a stable position Assessment and Plan Assessment: Severe sepsis source likely infected/malfunctioning POUND ATTENDANT shunt Significant and profound metabolic acidosis related to above as well as acute recurrent seizure Acute and recurrent seizure related to above Hydrocephalus Acute respiratory failure with high risk of aspiration pneumonia and aspiration pneumonia complication Altered mental status related to above History of brain tumor Plan: Care plan discussed with the staff, emergency room physician, primary service, parents, and tertiary care facility, neurointensivist Dr. Diggs Elective intubation for airway protection and for transfer of the patient Ventilator adjustment as per arterial blood gas Gentle fluid resuscitation with crystalloids Broad-spectrum antibiotics with Vanco and Zosyn and Flagyl Continuation of anti-seizure medication as per neurology recommendation Transfer patient to tertiary care center for more definitive intervention Critical care time spent 60 minutes Time with Patient: Greater than 30
--- NOTE | 2017-07-31 13:54 | P.PCN ---
Date of Procedure: 07/31/17 Preoperative Diagnosis: Severe sepsis, hydrocephalus, raised intracranial pressure, severe profound metabolic acidosis/lactic acidosis, acute recurrent seizures Postoperative Diagnosis: As above Procedure(s) Performed: Endotracheal tube insertion Surgeon: Ho Antonio Condition: critical Disposition: ICU Indications for Procedure: As above Operative Findings: As below Description of Procedure: #4 Jagdeep blade was utilized for direct laryngoscopy #8 endotracheal tube inserted without any difficulty secured at 22 cm flor bilateral good breath sounds and end-tidal positive CO2 patient tolerated procedure well no complication noted is stable position of the endotracheal tube
[2017-07-31 13:55] VITALS: BMI 24.0
--- NOTE | 2017-07-31 13:56 | P.PCN ---
Date of Procedure: 07/31/17 Preoperative Diagnosis: Acute recurrent seizure, severe sepsis, hydrocephalus, acute respirator failure , infected STAIN APPLICATOR shunt Postoperative Diagnosis: As above Procedure(s) Performed: Central line placement Surgeon: Ho Antonio Condition: critical Disposition: ICU Indications for Procedure: As above Operative Findings: As below Description of Procedure: Patient prepared and draped in a usual fashion informed consent obtained from the patient's family using a modified Seldinger technique triple-lumen catheter inserted into right femoral vein without any difficulty patient tolerated the procedure well no complication noted all 3 ports are flushed
--- NOTE | 2017-07-31 13:59 | P.PCN ---
Date of Procedure: 07/31/17 Preoperative Diagnosis: Severe sepsis, infected RENAL DIALYSIS TECHNICIAN shunt, acute seizure, Postoperative Diagnosis: As above Procedure(s) Performed: Right radial arterial line placement Surgeon: Ho Ali Condition: critical Disposition: ICU Indications for Procedure: As above Operative Findings: As below Description of Procedure: Patient prepared and draped in a usual fashion using a modified Seldinger technique single-lumen catheter inserted into the right radial artery without any difficulty patient tolerate procedure well no complication noted
--- NOTE | 2017-07-31 14:16 | P.DS ---
Providers Date of admission: 07/31/17 09:43 Attending physician: Stewart Miller Consults: 07/31/17 09:43 Consult Physician Stat Consulting Provider: Ho Antonio Consult Reason/Comments: critical care Do you want consulting provider notified?: Yes 07/31/17 09:48 Consult Physician Stat Consulting Provider: Brian Bowen Consult Reason/Comments: Septic shock Do you want consulting provider notified?: Yes Consult Physician Urgent Consulting Provider: Hugo Temple Consult Reason/Comments: Sepsis, recent abdominal infection Do you want consulting provider notified?: Yes Consult Physician Urgent Consulting Provider: Florentin Duarte Consult Reason/Comments: Seizure, sepsis Do you want consulting provider notified?: Yes [facility] Course: Please refer to my H&P for further details and consultation from dot etcher apprentice for further details. Subsequently patient was intubated patient is had a central line and the arterial line. Patient was accepted by [facility] dot etcher apprentice. Patient is awaiting his position to [facility]. If you' re not able to transfer him until later in the day will dot etcher apprentice is recommending a repeat CAT scan to look at ventricles. If they're dilated will consult neurology. Plan is to continue antibiotics awaiting disposition to [facility]. Patient Condition at Discharge: Critical Plan - Discharge Summary Discharge Rx Participant: No New Discharge Prescriptions: No Action Hydrocortisone [Cortef] 10 mg PEG/G-TUBE BID Ciprofloxacin [Cipro Susp] 500 mg PO BID #100 ml levETIRAcetam [Keppra] 250 mg PEG/G-TUBE Q12HR #60 tab Scopolamine 1.5MG/72Hr Patch [TransDerm Scop] 1 patch TRANSDERM Q72H #3 patch Discharge Medication List Hydrocortisone [Cortef] 10 mg PEG/G-TUBE BID 07/07/13 [History] Ciprofloxacin [Cipro Susp] 500 mg PO BID #100 ml 07/26/17 [Rx] Scopolamine 1.5MG/72Hr Patch [TransDerm Scop] 1 patch TRANSDERM Q72H #3 patch [Rx] levETIRAcetam [Keppra] 250 mg PEG/G-TUBE Q12HR #60 tab 07/26/17 [Rx] Follow up Appointment(s)/Referral(s): Whitney Ruiz MD [Primary Care Provider] - 1-2 days
[2017-07-31] MEDS ORDERED: levETIRAcetam IV 250 MG in SODIUM CHLORIDE 0.9% 100 ML IVPB SCH (15:00)
[2017-07-31 15:10] LABS: Glucose,Whole Blood 96 mg/dL (75-99)
[2017-07-31] MEDS ORDERED: FAMOTIDINE 20 MG/2 ML VIAL IV SCH (15:15)
[2017-07-31 15:16] VITALS: RESP 22
[2017-07-31] MEDS ORDERED: CEFEPIME 2 GM in SODIUM CHLORIDE 0.9% 50 ML IVPB SCH (16:00)
[2017-07-31] MEDS ORDERED: HYDROCORTISONE SUCCINATE 100 MG/2 ML VIAL IV SCH ×2 (16:00)
[2017-07-31] MEDS ORDERED: VANCOMYCIN 1,250 MG in SODIUM CHLORIDE 0.9% 250 ML IVPB SCH (16:00)
--- NOTE | 2017-07-31 16:46 | P.CNNES ---
History of Present Illness Consult date: 07/31/17 Reason for Consult: Patient admitted with septic shock and seizures with acute hydrocephalus. History of Present Illness: This consultation was notified to Dr. Florentin Duarte at 2:30 pm on 07/31/2017 by the ICU nursing staff. This consultation was notified to Dr. Florentin Duarte by the ICU nursing staff this afternoon at 2:30 PM on 07/31/2017 for evaluation of sepsis and seizures. This patient is a 31-year-old right-handed white male who was recently admitted to [facility] about 2 weeks ago for treatment of acute peritonitis and aspiration pneumonia. Patient apparently made good recovery from that admission and was discharged home last week. According to the mother who is at bedside today and provided the medical history he seem to show some improvement initially but on Saturday of this week he became more and more lethargic. He was hard to arouse. Father states that he was just not his normal self and was much more weaker on his right side. According to both of his parents this morning he became very obtunded and had what appeared to be 2 or 3 small partial seizures. He has a history of multiple medical problems including history of PROFESSOR OF JOURNALISM shunt placement and brain tumor resection in the past. He had a shunt revision procedure done at [facility] [address] Nelson and had fairly good outcome from that. He recently began experiencing seizures and apparently was started initially on Lamictal monotherapy but could not tolerate this. He was switched to Keppra 250 mg twice a day which apparently he had been taking at home for the last few days. At home this morning the patient remained obtunded and spiked a temperature of 105F. Patient appeared to be very stiff and nonresponsive. EMS was called and the patient was transported immediately to the emergency room at [facility] where he was evaluated in the ER by Dr. Peres. He was sent for a computed tomography scan of the brain and showed signs of increasing obtundation and required intubation for protection of his airway. He was then transferred to the intensive care unit this afternoon at about 12 noon. Review of the CAT scan report indicated marketed interval dilation of the ventricles with surrounding temporal horn dilation suggesting hydrocephalus. There was concern for shunt malfunction as the PROFESSOR OF JOURNALISM shunt appeared probing the left frontal lobe. The patient as stated has a history of PROFESSOR OF JOURNALISM shunt placement in the past at [facility]. He underwent shunt revision surgery in 2013. According to his mother he had a recent follow-up with the neurosurgeon at [facility] in April and had an MRI. No further changes were made. He does have evidence of 2 meningioma lesions which are being followed by neurosurgery there is well. The patient was restarted on Keppra this afternoon in the ICU. He is being given Keppra IV piggyback 250 mg every 12 hours. He will require further adjustment of the Keppra depending on his Keppra blood level. The patient remains on Diprivan currently in the ICU. He is on 3 antibiotics at this time including vancomycin, Zosyn, and Flagyl. His temperatures come down to 99.7. He still remains obtunded due to the Diprivan drip. According to his parents the patient became very somnolent yesterday and was much worse this morning. He was tachypneic as well as having evidence of tachycardia. Father states his heart rate went up as high as 210. Patient is now examined in the ICU with both of his parents at bedside. He seems to be doing much better now than when he was first admitted to hospital earlier this morning. As noted CAT scan of the brain results indicate evidence of hydrocephalus suggesting possibility of shunt malfunction. There may be also a septic picture underlying his whole presentation as he was recently treated for peritonitis and had evidence of possible septic foci in the low abdomen region. As noted he does have history of brain tumor resection as well as new brain tumors which are being monitored with the neurosurgeons at [facility]. Due to his critical condition he was recommended transfer to a tertiary center for for ongoing treatment and management. It was elected to contact [facility] as his neurosurgeon Dr. Nelson has been following him there closely and arrangements are being made for immediate transfer of this patient to the neuro ICU at [facility] today. The patient remains obtunded this afternoon in the ICU. According to the parents they have not seen any active seizures since he was intubated and brought up into the ICU unit. We have restarted his Keppra at this time. As noted he is afebrile at this time and seems to be doing better as compared to earlier this morning. This patient's overall prognosis at this time remains very guarded. Case was discussed at length with both of his parents were at bedside in the ICU. Patient is now been accepted for transfer to [facility] neuro ICU and he will be transported by EMS to [facility] as soon as possible. Neurology is now been consulted for further evaluation and recommendations. Review of Systems ROS unobtainable: due to endotracheal tube, due to mental status Constitutional: Denies chills, Denies fever Eyes: denies blurred vision, denies pain Ears, nose, mouth and throat: Denies headache, Denies sore throat Cardiovascular: Denies chest pain, Denies shortness of breath Respiratory: Denies cough Gastrointestinal: Denies abdominal pain, Denies diarrhea, Denies nausea, Denies vomiting Musculoskeletal: Denies myalgias Integumentary: Denies pruritus, Denies rash Neurological: Denies numbness, Denies weakness Psychiatric: Denies anxiety, Denies depression Endocrine: Denies fatigue, Denies weight change Past Medical History Past Medical History: CVA/TIA, Pneumonia, Seizure Disorder Additional Past Medical History / Comment(s): Pt had recent admission to [facility] on 07/19/17 with low abdominal pain-inflammation per cat scan and ended up with acute respiratory failure-possibly d/t aspiration-vented. Other HX: Benign brain tumors-meningiomas, spinal cord tumor, seizures which started 5 years ago, HYPOTHERMIA R/T BRAIN TUMOR, 2 recently new brain tumors per mother, CVA 2013 with slightly increased R sided weakness, prior R sided weakness, neuro care thru H, positive c diff 2015 & 2011 had fecal replacement at [facility], hypoglycemia, adrenal insufficiency. History of Any Multi-Drug Resistant Organisms: None Reported Past Surgical History: Ventriculoperitoneal Shunt Additional Past Surgical History / Comment(s): PROFESSOR OF JOURNALISM shunts (2) with 3 leads (one extra lead)-L sided shunt is nonfunctioning, shunt revisions, spinal cord tumor removal, peg tube, fecal transplant Past Anesthesia/Blood Transfusion Reactions: No Reported Reaction Smoking Status: Never smoker - Past Family History Mother Family Medical History: No Reported History Father Family Medical History: No Reported History Medications and Allergies Home Medications Medication Instructions Recorded Confirmed Type Hydrocortisone [Cortef] 10 mg PEG/G-TUBE BID 07/07/13 07/31/17 History Ciprofloxacin [Cipro Susp] 500 mg PO BID #100 ml 07/26/17 07/31/17 Rx Scopolamine 1.5MG/72Hr Patch 1 patch TRANSDERM Q72H #3 patch 07/26/17 07/31/17 Rx [TransDerm Scop] levETIRAcetam [Keppra] 250 mg PEG/G-TUBE Q12HR #60 tab 07/26/17 07/31/17 Rx Allergies Allergy/AdvReac Type Severity Reaction Status Date / Time docusate sodium [From Colace] Allergy Rash/Hives Verified 07/31/17 11:17 lansoprazole [From Prevacid] Allergy Unknown Verified 07/31/17 11:17 metoclopramide HCl Allergy Unknown Verified 07/31/17 11:17 [From Reglan] peanut Allergy Rash/Hives Verified 07/31/17 11:17 Physical Examination - Vital Signs Vital Signs: Vital Signs Temp Pulse Resp BP Pulse Ox 07/31/17 15:00 80 22 98/49 96 07/31/17 14:30 87 22 102/48 95 07/31/17 14:00 103 H 21 105/59 07/31/17 13:50 97 22 97/54 07/31/17 13:40 114 H 27 H 105/52 07/31/17 13:30 112 H 17 124/65 07/31/17 13:20 69 136/76 07/31/17 13:10 77 20 129/75 07/31/17 13:00 96 22 97/60 07/31/17 12:50 96 21 100/51 07/31/17 12:40 108 H 15 171/73 07/31/17 12:30 63 24 116/50 07/31/17 12:10 67 23 119/53 07/31/17 12:00 85 22 116/57 07/31/17 11:50 123 H 47 H 171/75 07/31/17 11:40 94 49 H 145/77 07/31/17 11:30 72 50 H 123/68 98 07/31/17 11:20 99.1 F 120 H 50 H 117/78 99 07/31/17 10:52 106/51 07/31/17 10:36 99.5 F 109 H 50 H 07/31/17 09:56 102.3 F H 118 H 54 H 127/62 95 07/31/17 09:42 130 H 52 H 132/66 92 L 07/31/17 09:12 105.1 F H 131 H 60 H 145/63 96 07/31/17 08:43 132 H 52 H 141/77 98 07/31/17 08:30 138 H 40 H 142/73 96 07/31/17 08:25 104.2 F H 07/31/17 07:36 102.3 F H 136 H 30 H 107/61 93 L Intake and Output 07/31/17 07/31/17 07/31/17 06:59 14:59 22:59 Intake Total 455.750 Output Total 745 Balance -289.250 Intake: IV 450 Sodium Chloride 0.9% 1, 450 000 ml @ 150 mls/hr IV . Q6H40M [facility] Rx#:[id number] Intake, IV Titration 5.750 Amount Propofol 1,000 mg In 5.750 Empty Bag 1 bag @ Titrate IV .Q0M [facility] Rx#: [id number] Output: Urine 745 Coude 20 Other: Voiding Method Incontinent Indwelling Catheter Weight 63.503 kg ABP, PAP, CO, CI - Last 8 Hours Arterial Blood Pressure 97/47 Arterial Blood Pressure 96/48 Arterial Blood Pressure 94/51 Arterial Blood Pressure 101/58 Arterial Blood Pressure 115/63 Arterial Blood Pressure 130/69 Arterial Blood Pressure 133/78 Arterial Blood Pressure 137/76 Arterial Blood Pressure 141/81 Arterial Blood Pressure 124/70 - Constitutional General appearance: average body habitus - EENT EENT: PERRL, mucous membranes moist - Respiratory Respiratory: lungs clear, normal breath sounds - Cardiovascular Cardiovascular: regular rate, normal S1, normal S2 Extremities: no peripheral edema bilaterally - Gastrointestinal Gastrointestinal: normoactive bowel sounds - Integumentary Integumentary: normal - Neurologic Cranial nerve examination: PERRL, EOMI, V1/V2/V3 grossly intact, face symmetric , intact gag reflex, intact corneal reflex, normal palatal elevation Speech examination: global aphasia Sensorimotor examination: hemiparesis Motor examination - right side: 3: biceps, triceps, wrist flexion, wrist extension, fagot heater, hip flexors, knee extensors, dorsiflexion, toe extension (EHL) , plantarflexion Motor examination - left side: 3: biceps, triceps, wrist flexion, wrist extension, fagot heater, hip flexors, knee extensors, dorsiflexion, toe extension (EHL) , plantarflexion Detailed sensory examination: intact Reflex and gait examination: intact Reflexes: 1+: ankle, bicep, knee, tricep - Musculoskeletal Musculoskeletal: no pain - Psychiatric Psychiatric: mood/affect appropriate, cooperative Results - Laboratory Findings CBC and BMP: 07/31/17 07:52 07/31/17 07:52 Abnormal Lab Findings: Abnormal Labs 07/31/17 07/31/17 07/31/17 07:52 07:52 07:52 WBC 11.1 H Plt Count 546 H D Neutrophils # 8.8 H ABG pH ABG pO2 ABG O2 Saturation Carbon Dioxide 15 L Creatinine 0.60 L Glucose 111 H Plasma Lactic Acid Terrence 11.6 H* Alkaline Phosphatase 148 H Total Creatine Kinase Troponin I Urine pH Urine Protein Urine Ketones Urine Blood Urine RBC Urine WBC Hyaline Casts Urine Mucus 07/31/17 07/31/17 07/31/17 07:52 08:32 13:15 WBC Plt Count Neutrophils # ABG pH ABG pO2 ABG O2 Saturation Carbon Dioxide Creatinine Glucose Plasma Lactic Acid Terrence Alkaline Phosphatase Total Creatine Kinase <20 L Troponin I 0.042 H* 1.020 H* Urine pH 8.5 H Urine Protein 1+ H Urine Ketones Trace H Urine Blood Moderate H Urine RBC 86 H Urine WBC 9 H Hyaline Casts 3 H Urine Mucus Occasional H 07/31/17 13:23 WBC Plt Count Neutrophils # ABG pH 7.34 L ABG pO2 176 H ABG O2 Saturation 100.0 H Carbon Dioxide Creatinine Glucose Plasma Lactic Acid Terrence Alkaline Phosphatase Total Creatine Kinase Troponin I Urine pH Urine Protein Urine Ketones Urine Blood Urine RBC Urine WBC Hyaline Casts Urine Mucus Assessment and Plan (1) Infection of PROFESSOR OF JOURNALISM (ventriculoperitoneal) shunt Current Visit: Yes Status: Acute Code(s): T85.730A - I/I REACT D/T VENTRICULAR INTRACRANIAL SHUNT, INIT SNOMED Code(s): 783678799 (2) Septic shock Current Visit: Yes Status: Acute Code(s): A41.9 - SEPSIS, UNSPECIFIED ORGANISM; R65.21 - SEVERE SEPSIS WITH SEPTIC SHOCK SNOMED Code(s): 70965059 (3) Generalized convulsive seizures Current Visit: No Status: Chronic Code(s): R56.9 - UNSPECIFIED CONVULSIONS SNOMED Code(s): 145083463 (4) Peritonitis Current Visit: No Status: Acute Code(s): K65.9 - PERITONITIS, UNSPECIFIED SNOMED Code(s): 85781113 Plan: This patient is a 31-year-old right-handed white male who was admitted to hospital this morning with symptoms of acute septic shock. He presented to the emergency room at [facility] this morning and was evaluated in the ER by Dr. Peres. His parents states that his temperature spike this morning 105F and he became very obtunded and possibly had some short tonic- clonic seizures. He has a history of recent hospitalization for treatment of acute peritonitis and aspiration pneumonia 2 weeks ago. He was discharged on antibiotics at the time. Due to his acute febrile presentation he was restarted on 3 antibiotics as noted above. Temperature is coming down and he was intubated and transferred to the intensive care unit where he is now examined. He remains on a Diprivan drip as he was very agitated on initial presentation to the ER. He remains obtunded at this time and was restarted on his Keppra for seizure prophylaxis. He has not had any seizure activity since coming to the hospital. He has a history of having had PROFESSOR OF JOURNALISM shunt revision in 2013 as well as brain tumor resection at [facility] with Dr. Nelson. Patient is now being transferred to [facility] neuro intensive care unit for close monitoring and management. Transfer team was contacted and he has been accepted in transfer to the neuro ICU at [facility]. Bed has been assigned to him today and he will be transferred by EMS to [facility] as soon as possible. His neurological status at this time is somewhat limited as he remains on a Diprivan drip. Review of his computed tomography scan of the brain performed today reveals evidence of hydrocephalus which is changed from previous scan that was done in 2013. These findings are suggesting acute hydrocephalus and possibly shunt malfunction. We have discussed these findings in detail today with both of the patient's parents who were at bedside in the ICU. We have updated him on his overall neurological status. They're aware of his transferred to [facility] by EMS later this afternoon. The patient's overall prognosis at this time remains very guarded. He will require further evaluation by neurosurgery and Dr. Nelson in regards to possible shunt malfunction and/or sepsis involving the PROFESSOR OF JOURNALISM shunt. He is to continue on current triple antibiotics at this time. He remains afebrile at this time and neurologically is stable. He has not shown any evidence of ongoing seizure activity at this time. He is to continue on Keppra which will be adjusted as needed at [facility]. His overall prognosis at this time remains very guarded. Once again case was discussed at length with both of his parents at bedside in the ICU. All of their questions were answered. They're aware of his very guarded condition. We will continue to follow the patient as needed during this hospitalization. Time with Patient: Greater than 30
[2017-07-31 17:02] VITALS: BP 97/50; PULSE 66; TEMP 98.6
[2017-07-31] MEDS ORDERED: metroNIDAZOLE-NS PMX 500 MG in SALINE 1 100ML.BAG IVPB SCH (18:00)
--- NOTE | 2017-07-31 19:08 | P.CONS ---
History of Present Illness - Reason for Consult Consult date: 07/31/17 - Chief Complaint weakness - History of Present Illness 31 year old male with history of brain tumor was recently hospitalized with fevers, was found to have Pseudomonas pneumonia and was eventually discharged on Cipro to complete the course of therapy. He was having some seizures and an increased rate during the last hospital stay, family was concerned about piperacillin tazobactam and fortunately had improved and was transitioned to ciprofloxacin. At discharge she was afebrile seizures were occurring at his baseline rate. However the patient became febrile and stiff was brought to the emergency center. Computed tomography scan of the abdomen continued to show fluid collection at the end of the CHAIN HOIST OPERATOR shunt, possibly larger in size. Most importantly computed tomography scan of the head revealed evidence of the marked worsening of the ventricular dilatation consistent with shunt malfunction. The the ER did contact the office and broad-spectrum antibiotic therapy started with concerns infection potentially related to the shunt. Review of Systems ROS unobtainable: due to endotracheal tube Past Medical History Past Medical History: CVA/TIA, Pneumonia, Seizure Disorder Additional Past Medical History / Comment(s): Pt had recent admission to [facility] on 07/19/17 with low abdominal pain-inflammation per cat scan and ended up with acute respiratory failure-possibly d/t aspiration-vented. Other HX: Benign brain tumors-meningiomas, spinal cord tumor, seizures which started 5 years ago, HYPOTHERMIA R/T BRAIN TUMOR, 2 recently new brain tumors per mother, CVA 2013 with slightly increased R sided weakness, prior R sided weakness, neuro care thru [facility], positive c diff 2015 & 2011 had fecal replacement at [facility], hypoglycemia, adrenal insufficiency. History of Any Multi-Drug Resistant Organisms: None Reported Past Surgical History: Ventriculoperitoneal Shunt Additional Past Surgical History / Comment(s): CHAIN HOIST OPERATOR shunts (2) with 3 leads (one extra lead)-L sided shunt is nonfunctioning, shunt revisions, spinal cord tumor removal, peg tube, fecal transplant Past Anesthesia/Blood Transfusion Reactions: No Reported Reaction Smoking Status: Never smoker - Past Family History Mother Family Medical History: No Reported History Father Family Medical History: No Reported History Medications and Allergies Home Medications and Allergies Comment(s): Please refer to the nursing documentation for the medication list Home Medications Medication Instructions Recorded Confirmed Type Hydrocortisone [Cortef] 10 mg PEG/G-TUBE BID 07/07/13 07/31/17 History Ciprofloxacin [Cipro Susp] 500 mg PO BID #100 ml 07/26/17 07/31/17 Rx Scopolamine 1.5MG/72Hr Patch 1 patch TRANSDERM Q72H #3 patch 07/26/17 07/31/17 Rx [TransDerm Scop] levETIRAcetam [Keppra] 250 mg PEG/G-TUBE Q12HR #60 tab 07/26/17 07/31/17 Rx Allergies Allergy/AdvReac Type Severity Reaction Status Date / Time docusate sodium [From Colace] Allergy Rash/Hives Verified 07/31/17 11:17 lansoprazole [From Prevacid] Allergy Unknown Verified 07/31/17 11:17 metoclopramide HCl Allergy Unknown Verified 07/31/17 11:17 [From Reglan] peanut Allergy Rash/Hives Verified 07/31/17 11:17 Physical Exam Vitals: Vital Signs Temp Pulse Resp BP Pulse Ox 07/31/17 17:00 66 22 95 07/31/17 16:30 78 22 96 07/31/17 16:00 98.6 F 91 22 97/50 97 07/31/17 15:30 83 22 94/51 95 07/31/17 15:00 80 22 98/49 96 07/31/17 14:30 87 22 102/48 95 07/31/17 14:00 103 H 21 105/59 07/31/17 13:50 97 22 97/54 07/31/17 13:40 114 H 27 H 105/52 07/31/17 13:30 112 H 17 124/65 07/31/17 13:20 69 136/76 07/31/17 13:10 77 20 129/75 07/31/17 13:00 96 22 97/60 07/31/17 12:50 96 21 100/51 07/31/17 12:40 108 H 15 171/73 07/31/17 12:30 63 24 116/50 07/31/17 12:10 67 23 119/53 07/31/17 12:00 85 22 116/57 07/31/17 11:50 123 H 47 H 171/75 07/31/17 11:40 94 49 H 145/77 07/31/17 11:30 72 50 H 123/68 98 07/31/17 11:20 99.1 F 120 H 50 H 117/78 99 07/31/17 10:52 106/51 07/31/17 10:36 99.5 F 109 H 50 H 07/31/17 09:56 102.3 F H 118 H 54 H 127/62 95 07/31/17 09:42 130 H 52 H 132/66 92 L 07/31/17 09:12 105.1 F H 131 H 60 H 145/63 96 07/31/17 08:43 132 H 52 H 141/77 98 07/31/17 08:30 138 H 40 H 142/73 96 07/31/17 08:25 104.2 F H 07/31/17 07:36 102.3 F H 136 H 30 H 107/61 93 L Intake and Output 07/31/17 07/31/17 07/31/17 06:59 14:59 22:59 Intake Total 455.750 521.883 Output Total 745 95 Balance -289.250 426.883 Intake: IV 450 450 Sodium Chloride 0.9% 1, 450 450 000 ml @ 150 mls/hr IV . Q6H40M [facility] Rx#:[id number] Intake, IV Titration 5.750 71.883 Amount Propofol 1,000 mg In 5.750 71.883 Empty Bag 1 bag @ Titrate IV .Q0M ROSA M Rx#: [id number] Output: Urine 745 95 Coude 20 Other: Voiding Method Indwelling Catheter Indwelling Catheter Weight 63.503 kg ABP, PAP, CO, CI - Last 8 Hours Arterial Blood Pressure 110/50 Arterial Blood Pressure 103/48 Arterial Blood Pressure 97/47 Arterial Blood Pressure 101/48 Arterial Blood Pressure 97/47 Arterial Blood Pressure 96/48 Arterial Blood Pressure 94/51 Arterial Blood Pressure 101/58 Arterial Blood Pressure 115/63 Arterial Blood Pressure 130/69 Arterial Blood Pressure 133/78 Arterial Blood Pressure 137/76 Arterial Blood Pressure 141/81 Arterial Blood Pressure 124/70 31-year-old male he is intubated and sedated and mechanically ventilated Is being transported to the outside hospital. With his intubation he is not able to communicate. He is rigid There is evidence of good bilateral air entry Abdomen was not distended Adequate capillary refill was noted Pallor was noted Results CBC & Chem 7: 07/31/17 07:52 07/31/17 07:52 Labs: Abnormal Lab Results - Last 24 Hours (Table) 07/31/17 07/31/17 07/31/17 Range/Units 07:52 07:52 07:52 WBC 11.1 H (3.8-10.6) k/uL Plt Count 546 H D (150-450) k/uL Neutrophils # 8.8 H (1.3-7.7) k/uL ABG pH (7.35-7.45) ABG pO2 (83-108) mmHg ABG O2 Saturation (94-97) % Carbon Dioxide 15 L (22-30) mmol/L Creatinine 0.60 L (0.66-1.25) mg/dL Glucose 111 H (74-99) mg/dL Plasma Lactic Acid Terrence 11.6 H* (0.7-2.0) mmol/L Alkaline Phosphatase 148 H (38-126) U/L Total Creatine Kinase (55-170) U/L Troponin I (0.000-0.034) ng/mL Urine pH (5.0-8.0) Urine Protein (Negative) Urine Ketones (Negative) Urine Blood (Negative) Urine RBC (0-5) /hpf Urine WBC (0-5) /hpf Hyaline Casts (0-2) /lpf Urine Mucus (None) /hpf 07/31/17 07/31/17 07/31/17 Range/Units 07:52 08:32 13:15 WBC (3.8-10.6) k/uL Plt Count (150-450) k/uL Neutrophils # (1.3-7.7) k/uL ABG pH (7.35-7.45) ABG pO2 (83-108) mmHg ABG O2 Saturation (94-97) % Carbon Dioxide (22-30) mmol/L Creatinine (0.66-1.25) mg/dL Glucose (74-99) mg/dL Plasma Lactic Acid Terrence (0.7-2.0) mmol/L Alkaline Phosphatase (38-126) U/L Total Creatine Kinase <20 L (55-170) U/L Troponin I 0.042 H* 1.020 H* (0.000-0.034) ng/mL Urine pH 8.5 H (5.0-8.0) Urine Protein 1+ H (Negative) Urine Ketones Trace H (Negative) Urine Blood Moderate H (Negative) Urine RBC 86 H (0-5) /hpf Urine WBC 9 H (0-5) /hpf Hyaline Casts 3 H (0-2) /lpf Urine Mucus Occasional H (None) /hpf 07/31/17 Range/Units 13:23 WBC (3.8-10.6) k/uL Plt Count (150-450) k/uL Neutrophils # (1.3-7.7) k/uL ABG pH 7.34 L (7.35-7.45) ABG pO2 176 H (83-108) mmHg ABG O2 Saturation 100.0 H (94-97) % Carbon Dioxide (22-30) mmol/L Creatinine (0.66-1.25) mg/dL Glucose (74-99) mg/dL Plasma Lactic Acid Terrence (0.7-2.0) mmol/L Alkaline Phosphatase (38-126) U/L Total Creatine Kinase (55-170) U/L Troponin I (0.000-0.034) ng/mL Urine pH (5.0-8.0) Urine Protein (Negative) Urine Ketones (Negative) Urine Blood (Negative) Urine RBC (0-5) /hpf Urine WBC (0-5) /hpf Hyaline Casts (0-2) /lpf Urine Mucus (None) /hpf Microbiology - Last 24 Hours (Table) 07/31/17 08:32 Urine Culture - Preliminary Urine,Catheterized Laboratory Results WBC 11.1 k/uL (3.8-10.6) H 07/31/17 07:52 RBC 4.72 m/uL (4.30-5.90) 07/31/17 07:52 Hgb 14.7 gm/dL (13.0-17.5) 07/31/17 07:52 Hct 44.8 % (39.0-53.0) 07/31/17 07:52 MCV 94.9 fL (80.0-100.0) 07/31/17 07:52 MCH 31.3 pg (25.0-35.0) 07/31/17 07:52 MCHC 32.9 g/dL (31.0-37.0) 07/31/17 07:52 RDW 13.5 % (11.5-15.5) 07/31/17 07:52 Plt Count 546 k/uL (150-450) H D 07/31/17 07:52 Neutrophils % 79 % 07/31/17 07:52 Lymphocytes % 12 % 07/31/17 07:52 Monocytes % 7 % 07/31/17 07:52 Eosinophils % 0 % 07/31/17 07:52 Basophils % 0 % 07/31/17 07:52 Neutrophils # 8.8 k/uL (1.3-7.7) H 07/31/17 07:52 Lymphocytes # 1.3 k/uL (1.0-4.8) 07/31/17 07:52 Monocytes # 0.8 k/uL (0-1.0) 07/31/17 07:52 Eosinophils # 0.0 k/uL (0-0.7) 07/31/17 07:52 Basophils # 0.1 k/uL (0-0.2) 07/31/17 07:52 PT 10.3 sec (9.0-12.0) 07/31/17 07:52 INR 1.0 (<1.2) 07/31/17 07:52 APTT 22.2 sec (22.0-30.0) 07/31/17 07:52 Sample Site a line 07/31/17 13:23 ABG pH 7.34 (7.35-7.45) L 07/31/17 13:23 ABG pCO2 40 mmHg (35-45) 07/31/17 13:23 ABG pO2 176 mmHg (83-108) H 07/31/17 13:23 ABG HCO3 21 mmol/L (21-25) 07/31/17 13:23 ABG Total CO2 22 mmol/L (19-24) 07/31/17 13:23 ABG O2 Saturation 100.0 % (94-97) H 07/31/17 13:23 ABG Base Excess -4.8 mmol/L 07/31/17 13:23 Blas Test No 07/31/17 13:23 FiO2 60 % 07/31/17 13:23 Sodium 142 mmol/L (137-145) 07/31/17 07:52 Potassium 4.6 mmol/L (3.5-5.1) 07/31/17 07:52 Chloride 102 mmol/L (98-107) 07/31/17 07:52 Carbon Dioxide 15 mmol/L (22-30) L 07/31/17 07:52 Anion Gap 25 mmol/L 07/31/17 07:52 BUN 16 mg/dL (9-20) 07/31/17 07:52 Creatinine 0.60 mg/dL (0.66-1.25) L 07/31/17 07:52 Est GFR (CKD-EPI)AfAm >90 (>60 ml/min/1.73 sqM) 07/31/17 07:52 Est GFR (CKD-EPI)NonAf >90 (>60 ml/min/1.73 sqM) 07/31/17 07:52 Glucose 111 mg/dL (74-99) H 07/31/17 07:52 POC Glucose (mg/dL) 96 mg/dL (75-99) 07/31/17 15:08 POC Glu Investigator [employer] ID Emilia Drew 07/31/17 15:08 Lactic Ac Sepsis Rflx Y 07/31/17 09:04 Plasma Lactic Acid Terrence 1.0 mmol/L (0.7-2.0) 07/31/17 13:15 Calcium 9.7 mg/dL (8.4-10.2) 07/31/17 07:52 Total Bilirubin 0.4 mg/dL (0.2-1.3) 07/31/17 07:52 AST 41 U/L (17-59) 07/31/17 07:52 ALT 36 U/L (21-72) 07/31/17 07:52 Alkaline Phosphatase 148 U/L (38-126) H 07/31/17 07:52 Total Creatine Kinase <20 U/L (55-170) L 07/31/17 07:52 CK-MB (CK-2) <0.2 ng/mL (0.0-2.4) 07/31/17 07:52 CK-MB (CK-2) Rel Index 07/31/17 07:52 Troponin I 1.020 ng/mL (0.000-0.034) H* 07/31/17 13:15 Total Protein 6.8 g/dL (6.3-8.2) 07/31/17 07:52 Albumin 3.8 g/dL (3.5-5.0) 07/31/17 07:52 Cortisol 28 ug/dL 07/31/17 07:52 Urine Color Yellow 07/31/17 08:32 Urine Appearance Clear (Clear) 07/31/17 08:32 Urine pH 8.5 (5.0-8.0) H 07/31/17 08:32 Ur Specific [place] 1.021 (1.001-1.035) 07/31/17 08:32 Urine Protein 1+ (Negative) H 07/31/17 08:32 Urine Glucose (UA) Negative (Negative) 07/31/17 08:32 Urine Ketones Trace (Negative) H 07/31/17 08:32 Urine Blood Moderate (Negative) H 07/31/17 08:32 Urine Nitrite Negative (Negative) 07/31/17 08:32 Urine Bilirubin Negative (Negative) 07/31/17 08:32 Urine Urobilinogen <2.0 mg/dL (<2.0) 07/31/17 08:32 Ur Leukocyte Esterase Negative (Negative) 07/31/17 08:32 Urine RBC 86 /hpf (0-5) H 07/31/17 08:32 Urine WBC 9 /hpf (0-5) H 07/31/17 08:32 Ur Squamous Epith Cells <1 /hpf (0-4) 07/31/17 08:32 Hyaline Casts 3 /lpf (0-2) H 07/31/17 08:32 Urine Mucus Occasional /hpf (None) H 07/31/17 08:32 Microbiology 07/31/17 08:32 Urine,Catheterized Urine Culture - Preliminary Microbiology 07/31/17 08:32 Urine,Catheterized Urine Culture - Preliminary Assessment and Plan (1) Fever Status: Acute Code(s): R50.9 - FEVER, UNSPECIFIED SNOMED Code(s): 161175718 (2) Respiratory failure Status: Acute Code(s): J96.90 - RESPIRATORY FAILURE, UNSP, UNSP W HYPOXIA OR HYPERCAPNIA SNOMED Code(s): 184098256 (3) Infection of CHAIN HOIST OPERATOR (ventriculoperitoneal) shunt Narrative/Plan: 31-year-old male with history of brain tumor and many medical troubles presents to Hospital from home after his recent hospital stay. At that time he had significant pneumonia and there was concern with aspiration and pseudomonas aeruginosa was isolated. Respiratory with antimicrobial therapy and eventually transitioned to ciprofloxacin as patient improved improved with resolution of his fever and leukocytosis and his breathing improved. Family relates that he had a major change of status he became rigid and was having fever and constantly was brought back to hospital. Computed tomography scan of the abdomen and pelvis was performed showing evidence of the ongoing fluid collection in the abdomen. A computed tomography scan of the head was performed and there is evidence of the marked increase of the ventricular dilatation consistent with failure of his CHAIN HOIST OPERATOR shunt. With this in the high fever concern this could been infected. Antibiotic therapy with cefepime to ensure were covering for Pseudomonas as well as routine gram- negative pathogens of infection of the shunt along with vancomycin and metronidazole were begun and the patient to be transferred to his neurosurgeon center at [facility]. Status: Acute Code(s): T85.730A - I/I REACT D/T VENTRICULAR INTRACRANIAL SHUNT , INIT SNOMED Code(s): 614413499
[2017-07-31] MEDS ORDERED: CHLORHEXIDINE GLUCONATE 15 ML CUP MUCOUS MEM SCH (21:00)
[2017-07-31] MEDS ORDERED: cefTRIAXone IN SWFI 2,000 MG/20 ML SYRINGE IVP SCH (21:00)
== END 2017-07-31 17:47 | disposition short-term general hospital (02) | DRG 91 ==
LOC: EC 07:35 → 6ICU 09:43
PROVIDERS: ADMIT Internal Medicine; ATTEND Internal Medicine
PROC: 4A133J1 Monitoring of Arterial Pulse, Peripheral, Percutaneous Approach (ICD-10-PCS; principal; 2017-07-31)
PROC: 04HY32Z Insertion of Monitoring Device into Lower Artery, Percutaneous Approach (ICD-10-PCS; principal; 2017-07-31)
PROC: 5A1935Z Respiratory Ventilation, Less than 24 Consecutive Hours (ICD-10-PCS; principal; 2017-07-31)
PROC: 06HM33Z Insertion of Infusion Device into Right Femoral Vein, Percutaneous Approach (ICD-10-PCS; principal; 2017-07-31)
PROC: 0BH18EZ Insertion of Endotracheal Airway into Trachea, Via Natural or Artificial Opening Endoscopic (ICD-10-PCS; principal; 2017-07-31)
PROC: 4A133B1 Monitoring of Arterial Pressure, Peripheral, Percutaneous Approach (ICD-10-PCS; principal; 2017-07-31)
DX: T85.730A Infection and inflammatory reaction due to ventricular intracranial (communicating) shunt, initial encounter (principal); A41.9 Sepsis, unspecified organism; R65.21 Severe sepsis with septic shock; R40.2222 Coma scale, best verbal response, incomprehensible words, at arrival to emergency department; J96.00 Acute respiratory failure, unspecified whether with hypoxia or hypercapnia; E27.40 Unspecified adrenocortical insufficiency; E87.2 Acidosis; G82.20 Paraplegia, unspecified; G91.9 Hydrocephalus, unspecified; J98.11 Atelectasis; T85.01XA Breakdown (mechanical) of ventricular intracranial (communicating) shunt, initial encounter; I69.351 Hemiplegia and hemiparesis following cerebral infarction affecting right dominant side; Z43.1 Encounter for attention to gastrostomy; D32.9 Benign neoplasm of meninges, unspecified; G40.909 Epilepsy, unspecified, not intractable, without status epilepticus; R40.2132 Coma scale, eyes open, to sound, at arrival to emergency department; R40.2362 Coma scale, best motor response, obeys commands, at arrival to emergency department; Y75.2 Prosthetic and other implants, materials and neurological devices associated with adverse incidents; Y83.1 Surgical operation with implant of artificial internal device as the cause of abnormal reaction of the patient, or of later complication, without mention of misadventure at the time of the procedure; Z79.899 Other long term (current) drug therapy; Z94.89 Other transplanted organ and tissue status; Z99.3 Dependence on wheelchair; Z74.01 Bed confinement status; Z88.0 Allergy status to penicillin; Z88.8 Allergy status to other drugs, medicaments and biological substances
CPT/HCPCS: 36415; 70450; 71045; 74177; 80053; 80177; 81001; 82533; 82550; 82553; 82805; 83605; 84145; 84484; 85025; 85610; 85730; 87040; 87070; 87077; 87086; 87186; 87205; 93005; 94002; 94770; 96361; 96365; 96367; 96368; 96375; 96376; 99291

== ENCOUNTER 2019-05-14 08:32 | Emergency (ER) | payer OTHER ==
[2019-05-14 08:37] VITALS: RESP 18
--- NOTE | 2019-05-14 09:12 | ED ---
Recheck HPI - General Chief Complaint: Recheck/Abnormal Lab/Rx Stated Complaint: peg tube problem Time Seen by Provider: 05/14/19 08:38 Source: family, RN notes reviewed Mode of arrival: wheelchair Limitations: altered mental status, physical limitation - History of Present Illness Initial Comments: This a 33-year-old male presents emergency Department with father chief complaint of needing a PEG tube placed. Patient has a GJ tube that is broken. They talked to the surgeon who recommended to have a PEG tube placed at this time for feeding. Patient has no other complaints of fevers chills. - Related Data Home Medications Medication Instructions Recorded Confirmed Hydrocortisone [Cortef] 10 mg PEG/G-TUBE BID 07/07/13 07/31/17 Previous Rx's Medication Instructions Recorded Ciprofloxacin [Cipro Susp] 500 mg PO BID #100 ml 07/26/17 Scopolamine 1.5MG/72Hr Patch 1 patch TRANSDERM Q72H #3 patch 07/26/17 [TransDerm Scop] levETIRAcetam [Keppra] 250 mg PEG/G-TUBE Q12HR #60 tab 07/26/17 Allergies Allergy/AdvReac Type Severity Reaction Status Date / Time docusate sodium [From Colace] Allergy Rash/Hives Verified 07/31/17 11:17 lansoprazole [From Prevacid] Allergy Unknown Verified 07/31/17 11:17 metoclopramide HCl Allergy Unknown Verified 07/31/17 11:17 [From Reglan] peanut Allergy Rash/Hives Verified 07/31/17 11:17 Review of Systems ROS Statement: Those systems with pertinent positive or pertinent negative responses have been documented in the HPI. ROS Other: All systems not noted in ROS Statement are negative. Past Medical History Past Medical History: CVA/TIA, Pneumonia, Seizure Disorder Additional Past Medical History / Comment(s): Pt had recent admission to [facility] on 07/19/17 with low abdominal pain-inflammation per cat scan and ended up with acute respiratory failure-possibly d/t aspiration-vented. Other HX: Benign brain tumors-meningiomas, spinal cord tumor, seizures which started 5 years ago, HYPOTHERMIA R/T BRAIN TUMOR, 2 recently new brain tumors per mother, CVA 2013 with slightly increased R sided weakness, prior R sided weakness, neuro care thru [facility], positive c diff 2015 & 2011 had fecal replacement at [facility], hypoglycemia, adrenal insufficiency. History of Any Multi-Drug Resistant Organisms: None Reported Past Surgical History: Ventriculoperitoneal Shunt Additional Past Surgical History / Comment(s): SUPPLIER MANAGER shunts (2) with 3 leads (one extra lead)-L sided shunt is nonfunctioning, shunt revisions, spinal cord tumor removal, peg tube, fecal transplant Past Anesthesia/Blood Transfusion Reactions: No Reported Reaction Past Psychological History: No Psychological Hx Reported Smoking Status: Never smoker Past Alcohol Use History: None Reported Past Drug Use History: None Reported - Past Family History Mother Family Medical History: No Reported History Father Family Medical History: No Reported History General Exam Limitations: altered mental status, physical limitation General appearance: alert, in no apparent distress Head exam: Present: atraumatic, normocephalic, normal inspection ENT exam: Present: normal exam, normal oropharynx, mucous membranes moist Neck exam: Present: normal inspection. Absent: tenderness, meningismus, lymphadenopathy Respiratory exam: Present: normal lung sounds bilaterally. Absent: respiratory distress, wheezes, rales, rhonchi, stridor Cardiovascular Exam: Present: regular rate, normal rhythm, normal heart sounds. Absent: systolic murmur, diastolic murmur, rubs, gallop, clicks GI/Abdominal exam: Present: soft, normal bowel sounds, other (Feeding tube noted, there is a crack within the tubing). Absent: distended, tenderness, guarding, rebound, rigid Course Vital Signs 05/14/19 08:35 Pulse Rate 57 L Respiratory 18 Rate Blood Pressure 100/74 O2 Sat by Pulse 96 Oximetry Procedures - Feeding Tube Replacement Reason for Replacement: not functioning/damaged Initial Tube Inserted: greater than 2 weeks Type of Tube: G-J Tube Use of Tube: feedings only Insertion Site Prior to Procedure: clean Tube Used for Reinsertion: other (16-gauge peg) Amount of Anesthesia Used (mls): 0 [place] Tube Size (F): 16 Balloon Size (mls): 5 Verification of Placement: KUB, gastrografin injection Tube Secured by: tape/dressing Patient Tolerated Procedure: well, no complications Medical Decision Making - Medical Decision Making DJD was removed with no complications, peg tube was placed. Patient will follow-up with surgery for possible reinsertion of GJ tube. Disposition Clinical Impression: Gastrojejunostomy tube dislodgement Disposition: HOME SELF-CARE Condition: Stable Instructions (If sedation given, give patient instructions): How to Use and Care for Your PEG Tube (ED) Additional Instructions: Please return to the Emergency Department if symptoms worsen or any other concerns. Is patient prescribed a controlled substance at d/c from ED?: No Referrals: Whitney Ruiz MD [Primary Care Provider] - 1-2 days Time of Disposition: 09:11
--- NOTE | 2019-05-14 09:39 | XR ---
EXAMINATION TYPE: XR KUB portable DATE OF EXAM: 05/14/2019 9:29 AM CLINICAL HISTORY: Peg tube placement TECHNIQUE: Single supine KUB image of the abdomen is obtained after instillation of oral contrast thr ough the percutaneous enteric gastric tube. COMPARISON: 09/28/2015. FINDINGS: After instillation of oral contrast through the percutaneous enteric gastric tube satisfact ory positioning is confirmed with opacification of the gastric rugal folds and proximal duodenum. Dis continuous portions of abandoned ventriculoperitoneal shunt are seen. Moderate degree colonic fecal s tasis of the left hemicolon. Dextroscoliosis of the thoracolumbar spine. IMPRESSION: Confirmation of an appropriately placed percutaneous enteric gastric tube.
[2019-05-14 09:52] VITALS: BP 105/77; PULSE 60
== END 2019-05-14 09:52 | disposition home or self-care (01) ==
LOC: EC 08:32
DX: K94.23 Gastrostomy malfunction (principal); Z86.73 Personal history of transient ischemic attack (TIA), and cerebral infarction without residual deficits; Z79.52 Long term (current) use of systemic steroids; Z88.8 Allergy status to other drugs, medicaments and biological substances; Z91.010 Allergy to peanuts
CPT/HCPCS: 99283; 43762; 74018; Q9967

== ENCOUNTER 2019-10-16 09:56 | Emergency (ER) | payer OTHER ==
[2019-10-16 10:04] VITALS: BP 121/82; PULSE 49; RESP 18
--- NOTE | 2019-10-16 10:24 | ED ---
General Adult HPI - General Chief complaint: Upper Respiratory Infection Stated complaint: pneumonia Time Seen by Provider: 10/16/19 10:00 Source: patient, RN notes reviewed, old records reviewed Mode of arrival: wheelchair Limitations: no limitations - History of Present Illness Initial comments: This is a 34-year-old male who has developmental delay and has a guardian. Regarding his father father is with the patient he gives all the history. Father states she's been coughing a little bit lately so he took him into see Dr. Gwendolyn Snow had him come over here and get a chest x-ray chest x-ray showed a right lower lobe haziness so she wanted the patient to get a shot of antibiotic to go home on antibiotics. Father states he does not want any further testing no blood work at this time and he states that he's been through this many times and will bring the patient back if the patient gets worse in any way. Father states that the patient's pulse ox is soft and in the 80s which is normal for him because he doesn't ventilate very well. Mother states the child is not had a fever recently. - Related Data Home Medications Medication Instructions Recorded Confirmed Hydrocortisone [Cortef] 10 mg PEG/G-TUBE BID 07/07/13 07/31/17 Previous Rx's Medication Instructions Recorded Ciprofloxacin [Cipro Susp] 500 mg PO BID #100 ml 07/26/17 Scopolamine 1.5MG/72Hr Patch 1 patch TRANSDERM Q72H #3 patch 07/26/17 [TransDerm Scop] levETIRAcetam [Keppra] 250 mg PEG/G-TUBE Q12HR #60 tab 07/26/17 Azithromycin [Zithromax Tri-Roby] 500 mg PO DAILY #3 tab 10/16/19 Allergies Allergy/AdvReac Type Severity Reaction Status Date / Time docusate sodium [From Colace] Allergy Rash/Hives Verified 10/16/19 10:04 lansoprazole [From Prevacid] Allergy Unknown Verified 10/16/19 10:04 metoclopramide HCl Allergy Unknown Verified 10/16/19 10:04 [From Reglan] peanut Allergy Rash/Hives Verified 10/16/19 10:04 Review of Systems ROS Statement: Those systems with pertinent positive or pertinent negative responses have been documented in the HPI. ROS Other: All systems not noted in ROS Statement are negative. Past Medical History Past Medical History: CVA/TIA, Pneumonia, Seizure Disorder Additional Past Medical History / Comment(s): Pt had recent admission to [facility] on 07/19/17 with low abdominal pain-inflammation per cat scan and ended up with acute respiratory failure-possibly d/t aspiration-vented. Other HX: Benign brain tumors-meningiomas, spinal cord tumor, seizures which started 5 years ago, HYPOTHERMIA R/T BRAIN TUMOR, 2 recently new brain tumors per mother, CVA 2013 with slightly increased R sided weakness, prior R sided weakness, neuro care thru [facility], positive c diff 2015 & 2011 had fecal replacement at [facility], hypoglycemia, adrenal insufficiency. 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 Patient is nontoxic and well- hydrated and is in no acute distress. ENT: Neck is soft and supple. No significant lymphadenopathy is noted. Oropharynx is clear. Moist mucous membranes. EYES: The sclera were anicteric and conjunctiva were pink and moist. Extraocular movements were intact and pupils were equal round and reactive to light. PULMONARY: Unlabored respirations. Patient breathes very shallow which father states is at his baseline. Patient does have rhonchi bilaterally cut all be secondary to upper airway. CARDIOVASCULAR: There is a regular rate and rhythm without any murmurs gallops or rubs. SKIN: Skin is clear with no lesions or rashes and otherwise unremarkable. NEUROLOGIC: Patient is alert and oriented at his baseline PSYCHIATRIC: Unable to assess Limitations: no limitations Course Vital Signs 10/16/19 09:59 Pulse Rate 49 L Respiratory 18 Rate Blood Pressure 121/82 O2 Sat by Pulse 88 L Oximetry Medical Decision Making - Medical Decision Making I reviewed the chest x-ray showed no acute abnormality. I indicated to the father that the patient's pulse ox was 80 and he stated this was completely normal and did not want any further workup at this time. He indicated that he has been dealing with his breathing problems for 30 years and if he gets worse he will bring him into the emergency department. Disposition Clinical Impression: Acute bronchitis Disposition: HOME SELF-CARE Instructions (If sedation given, give patient instructions): Acute Bronchitis (ED) Prescriptions: Azithromycin [Zithromax Tri-Roby] 500 mg PO DAILY #3 tab Is patient prescribed a controlled substance at d/c from ED?: No Referrals: Whitney Ruiz MD [Primary Care Provider] - 1-2 days Time of Disposition: 10:24
[2019-10-16] MEDS ORDERED: cefTRIAXone 1,000 MG VIAL (IM USE) IM STA (10:25)
[2019-10-16] MEDS ORDERED: ASPIRIN 81 MG PO STA (10:33)
[2019-10-16] MEDS ORDERED: NITROGLYCERIN OINT 1 INCH/GM PACKET TOPICAL STA (10:33)
[2019-10-16] MEDS ORDERED: LIDOCAINE 1% INJ 10MG/ML (20 ML MDV) SQ ONE (10:45)
== END 2019-10-16 10:50 | disposition home or self-care (01) ==
LOC: EC 09:56
DX: J20.9 Acute bronchitis, unspecified (principal); Z86.73 Personal history of transient ischemic attack (TIA), and cerebral infarction without residual deficits; Z88.8 Allergy status to other drugs, medicaments and biological substances; Z91.010 Allergy to peanuts
CPT/HCPCS: 99283 ×2; 96372 ×2; J2001; J0696

== ENCOUNTER → 2019-10-16 | Outpatient (CLI) | payer OTHER ==
--- NOTE | 2019-10-16 10:01 | XR ---
EXAMINATION TYPE: XR chest 2V DATE OF EXAM: 10/16/2019 CLINICAL HISTORY: Cough. Shortness of breath. TECHNIQUE: Frontal and lateral views of the chest are obtained. COMPARISON: Chest radiograph 07/31/2017 FINDINGS: Ventriculoperitoneal shunts coursing over the bilateral hemithorax and upper abdomen. Righ t-sided port catheter with distal tip at the cavoatrial junction. The cardiomediastinal silhouette is within normal limits for size. Pulmonary vasculature is normal. There is a subtle right infrahilar a irspace opacity silhouetting the right cardiac silhouette. No pleural effusion or pneumothorax seen. The osseous structures are intact. IMPRESSION: Subtle hazy airspace opacity of the right lower lobe.
== END ==
LOC: RADXRMAIN 09:27
PROVIDERS: ATTEND Family Medicine
DX: R91.8 Other nonspecific abnormal finding of lung field (principal)
CPT/HCPCS: 71046

== ENCOUNTER → 2019-11-12 | Outpatient (CLI) | payer OTHER ==
--- NOTE | 2019-11-12 11:55 | XR ---
EXAMINATION TYPE: XR chest 2V DATE OF EXAM: 11/12/2019 COMPARISON: 10/16/2019 TECHNIQUE: PA and lateral views submitted. HISTORY: Cough FINDINGS: There is a right-sided central line. Bilateral WAREHOUSE ORDER SELECTOR shunt catheter seen and there is left lower lobe in filtrate. No pneumothorax or interstitial edema. No overt failure. IMPRESSION: 1. Left basilar subsegmental consolidation correlate for atelectasis versus infiltrate.
== END | disposition home or self-care (01) ==
LOC: RADXRMAIN 11:34
PROVIDERS: ATTEND Family Medicine
DX: Z01.818 Encounter for other preprocedural examination (principal)
CPT/HCPCS: 71046

== ENCOUNTER → 2019-11-26 | Outpatient (CLI) | payer OTHER ==
--- NOTE | 2019-11-26 15:21 | XR ---
EXAMINATION TYPE: XR chest 2V DATE OF EXAM: 11/26/2019 CLINICAL HISTORY: Presurgical TECHNIQUE: Frontal and lateral views of the chest are obtained. COMPARISON: 11/12/2019 chest radiograph FINDINGS: Completely visualized bilateral ventriculoperitoneal shunt right-sided central venous cath eter distal tip over the cavoatrial junction. The cardiomediastinal silhouette is within normal limit s for size. Pulmonary vasculature is normal. There is no focal air space opacity, pleural effusion, o r pneumothorax seen. The osseous structures are intact. IMPRESSION: No acute cardiopulmonary process.
== END | disposition home or self-care (01) ==
LOC: RADXRMAIN 08:51
PROVIDERS: ATTEND Family Medicine
DX: Z01.818 Encounter for other preprocedural examination (principal)
CPT/HCPCS: 71046

== ENCOUNTER 2019-12-24 14:40 | Emergency (ER) | payer OTHER ==
[2019-12-24 14:46] VITALS: BP 119/87; PULSE 58; RESP 18
--- NOTE | 2019-12-24 15:27 | ED ---
General Adult HPI - General Chief complaint: Recheck/Abnormal Lab/Rx Stated complaint: peg tube problem Time Seen by Provider: 12/24/19 15:14 Source: family, RN notes reviewed Mode of arrival: wheelchair Limitations: altered mental status, physical limitation - History of Present Illness Initial comments: 34-year-old male presents to the emergency room for a chief complaint of PEG tube dysfunction. Father reports that the balloon popped today and his PEG tube came out. He did keep the PEG tube. Patient has no complaints at this time. Father reports they just need the PEG tube replaced.Patient has no other complaints at this time including shortness of breath, chest pain, abdominal pain, nausea or vomiting, headache, or visual changes. - Related Data Home Medications Medication Instructions Recorded Confirmed Hydrocortisone [Cortef] 20 mg PEG/G-TUBE BID 07/07/13 10/16/19 Ipratropium Nebulized [Atrovent 0.5 mg INHALATION Q8HR PRN 10/16/19 10/16/19 Nebulized 0.2 MG/ML] levETIRAcetam [Keppra Oral 500 mg PEG/G-TUBE BID 10/16/19 10/16/19 Solution] Previous Rx's Medication Instructions Recorded Azithromycin [Zithromax Tri-Roby] 500 mg PO DAILY #3 tab 10/16/19 Allergies Allergy/AdvReac Type Severity Reaction Status Date / Time docusate sodium [From Colace] Allergy Rash/Hives Verified 12/24/19 14:47 lansoprazole [From Prevacid] Allergy Unknown Verified 12/24/19 14:47 metoclopramide HCl Allergy Unknown Verified 12/24/19 14:47 [From Reglan] peanut Allergy Rash/Hives Verified 12/24/19 14:47 Review of Systems ROS Statement: Those systems with pertinent positive or pertinent negative responses have been documented in the HPI. ROS Other: All systems not noted in ROS Statement are negative. Past Medical History Past Medical History: CVA/TIA, Pneumonia, Seizure Disorder Additional Past Medical History / Comment(s): Pt had recent admission to [facility] on 07/19/17 with low abdominal pain-inflammation per cat scan and ended up with acute respiratory failure-possibly d/t aspiration-vented. Other HX: Benign brain tumors-meningiomas, spinal cord tumor, seizures which started 5 years ago, HYPOTHERMIA R/T BRAIN TUMOR, 2 recently new brain tumors per mother, CVA 2013 with slightly increased R sided weakness, prior R sided weakness, neuro care thru [facility], positive c diff 2015 & 2011 had fecal replacement at [facility], hypoglycemia, adrenal insufficiency. 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 (one extra lead)-L sided shunt is nonfunctioning, shunt revisions, spinal cord tumor removal, peg tube, fecal transplant Past Anesthesia/Blood Transfusion Reactions: No Reported Reaction Past Psychological History: No Psychological Hx Reported Smoking Status: Never smoker Past Alcohol Use History: None Reported Past Drug Use History: None Reported - Past Family History Mother Family Medical History: No Reported History Father Family Medical History: No Reported History General Exam Limitations: altered mental status, physical limitation General appearance: alert, in no apparent distress Head exam: Present: atraumatic, normocephalic, normal inspection Eye exam: Present: normal appearance, PERRL, EOMI. Absent: scleral icterus, conjunctival injection, periorbital swelling ENT exam: Present: normal exam, mucous membranes moist Neck exam: Present: normal inspection, full ROM Respiratory exam: Present: normal lung sounds bilaterally. Absent: respiratory distress, wheezes, rales, rhonchi, stridor Cardiovascular Exam: Present: regular rate, normal rhythm GI/Abdominal exam: Present: soft, normal bowel sounds, other (Stoma appears noninfected, nontender.). Absent: distended, tenderness, guarding, rebound, rigid Course Vital Signs 12/24/19 14:44 Pulse Rate 58 L Respiratory 18 Rate Blood Pressure 119/87 O2 Sat by Pulse 96 Oximetry Medical Decision Making - Medical Decision Making 16-Tamazight PEG tube was easily replaced. Bile did flow from tube. At this time patient will be discharged home to follow up with primary care and surgery. He will return here for any worsening symptoms.I discussed this case with attending Dr. Gibson who agrees with this assessment and treatment plan. Disposition Clinical Impression: PEG tube malfunction Disposition: HOME SELF-CARE Condition: Good Instructions (If sedation given, give patient instructions): How to Use and Care for Your PEG Tube (ED) Additional Instructions: Please follow-up with your doctor. Return to the emergency room for any worsening symptoms. Is patient prescribed a controlled substance at d/c from ED?: No Referrals: Whitney Ruiz MD [Primary Care Provider] - 1-2 days Time of Disposition: 15:26
== END 2019-12-24 15:30 | disposition home or self-care (01) ==
LOC: EC 14:40
DX: K94.23 Gastrostomy malfunction (principal); E27.40 Unspecified adrenocortical insufficiency; G40.909 Epilepsy, unspecified, not intractable, without status epilepticus; Z79.52 Long term (current) use of systemic steroids; Z79.899 Other long term (current) drug therapy; Z91.010 Allergy to peanuts; Z88.8 Allergy status to other drugs, medicaments and biological substances; Z86.73 Personal history of transient ischemic attack (TIA), and cerebral infarction without residual deficits
CPT/HCPCS: 43762; 99282

== ENCOUNTER 2020-09-06 10:37 | Emergency (ER) | payer OTHER ==
[2020-09-06 10:43] VITALS: PULSE 85; RESP 18
--- NOTE | 2020-09-06 12:27 | ED ---
Recheck HPI - General Chief Complaint: Recheck/Abnormal Lab/Rx Stated Complaint: pulled out feeding tube Time Seen by Provider: 09/06/20 10:47 Source: patient Mode of arrival: ambulatory Limitations: no limitations - History of Present Illness Initial Comments: Patient is a 35-year-old male that presents to the emergency department complaining of PEG tube malfunction. Patient's mother states that the PEG tube fell out and that his father replaced it to keep the opening open. Mom states that patient is otherwise well. She does note that he wears oxygen at home. Patient is fully dependent for care. Mom denied any other issues or complaints at this time. - Related Data Home Medications Medication Instructions Recorded Confirmed Hydrocortisone [Cortef] 20 mg PEG/G-TUBE BID 07/07/13 10/16/19 Ipratropium Nebulized [Atrovent 0.5 mg INHALATION Q8HR PRN 10/16/19 10/16/19 Nebulized 0.2 MG/ML] levETIRAcetam [Keppra Oral 500 mg PEG/G-TUBE BID 10/16/19 10/16/19 Solution] Previous Rx's Medication Instructions Recorded Azithromycin [Zithromax Tri-Roby] 500 mg PO DAILY #3 tab 10/16/19 Allergies Allergy/AdvReac Type Severity Reaction Status Date / Time docusate sodium [From Colace] Allergy Rash/Hives Verified 12/24/19 14:47 lansoprazole [From Prevacid] Allergy Unknown Verified 12/24/19 14:47 metoclopramide HCl Allergy Unknown Verified 12/24/19 14:47 [From Reglan] peanut Allergy Rash/Hives Verified 12/24/19 14:47 Review of Systems ROS Statement: Those systems with pertinent positive or pertinent negative responses have been documented in the HPI. ROS Other: All systems not noted in ROS Statement are negative. Past Medical History Past Medical History: CVA/TIA, Pneumonia, Seizure Disorder Additional Past Medical History / Comment(s): Pt had recent admission to [facility] on 07/19/17 with low abdominal pain-inflammation per cat scan and ended up with acute respiratory failure-possibly d/t aspiration-vented. Other HX: Benign brain tumors-meningiomas, spinal cord tumor, seizures which started 5 years ago, HYPOTHERMIA R/T BRAIN TUMOR, 2 recently new brain tumors per mother, CVA 2013 with slightly increased R sided weakness, prior R sided weakness, neuro care thru [facility], positive c diff 2016 & 2011 had fecal replacement at [facility], hypoglycemia, adrenal insufficiency. 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 (one extra lead)-L sided shunt is nonfunctioning, shunt revisions, spinal cord tumor removal, peg tube, fecal transplant Past Anesthesia/Blood Transfusion Reactions: No Reported Reaction Past Psychological History: No Psychological Hx Reported Smoking Status: Never smoker Past Alcohol Use History: None Reported Past Drug Use History: None Reported - Past Family History Mother Family Medical History: No Reported History Father Family Medical History: No Reported History General Exam Limitations: physical limitation General appearance: alert, in no apparent distress Head exam: Present: atraumatic, normocephalic, normal inspection Eye exam: Present: normal appearance, PERRL, EOMI. Absent: scleral icterus, conjunctival injection, periorbital swelling Neck exam: Present: normal inspection Respiratory exam: Present: normal lung sounds bilaterally. Absent: respiratory distress, wheezes, rales, rhonchi, stridor Cardiovascular Exam: Present: regular rate, normal rhythm, normal heart sounds. Absent: systolic murmur, diastolic murmur, rubs, gallop, clicks GI/Abdominal exam: Present: soft, normal bowel sounds, other (Old PEG tube in place with clean dressing. No signs or symptoms of infection.). Absent: distended, tenderness, guarding, rebound, rigid Extremities exam: Present: normal inspection, normal capillary refill. Absent: tenderness, pedal edema, joint swelling, calf tenderness Neurological exam: Present: alert Psychiatric exam: Present: normal affect, normal mood Skin exam: Present: warm, dry, intact, normal color. Absent: rash Course Vital Signs 09/06/20 09/06/20 09/06/20 10:41 11:43 12:00 Pulse Rate 85 Respiratory 18 18 18 Rate O2 Sat by Pulse 97 Oximetry Procedures - Procedures Initial comment: Old PEG tube was removed. Site was cleaned with alcohol swabs and check for any signs or symptoms of infection. No 14-Divehi PEG tube removed from package lubricated and inserted into opening. Patient tolerated procedure well. Confirmatory x-ray ordered. Medical Decision Making - Medical Decision Making 35-year-old male complaining of PEG tube malfunction. New PEG tube was placed after cleaning the site. Patient tolerated well. X-ray ordered to confirm placement. Case discussed with Dr. Anton, patient can discharge back home in stable condition. - Radiology Data Radiology results: report reviewed, image reviewed KUB: PEG tube appears to be in position with contrast within the stomach and small bowel. Discontinuous appearance of the suspected AVIATION ELECTRONICS TECHNICIAN shunt catheter correlate clinically. Disposition Clinical Impression: PEG tube malfunction Disposition: HOME SELF-CARE Condition: Stable Instructions (If sedation given, give patient instructions): Percutaneous Endoscopic Gastrostomy (ED) Additional Instructions: Please return to the Emergency Department if symptoms worsen or any other concerns. Follow-up with primary care as needed. Continue at home care of PEG tube site cleaning it regularly and changing dressings regularly. Is patient prescribed a controlled substance at d/c from ED?: No Referrals: Whitney Ruiz MD [Primary Care Provider] - 1-2 days Time of Disposition: 12:31
--- NOTE | 2020-09-06 12:29 | XR ---
EXAMINATION TYPE: XR KUB portable DATE OF EXAM: 09/06/2020 COMPARISON: 05/14/2019 HISTORY: Headache TECHNIQUE: One view abdominal series FINDINGS: NG tube is seen with contrast in the stomach and small bowel. Retained debris throughout the colon. A dditional catheter is seen coiled in the pelvis could be related to peritoneal dialysis catheter michelle elate clinically. WEB PUBLISHER shunt catheter also in the differential diagnosis only and do not appear to be c ontinuous and should be correlated clinically for disruption. Findings similar to the prior exam. IMPRESSION: 1. PEG tube appears to be in position with contrast within the stomach and small bowel. 2. Discontinuous appearance of the suspected WEB PUBLISHER shunt catheter correlate clinically.
== END 2020-09-06 12:58 | disposition home or self-care (01) ==
LOC: EC 10:37
DX: K94.23 Gastrostomy malfunction (principal); G40.909 Epilepsy, unspecified, not intractable, without status epilepticus; Z79.51 Long term (current) use of inhaled steroids; Z79.899 Other long term (current) drug therapy; Z86.73 Personal history of transient ischemic attack (TIA), and cerebral infarction without residual deficits; Z88.1 Allergy status to other antibiotic agents
CPT/HCPCS: 43762; 74018; 99283

== ENCOUNTER 2021-03-30 09:30 | Inpatient (IN) | payer OTHER ==
[2021-03-30] MEDS ORDERED: SODIUM CHLORIDE 0.9% 500 ML 500 ML IV STA (09:50)
--- NOTE | 2021-03-30 09:58 | ED ---
General Adult HPI - General Chief complaint: Abdominal Pain Stated complaint: Kidney Stones Time Seen by Provider: 03/30/21 09:45 Source: patient, family, EMS, RN notes reviewed, old records reviewed Mode of arrival: EMS Limitations: altered mental status, physical limitation - History of Present Illness Initial comments: This is a 35-year-old male who is significantly delayed secondary to multiple brain surgeries. Patient had surgery for kidney stones on the right side. It appeared to the patient's parents today that the patient was in quite a bit of distress so they gave him morphine and then the other caregiver also gave the patient morphine and currently the patient does not appear in any distress however his heart rate is 120 which is high for him. According to family he is usually a little bit bradycardic. Patient also has issues with oxygenation he used his around 90% at best he is currently 90% on 4 L. Mother states he occasionally is on oxygen home but not all the time. There's been no fevers no vomiting and no diarrhea. Mom states she does not know if it's the kidney stone pain is causing him discomfort because he is not able to tell her she just assumed that. - Related Data Home Medications Medication Instructions Recorded Confirmed Hydrocortisone [Cortef] 10 mg PEG/G-TUBE DAILY 07/07/13 03/30/21 levETIRAcetam [Keppra Oral 500 mg PEG/G-TUBE BID 10/16/19 03/30/21 Solution] Albuterol Nebulized [Ventolin 2.5 mg INHALATION RT-Q6H PRN 03/30/21 03/30/21 Nebulized] Cephalexin [Keflex] 500 mg PEG/G-TUBE Q8H 03/30/21 03/30/21 Hydrocortisone [Cortef] 20 mg PEG/G-TUBE HS 03/30/21 03/30/21 LORazepam [Ativan] 0.5 mg PO TID PRN 03/30/21 03/30/21 Montelukast [Singulair] 10 mg PEG/G-TUBE HS 03/30/21 03/30/21 Morphine Sulfate [Morphine Sulfate 10 mg PO DAILY PRN 03/30/21 03/30/21 10 MG/5 ML] Phenazopyridine [Pyridium] 100 mg PEG/G-TUBE TID 03/30/21 03/30/21 Tamsulosin [Flomax] 0.4 mg PEG/G-TUBE DAILY 03/30/21 03/30/21 Allergies Allergy/AdvReac Type Severity Reaction Status Date / Time docusate sodium [From Colace] Allergy Rash/Hives Verified 03/30/21 11:46 lansoprazole [From Prevacid] Allergy Unknown Verified 03/30/21 11:46 metoclopramide HCl Allergy Unknown Verified 03/30/21 11:46 [From Reglan] peanut Allergy Rash/Hives Verified 03/30/21 11:46 Review of Systems ROS Statement: Those systems with pertinent positive or pertinent negative responses have been documented in the HPI. ROS Other: All systems not noted in ROS Statement are negative. Past Medical History Past Medical History: CVA/TIA, Pneumonia, Seizure Disorder Additional Past Medical History / Comment(s): Pt had recent admission to [facility] on 07/19/17 with low abdominal pain-inflammation per cat scan and ended up with acute respiratory failure-possibly d/t aspiration-vented. Other HX: Benign brain tumors-meningiomas, spinal cord tumor, seizures which started 5 years ago, HYPOTHERMIA R/T BRAIN TUMOR, 2 recently new brain tumors per mother, CVA 2013 with slightly increased R sided weakness, prior R sided weakness, neuro care thru [facility], positive c diff 2015 & 2011 had fecal replacement at [facility], hypoglycemia, adrenal insufficiency. History of Any Multi-Drug Resistant Organisms: None Reported Past Surgical History: Ventriculoperitoneal Shunt Additional Past Surgical History / Comment(s): C SOFTWARE DEVELOPER shunts (2) with 3 leads (one extra lead)-L sided shunt is nonfunctioning, shunt revisions, spinal cord tumor removal, peg tube, fecal transplant Past Anesthesia/Blood Transfusion Reactions: No Reported Reaction Past Psychological History: No Psychological Hx Reported Smoking Status: Never smoker Past Alcohol Use History: None Reported Past Drug Use History: None Reported - Past Family History Mother Family Medical History: No Reported History Father Family Medical History: No Reported History General Exam - General Exam Comments Initial Comments: GENERAL: Patient is well-developed and well-nourished. Patient is nontoxic and well- hydrated and is in no acute distress. ENT: Neck is soft and supple. No significant lymphadenopathy is noted. Oropharynx is clear. Moist mucous membranes. EYES: The sclera were anicteric and conjunctiva were pink and moist. Extraocular movements were intact and pupils were equal round and reactive to light. Eyelids were unremarkable. PULMONARY: Unlabored respirations. Good breath sounds bilaterally. No audible rales rhonchi or wheezing was noted. CARDIOVASCULAR: Patient is tachycardic at 125 bpm ABDOMEN: Soft and nontender with normal bowel sounds. SKIN: Skin is clear with no lesions or rashes and otherwise unremarkable. NEUROLOGIC: Patient is alert and oriented at his baseline per his mother. MUSCULOSKELETAL: No lower extremity swelling or edema. No calf tenderness. LYMPHATICS: No significant lymphadenopathy is noted PSYCHIATRIC: Unable to assess Limitations: altered mental status, physical limitation Course Vital Signs 03/30/21 03/30/21 03/30/21 09:44 11:45 12:08 Temperature 97.8 F Pulse Rate 124 H 165 H 161 H Respiratory 34 H 45 H 28 H Rate Blood Pressure 151/90 89/69 111/76 O2 Sat by Pulse 90 L 85 L 97 Oximetry 03/30/21 03/30/21 12:50 13:00 Temperature Pulse Rate 102 H 102 H Respiratory 22 25 H Rate Blood Pressure 97/62 101/54 O2 Sat by Pulse 98 98 Oximetry Procedures - Central Line Placement Right Femoral Consent Obtained: verbal consent Patient Placed on Monitor/Pulse Ox: Yes MD Prep: mask, gown, gloves Central Line Prep: Chlorhexidine scrub Local Anesthesia Used: Lidocaine 1% Ultrasound Used for Placement: Yes Central Line Lumen Inserted: triple Bloods Obtained for Lab: No Central Line Position: good blood return, all ports aspirated, flushed, capped, sutured in place with nylon Dressing Applied: Tegaderm Patient Tolerated Procedure: well Complications: none - Intubation Sedative: Versed Paralytic: Succinylcholine Laryngoscope: Ernst Size: 3 ET Tube Size: 8 ET Tube Uncuffed: No Tube Secured Location: teeth Tube Placement Confirmation: visualized tube passing through cords, equal breath sounds bilaterally, no breath sounds over epigastrium, confirmation by capnometry Patient Tolerated Procedure: well Intubation Complications: none - Sepsis Sepsis Focused Exam #1 Time Sepsis Criteria Met: 13:45 Sepsis Focused Exam Date: 03/30/21 Sepsis Focused Exam Time: 14:52 Sepsis Focused Exam Complete: Yes Vital Signs & RN Notes Reviewed: Yes Capillary Refill: < 2 Seconds: Fingers Peripheral Pulses: Weak: Radial (R) Skin Color: Normal for Patient Respiratory Exam: rales Cardiovascular Exam: tachycardia Medical Decision Making - Medical Decision Making EKG shows sinus tachycardia at 130s and 147 bpm CO interval is 138 QRS is 95 QT interval 326 QTC is 410 per patient's EKG shows ST segment depression in lead 12 and aVL as well as precordial leads V4 V5 and V6 and ST segment elevation in aVR CAT scan of the brain shows no acute normalities. CT of the chest showed no PE and possible infectious process consistent with aspiration pneumonia. This occurred at 145 at this point time I consider the patient to be septic Patient was started on antibiotic. Patient was given fluid boluses to keep his blood pressure up. Patient's respiratory rate was over 40 times a minute and his heart rate was 170. I spoke with the mother and she did not want any intubation and wanted the patient to be a no code about a half an hour later she wanted everything done including intubation. I then discussed a central line with family initially did not want a central line and later they wanted a central line placed only in the groin. I spoke with Dr. Floyd he went and saw the patient in the emergency department. I spoke with Dr. Alex Pascal he also went into the emergency part was all the patient. They will both be consulted and patient the patient will be admitted to the ICU. I spoke with cardiology as well and they came down and saw the patient emergency department. I started the patient on Levophed - Lab Data Result diagrams: 03/30/21 10:03 03/30/21 10:03 Lab Results 03/30/21 03/30/21 03/30/21 Range/Units 10:03 10:03 10:03 WBC 15.6 H (3.8-10.6) k/uL RBC 4.10 L (4.30-5.90) m/uL Hgb 13.3 (13.0-17.5) gm/dL Hct 38.8 L (39.0-53.0) % MCV 94.7 (80.0-100.0) fL MCH 32.4 (25.0-35.0) pg MCHC 34.2 (31.0-37.0) g/dL RDW 17.9 H (11.5-15.5) % Plt Count 132 L (150-450) k/uL MPV 11.0 Neutrophils % 85 % Lymphocytes % 7 % Monocytes % 6 % Eosinophils % 0 % Basophils % 0 % Neutrophils # 13.3 H (1.3-7.7) k/uL Lymphocytes # 1.0 (1.0-4.8) k/uL Monocytes # 1.0 (0-1.0) k/uL Eosinophils # 0.0 (0-0.7) k/uL Basophils # 0.0 (0-0.2) k/uL Anisocytosis Slight Macrocytosis Slight D-Dimer (<0.60) mg/L FEU Sample Site ABG pH (7.35-7.45) ABG pCO2 (35-45) mmHg ABG pO2 (83-108) mmHg ABG HCO3 (21-25) mmol/L ABG Total CO2 (19-24) mmol/L ABG O2 Saturation (94-97) % ABG Base Excess mmol/L Blas Test FiO2 % Sodium 130 L (137-145) mmol/L Potassium 4.2 (3.5-5.1) mmol/L Chloride 91 L (98-107) mmol/L Carbon Dioxide 25 (22-30) mmol/L Anion Gap 14 mmol/L BUN 38 H (9-20) mg/dL Creatinine 1.14 (0.66-1.25) mg/dL Est GFR (CKD-EPI)AfAm >90 (>60 ml/min/1.73 sqM) Est GFR (CKD-EPI)NonAf 83 (>60 ml/min/1.73 sqM) Glucose 49 L* (74-99) mg/dL POC Glucose (mg/dL) (75-99) mg/dL POC Glu Nursing Informatics Analyst ID Plasma Lactic Acid Terrence (0.7-2.0) mmol/L Calcium 10.0 (8.4-10.2) mg/dL Total Bilirubin 0.9 (0.2-1.3) mg/dL AST 67 H (17-59) U/L ALT 45 (4-49) U/L Alkaline Phosphatase 450 H (38-126) U/L Troponin I 0.393 H* (0.000-0.034) ng/mL NT-Pro-B Natriuret Pep pg/mL Total Protein 6.7 (6.3-8.2) g/dL Albumin 3.6 (3.5-5.0) g/dL Amylase 506 H* (30-110) U/L Lipase 1565 H (23-300) U/L Urine Color Urine Appearance (Clear) Urine RBC (0-5) /hpf Urine WBC (0-5) /hpf Coronavirus (PCR) (Not Detectd) 03/30/21 03/30/21 03/30/21 Range/Units 10:48 10:48 11:35 WBC (3.8-10.6) k/uL RBC (4.30-5.90) m/uL Hgb (13.0-17.5) gm/dL Hct (39.0-53.0) % MCV (80.0-100.0) fL MCH (25.0-35.0) pg MCHC (31.0-37.0) g/dL RDW (11.5-15.5) % Plt Count (150-450) k/uL MPV Neutrophils % % Lymphocytes % % Monocytes % % Eosinophils % % Basophils % % Neutrophils # (1.3-7.7) k/uL Lymphocytes # (1.0-4.8) k/uL Monocytes # (0-1.0) k/uL Eosinophils # (0-0.7) k/uL Basophils # (0-0.2) k/uL Anisocytosis Macrocytosis D-Dimer (<0.60) mg/L FEU Sample Site ABG pH (7.35-7.45) ABG pCO2 (35-45) mmHg ABG pO2 (83-108) mmHg ABG HCO3 (21-25) mmol/L ABG Total CO2 (19-24) mmol/L ABG O2 Saturation (94-97) % ABG Base Excess mmol/L Blas Test FiO2 % Sodium (137-145) mmol/L Potassium (3.5-5.1) mmol/L Chloride (98-107) mmol/L Carbon Dioxide (22-30) mmol/L Anion Gap mmol/L BUN (9-20) mg/dL Creatinine (0.66-1.25) mg/dL Est GFR (CKD-EPI)AfAm (>60 ml/min/1.73 sqM) Est GFR (CKD-EPI)NonAf (>60 ml/min/1.73 sqM) Glucose (74-99) mg/dL POC Glucose (mg/dL) 41 L (75-99) mg/dL POC Glu Nursing Informatics Analyst ID Tomeka Juan Plasma Lactic Acid Terrence (0.7-2.0) mmol/L Calcium (8.4-10.2) mg/dL Total Bilirubin (0.2-1.3) mg/dL AST (17-59) U/L ALT (4-49) U/L Alkaline Phosphatase (38-126) U/L Troponin I (0.000-0.034) ng/mL NT-Pro-B Natriuret Pep pg/mL Total Protein (6.3-8.2) g/dL Albumin (3.5-5.0) g/dL Amylase (30-110) U/L Lipase (23-300) U/L Urine Color Red Urine Appearance Bloody (Clear) Urine RBC >182 H (0-5) /hpf Urine WBC 112 H (0-5) /hpf Coronavirus (PCR) Not Detected (Not Detectd) 03/30/21 03/30/21 03/30/21 Range/Units 11:42 11:42 12:08 WBC (3.8-10.6) k/uL RBC (4.30-5.90) m/uL Hgb (13.0-17.5) gm/dL Hct (39.0-53.0) % MCV (80.0-100.0) fL MCH (25.0-35.0) pg MCHC (31.0-37.0) g/dL RDW (11.5-15.5) % Plt Count (150-450) k/uL MPV Neutrophils % % Lymphocytes % % Monocytes % % Eosinophils % % Basophils % % Neutrophils # (1.3-7.7) k/uL Lymphocytes # (1.0-4.8) k/uL Monocytes # (0-1.0) k/uL Eosinophils # (0-0.7) k/uL Basophils # (0-0.2) k/uL Anisocytosis Macrocytosis D-Dimer 2.57 H (<0.60) mg/L FEU Sample Site ABG pH (7.35-7.45) ABG pCO2 (35-45) mmHg ABG pO2 (83-108) mmHg ABG HCO3 (21-25) mmol/L ABG Total CO2 (19-24) mmol/L ABG O2 Saturation (94-97) % ABG Base Excess mmol/L Blas Test FiO2 % Sodium (137-145) mmol/L Potassium (3.5-5.1) mmol/L Chloride (98-107) mmol/L Carbon Dioxide (22-30) mmol/L Anion Gap mmol/L BUN (9-20) mg/dL Creatinine (0.66-1.25) mg/dL Est GFR (CKD-EPI)AfAm (>60 ml/min/1.73 sqM) Est GFR (CKD-EPI)NonAf (>60 ml/min/1.73 sqM) Glucose (74-99) mg/dL POC Glucose (mg/dL) 99 (75-99) mg/dL POC Glu Nursing Informatics Analyst ID Michele Ortega Plasma Lactic Acid Terrence (0.7-2.0) mmol/L Calcium (8.4-10.2) mg/dL Total Bilirubin (0.2-1.3) mg/dL AST (17-59) U/L ALT (4-49) U/L Alkaline Phosphatase (38-126) U/L Troponin I (0.000-0.034) ng/mL NT-Pro-B Natriuret Pep 859 pg/mL Total Protein (6.3-8.2) g/dL Albumin (3.5-5.0) g/dL Amylase (30-110) U/L Lipase (23-300) U/L Urine Color Urine Appearance (Clear) Urine RBC (0-5) /hpf Urine WBC (0-5) /hpf Coronavirus (PCR) (Not Detectd) 03/30/21 03/30/21 03/30/21 Range/Units 12:57 13:30 13:44 WBC (3.8-10.6) k/uL RBC (4.30-5.90) m/uL Hgb (13.0-17.5) gm/dL Hct (39.0-53.0) % MCV (80.0-100.0) fL MCH (25.0-35.0) pg MCHC (31.0-37.0) g/dL RDW (11.5-15.5) % Plt Count (150-450) k/uL MPV Neutrophils % % Lymphocytes % % Monocytes % % Eosinophils % % Basophils % % Neutrophils # (1.3-7.7) k/uL Lymphocytes # (1.0-4.8) k/uL Monocytes # (0-1.0) k/uL Eosinophils # (0-0.7) k/uL Basophils # (0-0.2) k/uL Anisocytosis Macrocytosis D-Dimer (<0.60) mg/L FEU Sample Site Right Radial ABG pH 7.51 H (7.35-7.45) ABG pCO2 34 L (35-45) mmHg ABG pO2 280 H (83-108) mmHg ABG HCO3 27 H (21-25) mmol/L ABG Total CO2 28 H (19-24) mmol/L ABG O2 Saturation 100.0 H (94-97) % ABG Base Excess 4.3 mmol/L Blas Test Yes FiO2 100 % Sodium (137-145) mmol/L Potassium (3.5-5.1) mmol/L Chloride (98-107) mmol/L Carbon Dioxide (22-30) mmol/L Anion Gap mmol/L BUN (9-20) mg/dL Creatinine (0.66-1.25) mg/dL Est GFR (CKD-EPI)AfAm (>60 ml/min/1.73 sqM) Est GFR (CKD-EPI)NonAf (>60 ml/min/1.73 sqM) Glucose (74-99) mg/dL POC Glucose (mg/dL) 33 L (75-99) mg/dL POC Glu Nursing Informatics Analyst ID Alise Neves Plasma Lactic Acid Terrence 6.9 H* (0.7-2.0) mmol/L Calcium (8.4-10.2) mg/dL Total Bilirubin (0.2-1.3) mg/dL AST (17-59) U/L ALT (4-49) U/L Alkaline Phosphatase (38-126) U/L Troponin I (0.000-0.034) ng/mL NT-Pro-B Natriuret Pep pg/mL Total Protein (6.3-8.2) g/dL Albumin (3.5-5.0) g/dL Amylase (30-110) U/L Lipase (23-300) U/L Urine Color Urine Appearance (Clear) Urine RBC (0-5) /hpf Urine WBC (0-5) /hpf Coronavirus (PCR) (Not Detectd) Critical Care Time Critical Care Time: Yes Total Critical Care Time: 60 Disposition Clinical Impression: Respiratory distress, Tachycardia, Pancreatitis, Aspiration pneumonia, Elevated troponin, Hypotensive episode, Sepsis Disposition: ADMITTED IP TO THIS HOSP Referrals: Whitney Ruiz MD [Primary Care Provider] - 1-2 days Time of Disposition: 14:50
[2021-03-30] MEDS ORDERED: KETOROLAC 15 MG/ML 1 ML VIAL IVP STA (10:20)
[2021-03-30] MEDS ORDERED: HYDROmorphone 0.5 MG/0.5 ML SYRINGE IVP STA ×2 (10:20→11:54)
[2021-03-30 10:40] LABS: Anisocytosis Slight; Basophils % (A) 0 %; Eosinophils % (A) 0 %; HCT 38.8 % (39.0-53.0); HGB 13.3 gm/dL (13.0-17.5); Lymphocytes % (A) 7 %; MCH 32.4 pg (25.0-35.0); MCHC 34.2 g/dL (31.0-37.0); MCV 94.7 fL (80.0-100.0); Macrocytosis Slight; Monocytes % (A) 6 %; Neutrophils # (A) 13.3 k/uL (1.3-7.7); Neutrophils % (A) 85 %; Platelet Count 132 k/uL (150-450); RDW 17.9 % (11.5-15.5); WBC 15.6 k/uL (3.8-10.6)
--- NOTE | 2021-03-30 10:44 | XR ---
EXAMINATION TYPE: XR chest 2V DATE OF EXAM: 03/30/2021 COMPARISON: Chest x-ray November 26, 2019 HISTORY: Shortness of breath TECHNIQUE: Frontal and lateral views of the chest are obtained. FINDINGS: Redemonstration of overlying ACCOUNT FINANCIAL MANAGER shunt catheters bilaterally. Redemonstration of right subcl balaji central venous catheter. There is mild chronic parenchymal changes with left basilar opacity. Tiny bilateral pleural effusions. No pneumothorax seen. The cardiac silhouette size is more prominent and upper limits of normal. The osseous structures are intact. IMPRESSION: Suspect fluid overload state. Heart size more prominent with tiny bilateral pleural effu sions. Posterior left basilar opacity is noted could reflect developing atelectasis and/or infiltrate .
[2021-03-30 10:51] LABS: ALT 45 U/L (4-49); AST 67 U/L (17-59); African American GFR (CKD) >90 (>60 ml/min/1.73 sqM); Albumin 3.6 g/dL (3.5-5.0); Alkaline Phosphatase 450 U/L (38-126); Anion Gap 14 mmol/L; Blood Urea Nitrogen 38 mg/dL (9-20); Carbon Dioxide 25 mmol/L (22-30); Chloride 91 mmol/L (98-107); Lipase 1565 U/L (23-300); Non-African American GFR(CKD) 83 (>60 ml/min/1.73 sqM); Potassium 4.2 mmol/L (3.5-5.1); Sodium 130 mmol/L (137-145); Total Bilirubin 0.9 mg/dL (0.2-1.3); Total Protein 6.7 g/dL (6.3-8.2)
[2021-03-30 10:55] LABS: Glucose 49 mg/dL (74-99)
[2021-03-30 10:56] LABS: Amylase 506 U/L (30-110)
--- NOTE | 2021-03-30 10:57 | XR ---
EXAMINATION TYPE: XR KUB DATE OF EXAM: 03/30/2021 10:34 AM CLINICAL HISTORY: History of right-sided kidney stones with pain and hematuria TECHNIQUE: Single supine KUB image of the abdomen is obtained. COMPARISON: Abdominal x-ray September 06, 2020. Most recent CT 2018. FINDINGS: PEG tube redemonstrated. Redemonstration of right double-J ureter stent. Redemonstration of additional right lower quadrant catheter terminating in the pelvis. Overall nonobstructive bowel gas pattern. Underlying scoliotic curvature redemonstrated. Small renal calculi in 2018 CT are not as we ll-seen on plain films. Overlying PEG tube and colonic fecal debris make evaluation suboptimal. IMPRESSION: As above.
[2021-03-30] MEDS ORDERED: DEXTROSE 50% SYRINGE 50 ML IVP STA ×2 (11:01→13:47)
[2021-03-30 11:17] LABS: RBC,Urine >182 /hpf (0-5); WBC,Urine 112 /hpf (0-5)
[2021-03-30 11:19] LABS: Appearance,Urine Bloody (Clear); Color,Urine Red
[2021-03-30 11:43] LABS: Glucose,Whole Blood 41 mg/dL (75-99)
--- NOTE | 2021-03-30 12:07 | XR ---
EXAMINATION TYPE: XR chest 1V portable DATE OF EXAM: 03/30/2021 COMPARISON: 03/30/2021 HISTORY: Shortness of breath TECHNIQUE: Single frontal view of the chest is obtained. FINDINGS: A right-sided central lines are noted. There are subsegmental changes at the right lung ba se with tiny effusion. Coarsened interstitium. Heart size normal. Diffuse osteopenia. No pneumothorax . Patchy right perihilar infiltrate. IMPRESSION: 1. Right lower lobe infiltrate with small effusion correlate for interstitial pneumonitis or mild lisa ous congestion.
[2021-03-30 12:09] LABS: Glucose,Whole Blood 99 mg/dL (75-99)
[2021-03-30] MEDS ORDERED: SODIUM CHLORIDE 0.9% 1,000 ML IV ONE ×2 (12:30→13:43)
[2021-03-30] MEDS ORDERED: SODIUM CHLORIDE 0.9% 500 ML 500 ML IV ONE (12:30)
[2021-03-30] MEDS ORDERED: cefTRIAXone IN SWFI 1,000 MG/10 ML SYRINGE IVP STA (12:45)
[2021-03-30] MEDS ORDERED: LORazepam 2 MG/ML INJ IV STA (13:00)
[2021-03-30] MEDS ORDERED: MIDAZOLAM 1 MG/ML 5 ML VIAL IV STA (13:00)
[2021-03-30] MEDS ORDERED: SUCCINYLCHOLINE CHLORIDE VIAL 200 MG/10 ML VIAL IV STA (13:00)
--- NOTE | 2021-03-30 13:10 | CT ---
EXAMINATION TYPE: CT brain wo con DATE OF EXAM: 03/30/2021 COMPARISON: 07/31/2017 HISTORY: 35-year-old male confusion, Altered mental status. TECHNIQUE: Examination was done in axial plane without intravenous contrast. Coronal and sagittal r econstructions performed. CT DLP: 1263.4 mGycm Automated exposure control for dose reduction was used. FINDINGS: There is a left lateral craniotomy flap. Underlying left frontal extra-axial fluid with a shunt sergey ter. The fluid collection is slightly larger at 1.9 cm thick versus 1.7 cm on 07/31/2017. Some nodular areas of intermediate density are now noted within the fluid collection, for example, axial image 42 and 38. Additional postsurgical change along the anterior right frontal region. A smaller extra-axial fluid c ollection here measures 1.4 cm thick versus 1.5 cm, previously, and also contains some intermediate d ensity material. Some parenchymal calcifications anterior left frontal region probably dystrophic. Encephalomalacia left basal ganglia unchanged. There is a right parietal CIVIL ENGINEERING PROJECT DESIGNER shunt catheter which crosses the midline into the posterior body of the left lateral ventricle. Overall ventricular caliber is normal, improved from 07/31/2017. Old, abandone d anterior right frontal shunt catheter. No evidence for acute intracranial hemorrhage otherwise seen. No midline shift or effacement of basal subarachnoid cisterns. Undulating nasal septum. Mild mucosal thickening ethmoid air cells. Mastoid air cells on size. Orbits and globes are intact. There is no evidence of acute intracranial hemorrhage, acute ischemic change s, mass, mass-effect, or extra-axial fluid collection. There is no effacement of cerebral sulci or b ursula subarachnoid cisterns. There is no hydrocephalus. There is no midline shift. Reddy-white matte r distinction is preserved. IMPRESSION: 1. Previous craniotomy flaps on both the left and right side. Chronic underlying extra-axial fluid co llections, the left containing a shunt catheter. This left-sided extra-axial collection is slightly l arger at 1.9 cm thick versus 1.7 cm, previously. Some nodular areas of intermediate density are prese nt within the fluid and could represent subacute blood products. 2. The anterior right frontal extra-axial fluid collection is smaller from 2018 at 1.4 cm thick versu s 1.5 cm, previously, and also contains some intermediate density areas that could represent subacute blood products. 3. No definite acute intracranial hemorrhage. No midline shift. 4. There is a new right parietal CIVIL ENGINEERING PROJECT DESIGNER shunt catheter compared to 2018, tip in the posterior body of the left lateral ventricle. The hydrocephalus seen on 2018 has resolved. Abandoned anterior right fronta l shunt catheter.
--- NOTE | 2021-03-30 13:21 | CT ---
EXAMINATION TYPE: CT chest angio for PE DATE OF EXAM: 03/30/2021 COMPARISON: No previous CT scan is available for comparison. HISTORY: Difficulty breathing, elevated d-dimer. CT DLP: 234.7 mGycm Automated exposure control for dose reduction was used. CONTRAST: CT Chest for pulmonary embolism performed with with IV Contrast, patient injected with 100 mL of Isov ue 370. MIP images were performed and reviewed. FINDINGS: No definite filling defects seen within the pulmonary trunk, main pulmonary arteries, lobar, segmenta l and proximal subsegmental arteries. Distal subsegmental arteries are suboptimally visualized. The p ulmonary trunk measures up to 2.4 cm. Slightly increased cardiac size, please correlate with echocard iographic results. No sizable pericardial effusion. An endotracheal tube is seen with the tip is about 2.9 cm proximal to the roberto. Scattered bilateral irregular opacities (more in the right lung), groundglass opacities, centrilobular nodules and areas of consolidation with air bronchograms within (most evident seen in the lower lobes and more on the left side), consistent with acute inflammatory/infectious process including Covid 19 infection. Assoc iated pulmonary edema cannot be excluded. Small right pleural effusion with minimal left pleural fluid. Large hilar and mediastinal lymph nodes . For example, a subcarinal lymph node measures 13 mm. A right hilar lymph node measures 11 mm. Promi nent lower cervical lymph nodes. Attention on follow-up. Hyperdense fecal material is seen within the visualized colon in the upper abdomen. No aggressive bone lesion. IMPRESSION: No major or central pulmonary embolism. The above-described extensive pulmonary changes could be rela trey to acute inflammatory/infectious process including Covid 19 infection with possible associated pu lmonary edema/ARDS, please correlate clinically. Follow-up to complete resolution is advised. Other i ncidental findings as described above.
--- NOTE | 2021-03-30 13:32 | P.CRDCN ---
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 Patient apparently was given morphine at home for distress and pain. Apparently patient had had problems with oxygenation and has been on home oxygen intermittently. Patient apparently underwent kidney stay and removal on the right side. Initially upon arrival to the emergency room, his heart rate was in 120s. Apparently patient subsequently became tachypneic and also ta chycardic. Patient is intubated and sedated. His heart rate went up to 160- 170. It appeared to be sinus tachycardia. After intubation and sedation, his heart rate has come down. His lab values showed a mildly elevated troponin. EKG did not reveal any acute changes of ischemia. Computed tomography scan of the chest showed effusion and multiple infiltrates consistent with confirmatory process. The possibility of aspiration pneumonia also to be considered. His lab values showed high amylase and lipase suggestive of acute pancreatitis. His d-dimer was high but computed tomography scan is negative for pulmonary emboli. At this point patient is being covered with antibiotics. Ultrasound of the abdomen is being obtained. We'll also get an echocardiogram. No need for any acute cardiac intervention at this time Review of Systems Not obtained Past Medical History Past Medical History: CVA/TIA, Pneumonia, Seizure Disorder Additional Past Medical History / Comment(s): Pt had recent admission to [facility] on 07/19/17 with low abdominal pain-inflammation per cat scan and ended up with acute respiratory failure-possibly d/t aspiration-vented. Other HX: Benign brain tumors-meningiomas, spinal cord tumor, seizures which started 5 years ago, HYPOTHERMIA R/T BRAIN TUMOR, 2 recently new brain tumors per mother, CVA 2013 with slightly increased R sided weakness, prior R sided weakness, neuro care thru [facility], positive c diff 2015 & 2011 had fecal replacement at [facility], hypoglycemia, adrenal insufficiency. History of Any Multi-Drug Resistant Organisms: None Reported Past Surgical History: Ventriculoperitoneal Shunt Additional Past Surgical History / Comment(s): CADET DECK shunts (2) with 3 leads (one extra lead)-L sided shunt is nonfunctioning, shunt revisions, spinal cord tumor removal, peg tube, fecal transplant Past Anesthesia/Blood Transfusion Reactions: No Reported Reaction Past Psychological History: No Psychological Hx Reported Smoking Status: Never smoker Past Alcohol Use History: None Reported Past Drug Use History: None Reported - Past Family History Mother Family Medical History: No Reported History Father Family Medical History: No Reported History Medications and Allergies Home Medications Medication Instructions Recorded Confirmed Type Hydrocortisone [Cortef] 10 mg PEG/G-TUBE DAILY 07/07/13 03/30/21 History levETIRAcetam [Keppra Oral 500 mg PEG/G-TUBE BID 10/16/19 03/30/21 History Solution] Albuterol Nebulized [Ventolin 2.5 mg INHALATION RT-Q6H PRN 03/30/21 03/30/21 History Nebulized] Cephalexin [Keflex] 500 mg PEG/G-TUBE Q8H 03/30/21 03/30/21 History Hydrocortisone [Cortef] 20 mg PEG/G-TUBE HS 03/30/21 03/30/21 History LORazepam [Ativan] 0.5 mg PO TID PRN 03/30/21 03/30/21 History Montelukast [Singulair] 10 mg PEG/G-TUBE HS 03/30/21 03/30/21 History Morphine Sulfate [Morphine Sulfate 10 mg PO DAILY PRN 03/30/21 03/30/21 History 10 MG/5 ML] Phenazopyridine [Pyridium] 100 mg PEG/G-TUBE TID 03/30/21 03/30/21 History Tamsulosin [Flomax] 0.4 mg PEG/G-TUBE DAILY 03/30/21 03/30/21 History Allergies Allergy/AdvReac Type Severity Reaction Status Date / Time docusate sodium [From Colace] Allergy Rash/Hives Verified 03/30/21 11:46 lansoprazole [From Prevacid] Allergy Unknown Verified 03/30/21 11:46 metoclopramide HCl Allergy Unknown Verified 03/30/21 11:46 [From Reglan] peanut Allergy Rash/Hives Verified 03/30/21 11:46 Physical Exam Vitals: Vital Signs Temp Pulse Resp BP Pulse Ox 03/30/21 12:50 102 H 22 97/62 98 03/30/21 12:08 161 H 28 H 111/76 97 03/30/21 11:45 165 H 45 H 89/69 85 L 03/30/21 09:44 97.8 F 124 H 34 H 151/90 90 L Intake and Output 03/29/21 03/30/21 03/30/21 22:59 06:59 14:59 Other: Weight 45.359 kg Patient is intubated and sedated. Seemed to be very diminutive. GENERAL EXAM: Patient is intubated and sedated seemed to be diminutive and not developed both mentally and physically NECK: No masses, no nuchal rigidity. CHEST: No chest wall deformity. LUNGS: Diminished air entry HEART: S1 and S2 normal ABDOMEN: soft CENTRAL NERVOUS SYSTEM: Deferred EXTREMITIES: No cyanosis Results 03/30/21 10:03 03/30/21 10:03 Cardiac Enzymes 03/30/21 03/30/21 Range/Units 10:03 10:03 AST 67 H (17-59) U/L Troponin I 0.393 H* (0.000-0.034) ng/mL CBC 03/30/21 Range/Units 10:03 WBC 15.6 H (3.8-10.6) k/uL RBC 4.10 L (4.30-5.90) m/uL Hgb 13.3 (13.0-17.5) gm/dL Hct 38.8 L (39.0-53.0) % Plt Count 132 L (150-450) k/uL Comprehensive Metabolic Panel 03/30/21 Range/Units 10:03 Sodium 130 L (137-145) mmol/L Potassium 4.2 (3.5-5.1) mmol/L Chloride 91 L (98-107) mmol/L Carbon Dioxide 25 (22-30) mmol/L BUN 38 H (9-20) mg/dL Creatinine 1.14 (0.66-1.25) mg/dL Glucose 49 L* (74-99) mg/dL Calcium 10.0 (8.4-10.2) mg/dL AST 67 H (17-59) U/L ALT 45 (4-49) U/L Alkaline Phosphatase 450 H (38-126) U/L Total Protein 6.7 (6.3-8.2) g/dL Albumin 3.6 (3.5-5.0) g/dL Intake and Output 03/29/21 03/30/21 03/30/21 22:59 06:59 14:59 Other: Weight 45.359 kg Patient Weight 03/31/21 06:59 Weight 45.359 kg 03/30/21 10:03 03/30/21 10:03 EKG Interpretations (text) Sinus tachycardia with mild ST-T wave normalities Assessment and Plan (1) Troponin level elevated Current Visit: Yes Status: Acute Code(s): R77.8 - OTHER SPECIFIED ABNORMALITIES OF PLASMA PROTEINS SNOMED Code(s): 911200294 (2) Abdominal pain Current Visit: No Status: Acute Code(s): R10.9 - UNSPECIFIED ABDOMINAL PAIN SNOMED Code(s): 50217001 (3) Tachycardia Current Visit: No Status: Acute Code(s): R00.0 - TACHYCARDIA, UNSPECIFIED SNOMED Code(s): 9001073 (4) Aspiration pneumonia Current Visit: Yes Status: Acute Code(s): J69.0 - PNEUMONITIS DUE TO INHALATION OF FOOD AND VOMIT SNOMED Code(s): 190109292 (5) Pancreatitis Current Visit: Yes Status: Acute Code(s): K85.90 - ACUTE PANCREATITIS WITHOUT NECROSIS OR INFECTION, UNSP SNOMED Code(s): 33586612 (6) Kidney stone Current Visit: Yes Status: Acute Code(s): N20.0 - CALCULUS OF KIDNEY SNOMED Code(s): 26057364 Plan: We'll follow troponin values. Get an echocardiogram. Continue with antibiotic coverage and sepsis workup. No need for any acute cardiac intervention at this time
[2021-03-30 13:36] LABS: ABG Base Excess 4.3 mmol/L; ABG HCO3 27 mmol/L (21-25); ABG PCO2 34 mmHg (35-45); ABG PH 7.51 (7.35-7.45); ABG PO2 280 mmHg (83-108); ABG TCO2 28 mmol/L (19-24); Allen Test Performed? Yes
[2021-03-30 13:46] LABS: Glucose,Whole Blood 33 mg/dL (75-99)
--- NOTE | 2021-03-30 13:56 | US ---
EXAMINATION TYPE: US gallbladder DATE OF EXAM: 03/30/2021 COMPARISON: NONE CLINICAL HISTORY: Abdominal pain. intubated patient. EXAM MEASUREMENTS: Liver Length: 13.0 cm Gallbladder Wall: 0.2 cm CBD: 0.2 cm Right Kidney: 9.8 x 5.2 x 4.7 cm technical limitations. intubated patient. unable to rotate position Pancreas: Obscured by bowel gas Liver: only visualized intercostally. hyperechoic areas noted, largest = 1.3 x 1.4 x 1.6cm Gallbladder: no evidence of stones as visualized Evidence for sonographic Funez's sign: no CBD: appears wnl Right Kidney: cystic area = 2.2 x 1.6 x 1.9cm. possible stone mid = 0.7cm IMPRESSION: Markedly limited exam as discussed above. Hyperechoic lesions involving the liver could b e on the basis of hemangioma. Findings were reported by prior ultrasound 2018.
[2021-03-30] MEDS: levETIRAcetam IV 500 MG in SODIUM CHLORIDE 0.9% 100 ML IVPB SCH ×2 (14:22→22:19)
--- NOTE | 2021-03-30 14:31 | P.CNPUL ---
History of Present Illness Consult date: 03/30/21 Requesting physician: Pietro Larkin Reason for consult: dyspnea, hypoxemia, other Chief complaint: Dyspnea, hypoxia, abdominal pain History of present illness: 35-year-old white male patient with history of developmental delay, seizure disorder, benign brain meningiomas, spinal cord tumor, hydrocephalus, EXPERIMENTAL PSYCHOLOGIST shunt placement, and revisions, dysphagia with history of PEG tube placement who was brought into the emergency department on 03/30/2021 by EMS for evaluation of abdominal pain. Most history was obtained from the ER physician, and ED records. The patient's parents report the patient was having quite a bit of distress and they gave him morphine, they noted that his heart rate was 120, and patient is usually a little bit bradycardic. He wears home O2 on as-needed basis at home, however the parents noticed that on 4 L of oxygen and his pulse ox was only 90%. There is no reported fevers no vomiting or diarrhea. There is reported history of kidney stones on the right side. In the ED patient was noted to be tachycardic initially with a heart rate of 130 BPM. Initial chest x-ray showed redemonstration of right subclavian central venous catheter, mild chronic parenchymal changes with left basilar opacity, tiny bilateral pleural effusions, no pneumothorax. There was redemonstration of overlying EXPERIMENTAL PSYCHOLOGIST shunt catheters bilaterally. Abdominal x-ray showed PEG tube, right double-J ureter stent, overall nonobstructive bowel gas pattern. Lab work evaluation showed leukocytosis with white blood cell count of 15.6, hemoglobin of 13.3, d-dimer was 2.57, sodium of 1:30, potassium is 4.2, chloride is 91, CO2 is 25, BUN of 38, and creatinine of 1.14. Glucose was 49, plasma lactic acid was 6.9, AST was 67 ALT was 45, alk phos was 450, troponin was 0.393, amylase was 506, lipase was 1565. Patient was afebrile, he was quite tachypneic and tachycardic, he was initially DO NOT RESUSCITATE CODE STATUS, he was being treated medically in the ED with antibiotics, IV fluids, and BiPAP support. CTA chest was completed showing no major or central pulmonary embolism, and scattered bilateral irregular opacities groundglass opacities, centrilobular nodules and areas of consolidation with air bronchograms most evident in the lower lobes and more on the left side consistent with acute inflammatory or infectious process including COVID-19 infection, but associated pulmonary edema could not be excluded. Subsequently patient went into SVT with a rate of 170, and having more re spiratory difficulty, the family has reversed his DO NOT RESUSCITATE CODE STATUS and wanted everything done. At which point patient was intubated and placed on mechanical ventilator. He is currently on assist control mode of ventilation with a rate of 20, tidal lungs 400, FiO2 100% and PEEP of 5. He is sedated with Diprivan, he has received 3 L in IV fluid boluses, he is on Zosyn, nebulized bro nchodilators, he did receive of 50% dextrose IV push for episode of hypoglycemia, he was tested for COVID-19 and was found to be negative. Ultrasound of the gallbladder has been completed showing hyperechoic lesions involving the liver that could be related to the hemangiomas. Review of Systems All systems: negative Constitutional: Denies chills, Denies fever Eyes: denies blurred vision, denies pain Ears, nose, mouth and throat: Denies headache, Denies sore throat Cardiovascular: Denies chest pain, Denies shortness of breath Respiratory: Reports dyspnea, Reports home oxygen, Reports respiratory infections, Denies cough Gastrointestinal: Denies abdominal pain, Denies diarrhea, Denies nausea, Denies vomiting Musculoskeletal: Denies myalgias Integumentary: Denies pruritus, Denies rash Neurological: Denies numbness, Denies weakness Psychiatric: Denies anxiety, Denies depression Endocrine: Denies fatigue, Denies weight change Past Medical History Past Medical History: CVA/TIA, Pneumonia, Seizure Disorder Additional Past Medical History / Comment(s): Pt had recent admission to [facility] on 07/19/17 with low abdominal pain-inflammation per cat scan and ended up with acute respiratory failure-possibly d/t aspiration-vented. Other HX: Benign brain tumors-meningiomas, spinal cord tumor, seizures which started 5 years ago, HYPOTHERMIA R/T BRAIN TUMOR, 2 recently new brain tumors per mother, CVA 2013 with slightly increased R sided weakness, prior R sided weakness, neuro care thru [facility], positive c diff 2015 & 2011 had fecal replacement at [facility], hypoglycemia, adrenal insufficiency. History of Any Multi-Drug Resistant Organisms: None Reported Past Surgical History: Ventriculoperitoneal Shunt Additional Past Surgical History / Comment(s): EXPERIMENTAL PSYCHOLOGIST shunts (2) with 3 leads (one extra lead)-L sided shunt is nonfunctioning, shunt revisions, spinal cord tumor removal, peg tube, fecal transplant Past Anesthesia/Blood Transfusion Reactions: No Reported Reaction Past Psychological History: No Psychological Hx Reported Smoking Status: Never smoker Past Alcohol Use History: None Reported Past Drug Use History: None Reported - Past Family History Mother Family Medical History: No Reported History Father Family Medical History: No Reported History Medications and Allergies Home Medications Medication Instructions Recorded Confirmed Type Hydrocortisone [Cortef] 10 mg PEG/G-TUBE DAILY 07/07/13 03/30/21 History levETIRAcetam [Keppra Oral 500 mg PEG/G-TUBE BID 10/16/19 03/30/21 History Solution] Albuterol Nebulized [Ventolin 2.5 mg INHALATION RT-Q6H PRN 03/30/21 03/30/21 History Nebulized] Cephalexin [Keflex] 500 mg PEG/G-TUBE Q8H 03/30/21 03/30/21 History Hydrocortisone [Cortef] 20 mg PEG/G-TUBE HS 03/30/21 03/30/21 History LORazepam [Ativan] 0.5 mg PO TID PRN 03/30/21 03/30/21 History Montelukast [Singulair] 10 mg PEG/G-TUBE HS 03/30/21 03/30/21 History Morphine Sulfate [Morphine Sulfate 10 mg PO DAILY PRN 03/30/21 03/30/21 History 10 MG/5 ML] Phenazopyridine [Pyridium] 100 mg PEG/G-TUBE TID 03/30/21 03/30/21 History Tamsulosin [Flomax] 0.4 mg PEG/G-TUBE DAILY 03/30/21 03/30/21 History Allergies Allergy/AdvReac Type Severity Reaction Status Date / Time docusate sodium [From Colace] Allergy Rash/Hives Verified 03/30/21 11:46 lansoprazole [From Prevacid] Allergy Unknown Verified 03/30/21 11:46 metoclopramide HCl Allergy Unknown Verified 03/30/21 11:46 [From Reglan] peanut Allergy Rash/Hives Verified 03/30/21 11:46 Physical Exam Vitals: Vital Signs Temp Pulse Resp BP Pulse Ox 03/30/21 13:00 102 H 25 H 101/54 98 03/30/21 12:50 102 H 22 97/62 98 03/30/21 12:08 161 H 28 H 111/76 97 03/30/21 11:45 165 H 45 H 89/69 85 L 03/30/21 09:44 97.8 F 124 H 34 H 151/90 90 L Intake and Output 03/29/21 03/30/21 03/30/21 22:59 06:59 14:59 Other: Weight 45.359 kg GENERAL EXAM: Intubated, sedated, small statured, developmentally delayed 35-ye ar-old white male, appears younger than stated age, on assist-control mode of ventilation with a rate of 20, tidal volume is 400, FiO2 100% and PEEP of 5, comfortable in no apparent distress. HEAD: Normocephalic/atraumatic. EYES: Normal reaction of pupils, equal size. Conjunctiva pink, sclera white. NOSE: Clear with pink turbinates. THROAT: No erythema or exudates. NECK: No masses, no JVD, no thyroid enlargement, no adenopathy. CHEST: No chest wall deformity. Symmetrical expansion. LUNGS: Equal air entry with no crackles, wheeze, rhonchi or dullness. CVS: Regular rate and rhythm, normal S1 and S2, no gallops, no murmurs, no rubs ABDOMEN: Soft, nontender. No hepatosplenomegaly, normal bowel sounds, no guarding or rigidity. Patient has a PEG tube in place EXTREMITIES: No clubbing, no edema, no cyanosis, 2+ pulses and upper and lower extremities. MUSCULOSKELETAL: Muscle strength and tone normal. SPINE: No scoliosis or deformity SKIN: No rashes CENTRAL NERVOUS SYSTEM: Sedated, and intubated No focal deficits, tone is normal in all 4 extremities. Results - Laboratory Findings CBC and BMP: 03/30/21 10:03 03/30/21 10:03 ABG ABG pH 7.51 (7.35-7.45) H 03/30/21 13:30 ABG pCO2 34 mmHg (35-45) L 03/30/21 13:30 ABG pO2 280 mmHg (83-108) H 03/30/21 13:30 ABG O2 Saturation 100.0 % (94-97) H 03/30/21 13:30 PT/INR, D-dimer D-Dimer 2.57 mg/L FEU (<0.60) H 03/30/21 11:42 Abnormal lab findings: Abnormal Labs 03/30/21 03/30/21 03/30/21 10:03 10:03 10:03 WBC 15.6 H RBC 4.10 L Hct 38.8 L RDW 17.9 H Plt Count 132 L Neutrophils # 13.3 H D-Dimer ABG pH ABG pCO2 ABG pO2 ABG HCO3 ABG Total CO2 ABG O2 Saturation Sodium 130 L Chloride 91 L BUN 38 H Glucose 49 L* POC Glucose (mg/dL) Plasma Lactic Acid Terrence AST 67 H Alkaline Phosphatase 450 H Troponin I 0.393 H* Amylase 506 H* Lipase 1565 H Urine RBC Urine WBC 03/30/21 03/30/21 03/30/21 10:48 11:35 11:42 WBC RBC Hct RDW Plt Count Neutrophils # D-Dimer 2.57 H ABG pH ABG pCO2 ABG pO2 ABG HCO3 ABG Total CO2 ABG O2 Saturation Sodium Chloride BUN Glucose POC Glucose (mg/dL) 41 L Plasma Lactic Acid Terrence AST Alkaline Phosphatase Troponin I Amylase Lipase Urine RBC >182 H Urine WBC 112 H 03/30/21 03/30/21 03/30/21 12:57 13:30 13:44 WBC RBC Hct RDW Plt Count Neutrophils # D-Dimer ABG pH 7.51 H ABG pCO2 34 L ABG pO2 280 H ABG HCO3 27 H ABG Total CO2 28 H ABG O2 Saturation 100.0 H Sodium Chloride BUN Glucose POC Glucose (mg/dL) 33 L Plasma Lactic Acid Terrence 6.9 H* AST Alkaline Phosphatase Troponin I Amylase Lipase Urine RBC Urine WBC - Diagnostic Findings Chest x-ray: report reviewed, image reviewed CT scan - chest: report reviewed, image reviewed Additional studies: EKG, gallbladder ultrasound, brain CT Assessment and Plan Plan: Assessment: #1. Acute hypoxic respiratory failure related to sepsis, acute pancreatitis and possibility of aspiration pneumonia is not excluded. Patient was admitted on 03/30/2021 he came in for evaluation of acute abdominal pain, tachycardia, and worsening dyspnea. Tested negative for COVID-19 #2. Acute lactic acidosis related to the above, and patient has received 3 L and fluid boluses #3. Elevated d-dimer, but no CT evidence of pulmonary embolism #4. Acute pancreatitis #5. Recent history of ureteral stent placement #6. Hypoglycemia, related to sepsis, patient has received 50% dextrose #7. Elevated troponins, rule out possibility of non-ST elevated MS #8. History of seizure disorder #9. Chronic dysphagia patient has a PEG tube in place #10. Previous history of aspiration related pneumonia #11. History of hydrocephalus with history of EXPERIMENTAL PSYCHOLOGIST shunt placement and previous revisions. Patient apparently sees a neurosurgeon at the [facility] #12. Previous history of benign brain meningiomas and spinal cord tumor #13. History of developmental delay #14. History of adrenal insufficiency, on Cortef #15. Lifetime nonsmoker Plan: Postintubation blood gases and chest x-ray, CTA chest EKG and CT brain have been reviewed Patient will be admitted to the intensive care unit once stabilized in the ED Continue on current ventilator mode, assist-control, rate down to 16, tidal volume down to 300, FiO2 to 50% and PEEP of 5 Continue Zosyn for antibiotic coverage Continue IV fluid resuscitation We'll place the patient on stress doses of hydrocortisone 50 mg every 6 hours IV push Obtain pancultures including blood culture, sputum culture and urine culture GI and DVT prophylaxis Cardiology Jarad Echocardiogram is pending Initiate early nutritional support Overall prognosis is guarded Continue close monitoring in the ICU I performed a history & physical examination of the patient and discussed their management with my nurse practitioner, Marcela Bryant. I reviewed the nurse practitioner's note and agree with the documented findings and plan of care. Lung sounds are positive for dim breath sthroughout the lung alfaro. The findings and the impression was discussed with the patient. I attest to the documentation by the nurse practitioner. Time with Patient: Greater than 30
[2021-03-30] MEDS ORDERED: DEXTROSE 10% IN WATER 1,000 ML IV ONE (15:00)
[2021-03-30] MEDS ORDERED: NOREPINEPHRINE 32 MG in SODIUM CHLORIDE 0.9% 218 ML IV ONE (15:14)
[2021-03-30] MEDS ORDERED: NALOXONE 0.4 MG/ML 1 ML VIAL IV PRN (15:15)
[2021-03-30 15:40] LABS: Glucose,Whole Blood 76 mg/dL (75-99)
[2021-03-30] MEDS: PIPERACILLIN-TAZOBACTAM 3.375 GM in SODIUM CHLORIDE 0.9% 100 ML IVPB SCH ×2 (15:52→17:37)
[2021-03-30] MEDS ORDERED: HYDROCORTISONE SUCCINATE 100 MG/2 ML VIAL IV SCH (16:00)
[2021-03-30 16:22] LABS: Anisocytosis Slight; Basophils % (A) 0 %; Eosinophils % (A) 0 %; HCT 30.2 % (39.0-53.0); Lymphocytes # (A) 0.8 k/uL (1.0-4.8); Lymphocytes % (A) 12 %; MCH 32.4 pg (25.0-35.0); MCHC 33.7 g/dL (31.0-37.0); MCV 96.1 fL (80.0-100.0); Macrocytosis Slight; Mean Platelet Volume 10.3; Monocytes # (A) 0.4 k/uL (0-1.0); Monocytes % (A) 6 %; Neutrophils # (A) 5.1 k/uL (1.3-7.7); Neutrophils % (A) 81 %; RBC 3.14 m/uL (4.30-5.90); RDW 18.7 % (11.5-15.5); WBC 6.3 k/uL (3.8-10.6)
[2021-03-30 16:29] LABS: HGB 10.2 gm/dL (13.0-17.5); Platelet Count 81 k/uL (150-450)
[2021-03-30 16:34] LABS: ALT 34 U/L (4-49); AST 50 U/L (17-59); African American GFR (CKD) >90 (>60 ml/min/1.73 sqM); Albumin 2.3 g/dL (3.5-5.0); Alkaline Phosphatase 272 U/L (38-126); Anion Gap 7 mmol/L; Blood Urea Nitrogen 30 mg/dL (9-20); Calcium 8.1 mg/dL (8.4-10.2); Carbon Dioxide 25 mmol/L (22-30); Chloride 100 mmol/L (98-107); Glucose 71 mg/dL (74-99); Non-African American GFR(CKD) >90 (>60 ml/min/1.73 sqM); Potassium 2.9 mmol/L (3.5-5.1); Sodium 132 mmol/L (137-145); Total Bilirubin 0.5 mg/dL (0.2-1.3); Total Protein 4.7 g/dL (6.3-8.2)
[2021-03-30 16:46] LABS: Glucose,Whole Blood 77 mg/dL (75-99)
--- NOTE | 2021-03-30 17:29 | HP ---
HISTORY AND PHYSICAL DATE OF SERVICE: 03/30/2021 CHIEF COMPLAINTS: Unresponsiveness and respiratory failure. HISTORY OF PRESENT ILLNESS: This 35-year-old gentleman with a past medical history of astrocytoma, multiple surgeries, history of pneumonia, seizure disorder, being followed by Dr. Whitney Ruiz in the outpatient setting, recently had lithotripsy and ureteral stent placement in [facility]. Subsequently the patient was rather drowsy and become progressively short of breath and obtunded. The patient was taken to [facility] and found to have bilateral aspiration pneumonia and sepsis and acute respiratory failure. Patient was mechanically intubated. The patient is being closely monitored in the ICU at this time. A detailed history cannot be taken from the patient. The patient at baseline was barely communicative, as mentioned earlier. Most of the history is taken from my discussion with staff, discussion with the ER physician and discussion with both parents at the bedside. PAST MEDICAL HISTORY: History of astrocytoma, multiple brain surgeries, history of pneumonia, CVA, TIA, seizure disorder. HOME MEDICATIONS: Reviewed. They include Keppra, Flomax, Pyridium. Doses and other medications are reviewed. ALLERGIES: ALLERGIES include COLACE AND LANSOPRAZOLE. Family history, social history, review of systems could not be taken because of the patient's change in mental status. PHYSICAL EXAMINATION: Pulse is 82, blood pressure 76/52, respiration 26, pulse ox % on mechanical ventilation. Vent settings are noted. HEENT: Conjunctivae normal. Oral mucosa moist. CARDIOVASCULAR: S1, S2 muffled. RESPIRATION: Breath sounds diminished at the bases. A few scattered rhonchi and crackles. ABDOMEN: Soft, nontender. LEGS: No edema. No swelling. NERVOUS SYSTEM: Patient is unresponsive. SKIN: No ulcer, rash, bleeding. JOINTS: No active deforming arthropathy. LABS: ABGs noted. Otherwise, lactic acid 6.9. WBC 15.6. D-dimer is 2.57. CTA and chest x- ray reviewed personally. ASSESSMENT: 1. Acute bilateral aspiration pneumonia with possible sepsis and acute hypoxic respiratory failure, on mechanical ventilation. 2. History of recent lithotripsy and ureteral stent placement. 3. Hypoglycemia. 4. Hyponatremia. 5. History of astrocytoma and multiple surgeries. 6. History of seizure disorder. 7. History of cerebrovascular accident, transient ischemic attack. RECOMMENDATIONS AND DISCUSSION: In this 35-year-old gentleman who presented with multiple complex medical issues, we will monitor the patient closely. Will initiate broad-spectrum IV antibiotics, bronchodilators. Monitor closely in the ICU along with Dr. Hay. DVT prophylaxis. Incentive spirometry. We will also do repeat COVID-19 testing. Other than that, overall prognosis is guarded, which I discussed at length with the family at the bedside, who understands and agrees. Further recommendations to follow. MMODL / IJN: [id number] / DIMITRI
[2021-03-30] MEDS: HYDROCORTISONE SUCCINATE 100 MG/2 ML VIAL IV SCH ×2 (17:36→21:59)
[2021-03-30] MEDS: HEPARIN SODIUM,PORCINE/PF 5,000 UNIT/0.5 ML SYRINGE SQ SCH (17:36)
--- NOTE | 2021-03-30 18:19 | P.CNNES ---
History of Present Illness Consult date: 03/30/21 Requesting physician: Roberto Floyd Reason for Consult: seizure History of Present Illness: This is [id number] gentleman with developemental delay, seizure, Pilocytic astrocytoma around hypothalams, multiple brain meningoma s/p bilateral craniotomy, hydrocephalus and PHYSICAL THER shunt placement with multiple revision, spinal cord tumor, stroke in 2013 with residual right sided weakness,dysphagia s/p PEG tube, kidney stone s/p recent removal who presented to emergency department on 03/30/2021 because of evaluation of abdominal pain. History is obtained from patient's family who are at bedside and medical records. Neurology is consulted because seizure. In the ED the patient has hypoglycemia and presented with POC glucose of 41 and got as low as 33. I spoke with the patient nurse seems that the patient father while the patient was in the ED his parents felt he had a seizure in which he lift the right arm briefly according to the nurse. She denied that patient had any jerking of any extremities, foaming around the mouth, she stated that the patient just slightly raised the right arm up and unsure of gaze deviation. In the ED the patient was given 2 mg of Ativan, Versed 5 mg, and was charted on Keppra 500 mg IV twice a day. He was also given dextrose. Patient is on home medication of Keppra 500 mg via PEG tube Diaz a day, Ativan 0.5 mg 1 tablet 3 times a day as needed, hydrocortisone 20 mg at bedtime, h ydrocortisone 10 mg daily Of note patient follows up with Dr. Nelson (neurosurgeon) over at [facility] and Dr. Wang (Neurologist). Per the patient mother she stated that the patient has been having brain surgery since 1989 and his last surgery was 2019. He has a shunt on the right side of the brain and that was placed on 2013 and he also has a shunt in the left side of the brain and that is remote and that is nonfunctional according to the mother that there are notified that. Regarding his baseline he is oriented 1-2 (self and possibly place). He has residual right-sided weakness from his stroke. Per the father he has good strength over the left side. Regarding his seizures father stated that he does not have generalized tonic-clonic seizure but he has his seizures he [place] racterizes them as lifting his upper extremities but last seizure was probably a week ago prior to that was probably 1-2 month ago and he is on Keppra 500 mg twice a day. Estimated above he has a recent history of ureteral stent placement and had numerous kidney stones removed. Other workup in the hospital consisted of: Initial vital signs his blood pressure 151/90, heart rate of 124, respiratory of 34, temperature of 97.8 Fahrenheit oral and pulse ox of 90% on 4 L of nasal cannula. Initial white blood cells 50.6 and repeated 6.3. MCV is 94. His sodium was 130, creatinine is 1.14, plasma lactic acid is 6.9. Because the patient was tachypneic and tachycardia a He was given Mrophine in the ED. As resut of respiratory issues was intubated and on ventilator. CT of the head is reported as previous craniotomy flap on both left and right side. Chronic underlying extra axial fluid collection, the left-containing shunt catheter. The left-sided extra-axial collection is slightly larger at 1.9 cm thick versus 1.7 cm previously. Some nodule area of intermediate density at present within the fluid and could represent subacute blood product. The anterior right frontal extra-axial fluid collection is smaller from 2018 at 1.4 cm thick versus 1.5 cm, previously and contain some intermediate density area that could represent subacute blood product. No definite acute intracranial hemorrhage. No midline shift. There is a new right parietal PHYSICAL THER shunt catheter compared to 2018 tip in the posterior body of the left lateral ventricle. The hydrocephalus seen on 2007 he has resolved. Abandoned anterior right frontal shunt catheter. I personally reviewed the CT of the head and there is no acute subacute ischemia and there is no acute intraperitoneal hemorrhage. Patient does have history of craniotomy as well as he does have a shunt placed. He does have chronic underlying left extra-axial fluid collection and it's in the frontal region area. Chest x-rays reported as right lower lobe infiltrate with small effusion correlate for interstitial pneumonitis or mild venous congestion. His lipase level is 1565 amylase is 506 troponin is 0.39. AST 67 and ALT is 45. Outcome phosphorus is 450. Arreaga virus PCR was not detected. Review of Systems Review of system: Is limited with apparent positive and negative as per HPI. Past Medical History Past Medical History: CVA/TIA, Pneumonia, Seizure Disorder Additional Past Medical History / Comment(s): Pt had recent admission to [facility] on 07/19/17 with low abdominal pain-inflammation per cat scan and ended up with acute respiratory failure-possibly d/t aspiration-vented. Other HX: Benign brain tumors-meningiomas, spinal cord tumor, seizures which started 5 years ago, HYPOTHERMIA R/T BRAIN TUMOR, 2 recently new brain tumors per mother, CVA 2013 with slightly increased R sided weakness, prior R sided weakness, neuro care thru [facility], positive c diff 2015 & 2011 had fecal replacement at [facility], hypoglycemia, adrenal insufficiency. History of Any Multi-Drug Resistant Organisms: None Reported Past Surgical History: Ventriculoperitoneal Shunt Additional Past Surgical History / Comment(s): PHYSICAL THER shunts (2) with 3 leads (one extra lead)-L sided shunt is nonfunctioning, shunt revisions, spinal cord tumor removal, peg tube, fecal transplant Past Anesthesia/Blood Transfusion Reactions: No Reported Reaction Past Psychological History: No Psychological Hx Reported Smoking Status: Never smoker Past Alcohol Use History: None Reported Past Drug Use History: None Reported - Past Family History Mother Family Medical History: No Reported History Father Family Medical History: No Reported History Medications and Allergies Home Medications Medication Instructions Recorded Confirmed Type Hydrocortisone [Cortef] 10 mg PEG/G-TUBE DAILY 07/07/13 03/30/21 History levETIRAcetam [Keppra Oral 500 mg PEG/G-TUBE BID 10/16/19 03/30/21 History Solution] Albuterol Nebulized [Ventolin 2.5 mg INHALATION RT-Q6H PRN 03/30/21 03/30/21 History Nebulized] Cephalexin [Keflex] 500 mg PEG/G-TUBE Q8H 03/30/21 03/30/21 History Hydrocortisone [Cortef] 20 mg PEG/G-TUBE HS 03/30/21 03/30/21 History LORazepam [Ativan] 0.5 mg PO TID PRN 03/30/21 03/30/21 History Montelukast [Singulair] 10 mg PEG/G-TUBE HS 03/30/21 03/30/21 History Morphine Sulfate [Morphine Sulfate 10 mg PO DAILY PRN 03/30/21 03/30/21 History 10 MG/5 ML] Phenazopyridine [Pyridium] 100 mg PEG/G-TUBE TID 02/17/22 02/17/22 History Tamsulosin [Flomax] 0.4 mg PEG/G-TUBE DAILY 03/30/21 03/30/21 History Allergies Allergy/AdvReac Type Severity Reaction Status Date / Time docusate sodium [From Colace] Allergy Rash/Hives Verified 03/30/21 11:46 lansoprazole [From Prevacid] Allergy Unknown Verified 03/30/21 11:46 metoclopramide HCl Allergy Unknown Verified 03/30/21 11:46 [From Reglan] peanut Allergy Rash/Hives Verified 03/30/21 11:46 Physical Examination - Vital Signs Vital Signs: Vital Signs Temp Pulse Resp BP Pulse Ox 03/30/21 16:00 77 22 93/65 98 03/30/21 15:00 82 26 H 76/52 98 03/30/21 13:00 102 H 25 H 101/54 98 03/30/21 12:50 102 H 22 97/62 98 03/30/21 12:08 161 H 28 H 111/76 97 03/30/21 11:45 165 H 45 H 89/69 85 L 03/30/21 09:44 97.8 F 124 H 34 H 151/90 90 L Intake and Output 03/30/21 03/30/21 03/30/21 06:59 14:59 22:59 Intake Total 0.957 Balance 0.957 Intake: Intake, IV Titration 0.957 Amount Norepinephrine 32 mg In 0.957 Sodium Chloride 0.9% 218 ml @ 0.05 MCG/KG/MIN 1. 063 mls/hr IV .Q24H ONE Rx#:[id number] Other: Weight 45.359 kg GENERAL: The patient is lying in bed and does not seem in acute distress. 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 CHEST: The heart rate is regular rate rhythm. No murmurs to auscultation. LUNG: Clear to auscultation bilaterally no wheezing noted throughout. Not labored breathing. Intubated and on Ventilator. ABDOMEN/GI: Bowel sounds present in all 4 quadrants. No tenderness to palpation throughout. NEUROLOGICAL: Limited because of his condition and received Ativan, Versed, Morphine, Intubated and Vent. Higher mental function: Comatose. GCS 3 (E1, VT1, M1). Not following commands or verbalizing. Cranial nerves: I had to manually open his eyes. Primary gaze is midline. The pupils are round, equal (2mm) and reactive to light. No facial weakness. Is breathing over the vent. Otherwise could not assess rest of cranial nerves. Motor: The strength is limited. No spontaneous movement. Seems decrease tone throughout. Cerebellum: Could not assess. Sensation: Sensation is normal to touch throughout. Reflexes (right/left): 1+ throughout. Results - Laboratory Findings CBC and BMP: 03/30/21 15:59 03/30/21 15:59 Abnormal Lab Findings: Abnormal Labs 03/30/21 03/30/21 03/30/21 10:03 10:03 10:03 WBC 15.6 H RBC 4.10 L Hgb Hct 38.8 L RDW 17.9 H Plt Count 132 L Neutrophils # 13.3 H Lymphocytes # D-Dimer ABG pH ABG pCO2 ABG pO2 ABG HCO3 ABG Total CO2 ABG O2 Saturation Sodium 130 L Potassium Chloride 91 L BUN 38 H Glucose 49 L* POC Glucose (mg/dL) Plasma Lactic Acid Terrence Calcium AST 67 H Alkaline Phosphatase 450 H Troponin I 0.393 H* Total Protein Albumin Amylase 506 H* Lipase 1565 H Urine RBC Urine WBC 03/30/21 03/30/21 03/30/21 10:48 11:35 11:42 WBC RBC Hgb Hct RDW Plt Count Neutrophils # Lymphocytes # D-Dimer 2.57 H ABG pH ABG pCO2 ABG pO2 ABG HCO3 ABG Total CO2 ABG O2 Saturation Sodium Potassium Chloride BUN Glucose POC Glucose (mg/dL) 41 L Plasma Lactic Acid Terrence Calcium AST Alkaline Phosphatase Troponin I Total Protein Albumin Amylase Lipase Urine RBC >182 H Urine WBC 112 H 03/30/21 03/30/21 03/30/21 12:57 13:30 13:44 WBC RBC Hgb Hct RDW Plt Count Neutrophils # Lymphocytes # D-Dimer ABG pH 7.51 H ABG pCO2 34 L ABG pO2 280 H ABG HCO3 27 H ABG Total CO2 28 H ABG O2 Saturation 100.0 H Sodium Potassium Chloride BUN Glucose POC Glucose (mg/dL) 33 L Plasma Lactic Acid Terrence 6.9 H* Calcium AST Alkaline Phosphatase Troponin I Total Protein Albumin Amylase Lipase Urine RBC Urine WBC 03/30/21 03/30/21 15:59 15:59 WBC RBC 3.14 L Hgb 10.2 L D Hct 30.2 L RDW 18.7 H Plt Count 81 L Neutrophils # Lymphocytes # 0.8 L D-Dimer ABG pH ABG pCO2 ABG pO2 ABG HCO3 ABG Total CO2 ABG O2 Saturation Sodium 132 L Potassium 2.9 L Chloride BUN 30 H Glucose 71 L POC Glucose (mg/dL) Plasma Lactic Acid Terrence Calcium 8.1 L AST Alkaline Phosphatase 272 H Troponin I Total Protein 4.7 L Albumin 2.3 L Amylase Lipase Urine RBC Urine WBC Assessment and Plan Assessment: Breakthrough seizure (it was questionable per ED nurse) and likely provoked due to hypoglycemia as low as 33. Significant hypoglycemia (as low as 33) Acute hypoxic respiratory failure related to possibly sepsis possibly due to acute pancreatitis Acute pancreatitis History of seizure Multiple brain meningioma s/p bilateral craniotomy (had multiple surgeries and first was 1989 and last 2018). 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 Continue Keppra 500 twice a day which is home dose. Please avoid any further hypoglycemia will defer the management to the ICU as well as the primary team Every neuro checks 1mg Ativan Q4H PRN for seizure. If patient has seizure increase Keppra to 750mg bid. Pending urine culture and blood culture as well as urine analysis We'll defer the rest of the medical management to the primary and ICU team. The plan is discussed with the patient's parents and his ICU nurse. Thank you for the consultation. Ian Hay M.D. Neuro-Hospitalist Time with Patient: Greater than 30
[2021-03-30] MEDS ORDERED: LORazepam 2 MG/ML INJ IV PRN (19:35)
[2021-03-30] MEDS: IPRATROPIUM-ALBUTEROL 3 ML NEB INHALATION SCH (19:44)
[2021-03-30] MEDS: PANTOPRAZOLE 40 MG/10 ML VIAL IVP SCH (21:59)
[2021-03-31 00:02] LABS: Glucose,Whole Blood 139 mg/dL (75-99)
[2021-03-31] MEDS: PIPERACILLIN-TAZOBACTAM 3.375 GM in SODIUM CHLORIDE 0.9% 100 ML IVPB SCH ×4 (00:39→23:46)
[2021-03-31] MEDS: HEPARIN SODIUM,PORCINE/PF 5,000 UNIT/0.5 ML SYRINGE SQ SCH (00:39)
[2021-03-31] MEDS: HYDROmorphone 1 MG/ML 1 ML SYRINGE IVP PRN ×2 (00:52→13:53)
[2021-03-31] MEDS ORDERED: propofoL 100 ML IV ONE (01:11)
[2021-03-31] MEDS: HYDROCORTISONE SUCCINATE 100 MG/2 ML VIAL IV SCH ×4 (03:53→20:53)
[2021-03-31 05:11] LABS: Anisocytosis Slight; HGB 9.7 gm/dL (13.0-17.5); MCH 33.3 pg (25.0-35.0); MCHC 34.6 g/dL (31.0-37.0); MCV 96.1 fL (80.0-100.0); Macrocytosis Slight; Mean Platelet Volume 9.7; Platelet Count 102 k/uL (150-450); RBC 2.92 m/uL (4.30-5.90); RDW 17.9 % (11.5-15.5); WBC 8.9 k/uL (3.8-10.6)
[2021-03-31 05:31] LABS: African American GFR (CKD) >90 (>60 ml/min/1.73 sqM); Anion Gap 3 mmol/L; Blood Urea Nitrogen 28 mg/dL (9-20); Carbon Dioxide 28 mmol/L (22-30); Chloride 99 mmol/L (98-107); Glucose 76 mg/dL (74-99); Non-African American GFR(CKD) 83 (>60 ml/min/1.73 sqM); Potassium 3.8 mmol/L (3.5-5.1); Sodium 130 mmol/L (137-145)
[2021-03-31 05:50] LABS: ABG Base Excess 4.5 mmol/L; ABG HCO3 29 mmol/L (21-25); ABG Oxygen Saturation 97.8 % (94-97); ABG PCO2 43 mmHg (35-45); ABG PH 7.44 (7.35-7.45); ABG PO2 97 mmHg (83-108); ABG TCO2 30 mmol/L (19-24); Allen Test Performed? Yes
[2021-03-31 06:19] LABS: Glucose,Whole Blood 85 mg/dL (75-99)
[2021-03-31] MEDS ORDERED: Potassium Replacement Protocol 1 EACH MISC MISCELLANE PRN (06:26)
[2021-03-31] MEDS: IPRATROPIUM-ALBUTEROL 3 ML NEB INHALATION SCH ×2 (07:44→20:02)
[2021-03-31 08:30] LABS: Glucose,Whole Blood 112 mg/dL (75-99)
--- NOTE | 2021-03-31 09:35 | XR ---
EXAMINATION TYPE: XR chest 1V portable DATE OF EXAM: 03/31/2021 COMPARISON: 03/30/2021 HISTORY: Shortness of breath TECHNIQUE: Single frontal view of the chest is obtained. FINDINGS: PASTRY ARTIST shunt catheter and right-sided central line noted. ET tube 2.5 cm above roberto and ther e is bilateral infiltrate and pleural effusion with interstitial pattern. No pneumothorax. IMPRESSION: 1. Progression of patchy infiltrate, pneumonia right upper lobe with bilateral lower lobe infiltrate and small effusion correlate for interstitial pneumonitis or venous congestion.
[2021-03-31] MEDS: POTASSIUM CHLORIDE 10 MEQ in WATER FOR INJECTION 1 100ML.BAG IVPB SCH ×2 (09:43→12:13)
[2021-03-31] MEDS: CHLORHEXIDINE GLUCONATE 15 ML CUP MUCOUS MEM SCH ×2 (09:43→20:53)
[2021-03-31] MEDS: PANTOPRAZOLE 40 MG/10 ML VIAL IVP SCH ×2 (09:43→20:54)
[2021-03-31] MEDS: levETIRAcetam IV 500 MG in SODIUM CHLORIDE 0.9% 100 ML IVPB SCH ×2 (10:28→22:40)
--- NOTE | 2021-03-31 10:40 | P.PN ---
Subjective Progress Note Date: 03/31/21 The patient is seen at bedside and per nurse he continues to be intubated on ventilator. He was on IV 20mcg/kg/min and was stopped around 15 minutes prior to my arrival. Per nurse no further seizure-like activity. Objective - Vital Signs Vital signs: Vital Signs Temp 97.7 F 03/31/21 08:00 Pulse 68 03/31/21 10:00 Resp 17 03/31/21 10:00 BP 84/67 03/31/21 10:00 Pulse Ox 99 03/31/21 10:00 Intake & Output 03/30/21 03/31/21 03/31/21 18:59 06:59 18:59 Intake Total 184.982 947.658 106.228 Output Total 985 30 Balance 184.982 -37.342 76.228 Weight 45.359 kg 52.6 kg Intake: IV 640 60 Dextrose 10% in Water 1, 540 60 000 ml @ 60 mls/hr IV . [id number] [facility] Rx#:[id number] levETIRAcetam IV 500 mg 100 In Sodium Chloride 0.9% 100 ml @ 400 mls/hr IVPB BID [facility] Rx#:[id number] Intake, IV Titration 184.982 307.658 46.228 Amount Dextrose 10% in Water 1, 180 180 000 ml @ 60 mls/hr IV . [id number] [facility] Rx#:[id number] Norepinephrine 32 mg In 4.982 25.435 5.460 Sodium Chloride 0.9% 218 ml @ 0.05 MCG/KG/MIN 1. 063 mls/hr IV .Q24H [facility] Rx#:[id number] Piperacillin-Tazobactam 3 100 .375 gm In Sodium Chloride 0.9% 100 ml @ 25 mls/hr IVPB Q8HR [facility] Rx# :[id number] propofoL 1,000 mg In 2.223 40.768 Empty Bag 1 bag @ Titrate IV .Q0M [facility] Rx#: [id number] Output: Urine 985 30 Other: Voiding Method Indwelling Catheter Indwelling Catheter - Exam GENERAL: The patient is lying in bed and does not seem in acute distress. 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 NEUROLOGICAL: Limited because of his condition and his IV Propofol was held 15 minutes prior to my examination. Higher mental function: Comatose. GCS 4 (E2, VT1, M1). Not following commands or verbalizing. Cranial nerves: I had to manually open his eyes. Primary gaze is midline. Patient is attempting to open eyes with voice. The pupils are round, equal (2mm) and reactive to light. No facial weakness. Is breathing over the vent. Otherwise could not assess rest of cranial nerves. Motor: The strength is limited. No spontaneous movement. Has increase tone throughout. Cerebellum: Could not assess. Sensation: Could not assess. Reflexes (right/left): 1+ throughout. WORK-UP: Initial vital signs his blood pressure 151/90, heart rate of 124, respiratory of 34, temperature of 97.8 Fahrenheit oral and pulse ox of 90% on 4 L of nasal cannula. Initial white blood cells 50.6 and repeated 6.3. MCV is 94. His sodium was 130, creatinine is 1.14, plasma lactic acid is 6.9. Because the patient was tachypneic and tachycardia a He was given Mrophine in the ED. As resut of respiratory issues was intubated and on ventilator. CT of the head is reported as previous craniotomy flap on both left and right side. Chronic underlying extra axial fluid collection, the left-containing shunt catheter. The left-sided extra-axial collection is slightly larger at 1.9 cm thick versus 1.7 cm previously. Some nodule area of intermediate density at present within the fluid and could represent subacute blood product. The anterior right frontal extra-axial fluid collection is smaller from 2018 at 1.4 cm thick versus 1.5 cm, previously and contain some intermediate density area that could represent subacute blood product. No definite acute intracranial hemorrhage. No midline shift. There is a new right parietal [employer] shunt catheter compared to 2018 tip in the posterior body of the left lateral ventricle. The hydrocephalus seen on 2008 he has resolved. Abandoned anterior right frontal shunt catheter. I personally reviewed the CT of the head and there is no acute subacute ischemia and there is no acute intraperitoneal hemorrhage. Patient does have history of craniotomy as well as he does have a shunt placed. He does have chronic underlying left extra-axial fluid collection and it's in the frontal region area. Chest x-rays reported as right lower lobe infiltrate with small effusion correlate for interstitial pneumonitis or mild venous congestion. His lipase level is 1565 amylase is 506 troponin is 0.39. AST 67 and ALT is 45. Outcome phosphorus is 450. Arreaga virus PCR was not detected. u/a: color is red and appears bloody, wbc is 112, rbc >182, - Labs CBC & Chem 7: 03/31/21 04:56 03/31/21 04:56 Labs: Abnormal Lab Results - Last 24 Hours (Table) 03/30/21 03/30/21 03/30/21 Range/Units 10:03 10:03 10:03 WBC 15.6 H (3.8-10.6) k/uL RBC 4.10 L (4.30-5.90) m/uL Hgb (13.0-17.5) gm/dL Hct 38.8 L (39.0-53.0) % RDW 17.9 H (11.5-15.5) % Plt Count 132 L (150-450) k/uL Neutrophils # 13.3 H (1.3-7.7) k/uL Lymphocytes # (1.0-4.8) k/uL D-Dimer (<0.60) mg/L FEU ABG pH (7.35-7.45) ABG pCO2 (35-45) mmHg ABG pO2 (83-108) mmHg ABG HCO3 (21-25) mmol/L ABG Total CO2 (19-24) mmol/L ABG O2 Saturation (94-97) % Sodium 130 L (137-145) mmol/L Potassium (3.5-5.1) mmol/L Chloride 91 L (98-107) mmol/L BUN 38 H (9-20) mg/dL Glucose 49 L* (74-99) mg/dL POC Glucose (mg/dL) (75-99) mg/dL Plasma Lactic Acid Terrence (0.7-2.0) mmol/L Calcium (8.4-10.2) mg/dL AST 67 H (17-59) U/L Alkaline Phosphatase 450 H (38-126) U/L Troponin I 0.393 H* (0.000-0.034) ng/mL Total Protein (6.3-8.2) g/dL Albumin (3.5-5.0) g/dL Amylase 506 H* (30-110) U/L Lipase 1565 H (23-300) U/L Urine RBC (0-5) /hpf Urine WBC (0-5) /hpf 03/30/21 03/30/21 03/30/21 Range/Units 10:48 11:35 11:42 WBC (3.8-10.6) k/uL RBC (4.30-5.90) m/uL Hgb (13.0-17.5) gm/dL Hct (39.0-53.0) % RDW (11.5-15.5) % Plt Count (150-450) k/uL Neutrophils # (1.3-7.7) k/uL Lymphocytes # (1.0-4.8) k/uL D-Dimer 2.57 H (<0.60) mg/L FEU ABG pH (7.35-7.45) ABG pCO2 (35-45) mmHg ABG pO2 (83-108) mmHg ABG HCO3 (21-25) mmol/L ABG Total CO2 (19-24) mmol/L ABG O2 Saturation (94-97) % Sodium (137-145) mmol/L Potassium (3.5-5.1) mmol/L Chloride (98-107) mmol/L BUN (9-20) mg/dL Glucose (74-99) mg/dL POC Glucose (mg/dL) 41 L (75-99) mg/dL Plasma Lactic Acid Terrence (0.7-2.0) mmol/L Calcium (8.4-10.2) mg/dL AST (17-59) U/L Alkaline Phosphatase (38-126) U/L Troponin I (0.000-0.034) ng/mL Total Protein (6.3-8.2) g/dL Albumin (3.5-5.0) g/dL Amylase (30-110) U/L Lipase (23-300) U/L Urine RBC >182 H (0-5) /hpf Urine WBC 112 H (0-5) /hpf 03/30/21 03/30/21 03/30/21 Range/Units 12:57 13:30 13:44 WBC (3.8-10.6) k/uL RBC (4.30-5.90) m/uL Hgb (13.0-17.5) gm/dL Hct (39.0-53.0) % RDW (11.5-15.5) % Plt Count (150-450) k/uL Neutrophils # (1.3-7.7) k/uL Lymphocytes # (1.0-4.8) k/uL D-Dimer (<0.60) mg/L FEU ABG pH 7.51 H (7.35-7.45) ABG pCO2 34 L (35-45) mmHg ABG pO2 280 H (83-108) mmHg ABG HCO3 27 H (21-25) mmol/L ABG Total CO2 28 H (19-24) mmol/L ABG O2 Saturation 100.0 H (94-97) % Sodium (137-145) mmol/L Potassium (3.5-5.1) mmol/L Chloride (98-107) mmol/L BUN (9-20) mg/dL Glucose (74-99) mg/dL POC Glucose (mg/dL) 33 L (75-99) mg/dL Plasma Lactic Acid Terrence 6.9 H* (0.7-2.0) mmol/L Calcium (8.4-10.2) mg/dL AST (17-59) U/L Alkaline Phosphatase (38-126) U/L Troponin I (0.000-0.034) ng/mL Total Protein (6.3-8.2) g/dL Albumin (3.5-5.0) g/dL Amylase (30-110) U/L Lipase (23-300) U/L Urine RBC (0-5) /hpf Urine WBC (0-5) /hpf 03/30/21 03/30/21 03/30/21 Range/Units 15:59 15:59 23:59 WBC (3.8-10.6) k/uL RBC 3.14 L (4.30-5.90) m/uL Hgb 10.2 L D (13.0-17.5) gm/dL Hct 30.2 L (39.0-53.0) % RDW 18.7 H (11.5-15.5) % Plt Count 81 L (150-450) k/uL Neutrophils # (1.3-7.7) k/uL Lymphocytes # 0.8 L (1.0-4.8) k/uL D-Dimer (<0.60) mg/L FEU ABG pH (7.35-7.45) ABG pCO2 (35-45) mmHg ABG pO2 (83-108) mmHg ABG HCO3 (21-25) mmol/L ABG Total CO2 (19-24) mmol/L ABG O2 Saturation (94-97) % Sodium 132 L (137-145) mmol/L Potassium 2.9 L (3.5-5.1) mmol/L Chloride (98-107) mmol/L BUN 30 H (9-20) mg/dL Glucose 71 L (74-99) mg/dL POC Glucose (mg/dL) 139 H (75-99) mg/dL Plasma Lactic Acid Terrence (0.7-2.0) mmol/L Calcium 8.1 L (8.4-10.2) mg/dL AST (17-59) U/L Alkaline Phosphatase 272 H (38-126) U/L Troponin I (0.000-0.034) ng/mL Total Protein 4.7 L (6.3-8.2) g/dL Albumin 2.3 L (3.5-5.0) g/dL Amylase (30-110) U/L Lipase (23-300) U/L Urine RBC (0-5) /hpf Urine WBC (0-5) /hpf 03/31/21 03/31/21 03/31/21 Range/Units 04:56 04:56 05:48 WBC (3.8-10.6) k/uL RBC 2.92 L (4.30-5.90) m/uL Hgb 9.7 L (13.0-17.5) gm/dL Hct 28.0 L (39.0-53.0) % RDW 17.9 H (11.5-15.5) % Plt Count 102 L (150-450) k/uL Neutrophils # (1.3-7.7) k/uL Lymphocytes # (1.0-4.8) k/uL D-Dimer (<0.60) mg/L FEU ABG pH (7.35-7.45) ABG pCO2 (35-45) mmHg ABG pO2 (83-108) mmHg ABG HCO3 29 H (21-25) mmol/L ABG Total CO2 30 H (19-24) mmol/L ABG O2 Saturation 97.8 H (94-97) % Sodium 130 L (137-145) mmol/L Potassium (3.5-5.1) mmol/L Chloride (98-107) mmol/L BUN 28 H (9-20) mg/dL Glucose (74-99) mg/dL POC Glucose (mg/dL) (75-99) mg/dL Plasma Lactic Acid Terrence (0.7-2.0) mmol/L Calcium 8.0 L (8.4-10.2) mg/dL AST (17-59) U/L Alkaline Phosphatase (38-126) U/L Troponin I (0.000-0.034) ng/mL Total Protein (6.3-8.2) g/dL Albumin (3.5-5.0) g/dL Amylase (30-110) U/L Lipase (23-300) U/L Urine RBC (0-5) /hpf Urine WBC (0-5) /hpf 03/31/21 Range/Units 08:28 WBC (3.8-10.6) k/uL RBC (4.30-5.90) m/uL Hgb (13.0-17.5) gm/dL Hct (39.0-53.0) % RDW (11.5-15.5) % Plt Count (150-450) k/uL Neutrophils # (1.3-7.7) k/uL Lymphocytes # (1.0-4.8) k/uL D-Dimer (<0.60) mg/L FEU ABG pH (7.35-7.45) ABG pCO2 (35-45) mmHg ABG pO2 (83-108) mmHg ABG HCO3 (21-25) mmol/L ABG Total CO2 (19-24) mmol/L ABG O2 Saturation (94-97) % Sodium (137-145) mmol/L Potassium (3.5-5.1) mmol/L Chloride (98-107) mmol/L BUN (9-20) mg/dL Glucose (74-99) mg/dL POC Glucose (mg/dL) 112 H (75-99) mg/dL Plasma Lactic Acid Terrence (0.7-2.0) mmol/L Calcium (8.4-10.2) mg/dL AST (17-59) U/L Alkaline Phosphatase (38-126) U/L Troponin I (0.000-0.034) ng/mL Total Protein (6.3-8.2) g/dL Albumin (3.5-5.0) g/dL Amylase (30-110) U/L Lipase (23-300) U/L Urine RBC (0-5) /hpf Urine WBC (0-5) /hpf Microbiology - Last 24 Hours (Table) 03/30/21 12:20 Gram Stain - Preliminary Sputum Sputum Culture - Preliminary 03/30/21 10:48 Urine Culture - Preliminary Urine,Voided Assessment and Plan Assessment: Breakthrough seizure (it was questionable per ED nurse) and likely provoked due to hypoglycemia as low as 33---no further seizures Significant hypoglycemia on presentation (as low as 33)--improved Acute hypoxic respiratory failure related to possibly sepsis possibly due to acute pancreatitis Acute pancreatitis History of seizure Multiple brain meningioma s/p bilateral craniotomy (had multiple surgeries and first was 1989 and last 2018). 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 Continue Keppra 500 twice a day which is home dose. Please avoid any further hypoglycemia will defer the management to the ICU as well as the primary team Every neuro checks 1mg Ativan Q4H PRN for seizure. If patient has seizure increase Keppra to 750mg bid. Pending urine culture and blood culture as well as urine analysis We'll defer the rest of the medical management to the primary and ICU team. The plan is discussed with the patient's parents and his ICU nurse. Dr. Miller is starting neurology service tomorrow AM then Dr. Goodwin will start coverage this Saturday. Ian Hay M.D. Neuro-Hospitalist Time with Patient: Less than 30
--- NOTE | 2021-03-31 11:16 | P.PN ---
Subjective Progress Note Date: 03/31/21 Principal diagnosis: Acute hypoxic respiratory failure related to sepsis, Acute pancreatitis, possible aspiration pneumonia 35-year-old white male patient with history of developmental delay, seizure disorder, benign brain meningiomas, spinal cord tumor, hydrocephalus, TOWER CLEANER shunt placement, and revisions, dysphagia with history of PEG tube placement who was brought into the emergency department on 03/30/2021 by EMS for evaluation of abdominal pain. Most history was obtained from the ER physician, and ED records. The patient's parents report the patient was having quite a bit of distress and they gave him morphine, they noted that his heart rate was 120, and patient is usually a little bit bradycardic. He wears home O2 on as-needed basis at home, however the parents noticed that on 4 L of oxygen and his pulse ox was only 90%. There is no reported fevers no vomiting or diarrhea. There is reported history of kidney stones on the right side. In the ED patient was noted to be tachycardic initially with a heart rate of 130 BPM. Initial chest x-ray showed redemonstration of right subclavian central venous catheter, mild chronic parenchymal changes with left basilar opacity, tiny bilateral pleural effusions, no pneumothorax. There was redemonstration of overlying TOWER CLEANER shunt catheters bilaterally. Abdominal x-ray showed PEG tube, right double-J ureter stent, overall nonobstructive bowel gas pattern. Lab work evaluation showed leukocytosis with white blood cell count of 15.6, hemoglobin of 13.3, d-dimer was 2.57, sodium of 1:30, potassium is 4.2, chloride is 91, CO2 is 25, BUN of 38, and creatinine of 1.14. Glucose was 49, plasma lactic acid was 6.9, AST was 67 ALT was 45, alk phos was 450, troponin was 0.393, amylase was 506, lipase was 1565. Patient was afebrile, he was quite tachypneic and tachycardic, he was initially DO NOT RESUSCITATE CODE STATUS, he was being treated medically in the ED with antibiotics, IV fluids, and BiPAP support. CTA chest was completed showing no major or central pulmonary embolism, and scattered bilateral irregula r opacities groundglass opacities, centrilobular nodules and areas of consolidation with air bronchograms most evident in the lower lobes and more on the left side consistent with acute inflammatory or infectious process including COVID-19 infection, but associated pulmonary edema could not be excluded. Subsequently patient went into SVT with a rate of 170, and having more respiratory difficulty, the family has reversed his DO NOT RESUSCITATE CODE STATUS and wanted everything done. At which point patient was intubated and placed on mechanical ventilator. He is currently on assist control mode of ventilation with a rate of 20, tidal lungs 400, FiO2 100% and PEEP of 5. He is sedated with Diprivan, he has received 3 L in IV fluid boluses, he is on Zosyn, nebulized bronchodilators, he did receive of 50% dextrose IV push for episode of hypoglycemia, he was tested for COVID-19 and was found to be negative. Ultrasound of the gallbladder has been completed showing hyperechoic lesions involving the liver that could be related to the hemangiomas. Patient is seen today 03/31/2021 in follow-up in the intensive care unit. He remains intubated and on the mechanical ventilator currently and assist-control mode with a respiratory rate of 16, tidal volume 325, FiO2 50%, PEEP of 5. Morning blood gases revealed a P O2 of 97, pCO2 43, pH 7.44. Chest x-ray reveals progression of patchy infiltrate, pneumonia right upper lobe with bilateral lower lobe infiltrates and a small effusion. Sputum culture pending. Urine culture pending. Currently afebrile. He is sedated with propofol at 20 mcg/kg/m. He is requiring norepinephrine at 0.12 mcg/kg/m. He has D10 running at 60 mL per hour. He is on antibiotics in the form of Zosyn. Continued on heparin for DVT prophylaxis. Remains on bronchodilators. Currently in a +200 mL balance. His weight is 52.6 kg. White count 8.9. Hemoglobin 9.7. Platelet count 102,000. Sodium 1:30. Potassium 3.8. BUN 28. Creatinine 1.14. Glucose 112. Objective - Vital Signs Vital signs: Vital Signs Temp 97.7 F 03/31/21 08:00 Pulse 68 03/31/21 10:00 Resp 17 03/31/21 10:00 BP 84/67 03/31/21 10:00 Pulse Ox 99 03/31/21 10:00 Intake & Output 03/30/21 03/31/21 03/31/21 18:59 06:59 18:59 Intake Total 184.982 947.658 106.228 Output Total 985 30 Balance 184.982 -37.342 76.228 Weight 45.359 kg 52.6 kg Intake: IV 640 60 Dextrose 10% in Water 1, 540 60 000 ml @ 60 mls/hr IV . [id number] ONE Rx#:[id number] levETIRAcetam IV 500 mg 100 In Sodium Chloride 0.9% 100 ml @ 400 mls/hr IVPB BID [facility] Rx#:[id number] Intake, IV Titration 184.982 307.658 46.228 Amount Dextrose 10% in Water 1, 180 180 000 ml @ 60 mls/hr IV . [id number] [facility] Rx#:[id number] Norepinephrine 32 mg In 4.982 25.435 5.460 Sodium Chloride 0.9% 218 ml @ 0.05 MCG/KG/MIN 1. 063 mls/hr IV .Q24H ONE Rx#:[id number] Piperacillin-Tazobactam 3 100 .375 gm In Sodium Chloride 0.9% 100 ml @ 25 mls/hr IVPB Q8HR [facility] Rx# :[id number] propofoL 1,000 mg In 2.223 40.768 Empty Bag 1 bag @ Titrate IV .Q0M [facility] Rx#: [id number] Output: Urine 985 30 Other: Voiding Method Indwelling Catheter Indwelling Catheter - Exam GENERAL EXAM: Intubated, sedated, small statured, developmentally delayed 35-year-old male, appears younger than stated age, on assist-control mode of ventilation with a rate of 16, tidal volume is 325, FiO2 50% and PEEP of 5, c omfortable in no apparent distress. HEAD: Evidence of previous brain surgeries. Normocephalic/atraumatic. EYES: Normal reaction of pupils, equal size. Conjunctiva pink, sclera white. NOSE: Clear with pink turbinates. THROAT: No erythema or exudates. NECK: No masses, no JVD, no thyroid enlargement, no adenopathy. CHEST: No chest wall deformity. Symmetrical expansion. LUNGS: Equal air entry with bilateral scattered rhonchi. CVS: Regular rate and rhythm, normal S1 and S2, no gallops, no murmurs, no rubs ABDOMEN: Soft, nontender. No hepatosplenomegaly, normal bowel sounds, no guarding or rigidity. Patient has a PEG tube in place EXTREMITIES: No clubbing, no edema, no cyanosis, 2+ pulses and upper and lower extremities. MUSCULOSKELETAL: Muscle strength and tone normal. SPINE: No scoliosis or deformity SKIN: No rashes CENTRAL NERVOUS SYSTEM: Sedated, and intubated No focal deficits, tone is normal in all 4 extremities. - Labs CBC & Chem 7: 03/31/21 04:56 03/31/21 04:56 Labs: Abnormal Lab Results - Last 24 Hours (Table) 03/30/21 03/30/21 03/30/21 Range/Units 10:03 10:48 11:35 RBC (4.30-5.90) m/uL Hgb (13.0-17.5) gm/dL Hct (39.0-53.0) % RDW (11.5-15.5) % Plt Count (150-450) k/uL Lymphocytes # (1.0-4.8) k/uL D-Dimer (<0.60) mg/L FEU ABG pH (7.35-7.45) ABG pCO2 (35-45) mmHg ABG pO2 (83-108) mmHg ABG HCO3 (21-25) mmol/L ABG Total CO2 (19-24) mmol/L ABG O2 Saturation (94-97) % Sodium (137-145) mmol/L Potassium (3.5-5.1) mmol/L BUN (9-20) mg/dL Glucose (74-99) mg/dL POC Glucose (mg/dL) 41 L (75-99) mg/dL Plasma Lactic Acid Terrence (0.7-2.0) mmol/L Calcium (8.4-10.2) mg/dL Alkaline Phosphatase (38-126) U/L Troponin I 0.393 H* (0.000-0.034) ng/mL Total Protein (6.3-8.2) g/dL Albumin (3.5-5.0) g/dL Urine RBC >182 H (0-5) /hpf Urine WBC 112 H (0-5) /hpf 03/30/21 03/30/21 03/30/21 Range/Units 11:42 12:57 13:30 RBC (4.30-5.90) m/uL Hgb (13.0-17.5) gm/dL Hct (39.0-53.0) % RDW (11.5-15.5) % Plt Count (150-450) k/uL Lymphocytes # (1.0-4.8) k/uL D-Dimer 2.57 H (<0.60) mg/L FEU ABG pH 7.51 H (7.35-7.45) ABG pCO2 34 L (35-45) mmHg ABG pO2 280 H (83-108) mmHg ABG HCO3 27 H (21-25) mmol/L ABG Total CO2 28 H (19-24) mmol/L ABG O2 Saturation 100.0 H (94-97) % Sodium (137-145) mmol/L Potassium (3.5-5.1) mmol/L BUN (9-20) mg/dL Glucose (74-99) mg/dL POC Glucose (mg/dL) (75-99) mg/dL Plasma Lactic Acid Terrence 6.9 H* (0.7-2.0) mmol/L Calcium (8.4-10.2) mg/dL Alkaline Phosphatase (38-126) U/L Troponin I (0.000-0.034) ng/mL Total Protein (6.3-8.2) g/dL Albumin (3.5-5.0) g/dL Urine RBC (0-5) /hpf Urine WBC (0-5) /hpf 03/30/21 03/30/21 03/30/21 Range/Units 13:44 15:59 15:59 RBC 3.14 L (4.30-5.90) m/uL Hgb 10.2 L D (13.0-17.5) gm/dL Hct 30.2 L (39.0-53.0) % RDW 18.7 H (11.5-15.5) % Plt Count 81 L (150-450) k/uL Lymphocytes # 0.8 L (1.0-4.8) k/uL D-Dimer (<0.60) mg/L FEU ABG pH (7.35-7.45) ABG pCO2 (35-45) mmHg ABG pO2 (83-108) mmHg ABG HCO3 (21-25) mmol/L ABG Total CO2 (19-24) mmol/L ABG O2 Saturation (94-97) % Sodium 132 L (137-145) mmol/L Potassium 2.9 L (3.5-5.1) mmol/L BUN 30 H (9-20) mg/dL Glucose 71 L (74-99) mg/dL POC Glucose (mg/dL) 33 L (75-99) mg/dL Plasma Lactic Acid Terrence (0.7-2.0) mmol/L Calcium 8.1 L (8.4-10.2) mg/dL Alkaline Phosphatase 272 H (38-126) U/L Troponin I (0.000-0.034) ng/mL Total Protein 4.7 L (6.3-8.2) g/dL Albumin 2.3 L (3.5-5.0) g/dL Urine RBC (0-5) /hpf Urine WBC (0-5) /hpf 03/30/21 03/31/21 03/31/21 Range/Units 23:59 04:56 04:56 RBC 2.92 L (4.30-5.90) m/uL Hgb 9.7 L (13.0-17.5) gm/dL Hct 28.0 L (39.0-53.0) % RDW 17.9 H (11.5-15.5) % Plt Count 102 L (150-450) k/uL Lymphocytes # (1.0-4.8) k/uL D-Dimer (<0.60) mg/L FEU ABG pH (7.35-7.45) ABG pCO2 (35-45) mmHg ABG pO2 (83-108) mmHg ABG HCO3 (21-25) mmol/L ABG Total CO2 (19-24) mmol/L ABG O2 Saturation (94-97) % Sodium 130 L (137-145) mmol/L Potassium (3.5-5.1) mmol/L BUN 28 H (9-20) mg/dL Glucose (74-99) mg/dL POC Glucose (mg/dL) 139 H (75-99) mg/dL Plasma Lactic Acid Terrence (0.7-2.0) mmol/L Calcium 8.0 L (8.4-10.2) mg/dL Alkaline Phosphatase (38-126) U/L Troponin I (0.000-0.034) ng/mL Total Protein (6.3-8.2) g/dL Albumin (3.5-5.0) g/dL Urine RBC (0-5) /hpf Urine WBC (0-5) /hpf 03/31/21 03/31/21 Range/Units 05:48 08:28 RBC (4.30-5.90) m/uL Hgb (13.0-17.5) gm/dL Hct (39.0-53.0) % RDW (11.5-15.5) % Plt Count (150-450) k/uL Lymphocytes # (1.0-4.8) k/uL D-Dimer (<0.60) mg/L FEU ABG pH (7.35-7.45) ABG pCO2 (35-45) mmHg ABG pO2 (83-108) mmHg ABG HCO3 29 H (21-25) mmol/L ABG Total CO2 30 H (19-24) mmol/L ABG O2 Saturation 97.8 H (94-97) % Sodium (137-145) mmol/L Potassium (3.5-5.1) mmol/L BUN (9-20) mg/dL Glucose (74-99) mg/dL POC Glucose (mg/dL) 112 H (75-99) mg/dL Plasma Lactic Acid Terrence (0.7-2.0) mmol/L Calcium (8.4-10.2) mg/dL Alkaline Phosphatase (38-126) U/L Troponin I (0.000-0.034) ng/mL Total Protein (6.3-8.2) g/dL Albumin (3.5-5.0) g/dL Urine RBC (0-5) /hpf Urine WBC (0-5) /hpf Microbiology - Last 24 Hours (Table) 03/30/21 12:20 Gram Stain - Preliminary Sputum Sputum Culture - Preliminary 03/30/21 10:48 Urine Culture - Preliminary Urine,Voided Assessment and Plan Assessment: 1 Acute hypoxic respiratory failure related to sepsis, acute pancreatitis and possibility of aspiration pneumonia is not excluded. Patient was admitted on 03/30/2021 he came in for evaluation of acute abdominal pain, tachycardia, and worsening dyspnea. Tested negative for COVID-19. Intubated on 03/30/2021. 2 Acute lactic acidosis related to the above, and patient has received 3 L and fluid boluses 3 Elevated d-dimer, but no CT evidence of pulmonary embolism 4 Acute pancreatitis 5 Recent history of ureteral stent placement 6 Hypoglycemia, related to sepsis, patient has received 50% dextrose 7 Elevated troponins, rule out possibility of non-ST elevated [place] 8 History of seizure disorder 9 Chronic dysphagia patient has a PEG tube in place 10 Previous history of aspiration related pneumonia 11 History of hydrocephalus with history of TOWER CLEANER shunt placement and previous revisions. 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 We will continue to follow and make further recommendations based on his clin ical status I, the cosigning physician, performed a history & physical examination of the patient. Lungs sounds with bilateral scattered rhonchi. Maintaining good O2 saturations in the 90s on 50% FiO2 and a PEEP of 5. I discussed the assessment and plan of care with my nurse practitioner, Anila Cisse. I attest to the above note as dictated by her. I have personally seen and examined the patient, performed the documentation and the assessment and plan as written. Number of minutes spent on the visit: 15.
[2021-03-31 11:59] LABS: Glucose,Whole Blood 68 mg/dL (75-99)
[2021-03-31] MEDS ORDERED: DEXTROSE 50% SYRINGE 50 ML IVP ONE ×2 (11:59→16:45)
--- NOTE | 2021-03-31 12:13 | ECHOF ---
Referral Reason:Abnormal troponin MEASUREMENTS -------- HEIGHT: 162.6 cm WEIGHT: 45.4 kg BP: 97/62 RVIDd: 2.9 cm (< 3.3) IVSd: 0.8 cm (0.6 - 1.1) LVIDd: 4.8 cm (3.9 - 5.3) LVPWd: 0.8 cm (0.6 - 1.1) IVSs: 1.5 cm LVIDs: 3.4 cm LVPWs: 1.2 cm LA Diam: 3.2 cm (2.7 - 3.8) LAESV Index (A-L): 22.38 ml/m Ao Diam: 3.1 cm (2.0 - 3.7) AV Cusp: 2.4 cm (1.5 - 2.6) MV EXCURSION: 15.184 mm (> 18.000) MV EF SLOPE: 118 mm/s (70 - 150) EPSS: 0.8 cm MV E George: 0.68 m/s MV DecT: 240 ms MV A George: 0.54 m/s MV E/A Ratio: 1.25 RAP: 5.00 mmHg RVSP: 22.41 mmHg FINDINGS -------- Sinus rhythm. This was a technically adequate study. The left ventricular size is normal. Left ventricular wall thickness is normal. Overall left vent ricular systolic function is normal with, an EF between 55 - 60 %. The right ventricle is normal in size. Normal LA size by volume 22+/-6 ml/m2. The right atrial size is normal. The aortic valve is trileaflet, and appears structurally normal. No aortic stenosis or regurgitation. The mitral valve is normal. Mild mitral regurgitation is present. The tricuspid valve appears structurally normal. Mild tricuspid regurgitation present. Right vent ricular systolic pressure is normal at < 35 mmHg. The right ventricular systolic pressure, as measu red by Doppler, is 22.41mmHg. There is no pulmonic regurgitation present. The aortic root size is normal. IVC Not well visulized. There is no pericardial effusion. CONCLUSIONS -------- 1. Left ventricular wall thickness is normal. 2. Overall left ventricular systolic function is normal with, an EF between 55 - 60 %. 3. Normal LA size by volume 22+/-6 ml/m2. 4. The aortic valve is trileaflet, and appears structurally normal. No aortic stenosis or regurgitati on. 5. Mild mitral regurgitation is present. 6. Mild tricuspid regurgitation present. 7. There is no pericardial effusion. MANUFACTURING AREA MANAGER: Lee Ann Adamson RDCS
[2021-03-31 12:29] LABS: Glucose,Whole Blood 248 mg/dL (75-99)
[2021-03-31] MEDS: DEXTROSE 10% IN WATER 1,000 ML IV SCH (12:30)
--- NOTE | 2021-03-31 13:01 | CDI ---
Documentation Clarification Form Date: 03/31/2021 12:18:00 PM From: Zayra Lopez RN, CCDS Admit Date: 03/30/2021 02:50:00 PM Patient Name: Hood Kelley Visit Number: [id number] Discharge Date: ATTENTION: The Clinical Documentation Specialists (CDI) and [facility] Coding Staff appreciate your assistance in clarifying documentation. Please respond to the clarification below the line at the bottom and electronically sign. The CDI & [facility] Coding staff will review the response and follow-up if needed. Please note: Queries are made part of the Legal Health Record. If you have any questions, please contact the author of this message via ITS. Dr. Roberto Floyd There is documentation of sepsis with hypotensive episode is documented in the emergency department assessment. Additional clarification is requested. History/Risk Factors: CVA, Pneumonia, Seizure Disorder, Brain tumor- meningiomas, Development delay, Peg Tube Clinical Indicators: 35-year-old present with altered mental status. EKG shows sinus tachycardia at 130s and 147 bpm his respiration rate was over 40 times a minute. 03/30 Vital signs: 89/69 165 45 85 % on 15% NRB 03/30 WBC 15.6, N+ 130, Blood sugar 49, Troponin 0.393 Covid negative 03/30 CXR: Suspect fluid overload state, tiny bilateral pleural effusions, Posterior left basilar opacity is noted could reflect developing atelectasis and or infiltrate. Treatment: ICU/Telemetry Mechanical vent monitoring Levophed Drip (per orders 03/30 IV@60 MLS/HR Solu-cortef 50 MG IV Q 6HRS 217 Zosyn 3.375 GM IVPB Q8 HRS Propofol 1,000MG in 100 ML (pers orders (titrate) Can you please further clarify sepsis? [ ] Sepsis with Septic shock [ ] Sepsis without septic shock [ ] Other, please specify [ ] Unable to determine (Template Last Revised: April 2020) Sepsis with Septic shock MTDD
[2021-03-31 14:03] LABS: ABG Base Excess 1.3 mmol/L; ABG HCO3 25 mmol/L (21-25); ABG Oxygen Saturation 99.5 % (94-97); ABG PCO2 36 mmHg (35-45); ABG PH 7.45 (7.35-7.45); ABG PO2 117 mmHg (83-108); ABG TCO2 26 mmol/L (19-24); Allen Test Performed? Yes
--- NOTE | 2021-03-31 14:05 | EEG ---
ELECTROENCEPHALOGRAM REPORT DATE OF SERVICE: 03/31/2021. CLINICAL HISTORY: This is a 35-year-old gentleman with history of seizure, meningioma, status post bilateral craniotomy, history of hydrocephalus with shunt, who had a breakthrough seizure. The video EEG is obtained to evaluate for seizure epileptiform activity. RELEVANT MEDICATION: Keppra, Ativan, Versed, IV propofol. EEG TYPE: A routine 21-channel EEG is performed with video using the 10/20 electrode placement system. DESCRIPTION: The patient is intubated on a ventilator. The background consists of moderate to high voltage of 1 to 2 hertz delta activity that is nonrhythmic. Rarely to occasionally the background consists of theta activity. There is no physiological sleep architecture seen. There is no focal slowing. There is a moderate amount of high voltage of anterior to posterior lag with triphasic morphology over bilateral hemisphere. There is high amplitude activity over the bilateral [id number]-ejyzdfsf-temporal derivative which is consistent with breach rhythm. Interictal and ictal is none. ACTIVATION PROCEDURES: Photic stimulation and hyperventilation are not performed. CLINICAL INTERPRETATION: This is an abnormal routine EEG. The background slowing is suggestive of severe encephalopathy. The triphasic morphology is likely due to toxic metabolic abnormalities. The breach rhythm is consistent with the patient's history of skull defect. Otherwise there is no focal slowing, epileptiform discharge or seizure on the EEG. Clinical correlation is recommended. MMMARY / LUCASN: [id number] / MTDD
--- NOTE | 2021-03-31 14:05 | US ---
EXAMINATION TYPE: US kidneys/renal and bladder DATE OF EXAM: 03/31/2021 COMPARISON: US 2021, CT 2017 CLINICAL HISTORY: hematuria. Exam done portable EXAM MEASUREMENTS: Right Kidney: 9.7 x 5.0 x 4.9 cm Left Kidney: n/a Right Kidney: 2.1 x 1.6 x 1.7cm cyst superior pole, 0.4cm stone mid pole Left Kidney: unable to visualized due to patient laying on left side Bladder: not distended, barcenas catheter IMPRESSION: 1. Right nephrolithiasis with no hydronephrosis. 2. Incidental note made of a small right pleural effusion. 3. Nonvisualization of the left kidney
--- NOTE | 2021-03-31 14:08 | PN ---
PROGRESS NOTE DATE OF SERVICE: 03/31/2021 This 35-year-old gentleman who was admitted with acute bilateral aspiration pneumonia and acute respiratory failure is on mechanical ventilation. Patient also urology procedure also. The patient is on broad-spectrum IV antibiotics. Cultures are negative. Past medical history reviewed. Review of systems could not be taken; the patient is mechanically ventilated and sedated. CURRENT MEDICATIONS: Reviewed. They include DuoNeb, Solu-Cortef, Zosyn. Doses are reviewed. PHYSICAL EXAMINATION: Mechanically ventilated and sedated. Pulse 68, blood pressure 84/60, respirations 17. CHEST: A few scattered rhonchi and crackles. ABDOMEN: Soft. Non-tender. NERVOUS SYSTEM: Mechanically ventilated and sedated. SKIN: No ulcer, rash, bleeding. LABS: Glucose 68. ASSESSMENT: 1. Acute bilateral aspiration pneumonia with possible sepsis and acute hypoxic respiratory failure, on mechanical ventilation. 2. History of recent lithotripsy and ureteral stent placement and hematuria. 3. Hypoglycemia. 4. Hyponatremia. 5. History of astrocytoma and multiple surgeries. 6. History of seizure disorder. 7. History of cerebrovascular accident, transient ischemic attack. RECOMMENDATIONS AND DISCUSSION: I recommend to continue current medications, continue with the monitoring, symptomatic treatment. Continue with mechanical ventilation. Continue with continue with broad-spectrum IV antibiotics. Follow the cultures. Closely follow with Dr. Hay. Discussed at length with the family. Prognosis is guarded. Monitor blood sugars closely. If the blood sugars are persistently low, D5 water will be administered. Continue to monitor. Two-D echo showed normal ejection fraction. MMODL / IJN: [id number] / [facility]
[2021-03-31 16:46] LABS: Glucose,Whole Blood 66 mg/dL (75-99)
[2021-03-31] MEDS: SCOPOLAMINE 1.5MG/72HR PATCH TRANSDERM SCH (16:49)
[2021-03-31 17:12] LABS: Glucose,Whole Blood 211 mg/dL (75-99)
[2021-03-31 23:40] LABS: Glucose,Whole Blood 105 mg/dL (75-99)
[2021-04-01] MEDS: HYDROCORTISONE SUCCINATE 100 MG/2 ML VIAL IV SCH ×2 (03:59→08:34)
[2021-04-01] MEDS: DEXTROSE 10% IN WATER 1,000 ML IV SCH ×2 (05:32→23:26)
[2021-04-01 06:10] LABS: Glucose,Whole Blood 150 mg/dL (75-99)
[2021-04-01] MEDS: IPRATROPIUM-ALBUTEROL 3 ML NEB INHALATION SCH ×2 (08:20→20:22)
[2021-04-01] MEDS: PIPERACILLIN-TAZOBACTAM 3.375 GM in SODIUM CHLORIDE 0.9% 100 ML IVPB SCH ×3 (08:33→23:26)
[2021-04-01] MEDS: CHLORHEXIDINE GLUCONATE 15 ML CUP MUCOUS MEM SCH (08:34)
[2021-04-01] MEDS: PANTOPRAZOLE 40 MG/10 ML VIAL IVP SCH ×2 (08:34→20:48)
[2021-04-01] MEDS: levETIRAcetam IV 500 MG in SODIUM CHLORIDE 0.9% 100 ML IVPB SCH ×2 (08:35→20:48)
[2021-04-01 12:01] LABS: Glucose,Whole Blood 185 mg/dL (75-99)
--- NOTE | 2021-04-01 12:05 | P.PN ---
Subjective Progress Note Date: 04/01/21 Principal diagnosis: Acute hypoxic respiratory failure related to sepsis, Acute pancreatitis, possible aspiration pneumonia 35-year-old white male patient with history of developmental delay, seizure disorder, benign brain meningiomas, spinal cord tumor, hydrocephalus, [employer] shunt placement, and revisions, dysphagia with history of PEG tube placement who was brought into the emergency department on 03/30/2021 by EMS for evaluation of abdominal pain. Most history was obtained from the ER physician, and ED records. The patient's parents report the patient was having quite a bit of distress and they gave him morphine, they noted that his heart rate was 120, and patient is usually a little bit bradycardic. He wears home O2 on as-needed basis at home, however the parents noticed that on 4 L of oxygen and his pulse ox was only 90%. There is no reported fevers no vomiting or diarrhea. There is reported history of kidney stones on the right side. In the ED patient was noted to be tachycardic initially with a heart rate of 130 BPM. Initial chest x-ray showed redemonstration of right subclavian central venous catheter, mild chronic parenchymal changes with left basilar opacity, tiny bilateral pleural effusions, no pneumothorax. There was redemonstration of overlying [employer] shunt catheters bilaterally. Abdominal x-ray showed PEG tube, right double-J ureter stent, overall nonobstructive bowel gas pattern. Lab work evaluation showed leukocytosis with white blood cell count of 15.6, hemoglobin of 13.3, d-dimer was 2.57, sodium of 1:30, potassium is 4.2, chloride is 91, CO2 is 25, BUN of 38, and creatinine of 1.14. Glucose was 49, plasma lactic acid was 6.9, AST was 67 ALT was 45, alk phos was 450, troponin was 0.393, amylase was 506, lipase was 1565. Patient was afebrile, he was quite tachypneic and tachycardic, he was initially DO NOT RESUSCITATE CODE STATUS, he was being treated medically in the ED with antibiotics, IV fluids, and BiPAP support. CTA chest was completed showing no major or central pulmonary embolism, and scattered bilateral irregula r opacities groundglass opacities, centrilobular nodules and areas of consolidation with air bronchograms most evident in the lower lobes and more on the left side consistent with acute inflammatory or infectious process including COVID-19 infection, but associated pulmonary edema could not be excluded. Subsequently patient went into SVT with a rate of 170, and having more respiratory difficulty, the family has reversed his DO NOT RESUSCITATE CODE STATUS and wanted everything done. At which point patient was intubated and placed on mechanical ventilator. He is currently on assist control mode of ventilation with a rate of 20, tidal lungs 400, FiO2 100% and PEEP of 5. He is sedated with Diprivan, he has received 3 L in IV fluid boluses, he is on Zosyn, nebulized bronchodilators, he did receive of 50% dextrose IV push for episode of hypoglycemia, he was tested for COVID-19 and was found to be negative. Ultrasound of the gallbladder has been completed showing hyperechoic lesions involving the liver that could be related to the hemangiomas. Patient is seen today 03/31/2021 in follow-up in the intensive care unit. He remains intubated and on the mechanical ventilator currently and assist-control mode with a respiratory rate of 16, tidal volume 325, FiO2 50%, PEEP of 5. Morning blood gases revealed a P O2 of 97, pCO2 43, pH 7.44. Chest x-ray reveals progression of patchy infiltrate, pneumonia right upper lobe with bilateral lower lobe infiltrates and a small effusion. Sputum culture pending. Urine culture pending. Currently afebrile. He is sedated with propofol at 20 mcg/kg/m. He is requiring norepinephrine at 0.12 mcg/kg/m. He has D10 running at 60 mL per hour. He is on antibiotics in the form of Zosyn. Continued on heparin for DVT prophylaxis. Remains on bronchodilators. Currently in a +200 mL balance. His weight is 52.6 kg. White count 8.9. Hemoglobin 9.7. Platelet count 102,000. Sodium 1:30. Potassium 3.8. BUN 28. Creatinine 1.14. Glucose 112. The patient is seen today 04/01/2021 follow-up in the intensive care unit. He was successfully extubated yesterday. He is currently on 5 L high flow nasal cannula. D10 at 60 ML's per hour. Being nourished with vital AF at 20 ML's per hour which is goal. Cultures were positive for gram-negative bacilli in both the urine and the sputum. He remains on Zosyn. EEG revealed background slowing suggestive of severe encephalopathy. The triphasic morphology is likely due to toxic metabolic abnormalities. The breach rhythm is consistent with the patient's history of skull defect. Otherwise there is no focal slowing, epileptiform discharge or seizure on the EEG. Ultrasound of the kidneys and bladder revealed right nephrolithiasis with no hydronephrosis. Incidental note made of a small right pleural effusion. Nonvisualization of the left kidney. Blood glucose 150. He is continued on DuoNeb inhalations. Scopolamine patch in place. Continued on Keppra. Objective - Vital Signs Vital signs: Vital Signs Temp 97.4 F L 04/01/21 08:00 Pulse 49 L 04/01/21 11:00 Resp 13 04/01/21 11:00 BP 89/72 04/01/21 11:00 Pulse Ox 96 04/01/21 11:00 Intake & Output 03/31/21 04/01/21 04/01/21 18:59 06:59 18:59 Intake Total 885.101 860 550 Output Total 325 205 155 Balance 560.101 655 395 Weight 52.6 kg 52.5 kg Intake: IV 785 660 200 Dextrose 10% in Water 1, 485 660 000 ml @ 60 mls/hr IV . [id number] [facility] Rx#:[id number] Piperacillin-Tazobactam 3 100 100 .375 gm In Sodium Chloride 0.9% 100 ml @ 25 mls/hr IVPB Q8HR [facility] Rx# :[id number] Potassium Chloride 10 meq 100 In Water For Injection 1 100ml.bag @ 100 mls/hr IVPB Q1H [facility] Rx#: [id number] levETIRAcetam IV 500 mg 100 100 In Sodium Chloride 0.9% 100 ml @ 400 mls/hr IVPB BID [facility] Rx#:[id number] Intake, IV Titration 60.101 60 240 Amount Dextrose 10% in Water 1, 60 000 ml @ 60 mls/hr IV . [id number] [facility] Rx#:[id number] Dextrose 10% in Water 1, 240 000 ml @ 60 mls/hr IV . [id number] [facility] Rx#:[id number] Norepinephrine 32 mg In 19.333 Sodium Chloride 0.9% 218 ml @ 0.05 MCG/KG/MIN 1. 063 mls/hr IV .Q24H [facility] Rx#:[id number] propofoL 1,000 mg In 40.768 Empty Bag 1 bag @ Titrate IV .Q0M [facility] Rx#: [id number] Tube Feeding 40 140 110 Output: Urine 325 205 155 Other: Voiding Method Indwelling Catheter Indwelling Catheter Indwelling Catheter - Exam GENERAL EXAM: Small statured, developmentally delayed 35-year-old male, appears younger than stated age, on 5 L/m per nasal cannula, comfortable in no apparent distress. HEAD: Evidence of previous brain surgeries. Normocephalic/atraumatic. EYES: Normal reaction of pupils, equal size. Conjunctiva pink, sclera white. NOSE: Clear with pink turbinates. THROAT: No erythema or exudates. NECK: No masses, no JVD, no thyroid enlargement, no adenopathy. CHEST: No chest wall deformity. Symmetrical expansion. LUNGS: Equal air entry with few bilateral scattered rhonchi. CVS: Regular rate and rhythm, normal S1 and S2, no gallops, no murmurs, no rubs ABDOMEN: Soft, nontender. No hepatosplenomegaly, normal bowel sounds, no guarding or rigidity. Patient has a PEG tube in place EXTREMITIES: No clubbing, no edema, no cyanosis, 2+ pulses and upper and lower extremities. MUSCULOSKELETAL: Muscle strength and tone normal. SPINE: No scoliosis or deformity SKIN: No rashes CENTRAL NERVOUS SYSTEM: Unable to assess, tone is normal in all 4 extremities. - Labs CBC & Chem 7: 03/31/21 04:56 03/31/21 04:56 Labs: Abnormal Lab Results - Last 24 Hours (Table) 03/31/21 03/31/21 03/31/21 Range/Units 11:57 12:27 14:00 ABG pO2 117 H (83-108) mmHg ABG Total CO2 26 H (19-24) mmol/L ABG O2 Saturation 99.5 H (94-97) % POC Glucose (mg/dL) 68 L 248 H (75-99) mg/dL 03/31/21 03/31/21 03/31/21 Range/Units 16:44 17:10 23:38 ABG pO2 (83-108) mmHg ABG Total CO2 (19-24) mmol/L ABG O2 Saturation (94-97) % POC Glucose (mg/dL) 66 L 211 H 105 H (75-99) mg/dL 04/01/21 Range/Units 06:09 ABG pO2 (83-108) mmHg ABG Total CO2 (19-24) mmol/L ABG O2 Saturation (94-97) % POC Glucose (mg/dL) 150 H (75-99) mg/dL Microbiology - Last 24 Hours (Table) 03/30/21 12:20 Gram Stain - Preliminary Sputum Sputum Culture - Preliminary Gram Neg Bacilli 03/30/21 10:00 Blood Culture - Preliminary Blood No Growth after 24 hours 03/30/21 10:05 Blood Culture - Preliminary Blood No Growth after 24 hours 03/30/21 10:48 Urine Culture - Preliminary Urine,Voided Gram Neg Bacilli Assessment and Plan Assessment: 1 Acute hypoxic respiratory failure related to sepsis, acute pancreatitis and possibility of aspiration pneumonia is not excluded. Patient was admitted on 03/30/2021 he came in for evaluation of acute abdominal pain, tachycardia, and worsening dyspnea. Tested negative for COVID-19. Intubated on 03/30/2021. Extubated on 03/31/2021. Currently on 5 L high flow nasal cannula. 2 Acute lactic acidosis related to the above, and patient has received 3 L and fluid boluses 3 Elevated d-dimer, but no CT evidence of pulmonary embolism 4 Acute pancreatitis 5 Recent history of ureteral stent placement 6 Hypoglycemia, related to sepsis, patient has received 50% dextrose 7 Elevated troponins, rule out possibility of non-ST elevated LA 8 History of seizure disorder 9 Chronic dysphagia patient has a PEG tube in place 10 Previous history of aspiration related pneumonia 11 History of hydrocephalus with history of [employer] shunt placement and previous revisions. Patient apparently sees a neurosurgeon at the [facility] 12 Previous history of benign brain meningiomas and spinal cord tumor 13 History of developmental delay 14 History of adrenal insufficiency, on Cortef 15 Lifetime nonsmoker Plan: The patient was seen and evaluated EEG, ultrasound of the kidneys and bladder, labs reviewed Extubated and currently on 5 L nasal cannula Continue Zosyn, bronchodilators Urine and sputum cultures positive for gram-negative bacilli Follow-up chest x-ray in a.m. We will continue to follow I, the cosigning physician, performed a history & physical examination of the patient. Lungs sounds with few bilateral scattered rhonchi. Maintaining good O2 saturations in the 90s on 5 L/m per nasal cannula. I discussed the assessment and plan of care with my nurse practitioner, Anila Cisse. I attest to the above note as dictated by her. I have personally seen and examined the patient, performed the documentation and the assessment and plan as written. Number of minutes spent on the visit: 10.
[2021-04-01 14:29] LABS: Coronavirus SARS CoV-2 Not Detected (Not Detected)
--- NOTE | 2021-04-01 18:03 | P.PN ---
Subjective This is a 35 years old male was admitted to the intensive care unit in critical condition secondary to severe sepsis and hypoxia most likely secondary to aspiration pneumonia requiring intubation, currently patient is extubated and he maintained on 5 L oxygen via nasal cannula. His urine culture is growing Pseudomonas and sputum culture, gram-negative bacilli and is being covered with Zosyn. Also D5W at 30 mL/h. There wasn't evidence of seizure was placed on Keppra 500 mg. Patient is very lethargic. WBC is 8.9, hemoglobin 9.6, pledgeted 102. Patient is tachypneic at 43, blood pressure is 95/68. Also patient is with history of multiple meningioma status post bilateral craniotomy and intracranial shunt and chronic extra fluid collection in the brain with possible blood clots. EEG showing no epileptic form discharge. Severe encephalopathy and possible toxic encephalopathy given his triphasic electrical discharge. The renal ultrasound showing no hydronephrosis by right nephrolithiasis Ejection fraction is 55-60% on echocardiogram and there is no evidence of pulmonary embolism on CTA of the chest. Objective - Vital Signs Vital signs: Vital Signs Temp 97.5 F L 04/01/21 12:00 Pulse 42 L 04/01/21 12:00 Resp 11 L 04/01/21 12:00 BP 97/65 04/01/21 12:00 Pulse Ox 98 04/01/21 12:00 Intake & Output 03/31/21 04/01/21 04/01/21 18:59 06:59 18:59 Intake Total 885.101 860 690 Output Total 325 205 225 Balance 560.101 655 465 Weight 52.6 kg 52.5 kg Intake: IV 785 660 200 Dextrose 10% in Water 1, 485 660 000 ml @ 60 mls/hr IV . [id number] [facility] Rx#:[id number] Piperacillin-Tazobactam 3 100 100 .375 gm In Sodium Chloride 0.9% 100 ml @ 25 mls/hr IVPB Q8HR [facility] Rx# :[id number] Potassium Chloride 10 meq 100 In Water For Injection 1 100ml.bag @ 100 mls/hr IVPB Q1H [facility] Rx#: [id number] levETIRAcetam IV 500 mg 100 100 In Sodium Chloride 0.9% 100 ml @ 400 mls/hr IVPB BID [facility] Rx#:[id number] Intake, IV Titration 60.101 60 360 Amount Dextrose 10% in Water 1, 60 000 ml @ 60 mls/hr IV . [id number] [facility] Rx#:[id number] Dextrose 10% in Water 1, 360 000 ml @ 60 mls/hr IV . [id number] [facility] Rx#:[id number] Norepinephrine 32 mg In 19.333 Sodium Chloride 0.9% 218 ml @ 0.05 MCG/KG/MIN 1. 063 mls/hr IV .Q24H [facility] Rx#:[id number] propofoL 1,000 mg In 40.768 Empty Bag 1 bag @ Titrate IV .Q0M [facility] Rx#: [id number] Tube Feeding 40 140 130 Output: Urine 325 205 225 Other: Voiding Method Indwelling Catheter Indwelling Catheter Indwelling Catheter - Exam - GENERAL: The patient is alert and oriented x3, not in any acute distress. Very weak and lethargic, and both HEENT: Pupils are round and equally reacting to light. EOMI. No scleral icterus. No conjunctival pallor. Normocephalic, atraumatic. No pharyngeal erythema. No thyromegaly. CARDIOVASCULAR: S1 and S2 present. No murmurs, rubs, or gallops. PULMONARY: Chest is clear to auscultation, no wheezing or crackles. ABDOMEN: Soft, nontender, nondistended, normoactive bowel sounds. No palpable organomegaly. MUSCULOSKELETAL: No joint swelling or deformity. EXTREMITIES: No cyanosis, clubbing, or pedal edema. -NEUROLOGICAL: Cranial nerves are grossly intact.. Status post cranial shunt. Right hemiparesis (chronic). Spasticity SKIN: No rashes. no petechiae. - Labs CBC & Chem 7: 03/31/21 04:56 03/31/21 04:56 Labs: Abnormal Lab Results - Last 24 Hours (Table) 03/31/21 03/31/21 03/31/21 Range/Units 14:00 16:44 17:10 ABG pO2 117 H (83-108) mmHg ABG Total CO2 26 H (19-24) mmol/L ABG O2 Saturation 99.5 H (94-97) % POC Glucose (mg/dL) 66 L 211 H (75-99) mg/dL 03/31/21 04/01/21 04/01/21 Range/Units 23:38 06:09 11:57 ABG pO2 (83-108) mmHg ABG Total CO2 (19-24) mmol/L ABG O2 Saturation (94-97) % POC Glucose (mg/dL) 105 H 150 H 185 H (75-99) mg/dL Microbiology - Last 24 Hours (Table) 03/30/21 12:20 Gram Stain - Preliminary Sputum Sputum Culture - Preliminary Gram Neg Bacilli 03/30/21 10:00 Blood Culture - Preliminary Blood No Growth after 24 hours 03/30/21 10:05 Blood Culture - Preliminary Blood No Growth after 24 hours 03/30/21 10:48 Urine Culture - Preliminary Urine,Voided Gram Neg Bacilli Assessment and Plan Assessment: Severe sepsis secondary to possible aspiration pneumonia with gram-negative bacteria and UTI secondary to Pseudomonas related to her right nephrolithiasis Acute hypoxic respiratory failure status post intubation and extubation Hyperglycemia on admission, now glucose level more than 100 breakthrough seizure Status post intracranial shunt History of meningiomas, multiple status post bilateral craniotomy History of seizure Plan: This is a pleasant 35 years old who presents with multiple problems including sepsis secondary to pneumonia, UTI, kidney stone, hypoglycemia, breakthrough seizure Continue with Zosyn Continue with D5W at 30 related to prior while monitoring the glucose Continue with Protonix No anticoagulation given for possibility of blood clot in the brain Labs and medication were reviewed.. Continue same treatment. Continue with symptomatic treatment. Resume home medication. Monitor lytes and vitals. DVT and GI prophylaxis. Further recommendations as per clinical course of the patient DVT prophylaxis: No anticoagulation GI Prophylaxis: Ppi Prognosis is guarded
[2021-04-01 18:09] LABS: Glucose,Whole Blood 152 mg/dL (75-99)
[2021-04-01 23:35] LABS: Glucose,Whole Blood 147 mg/dL (75-99)
[2021-04-02 00:02] LABS: Glucose,Whole Blood 131 mg/dL (75-99)
[2021-04-02 05:46] LABS: Glucose,Whole Blood 101 mg/dL (75-99)
[2021-04-02] MEDS: IPRATROPIUM-ALBUTEROL 3 ML NEB INHALATION SCH ×2 (08:51→20:16)
[2021-04-02] MEDS: PIPERACILLIN-TAZOBACTAM 3.375 GM in SODIUM CHLORIDE 0.9% 100 ML IVPB SCH (09:19)
[2021-04-02] MEDS: levETIRAcetam IV 500 MG in SODIUM CHLORIDE 0.9% 100 ML IVPB SCH ×2 (09:20→20:30)
[2021-04-02] MEDS: PANTOPRAZOLE 40 MG/10 ML VIAL IVP SCH ×2 (09:20→20:30)
[2021-04-02] MEDS: DEXTROSE 5%-0.9% NACL 1,000 ML IV SCH (10:00)
--- NOTE | 2021-04-02 10:35 | XR ---
EXAMINATION TYPE: XR chest 1V portable DATE OF EXAM: 04/02/2021 Comparison: 03/31/2021 Clinical History: 35-year-old male pneumonia Findings: Bilateral [employer] shunt catheters. Right-sided CVC in the upper right atrium. Interval extubation. Patient is markedly rotated towards the left ultrasound in unremarkable cardiac mediastinal contours. Progre ssive improvement in aeration in the right upper lobe. However, now more apparent is the small right pleural effusion and right basilar opacity. Impression: 1. Continued improvement in aeration of the right upper lobe. 2. Prominently rotated exam. However, there is now, more apparent small right pleural effusion with a djacent right basilar atelectasis and/or consolidation.
--- NOTE | 2021-04-02 11:39 | P.PN ---
Subjective Progress Note Date: 04/02/21 Principal diagnosis: Respiratory failure. 35-year-old white male patient with history of developmental delay, seizure disorder, benign brain meningiomas, spinal cord tumor, hydrocephalus, CONVERTING TECHNICIAN shunt placement, and revisions, dysphagia with history of PEG tube placement who was brought into the emergency department on 03/30/2021 by EMS for evaluation of abdominal pain. Most history was obtained from the ER physician, and ED records. The patient's parents report the patient was having quite a bit of distress and they gave him morphine, they noted that his heart rate was 120, and patient is usually a little bit bradycardic. He wears home O2 on as-needed basis at home, however the parents noticed that on 4 L of oxygen and his pulse ox was only 90%. There is no reported fevers no vomiting or diarrhea. There is reported history of kidney stones on the right side. In the ED patient was noted to be tachycardic initially with a heart rate of 130 BPM. Initial chest x-ray showed redemonstration of right subclavian central venous catheter, mild chronic parenchymal changes with left basilar opacity, tiny bilateral pleural effusions, no pneumothorax. There was redemonstration of overlying CONVERTING TECHNICIAN shunt catheters bilaterally. Abdominal x-ray showed PEG tube, right double-J ureter stent, overall nonobstructive bowel gas pattern. Lab work evaluation showed leukocytosis with white blood cell count of 15.6, hemoglobin of 13.3, d-dimer was 2.57, sodium of 1:30, potassium is 4.2, chloride is 91, CO2 is 25, BUN of 38, and creatinine of 1.14. Glucose was 49, plasma lactic acid was 6.9, AST was 67 ALT was 45, alk phos was 450, troponin was 0.393, amylase was 506, lipase was 1565. Patient was afebrile, he was quite tachypneic and tachycardic, he was initially DO NOT RESUSCITATE CODE STATUS, he was being treated medically in the ED with antibiotics, IV fluids, and BiPAP support. CTA chest was completed showing no major or central pulmonary embolism, and scattered bilateral irregular opacities groundglass opacities, centrilobular nodules and areas of consolidation with air bronchograms most evident in the lower lobes and more on the left side consistent with acute inflammatory or infectious process including COVID-19 infection, but associated pulmonary edema could not be excluded. Subsequently patient went into SVT with a rate of 170, and having more respi ratory difficulty, the family has reversed his DO NOT RESUSCITATE CODE STATUS and wanted everything done. At which point patient was intubated and placed on mechanical ventilator. He is currently on assist control mode of ventilation with a rate of 20, tidal lungs 400, FiO2 100% and PEEP of 5. He is sedated with Diprivan, he has received 3 L in IV fluid boluses, he is on Zosyn, nebulized bronchodilators, he did receive of 50% dextrose IV push for episode of hypoglycemia, he was tested for COVID-19 and was found to be negative. Ultrasound of the gallbladder has been completed showing hyperechoic lesions involving the liver that could be related to the hemangiomas. Patient is seen today 03/31/2021 in follow-up in the intensive care unit. He remains intubated and on the mechanical ventilator currently and assist-control mode with a respiratory rate of 16, tidal volume 325, FiO2 50%, PEEP of 5. Morning blood gases revealed a P O2 of 97, pCO2 43, pH 7.44. Chest x-ray reveals progression of patchy infiltrate, pneumonia right upper lobe with bilateral lower lobe infiltrates and a small effusion. Sputum culture pending. Urine culture pending. Currently afebrile. He is sedated with propofol at 20 mcg/kg/m. He is requiring norepinephrine at 0.12 mcg/kg/m. He has D10 running at 60 mL per hour. He is on antibiotics in the form of Zosyn. Continued on heparin for DVT prophylaxis. Remains on bronchodilators. Currently in a +200 mL balance. His weight is 52.6 kg. White count 8.9. Hemoglobin 9.7. Platelet count 102,000. Sodium 1:30. Potassium 3.8. BUN 28. Creatinine 1.14. Glucose 112. The patient is seen today 04/01/2021 follow-up in the intensive care unit. He was successfully extubated yesterday. He is currently on 5 L high flow nasal cannula. D10 at 60 ML's per hour. Being nourished with vital AF at 20 ML's per hour which is goal. Cultures were positive for gram-negative bacilli in both the urine and the sputum. He remains on Zosyn. EEG revealed background slowing suggestive of severe encephalopathy. The triphasic morphology is likely due to toxic metabolic abnormalities. The breach rhythm is consistent with the patient's history of skull defect. Otherwise there is no focal slowing, epileptiform discharge or seizure on the EEG. Ultrasound of the kidneys and bladder revealed right nephrolithiasis with no hydronephrosis. Incidental note made of a small right pleural effusion. Nonvisualization of the left kidney. Blood glucose 150. He is continued on DuoNeb inhalations. Scopolamine patch in place. Continued on Keppra. Progress note dated 04/02/2021. The patient is again seen in the intensive care unit, room 257. The patient is now been in the hospital for about 3 days. He was admitted with a diagnosis of acute hypoxemic respiratory failure, and did require intubation and mechanical ventilation. Currently, the patient's resting comfortably. He is on 3 L nasal cannula. He is receiving vital AF at 30 mL an hour, which is goal. In addition, the patient is getting D10, at 30 mL an hour, and saline at 10 mL an hour. No new labs today. Chest x-ray today shows continued improvement in the infiltrate in the right upper lobe, a small right-sided pleural effusion, and some right basilar atelectasis. The patient continues on Zosyn. Urine and sputum, on March 30, reveal Pseudomonas. Objective - Vital Signs Vital signs: Vital Signs Temp 97.4 F L 04/02/21 04:00 Pulse 63 04/02/21 11:00 Resp 18 04/02/21 11:00 BP 87/62 04/02/21 11:00 Pulse Ox 93 L 04/02/21 11:00 Intake & Output 04/01/21 04/02/21 04/02/21 18:59 06:59 18:59 Intake Total 1080 640 490 Output Total 420 390 140 Balance 660 250 350 Weight 54.3 kg Intake: IV 200 200 Piperacillin-Tazobactam 3 100 100 .375 gm In Sodium Chloride 0.9% 100 ml @ 25 mls/hr IVPB Q8HR [facility] Rx# :[id number] levETIRAcetam IV 500 mg 100 100 In Sodium Chloride 0.9% 100 ml @ 400 mls/hr IVPB BID [facility] Rx#:[id number] Intake, IV Titration 570 360 160 Amount Dextrose 10% in Water 360 120 000 ml @ 30 mls/hr IV . Q24H [facility] Rx#:[id number] Dextrose 5%-0.9% NaCl 1, 40 000 ml @ 40 mls/hr IV . Q24H [facility] Rx#:[id number] Tube Feeding 310 250 130 Other 30 Output: Urine 420 390 140 Other: Voiding Method Indwelling Catheter Indwelling Catheter Indwelling Catheter - Exam No acute distress, currently on 3 L nasal cannula. HEENT examination is grossly unremarkable. Neck supple. Full range of motion. No adenopathy thyromegaly or neck vein distention. Cardiovascular examination reveals regular rhythm rate. S1-S2 normal. No S3 or S4. No discernible murmur noted. Lungs reveal scattered rhonchi. No wheezes. No crackles. Breath sounds equal bilaterally. Abdomen soft with present bowel sounds. A PEG tube is noted. Extremities are intact. No cyanosis clubbing or edema. Skin is without rash or lesion. Neurologic examination reveals reduced muscle tone. - Labs CBC & Chem 7: 03/31/21 04:56 03/31/21 04:56 Labs: Abnormal Lab Results - Last 24 Hours (Table) 04/01/21 04/01/21 04/01/21 Range/Units 11:57 18:05 23:33 POC Glucose (mg/dL) 185 H 152 H 147 H (75-99) mg/dL 04/02/21 04/02/21 Range/Units 00:00 05:45 POC Glucose (mg/dL) 131 H 101 H (75-99) mg/dL Microbiology - Last 24 Hours (Table) 03/30/21 12:20 Gram Stain - Final Sputum Sputum Culture - Final Pseudomonas aeruginosa 03/30/21 10:00 Blood Culture - Preliminary Blood No Growth after 48 hours 03/30/21 10:05 Blood Culture - Preliminary Blood No Growth after 48 hours 03/30/21 10:48 Urine Culture - Final Urine,Voided Pseudomonas aeruginosa Assessment and Plan Assessment: 1 Acute hypoxic respiratory failure related to sepsis, acute pancreatitis and p ossibility of aspiration pneumonia is not excluded. Patient was admitted on 03/30/2021 he came in for evaluation of acute abdominal pain, tachycardia, and worsening dyspnea. Tested negative for COVID-19. Intubated on 03/30/2021. Extubated on 03/31/2021. Currently on 3 L high flow nasal cannula. 2 Acute lactic acidosis related to the above, and patient has received 3 L and fluid boluses. 3 Elevated d-dimer, but no CT evidence of pulmonary embolism. 4 Acute pancreatitis. 5 Recent history of ureteral stent placement. 6 Hypoglycemia, related to sepsis, patient has received 50% dextrose. 7 Elevated troponins, rule out possibility of non-ST elevated TN. 8 History of seizure disorder. 9 Chronic dysphagia patient has a PEG tube in place. 10 Pseudomonas aeruginosa urinary tract infection and pneumonia. 11 History of hydrocephalus with history of CONVERTING TECHNICIAN shunt placement and previous revisions. Patient apparently sees a neurosurgeon at the [facility]. 12 Previous history of benign brain meningiomas and spinal cord tumor. 13 History of developmental delay. 14 History of adrenal insufficiency, on Cortef. 15 Lifetime nonsmoker. Plan: Plan dated 04/02/2021. Labs, x-rays, and medications are all reviewed. The patient will be switched to dextrose and saline, at 40 mL an hour. The chest x-ray is ordered and reviewed today. The Pseudomonas in the sputum and urine is resistant to Zosyn. Zosyn will be discontinued in favor of meropenem. Additional recommendations and suggestions are forthcoming. The patient will stay in the intensive care unit for at least another day. The patient will continue with tube feedings via the PEG tube. Prognosis is guarded. Time with Patient: Less than 30
[2021-04-02 11:42] LABS: Glucose,Whole Blood 94 mg/dL (75-99)
[2021-04-02] MEDS: MEROPENEM 1 GM in SODIUM CHLORIDE 0.9% 100 ML IVPB SCH ×2 (12:30→23:07)
[2021-04-02 17:47] LABS: Glucose,Whole Blood 95 mg/dL (75-99)
--- NOTE | 2021-04-02 21:40 | P.PN ---
Subjective This is a 35 years old male was admitted to the intensive care unit in critical condition secondary to severe sepsis and hypoxia most likely secondary to aspiration pneumonia requiring intubation, currently patient is extubated and he maintained on 5 L oxygen via nasal cannula. His urine culture is growing Pseudomonas and sputum culture, gram-negative bacilli and is being covered with Zosyn. Also D5W at 30 mL/h. There wasn't evidence of seizure was placed on Keppra 500 mg. Patient is very lethargic. WBC is 8.9, hemoglobin 9.6, pledgeted 102. Patient is tachypneic at 43, blood pressure is 95/68. Also patient is with history of multiple meningioma status post bilateral craniotomy and intracranial shunt and chronic extra fluid collection in the brain with possible blood clots. EEG showing no epileptic form discharge. Severe encephalopathy and possible toxic encephalopathy given his triphasic electrical discharge. The renal ultrasound showing no hydronephrosis by right nephrolithiasis Ejection fraction is 55-60% on echocardiogram and there is no evidence of pulmonary embolism on CTA of the chest. 04/02/2021 Patient remains in the ICU due to the severe sepsis and infection with pneumonia and UTI secondary to Pseudomonas, he was on Zosyn and to the antibiotics change by pulmonary team and to meropenem. Also IV fluid was change to D5 normal saline at 40 mL per hour. Patient still mildly tachypneic, hypotensive and is requiring only 3 L/m of oxygen via nasal cannula. Chest x-ray showing improved right upper lobe radiation and right sided pleural effusion with adjacent atelectasis/consolidation. Continue with tube feeding via PEG Objective - Vital Signs Vital signs: Vital Signs Temp 97.4 F L 04/02/21 04:00 Pulse 46 L 04/02/21 10:00 Resp 17 04/02/21 10:00 BP 85/54 04/02/21 10:00 Pulse Ox 94 L 04/02/21 10:00 Intake & Output 04/01/21 04/02/21 04/02/21 18:59 06:59 18:59 Intake Total 1080 640 420 Output Total 420 390 115 Balance 660 250 305 Weight 54.3 kg Intake: IV 200 200 Piperacillin-Tazobactam 3 100 100 .375 gm In Sodium Chloride 0.9% 100 ml @ 25 mls/hr IVPB Q8HR [facility] Rx# :[id number] levETIRAcetam IV 500 mg 100 100 In Sodium Chloride 0.9% 100 ml @ 400 mls/hr IVPB BID [facility] Rx#:[id number] Intake, IV Titration 570 360 120 Amount Dextrose 10% in Water 1, 570 360 120 000 ml @ 30 mls/hr IV . Q24H [facility] Rx#:[id number] Tube Feeding 310 250 100 Other 30 Output: Urine 420 390 115 Other: Voiding Method Indwelling Catheter Indwelling Catheter Indwelling Catheter - Exam - GENERAL: The patient is alert and oriented x3, not in any acute distress. Very weak and lethargic, and both HEENT: Pupils are round and equally reacting to light. EOMI. No scleral icterus. No conjunctival pallor. Normocephalic, atraumatic. No pharyngeal erythema. No thyromegaly. CARDIOVASCULAR: S1 and S2 present. No murmurs, rubs, or gallops. PULMONARY: Chest is clear to auscultation, no wheezing or crackles. ABDOMEN: Soft, nontender, nondistended, normoactive bowel sounds. No palpable organomegaly. MUSCULOSKELETAL: No joint swelling or deformity. EXTREMITIES: No cyanosis, clubbing, or pedal edema. -NEUROLOGICAL: Cranial nerves are grossly intact.. Status post cranial shunt. Right hemiparesis (chronic). Spasticity SKIN: No rashes. no petechiae. - Labs CBC & Chem 7: 03/31/21 04:56 03/31/21 04:56 Labs: Abnormal Lab Results - Last 24 Hours (Table) 04/01/21 04/01/21 04/01/21 Range/Units 11:57 18:05 23:33 POC Glucose (mg/dL) 185 H 152 H 147 H (75-99) mg/dL 04/02/21 04/02/21 Range/Units 00:00 05:45 POC Glucose (mg/dL) 131 H 101 H (75-99) mg/dL Microbiology - Last 24 Hours (Table) 03/30/21 12:20 Gram Stain - Final Sputum Sputum Culture - Final Pseudomonas aeruginosa 03/30/21 10:00 Blood Culture - Preliminary Blood No Growth after 48 hours 03/30/21 10:05 Blood Culture - Preliminary Blood No Growth after 48 hours 03/30/21 10:48 Urine Culture - Final Urine,Voided Pseudomonas aeruginosa Assessment and Plan Assessment: Severe sepsis secondary to possible aspiration pneumonia secondary to Pseudomonas and UTI secondary to Pseudomonas related to her right nephrolithiasis Acute hypoxic respiratory failure status post intubation and extubation Hyperglycemia on admission, now glucose level more than 100 breakthrough seizure Status post intracranial shunt History of meningiomas, multiple status post bilateral craniotomy History of seizure Plan: This is a pleasant 35 years old who presents with multiple problems including sepsis secondary to pneumonia, UTI, kidney stone, hypoglycemia, breakthrough seizure Continue with meropenem. Zosyn was discontinued Continue with the 5 normal saline Continue with Protonix No anticoagulation given for possibility of blood clot in the brain Labs and medication were reviewed.. Continue same treatment. Continue with symptomatic treatment. Resume home medication. Monitor lytes and vitals. DVT and GI prophylaxis. Further recommendations as per clinical course of the patient DVT prophylaxis: No anticoagulation GI Prophylaxis: Ppi Prognosis is guarded
[2021-04-03 00:28] LABS: Glucose,Whole Blood 109 mg/dL (75-99)
[2021-04-03] MEDS: DEXTROSE 5%-0.9% NACL 1,000 ML IV SCH (05:49)
[2021-04-03 06:29] LABS: Anisocytosis Slight; Basophils % (A) 0 %; Eosinophils % (A) 1 %; HCT 23.1 % (39.0-53.0); Lymphocytes # (A) 0.7 k/uL (1.0-4.8); Lymphocytes % (A) 27 %; MCH 32.6 pg (25.0-35.0); MCHC 33.6 g/dL (31.0-37.0); MCV 97.1 fL (80.0-100.0); Macrocytosis Slight; Monocytes # (A) 0.1 k/uL (0-1.0); Monocytes % (A) 6 %; Neutrophils # (A) 1.6 k/uL (1.3-7.7); Neutrophils % (A) 65 %; RBC 2.38 m/uL (4.30-5.90); RDW 17.5 % (11.5-15.5); WBC 2.4 k/uL (3.8-10.6)
[2021-04-03 06:30] LABS: Glucose,Whole Blood 82 mg/dL (75-99)
[2021-04-03 06:37] LABS: HGB 7.8 gm/dL (13.0-17.5)
[2021-04-03 06:49] LABS: ALT 24 U/L (4-49); AST 40 U/L (17-59); African American GFR (CKD) >90 (>60 ml/min/1.73 sqM); Albumin 2.1 g/dL (3.5-5.0); Alkaline Phosphatase 127 U/L (38-126); Anion Gap 3 mmol/L; Blood Urea Nitrogen 22 mg/dL (9-20); Calcium 8.1 mg/dL (8.4-10.2); Carbon Dioxide 22 mmol/L (22-30); Chloride 107 mmol/L (98-107); Glucose 78 mg/dL (74-99); Non-African American GFR(CKD) >90 (>60 ml/min/1.73 sqM); Potassium 2.9 mmol/L (3.5-5.1); Sodium 132 mmol/L (137-145); Total Bilirubin 0.5 mg/dL (0.2-1.3); Total Protein 4.4 g/dL (6.3-8.2)
[2021-04-03 06:52] LABS: Platelet Count 42 k/uL (150-450)
[2021-04-03] MEDS ORDERED: Potassium Replacement Protocol 1 EACH MISC MISCELLANE PRN (07:08)
[2021-04-03] MEDS: IPRATROPIUM-ALBUTEROL 3 ML NEB INHALATION SCH ×2 (07:18→20:29)
[2021-04-03] MEDS: POTASSIUM CHLORIDE 20 MEQ in WATER FOR INJECTION 1 100ML.BAG IVPB SCH ×3 (08:17→12:45)
--- NOTE | 2021-04-03 08:42 | XR ---
EXAMINATION TYPE: XR chest 1V portable DATE OF EXAM: 04/03/2021 COMPARISON: 04/02/2021 HISTORY: Cough FINDINGS: There are bilateral pleural effusions with cardiomegaly and bibasilar infiltrate. There is a diffuse interstitial pattern. Underlying mass right upper lobe not excluded. ACCOUNT SUPPORT REP shunt catheter and central l ine noted. Use osteopenia. IMPRESSION: 1. Progressive diffuse pleural-parenchymal disease correlate for CHF versus diffuse pneumonia.
[2021-04-03] MEDS: PANTOPRAZOLE 40 MG/10 ML VIAL IVP SCH ×2 (09:10→20:57)
[2021-04-03] MEDS: levETIRAcetam IV 500 MG in SODIUM CHLORIDE 0.9% 100 ML IVPB SCH ×2 (09:11→20:56)
--- NOTE | 2021-04-03 12:12 | P.PN ---
Subjective Progress Note Date: 04/03/21 Principal diagnosis: Acute hypoxic respiratory failure secondary to aspiration pneumonia 35-year-old white male patient with history of developmental delay, seizure disorder, benign brain meningiomas, spinal cord tumor, hydrocephalus, TONGUE PRESSER shunt placement, and revisions, dysphagia with history of PEG tube placement who was brought into the emergency department on 03/30/2021 by EMS for evaluation of abdominal pain. Most history was obtained from the ER physician, and ED recor ds. The patient's parents report the patient was having quite a bit of distress and they gave him morphine, they noted that his heart rate was 120, and patient is usually a little bit bradycardic. He wears home O2 on as-needed basis at home, however the parents noticed that on 4 L of oxygen and his pulse ox was only 90%. There is no reported fevers no vomiting or diarrhea. There is reported history of kidney stones on the right side. In the ED patient was noted to be tachycardic initially with a heart rate of 130 BPM. Initial chest x-ray showed redemonstration of right subclavian central venous catheter, mild chronic parenchymal changes with left basilar opacity, tiny bilateral pleural effusions, no pneumothorax. There was redemonstration of overlying TONGUE PRESSER shunt catheters bilaterally. Abdominal x-ray showed PEG tube, right double-J ureter stent, overall nonobstructive bowel gas pattern. Lab work evaluation showed leukocytosis with white blood cell count of 15.6, hemoglobin of 13.3, d-dimer was 2.57, sodium of 1:30, potassium is 4.2, chloride is 91, CO2 is 25, BUN of 38, and creatinine of 1.14. Glucose was 49, plasma lactic acid was 6.9, AST was 67 ALT was 45, alk phos was 450, troponin was 0.393, amylase was 506, lipase was 1565. Patient was afebrile, he was quite tachypneic and tachycardic, he was initially DO NOT RESUSCITATE CODE STATUS, he was being treated medically in the ED with antibiotics, IV fluids, and BiPAP support. CTA chest was completed showing no major or central pulmonary embolism, and scattered bilateral irregular opacities groundglass opacities, centrilobular nodules and areas of consolidation with air bronchograms most evident in the lower lobes and more on the left side consistent with acute inflammatory or infectious process including COVID-19 infection, but associated pulmonary edema could not be excluded. Subsequently patient went into SVT with a rate of 170, and having more respiratory difficulty, the family has reversed his DO NOT RESUSCITATE CODE STATUS and wanted everything done. At which point patient was intubated and placed on mechanical ventilator. He is currently on assist control mode of ventilation with a rate of 20, tidal lungs 400, FiO2 100% and PEEP of 5. He is sedated with Diprivan, he has received 3 L in IV fluid boluses, he is on Zosyn, nebulized bronchodilators, he did receive of 50% dextrose IV push for episode of hypoglycemia, he was tested for COVID-19 and was found to be negative. Ultrasound of the gallbladder has been completed showing hyperechoic lesions involving the liver that could be related to the hemangiomas. Progress note dated 04/02/2021. The patient is again seen in the intensive care unit, room 257. The patient is now been in the hospital for about 3 days. He was admitted with a diagnosis of acute hypoxemic respiratory failure, and did require intubation and mechanical ventilation. Currently, the patient's resting comfortably. He is on 3 L nasal cannula. He is receiving vital AF at 30 mL an hour, which is goal. In addition, the patient is getting D10, at 30 mL an hour, and saline at 10 mL an hour. No new labs today. Chest x-ray today shows continued improvement in the infiltrate in the right upper lobe, a small right-sided pleural effusion, and some right basilar atelectasis. The patient continues on Zosyn. Urine and sputum, on March 30, reveal Pseudomonas. Reevaluated today on 04/03/2021, patient remains in the ICU, he is on few liters nasal cannula, O2 saturation is in the 90s. He's actually now on 4 L nasal cannula. Patient does not seem to be in any distress, his chest x-ray continues to show bilateral infiltrates. Patient is receiving vital AF, his labs showed normal renal profile, potassium is a bit low at 2.9 being addressed as per pro tocol. WBC count is 2.4 hemoglobin is 7.8. Chest x-ray showed bilateral infiltrates, right more so than left, consistent with aspiration pneumonia presentation. Patient remains on Zosyn for presumptive aspiration pneumonia. Objective - Vital Signs Vital signs: Vital Signs Temp 97.4 F L 04/03/21 08:00 Pulse 71 04/03/21 10:00 Resp 13 04/03/21 10:00 BP 93/62 04/03/21 10:00 Pulse Ox 91 L 04/03/21 10:00 Intake & Output 04/02/21 04/03/21 04/03/21 18:59 06:59 18:59 Intake Total 1080 900 480 Output Total 305 265 130 Balance 775 635 350 Weight 53.3 kg Intake: IV 200 100 Piperacillin-Tazobactam 3 100 .375 gm In Sodium Chloride 0.9% 100 ml @ 25 mls/hr IVPB Q8HR [facility] Rx# :[id number] levETIRAcetam IV 500 mg 100 100 In Sodium Chloride 0.9% 100 ml @ 400 mls/hr IVPB B[facility] Rx#:[id number] Intake, IV Titration 540 480 260 Amount Dextrose 10% in Water 1, 120 000 ml @ 30 mls/hr IV . Q24H [facility] Rx#:[id number] Dextrose 5%-0.9% NaCl 1, 320 480 160 000 ml @ 40 mls/hr IV . Q24H [facility] Rx#:[id number] Meropenem 1 gm In Sodium 100 Chloride 0.9% 100 ml @ 33 .3 mls/hr IVPB Q12H [facility] Rx#:[id number] Potassium Chloride 20 meq 100 In Water For Injection 1 100ml.bag @ 50 mls/hr IVPB Q2H [facility] Rx#: [id number] Tube Feeding 340 360 120 Other 60 Output: Urine 305 265 130 Other: Voiding Method Indwelling Catheter Indwelling Catheter Indwelling Catheter - Exam GENERAL EXAM: Revealed 35-year-old, on nasal cannula, in no distress. HEAD: Craniotomy scar is noted in his head. Normocephalic EYES: Normal reaction of pupils, equal size. Conjunctiva pink, sclera white. NOSE: Clear with pink turbinates. THROAT: No erythema or exudates. NECK: No masses, no JVD, no thyroid enlargement, no adenopathy. CHEST: No chest wall deformity. Symmetrical expansion. LUNGS: Crackles at the bases bilaterally. CVS: Regular rate and rhythm, normal S1 and S2, no gallops, no murmurs, no rubs ABDOMEN: Soft, nontender. No hepatosplenomegaly, normal bowel sounds, no guarding or rigidity. Patient has a PEG tube in place EXTREMITIES: No clubbing, no edema, no cyanosis, 2+ pulses and upper and lower extremities. SKIN: No rashes CENTRAL NERVOUS SYSTEM: Patient is nonverbal, does not seem to follow any instructions. - Labs CBC & Chem 7: 04/03/21 06:06 04/03/21 06:06 Labs: Abnormal Lab Results - Last 24 Hours (Table) 04/03/21 04/03/21 04/03/21 Range/Units 00:26 06:06 06:06 WBC 2.4 L (3.8-10.6) k/uL RBC 2.38 L (4.30-5.90) m/uL Hgb 7.8 L D (13.0-17.5) gm/dL Hct 23.1 L (39.0-53.0) % RDW 17.5 H (11.5-15.5) % Plt Count 42 L D (150-450) k/uL Lymphocytes # 0.7 L (1.0-4.8) k/uL Sodium 132 L (137-145) mmol/L Potassium 2.9 L (3.5-5.1) mmol/L BUN 22 H (9-20) mg/dL POC Glucose (mg/dL) 109 H (75-99) mg/dL Calcium 8.1 L (8.4-10.2) mg/dL Alkaline Phosphatase 127 H (38-126) U/L Total Protein 4.4 L (6.3-8.2) g/dL Albumin 2.1 L (3.5-5.0) g/dL Microbiology - Last 24 Hours (Table) 03/30/21 10:05 Blood Culture - Preliminary Blood No Growth after 72 hours 03/30/21 10:00 Blood Culture - Preliminary Blood No Growth after 72 hours 03/30/21 12:20 Gram Stain - Final Sputum Sputum Culture - Final Pseudomonas aeruginosa Assessment and Plan Assessment: Impression: Acute hypoxic respiratory failure secondary to aspiration pneumonia intubated on 03/30 extubated on 03/31 2021. Acute aspiration pneumonia and sepsis. Acute pancreatitis History of ureteral stent placement Acute hypoglycemia on his initial presentation secondary to sepsis History of seizure disorder. Chronic dysphagia, has a PEG tube in place History of hydrocephalus and TONGUE PRESSER shunt placement History of developmental delay. History of adrenal insufficiency maintained on Cortef. Recommendation: Continue antibiotics. Continue oxygen and titrate accordingly Continue bronchodilators. Continue Cortef. Transfer patient out of the ICU to a regular medical floor. We'll continue to follow. Continue aspiration precautions. Long-term prognosis remains relatively poor and guarded. Time with Patient: Less than 30
[2021-04-03] MEDS: MEROPENEM 1 GM in SODIUM CHLORIDE 0.9% 100 ML IVPB SCH (12:30)
[2021-04-03 13:32] LABS: Glucose,Whole Blood 63 mg/dL (75-99)
[2021-04-03] MEDS ORDERED: DEXTROSE 50% SYRINGE 50 ML IVP ONE (13:40)
[2021-04-03] MEDS ORDERED: DEXTROSE 50% SYRINGE 50 ML IVP STA ×2 (13:46→16:59)
[2021-04-03 16:41] LABS: Glucose,Whole Blood 60 mg/dL (75-99)
[2021-04-03] MEDS: SCOPOLAMINE 1.5MG/72HR PATCH TRANSDERM SCH (17:00)
[2021-04-03 18:27] LABS: Glucose,Whole Blood 61 mg/dL (75-99)
[2021-04-03] MEDS ORDERED: DEXTROSE 10% IN WATER 1,000 ML in EMPTY BAG 1 BAG IV SCH (19:00)
--- NOTE | 2021-04-03 19:13 | P.PN ---
Subjective This is a 35 years old male was admitted to the intensive care unit in critical condition secondary to severe sepsis and hypoxia most likely secondary to aspiration pneumonia requiring intubation, currently patient is extubated and he maintained on 5 L oxygen via nasal cannula. His urine culture is growing Pseudomonas and sputum culture, gram-negative bacilli and is being covered with Zosyn. Also D5W at 30 mL/h. There wasn't evidence of seizure was placed on Keppra 500 mg. Patient is very lethargic. WBC is 8.9, hemoglobin 9.6, pledgeted 102. Patient is tachypneic at 43, blood pressure is 95/68. Also patient is with history of multiple meningioma status post bilateral craniotomy and intracranial shunt and chronic extra fluid collection in the brain with possible blood clots. EEG showing no epileptic form discharge. Severe encephalopathy and possible toxic encephalopathy given his triphasic electrical discharge. The renal ultrasound showing no hydronephrosis by right nephrolithiasis Ejection fraction is 55-60% on echocardiogram and there is no evidence of pulmonary embolism on CTA of the chest. 04/02/2021 Patient remains in the ICU due to the severe sepsis and infection with pneumonia and UTI secondary to Pseudomonas, he was on Zosyn and to the antibiotics change by pulmonary team and to meropenem. Also IV fluid was change to D5 normal saline at 40 mL per hour. Patient still mildly tachypneic, hypotensive and is requiring only 3 L/m of oxygen via nasal cannula. Chest x-ray showing improved right upper lobe radiation and right sided pleural effusion with adjacent atelectasis/consolidation. Continue with tube feeding via PEG 04/03/2021 Patient remains in the ICU in critical condition, his monitor Closely with help with critical care management by pulmonary/critical care team. History Knee area improved today blood pressure is slightly better 96/71 however he is on 6 L oxygen per minute which is worsened from 3-5 L the last 2 days. Chest x-ray showing progressive pneumonia versus CHF Also patient has evidence of hypoglycemia and hypokalemia which is been replaced. Also he was placed on D10 normal saline at 40 mL per hour. Patient remains on meropenem for severe sepsis secondary to Pseudomonas in his sputum and urine cultures Check vitamin B12 level Objective - Vital Signs Vital signs: Vital Signs Temp 97.4 F L 04/03/21 08:00 Pulse 71 04/03/21 10:00 Resp 13 04/03/21 10:00 BP 93/62 04/03/21 10:00 Pulse Ox 91 L 04/03/21 10:00 Intake & Output 04/02/21 04/03/21 04/03/21 18:59 06:59 18:59 Intake Total 1080 900 480 Output Total 305 265 130 Balance 775 635 350 Weight 53.3 kg Intake: IV 200 100 Piperacillin-Tazobactam 3 100 .375 gm In Sodium Chloride 0.9% 100 ml @ 25 mls/hr IVPB Q8HR [facility] Rx# :[id number] levETIRAcetam IV 500 mg 100 100 In Sodium Chloride 0.9% 100 ml @ 400 mls/hr IVPB BID [facility] Rx#:[id number] Intake, IV Titration 540 480 260 Amount Dextrose 10% in Water 1, 120 000 ml @ 30 mls/hr IV . Q24H [facility] Rx#:[id number] Dextrose 5%-0.9% NaCl 1, 320 480 160 000 ml @ 40 mls/hr IV . Q24H [facility] Rx#:[id number] Meropenem 1 gm In Sodium 100 Chloride 0.9% 100 ml @ 33 .3 mls/hr IVPB Q12H [facility] Rx#:[id number] Potassium Chloride 20 meq 100 In Water For Injection 1 100ml.bag @ 50 mls/hr IVPB Q2H [facility] Rx#: [id number] Tube Feeding 340 360 120 Other 60 Output: Urine 305 265 130 Other: Voiding Method Indwelling Catheter Indwelling Catheter Indwelling Catheter - Exam - GENERAL: The patient is alert and oriented x3, not in any acute distress. Very weak and lethargic, and both HEENT: Pupils are round and equally reacting to light. EOMI. No scleral icterus. No conjunctival pallor. Normocephalic, atraumatic. No pharyngeal erythema. No th yromegaly. CARDIOVASCULAR: S1 and S2 present. No murmurs, rubs, or gallops. PULMONARY: Chest is clear to auscultation, no wheezing or crackles. ABDOMEN: Soft, nontender, nondistended, normoactive bowel sounds. No palpable organomegaly. MUSCULOSKELETAL: No joint swelling or deformity. EXTREMITIES: No cyanosis, clubbing, or pedal edema. -NEUROLOGICAL: Cranial nerves are grossly intact.. Status post cranial shunt. Right hemiparesis (chronic). Spasticity SKIN: No rashes. no petechiae. - Labs CBC & Chem 7: 04/03/21 06:06 04/03/21 06:06 Labs: Abnormal Lab Results - Last 24 Hours (Table) 04/03/21 04/03/21 04/03/21 Range/Units 00:26 06:06 06:06 WBC 2.4 L (3.8-10.6) k/uL RBC 2.38 L (4.30-5.90) m/uL Hgb 7.8 L D (13.0-17.5) gm/dL Hct 23.1 L (39.0-53.0) % RDW 17.5 H (11.5-15.5) % Plt Count 42 L D (150-450) k/uL Lymphocytes # 0.7 L (1.0-4.8) k/uL Sodium 132 L (137-145) mmol/L Potassium 2.9 L (3.5-5.1) mmol/L BUN 22 H (9-20) mg/dL POC Glucose (mg/dL) 109 H (75-99) mg/dL Calcium 8.1 L (8.4-10.2) mg/dL Alkaline Phosphatase 127 H (38-126) U/L Total Protein 4.4 L (6.3-8.2) g/dL Albumin 2.1 L (3.5-5.0) g/dL Microbiology - Last 24 Hours (Table) 03/30/21 10:05 Blood Culture - Preliminary Blood No Growth after 72 hours 03/30/21 10:00 Blood Culture - Preliminary Blood No Growth after 72 hours 03/30/21 12:20 Gram Stain - Final Sputum Sputum Culture - Final Pseudomonas aeruginosa Assessment and Plan Assessment: Severe sepsis secondary to possible aspiration pneumonia secondary to Pseudomonas and UTI secondary to Pseudomonas related to her right nephrolithiasis Acute hypoxic respiratory failure status post intubation and extubation Pancytopenia and hyperglycemia, most likely related to sepsis Hyperglycemia on admission, now glucose level more than 100 breakthrough seizure Status post intracranial shunt History of meningiomas, multiple status post bilateral craniotomy History of seizure Plan: This is a pleasant 35 years old who presents with multiple problems including sepsis secondary to pneumonia, UTI, kidney stone, hypoglycemia, breakthrough seizure Continue with meropenem. Continue with D10 with normal saline Continue with Protonix No anticoagulation given for possibility of blood clot in the brain Check vitamin B12 Labs and medication were reviewed.. Continue same treatment. Continue with symptomatic treatment. Resume home medication. Monitor lytes and vitals. DVT and GI prophylaxis. Further recommendations as per clinical course of the patient DVT prophylaxis: No anticoagulation GI Prophylaxis: Ppi Prognosis is guarded
[2021-04-03] MEDS: DEXTROSE 10% IN WATER 1,000 ML in EMPTY BAG 1 BAG IV SCH (20:18)
[2021-04-03 20:56] LABS: Glucose,Whole Blood 63 mg/dL (75-99)
[2021-04-03] MEDS: HYDROmorphone 1 MG/ML 1 ML SYRINGE IVP PRN (21:03)
[2021-04-03 23:54] LABS: Glucose,Whole Blood 74 mg/dL (75-99)
[2021-04-04] MEDS: MEROPENEM 1 GM in SODIUM CHLORIDE 0.9% 100 ML IVPB SCH ×2 (00:45→11:56)
[2021-04-04 02:36] LABS: Glucose,Whole Blood 89 mg/dL (75-99)
[2021-04-04 05:55] LABS: Glucose,Whole Blood 82 mg/dL (75-99)
[2021-04-04 06:40] LABS: Anisocytosis Slight; Basophils % (A) 0 %; Eosinophils % (A) 1 %; HCT 24.5 % (39.0-53.0); HGB 7.9 gm/dL (13.0-17.5); Hypochromasia Slight; Lymphocytes # (A) 0.9 k/uL (1.0-4.8); Lymphocytes % (A) 31 %; MCHC 32.4 g/dL (31.0-37.0); MCV 98.5 fL (80.0-100.0); Macrocytosis Slight; Mean Platelet Volume 10.2; Monocytes # (A) 0.2 k/uL (0-1.0); Monocytes % (A) 7 %; Neutrophils # (A) 1.6 k/uL (1.3-7.7); Neutrophils % (A) 58 %; RBC 2.48 m/uL (4.30-5.90); RDW 18.1 % (11.5-15.5); WBC 2.8 k/uL (3.8-10.6)
[2021-04-04 06:46] LABS: Platelet Count 71 k/uL (150-450)
[2021-04-04 06:49] LABS: Albumin 2.1 g/dL (3.5-5.0); Calcium 7.7 mg/dL (8.4-10.2); Potassium 3.8 mmol/L (3.5-5.1); Total Bilirubin 0.4 mg/dL (0.2-1.3); Total Protein 4.4 g/dL (6.3-8.2)
--- NOTE | 2021-04-04 08:19 | XR ---
EXAMINATION TYPE: XR chest 1V portable DATE OF EXAM: 04/04/2021 COMPARISON: Chest x-ray 04/03/2021 HISTORY: Shortness of breath TECHNIQUE: Single frontal view of the chest is obtained. FINDINGS: Probable ventriculoperitoneal shunt tubings are again noted over the right and left chest, there is a subclavian central venous catheter with the distal tip over the right atrium coursing fro m the cephalad aspect of the exam as on prior. There is no evident pneumothorax. There are overlying leads. Cardiac mediastinal silhouette shows a similar appearance. Bibasilar increased attenuation obs cures the hemidiaphragms. Interstitium is somewhat increased. IMPRESSION: Correlate for congestive heart failure possible bibasilar effusions, pneumonia not exclu ded.
[2021-04-04] MEDS: IPRATROPIUM-ALBUTEROL 3 ML NEB INHALATION SCH ×2 (08:27→20:25)
[2021-04-04] MEDS: levETIRAcetam IV 500 MG in SODIUM CHLORIDE 0.9% 100 ML IVPB SCH ×2 (09:56→21:36)
[2021-04-04] MEDS: PANTOPRAZOLE 40 MG/10 ML VIAL IVP SCH ×2 (09:57→21:37)
--- NOTE | 2021-04-04 10:49 | P.PN ---
Subjective Progress Note Date: 04/03/21 Patient initially seen by Dr. Ian Hay. Please refer to his note for details. Patient has history of developmental delay, seizure disorder, also with history of meningioma, status post craniotomy and shunt placement in the past. Patient had some seizures in the ER. Her blood glucose was 33 as noted in the ER, likely the cause of seizure. Patient's parents were present today. They states that he has not had any seizures since admission to the hospital. He is currently on Keppra 500 mg twice a day. Patient is here for kidney stones, and hematuria. Patient follows up with Dr. Nelson, who is the neurosurgeon, and Dr. Wang, his neurologist. Patient had seizures off and on. Sometimes he has no seizures for weeks and then may have couple in a day. Patient's family states that he sometimes talks in sentences, but is not very conversational. He usually gives thumb up. Objective - Vital Signs Vital signs: Vital Signs Temp 97.8 F 04/03/21 12:00 Pulse 71 04/03/21 12:00 Resp 16 04/03/21 12:00 BP 131/86 04/03/21 12:00 Pulse Ox 91 L 04/03/21 12:00 Intake & Output 04/02/21 04/03/21 04/03/21 18:59 06:59 18:59 Intake Total 1080 900 620 Output Total 305 265 190 Balance 775 635 430 Weight 53.3 kg Intake: IV 200 100 Piperacillin-Tazobactam 3 100 .375 gm In Sodium Chloride 0.9% 100 ml @ 25 mls/hr IVPB Q8HR [facility] Rx# :[id number] levETIRAcetam IV 500 mg 100 100 In Sodium Chloride 0.9% 100 ml @ 400 mls/hr IVPB BID [facility] Rx#:[id number] Intake, IV Titration 540 480 340 Amount Dextrose 10% in Water 1, 120 000 ml @ 30 mls/hr IV . Q24H [facility] Rx#:[id number] Dextrose 5%-0.9% NaCl 1, 320 480 240 000 ml @ 40 mls/hr IV . Q24H [facility] Rx#:[id number] Meropenem 1 gm In Sodium 100 Chloride 0.9% 100 ml @ 33 .3 mls/hr IVPB Q12H [facility] Rx#:[id number] Potassium Chloride 20 meq 100 In Water For Injection 1 100ml.bag @ 50 mls/hr IVPB Q2H [facility] Rx#: [id number] Tube Feeding 340 360 180 Other 60 Output: Urine 305 265 190 Other: Voiding Method Indwelling Catheter Indwelling Catheter Indwelling Catheter - Exam GENERAL: The patient is lying in bed and does not seem in acute distress. 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 NEUROLOGICAL: Limited because of his condition Higher mental function: Patient is alert and awake, makes eye contact, but often stares, Cranial nerves: Primary gaze is midline. Extraocular muscles are intact. No obvious facial weakness. Motor: Patient usually communicates with left thumb (up or down) Cerebellum: Could not assess. Sensation: Could not assess. Reflexes (right/left): 1+ throughout. WORK-UP: Initial vital signs his blood pressure 151/90, heart rate of 124, respiratory of 34, temperature of 97.8 Fahrenheit oral and pulse ox of 90% on 4 L of nasal cannula. Initial white blood cells 50.6 and repeated 6.3. MCV is 94. His sodium was 130, creatinine is 1.14, plasma lactic acid is 6.9. Because the patient was tachypneic and tachycardia a He was given Mrophine in the ED. As resut of respiratory issues was intubated and on ventilator. CT of the head is reported as previous craniotomy flap on both left and right side. Chronic underlying extra axial fluid collection, the left-containing shunt catheter. The left-sided extra-axial collection is slightly larger at 1.9 cm thick versus 1.7 cm previously. Some nodule area of intermediate density at present within the fluid and could represent subacute blood product. The anterior right frontal extra-axial fluid collection is smaller from 2018 at 1.4 cm thick versus 1.5 cm, previously and contain some intermediate density area that could represent subacute blood product. No definite acute intracranial hemorrhage. No midline shift. There is a new right parietal TECHNICAL DEVELOPER shunt catheter compared to 2018 tip in the posterior body of the left lateral ventricle. The hydrocephalus seen on 2007 he has resolved. Abandoned anterior right frontal shunt catheter. I personally reviewed the CT of the head and there is no acute subacute ischemia and there is no acute intraperitoneal hemorrhage. Patient does have history of craniotomy as well as he does have a shunt placed. He does have chronic underlying left extra-axial fluid collection and it's in the frontal region area. Chest x-rays reported as right lower lobe infiltrate with small effusion correlate for interstitial pneumonitis or mild venous congestion. His lipase level is 1565 amylase is 506 troponin is 0.39. AST 67 and ALT is 45. Outcome phosphorus is 450. Arreaga virus PCR was not detected. u/a: color is red and appears bloody, wbc is 112, rbc >182, - Labs CBC & Chem 7: 04/04/21 05:56 04/04/21 05:56 Labs: Abnormal Lab Results - Last 24 Hours (Table) 04/03/21 04/03/21 04/03/21 Range/Units 00:26 06:06 06:06 WBC 2.4 L (3.8-10.6) k/uL RBC 2.38 L (4.30-5.90) m/uL Hgb 7.8 L D (13.0-17.5) gm/dL Hct 23.1 L (39.0-53.0) % RDW 17.5 H (11.5-15.5) % Plt Count 42 L D (150-450) k/uL Lymphocytes # 0.7 L (1.0-4.8) k/uL Sodium 132 L (137-145) mmol/L Potassium 2.9 L (3.5-5.1) mmol/L BUN 22 H (9-20) mg/dL POC Glucose (mg/dL) 109 H (75-99) mg/dL Calcium 8.1 L (8.4-10.2) mg/dL Alkaline Phosphatase 127 H (38-126) U/L Total Protein 4.4 L (6.3-8.2) g/dL Albumin 2.1 L (3.5-5.0) g/dL Microbiology - Last 24 Hours (Table) 03/30/21 10:05 Blood Culture - Preliminary Blood No Growth after 72 hours 03/30/21 10:00 Blood Culture - Preliminary Blood No Growth after 72 hours 03/30/21 12:20 Gram Stain - Final Sputum Sputum Culture - Final Pseudomonas aeruginosa Assessment and Plan Assessment: Breakthrough seizure (it was questionable per ED nurse) and likely provoked due to hypoglycemia as low as 33---no further seizures Significant hypoglycemia on presentation (as low as 33)--improved Acute hypoxic respiratory failure related to possibly sepsis possibly due to acute pancreatitis Acute pancreatitis History of seizure Multiple brain meningioma s/p bilateral craniotomy (had multiple surgeries and first was 1989 and last 2018). 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 The background slowing is suggestive of severe encephalopathy. The triphasic morphology is likely due to toxic metabolic abnormalities. The breach rhythm is consistent with patient's history of skull defect. Otherwise there is no focal slowing, epileptiform discharges or seizure on the EEG. Clinical correlation is recommended. Continue Keppra 500 twice a day which is home dose. * Check Keppra level. As the seizure was related to hypoglycemia, we will not make any changes in his seizure medication. * Discussed with patient's parents, and agree with the management above. * Please avoid any further hypoglycemia will defer the management to the ICU as well as the primary team * 1mg Ativan Q4H PRN for seizure. * If patient has seizure increase Keppra to 750mg bid. * We'll defer the rest of the medical management to the primary and ICU team. The plan is discussed with the patient's parents and his ICU nurse.
[2021-04-04] MEDS: HYDROCORTISONE SUCCINATE 100 MG/2 ML VIAL IV SCH ×2 (11:20→17:15)
[2021-04-04 11:36] LABS: Glucose,Whole Blood 75 mg/dL (75-99)
--- NOTE | 2021-04-04 13:00 | US ---
EXAMINATION TYPE: US renals and bladder DATE OF EXAM: 04/04/2021 COMPARISON: CT dated 07/22/2017 CLINICAL HISTORY: obstructive uropathy. EXAM MEASUREMENTS: Right Kidney: 10.0 x 5.4 x 5.7 cm Patient scanned in chair, technologist unable to well reach patient Right Kidney: cyst measuring 1.8 x 1.6 x 1.8cm Left Kidney: unable to visualize due to overlying bowel/patient position/technologist reach Bladder: barcenas Free fluid in pelvis. Right upper pole simple renal cyst without suspicious features, otherwise unremarkable right kidney. No definite right renal stones, hydronephrosis or suspicious renal lesion. No right perinephric fluid . The left kidney could not be visualized by this ultrasound. The urinary bladder is not distended demo nstrating a slightly thickened wall and Barcenas catheter within. Small amount of free fluid is seen in the pelvis. IMPRESSION: Right simple renal cyst, otherwise unremarkable right kidney. The left kidney could not be properly v isualized. Barcenas catheter within the urinary bladder which demonstrates a slightly thickened wall, pl ease correlate with urinalysis results.
--- NOTE | 2021-04-04 13:08 | P.PN ---
Subjective Progress Note Date: 04/04/21 Principal diagnosis: Acute hypoxic respiratory failure secondary to aspiration pneumonia 35-year-old white male patient with history of developmental delay, seizure disorder, benign brain meningiomas, spinal cord tumor, hydrocephalus, [employer]OM[employer] shunt placement, and revisions, dysphagia with history of PEG tube placement who was brought into the emergency department on 03/30/2021 by EMS for evaluation of abdominal pain. Most history was obtained from the ER physician, and ED recor ds. The patient's parents report the patient was having quite a bit of distress and they gave him morphine, they noted that his heart rate was 120, and patient is usually a little bit bradycardic. He wears home O2 on as-needed basis at home, however the parents noticed that on 4 L of oxygen and his pulse ox was only 90%. There is no reported fevers no vomiting or diarrhea. There is reported history of kidney stones on the right side. In the ED patient was noted to be tachycardic initially with a heart rate of 130 BPM. Initial chest x-ray showed redemonstration of right subclavian central venous catheter, mild chronic parenchymal changes with left basilar opacity, tiny bilateral pleural effusions, no pneumothorax. There was redemonstration of overlying [employer]OM[employer]LE [employer] shunt catheters bilaterally. Abdominal x-ray showed PEG tube, right double-J ureter stent, overall nonobstructive bowel gas pattern. Lab work evaluation showed leukocytosis with white blood cell count of 15.6, hemoglobin of 13.3, d-dimer was 2.57, sodium of 1:30, potassium is 4.2, chloride is 91, CO2 is 25, BUN of 38, and creatinine of 1.14. Glucose was 49, plasma lactic acid was 6.9, AST was 67 ALT was 45, alk phos was 450, troponin was 0.393, amylase was 506, lipase was 1565. Patient was afebrile, he was quite tachypneic and tachycardic, he was initially DO NOT RESUSCITATE CODE STATUS, he was being treated medically in the ED with antibiotics, IV fluids, and BiPAP support. CTA chest was completed showing no major or central pulmonary embolism, and scattered bilateral irregular opacities groundglass opacities, centrilobular nodules and areas of consolidation with air bronchograms most evident in the lower lobes and more on the left side consistent with acute inflammatory or infectious process including COVID-19 infection, but associated pulmonary edema could not be excluded. Subsequently patient went into SVT with a rate of 170, and having more respiratory difficulty, the family has reversed his DO NOT RESUSCITATE CODE STATUS and wanted everything done. At which point patient was intubated and placed on mechanical ventilator. He is currently on assist control mode of ventilation with a rate of 20, tidal lungs 400, FiO2 100% and PEEP of 5. He is sedated with Diprivan, he has received 3 L in IV fluid boluses, he is on Zosyn, nebulized bronchodilators, he did receive of 50% dextrose IV push for episode of hypoglycemia, he was tested for COVID-19 and was found to be negative. Ultrasound of the gallbladder has been completed showing hyperechoic lesions involving the liver that could be related to the hemangiomas. Progress note dated 04/02/2021. The patient is again seen in the intensive care unit, room 257. The patient is now been in the hospital for about 3 days. He was admitted with a diagnosis of acute hypoxemic respiratory failure, and did require intubation and mechanical ventilation. Currently, the patient's resting comfortably. He is on 3 L nasal cannula. He is receiving vital AF at 30 mL an hour, which is goal. In addition, the patient is getting D10, at 30 mL an hour, and saline at 10 mL an hour. No new labs today. Chest x-ray today shows continued improvement in the infiltrate in the right upper lobe, a small right-sided pleural effusion, and some right basilar atelectasis. The patient continues on Zosyn. Urine and sputum, on March 30, reveal Pseudomonas. Reevaluated today on 04/03/2021, patient remains in the ICU, he is on few liters nasal cannula, O2 saturation is in the 90s. He's actually now on 4 L nasal cannula. Patient does not seem to be in any distress, his chest x-ray continues to show bilateral infiltrates. Patient is receiving vital AF, his labs showed normal renal profile, potassium is a bit low at 2.9 being addressed as per pro tocol. WBC count is 2.4 hemoglobin is 7.8. Chest x-ray showed bilateral infiltrates, right more so than left, consistent with aspiration pneumonia presentation. Patient remains on Zosyn for presumptive aspiration pneumonia. Reevaluated today on 04/04/2021, patient remains in the ICU, patient is on 2 L nasal cannula, and his O2 saturation is 94%. His chest x-ray is showing slight improvement in his aspiration pneumonia. Patient had issues with hypoglycemia last night, had to place the patient on D10W overnight, found out today that his Cortef was discontinued on the , and that's mostly likely the cause of his hypoglycemia. I placed the patient back on Solu-Cortef as 100 mg IV push every 8 hours, and will eventually transitioned to his usual dose when the patient improves. For now the patient will receive stress doses of hydrocortisone, and I will recommend eventual transition to Cortef. Clinically the patient is feeling better, however his renal functioning is getting worse. And I have consulted nephrology, creatinine jumped up to 1.39. Considering the patient has history of nephrolithiasis and stent placement, went ahead and recommended an ultrasound of the kidneys, and I also recommended urology consultation, patient is noted to have hematuria in his urine, possibly traumatic from his Rodriguez catheter. However will go ahead and ask urology to evaluate. His CBC today showed a preserved 2.8 hemoglobin is 7.9. Electrodes are normal BUN is 25 creatinine 1.39. Sugars seem to be under better control, I believe we can safely discontinue D10 infusion once the patient is back on Solu-Cortef. Objective - Vital Signs Vital signs: Vital Signs Temp 97.5 F L 04/04/21 12:00 Pulse 61 04/04/21 12:00 Resp 12 04/04/21 12:00 BP 90/77 04/04/21 12:00 Pulse Ox 90 L 04/04/21 12:00 Intake & Output 04/03/21 04/04/21 04/04/21 18:59 06:59 18:59 Intake Total 1040 1225 530 Output Total 405 455 350 Balance 635 770 180 Weight 53.3 kg 58.2 kg Intake: IV 100 680 375 Dextrose 10% in Water 1, 580 375 000 ml In Empty Bag 1 bag @ 40 mls/hr IV .Q24H ROSA M Rx#:[id number] levETIRAcetam IV 500 mg 100 100 In Sodium Chloride 0.9% 100 ml @ 400 mls/hr IVPB BID ROSA M Rx#:[id number] Intake, IV Titration 580 40 Amount Dextrose 5%-0.9% NaCl 1, 480 40 000 ml @ 40 mls/hr IV . Q24H ROSA M Rx#:[id number] Potassium Chloride 20 meq 100 In Water For Injection 1 100ml.bag @ 50 mls/hr IVPB Q2H ROSA M Rx#: [id number] Tube Feeding 360 415 155 Other 90 Output: Urine 405 455 350 Other: Voiding Method Indwelling Catheter Indwelling Catheter Indwelling Catheter - Exam GENERAL EXAM: Revealed 35-year-old, on 2 lit nasal cannula, in no distress. HEAD: Craniotomy scar is noted in his head. Normocephalic EYES: Normal reaction of pupils, equal size. Conjunctiva pink, sclera white. NOSE: Clear with pink turbinates. THROAT: No erythema or exudates. NECK: No masses, no JVD, no thyroid enlargement, no adenopathy. CHEST: No chest wall deformity. Symmetrical expansion. LUNGS: Crackles at the bases bilaterally. CVS: Regular rate and rhythm, normal S1 and S2, no gallops, no murmurs, no rubs ABDOMEN: Soft, nontender. No hepatosplenomegaly, normal bowel sounds, no guarding or rigidity. Patient has a PEG tube in place EXTREMITIES: No clubbing, no edema, no cyanosis, 2+ pulses and upper and lower e xtremities. SKIN: No rashes CENTRAL NERVOUS SYSTEM: Patient is nonverbal, does not seem to follow any instructions. - Labs CBC & Chem 7: 04/04/21 05:56 04/04/21 05:56 Labs: Abnormal Lab Results - Last 24 Hours (Table) 04/03/21 04/03/21 04/03/21 Range/Units 13:27 16:32 18:23 WBC (3.8-10.6) k/uL RBC (4.30-5.90) m/uL Hgb (13.0-17.5) gm/dL Hct (39.0-53.0) % RDW (11.5-15.5) % Plt Count (150-450) k/uL Lymphocytes # (1.0-4.8) k/uL Sodium (137-145) mmol/L Chloride (98-107) mmol/L Carbon Dioxide (22-30) mmol/L BUN (9-20) mg/dL Creatinine (0.66-1.25) mg/dL Glucose (74-99) mg/dL POC Glucose (mg/dL) 63 L 60 L 61 L (75-99) mg/dL Calcium (8.4-10.2) mg/dL Alkaline Phosphatase (38-126) U/L Total Protein (6.3-8.2) g/dL Albumin (3.5-5.0) g/dL 04/03/21 04/03/21 04/04/21 Range/Units 20:54 23:52 05:56 WBC 2.8 L (3.8-10.6) k/uL RBC 2.48 L (4.30-5.90) m/uL Hgb 7.9 L (13.0-17.5) gm/dL Hct 24.5 L (39.0-53.0) % RDW 18.1 H (11.5-15.5) % Plt Count 71 L D (150-450) k/uL Lymphocytes # 0.9 L (1.0-4.8) k/uL Sodium (137-145) mmol/L Chloride (98-107) mmol/L Carbon Dioxide (22-30) mmol/L BUN (9-20) mg/dL Creatinine (0.66-1.25) mg/dL Glucose (74-99) mg/dL POC Glucose (mg/dL) 63 L 74 L (75-99) mg/dL Calcium (8.4-10.2) mg/dL Alkaline Phosphatase (38-126) U/L Total Protein (6.3-8.2) g/dL Albumin (3.5-5.0) g/dL 04/04/21 Range/Units 05:56 WBC (3.8-10.6) k/uL RBC (4.30-5.90) m/uL Hgb (13.0-17.5) gm/dL Hct (39.0-53.0) % RDW (11.5-15.5) % Plt Count (150-450) k/uL Lymphocytes # (1.0-4.8) k/uL Sodium 132 L (137-145) mmol/L Chloride 108 H (98-107) mmol/L Carbon Dioxide 21 L (22-30) mmol/L BUN 25 H (9-20) mg/dL Creatinine 1.39 H (0.66-1.25) mg/dL Glucose 70 L (74-99) mg/dL POC Glucose (mg/dL) (75-99) mg/dL Calcium 7.7 L (8.4-10.2) mg/dL Alkaline Phosphatase 127 H (38-126) U/L Total Protein 4.4 L (6.3-8.2) g/dL Albumin 2.1 L (3.5-5.0) g/dL Microbiology - Last 24 Hours (Table) 03/30/21 10:05 Blood Culture - Preliminary Blood No Growth after 96 hours 03/30/21 10:00 Blood Culture - Preliminary Blood No Growth after 96 hours Assessment and Plan Assessment: Impression: Acute hypoxic respiratory failure secondary to aspiration pneumonia intubated on 03/30 extubated on 03/31 2021. Acute aspiration pneumonia and sepsis. Sputum has been positive for Pseudomonas pneumonia which seems to be resistant to Zosyn and cefepime, patient is now on Merrem, and I will ask for ID consultation. Acute pancreatitis History of ureteral stent placement, now the patient has hematuria, will ask for urology consultation. Acute hypoglycemia on his initial presentation secondary to sepsis History of seizure disorder. Chronic dysphagia, has a PEG tube in place History of hydrocephalus and [employer]OMOBILE INS[employer] shunt placement History of developmental delay. History of adrenal insufficiency , back on Solu-Cortef at 100 mg IV push every 8 hours Hypoglycemia secondary to adrenal insufficiency. Acute kidney injury, would recommend nephrology evaluation. Recommendation: Continue antibiotics.Infectious disease consultation. Nephrology consultation. Urology consultation. Continue oxygen and titrate accordingly Continue bronchodilators. Continue Cortef.Monitor sugars and possibly discontinue D10 and his sugars start getting under better control. We'll continue to follow. Continue aspiration precautions. Long-term prognosis remains relatively poor and guarded. Time with Patient: Less than 30
[2021-04-04 13:23] LABS: Folate, Serum 4.6 ng/mL (4.40-31.00)
[2021-04-04] MEDS: DEXTROSE 10% IN WATER 1,000 ML in EMPTY BAG 1 BAG IV SCH (13:52)
[2021-04-04 18:24] LABS: Glucose,Whole Blood 112 mg/dL (75-99)
--- NOTE | 2021-04-04 21:17 | P.PN ---
Subjective This is a 35 years old male was admitted to the intensive care unit in critical condition secondary to severe sepsis and hypoxia most likely secondary to aspiration pneumonia requiring intubation, currently patient is extubated and he maintained on 5 L oxygen via nasal cannula. His urine culture is growing Pseudomonas and sputum culture, gram-negative bacilli and is being covered with Zosyn. Also D5W at 30 mL/h. There wasn't evidence of seizure was placed on Keppra 500 mg. Patient is very lethargic. WBC is 8.9, hemoglobin 9.6, pledgeted 102. Patient is tachypneic at 43, blood pressure is 95/68. Also patient is with history of multiple meningioma status post bilateral craniotomy and intracranial shunt and chronic extra fluid collection in the brain with possible blood clots. EEG showing no epileptic form discharge. Severe encephalopathy and possible toxic encephalopathy given his triphasic electrical discharge. The renal ultrasound showing no hydronephrosis by right nephrolithiasis Ejection fraction is 55-60% on echocardiogram and there is no evidence of pulmonary embolism on CTA of the chest. 04/02/2021 Patient remains in the ICU due to the severe sepsis and infection with pneumonia and UTI secondary to Pseudomonas, he was on Zosyn and to the antibiotics change by pulmonary team and to meropenem. Also IV fluid was change to D5 normal saline at 40 mL per hour. Patient still mildly tachypneic, hypotensive and is requiring only 3 L/m of oxygen via nasal cannula. Chest x-ray showing improved right upper lobe radiation and right sided pleural effusion with adjacent atelectasis/consolidation. Continue with tube feeding via PEG 04/03/2021 Patient remains in the ICU in critical condition, his monitor Closely with help with critical care management by pulmonary/critical care team. History Knee area improved today blood pressure is slightly better 96/71 however he is on 6 L oxygen per minute which is worsened from 3-5 L the last 2 days. Chest x-ray showing progressive pneumonia versus CHF Also patient has evidence of hypoglycemia and hypokalemia which is been replaced. Also he was placed on D10 normal saline at 40 mL per hour. Patient remains on meropenem for severe sepsis secondary to Pseudomonas in his sputum and urine cultures Check vitamin B12 level 04/04/2021 Patient remains in the in his sputum and urine culture which is covered with meropenem. His blood pressure is better today 112/80, oxygen requirement dropped to 2 L/m, breathing rate 18 and he is afebrile. Labs showing stable pancytopenia with slightly improved platelet count 42 up to 71, hemoglobin 7.9 and WBC 2.8. Creatinine went up 1.0 and 21.3. B12 more than 1000 and just x-ray showing evidence of CHF versus pneumonia Patient was started on hydrocortisone 100 mg 3 times a day which helped improve his sugar and blood pressure as well. Neurology on the case and currently he is on Keppra. Infectious disease consulted Objective - Vital Signs Vital signs: Vital Signs Temp 97.5 F L 04/04/21 08:00 Pulse 63 04/04/21 10:00 Resp 23 04/04/21 10:00 BP 122/76 04/04/21 10:00 Pulse Ox 94 L 04/04/21 10:00 Intake & Output 04/03/21 04/04/21 04/04/21 18:59 06:59 18:59 Intake Total 1040 1225 425 Output Total 405 455 240 Balance 635 770 185 Weight 53.3 kg 58.2 kg Intake: IV 100 680 300 Dextrose 10% in Water 1, 580 300 000 ml In Empty Bag 1 bag @ 40 mls/hr IV .Q24H ROSA M Rx#:[id number] levETIRAcetam IV 500 mg 100 100 In Sodium Chloride 0.9% 100 ml @ 400 mls/hr IVPB BID ROSA M Rx#:[id number] Intake, IV Titration 580 40 Amount Dextrose 5%-0.9% NaCl 1, 480 40 000 ml @ 40 mls/hr IV . Q24H ROSA M Rx#:[id number] Potassium Chloride 20 meq 100 In Water For Injection 1 100ml.bag @ 50 mls/hr IVPB Q2H ROSA M Rx#: [id number] Tube Feeding 360 415 125 Other 90 Output: Urine 405 455 240 Other: Voiding Method Indwelling Catheter Indwelling Catheter Indwelling Catheter - Exam - GENERAL: The patient is alert and oriented x3, not in any acute distress. Very weak and lethargic, and both HEENT: Pupils are round and equally reacting to light. EOMI. No scleral icterus. No conjunctival pallor. Normocephalic, atraumatic. No pharyngeal erythema. No thyromegaly. CARDIOVASCULAR: S1 and S2 present. No murmurs, rubs, or gallops. PULMONARY: Chest is clear to auscultation, no wheezing or crackles. ABDOMEN: Soft, nontender, nondistended, normoactive bowel sounds. No palpable organomegaly. MUSCULOSKELETAL: No joint swelling or deformity. EXTREMITIES: No cyanosis, clubbing, or pedal edema. -NEUROLOGICAL: Cranial nerves are grossly intact.. Status post cranial shunt. Right hemiparesis (chronic). Spasticity SKIN: No rashes. no petechiae. - Labs CBC & Chem 7: 04/04/21 05:56 04/04/21 05:56 Labs: Abnormal Lab Results - Last 24 Hours (Table) 04/03/21 04/03/21 04/03/21 Range/Units 13:27 16:32 18:23 WBC (3.8-10.6) k/uL RBC (4.30-5.90) m/uL Hgb (13.0-17.5) gm/dL Hct (39.0-53.0) % RDW (11.5-15.5) % Plt Count (150-450) k/uL Lymphocytes # (1.0-4.8) k/uL Sodium (137-145) mmol/L Chloride (98-107) mmol/L Carbon Dioxide (22-30) mmol/L BUN (9-20) mg/dL Creatinine (0.66-1.25) mg/dL Glucose (74-99) mg/dL POC Glucose (mg/dL) 63 L 60 L 61 L (75-99) mg/dL Calcium (8.4-10.2) mg/dL Alkaline Phosphatase (38-126) U/L Total Protein (6.3-8.2) g/dL Albumin (3.5-5.0) g/dL 04/03/21 04/03/21 04/04/21 Range/Units 20:54 23:52 05:56 WBC 2.8 L (3.8-10.6) k/uL RBC 2.48 L (4.30-5.90) m/uL Hgb 7.9 L (13.0-17.5) gm/dL Hct 24.5 L (39.0-53.0) % RDW 18.1 H (11.5-15.5) % Plt Count 71 L D (150-450) k/uL Lymphocytes # 0.9 L (1.0-4.8) k/uL Sodium (137-145) mmol/L Chloride (98-107) mmol/L Carbon Dioxide (22-30) mmol/L BUN (9-20) mg/dL Creatinine (0.66-1.25) mg/dL Glucose (74-99) mg/dL POC Glucose (mg/dL) 63 L 74 L (75-99) mg/dL Calcium (8.4-10.2) mg/dL Alkaline Phosphatase (38-126) U/L Total Protein (6.3-8.2) g/dL Albumin (3.5-5.0) g/dL 04/04/21 Range/Units 05:56 WBC (3.8-10.6) k/uL RBC (4.30-5.90) m/uL Hgb (13.0-17.5) gm/dL Hct (39.0-53.0) % RDW (11.5-15.5) % Plt Count (150-450) k/uL Lymphocytes # (1.0-4.8) k/uL Sodium 132 L (137-145) mmol/L Chloride 108 H (98-107) mmol/L Carbon Dioxide 21 L (22-30) mmol/L BUN 25 H (9-20) mg/dL Creatinine 1.39 H (0.66-1.25) mg/dL Glucose 70 L (74-99) mg/dL POC Glucose (mg/dL) (75-99) mg/dL Calcium 7.7 L (8.4-10.2) mg/dL Alkaline Phosphatase 127 H (38-126) U/L Total Protein 4.4 L (6.3-8.2) g/dL Albumin 2.1 L (3.5-5.0) g/dL Microbiology - Last 24 Hours (Table) 03/30/21 10:05 Blood Culture - Preliminary Blood No Growth after 96 hours 03/30/21 10:00 Blood Culture - Preliminary Blood No Growth after 96 hours Assessment and Plan Assessment: Severe sepsis secondary to possible aspiration pneumonia secondary to Pseudomonas and UTI secondary to Pseudomonas related to her right nephrolithiasis Acute hypoxic respiratory failure status post intubation and extubation Pancytopenia and hyperglycemia, most likely related to sepsis Hypoglycemia on admission, now glucose level improved breakthrough seizure Status post intracranial shunt History of meningiomas, multiple status post bilateral craniotomy History of seizure Plan: This is a pleasant 35 years old who presents with multiple problems including sepsis secondary to pneumonia, UTI, kidney stone, hypoglycemia, breakthrough seizure Continue with meropenem. Continue with antibiotics per infectious incision Continue with cortisone and monitor glucose and blood pressure Continue with Protonix No anticoagulation given for possibility of blood clot in the brain Neurology team on the case Labs and medication were reviewed.. Continue same treatment. Continue with symptomatic treatment. Resume home medication. Monitor lytes and vitals. DVT and GI prophylaxis. Further recommendations as per clinical course of the patient DVT prophylaxis: No anticoagulation GI Prophylaxis: Ppi Prognosis is guarded
[2021-04-04 23:43] LABS: Glucose,Whole Blood 165 mg/dL (75-99)
[2021-04-05] MEDS: MEROPENEM 1 GM in SODIUM CHLORIDE 0.9% 100 ML IVPB SCH ×2 (00:42→13:13)
[2021-04-05] MEDS: HYDROCORTISONE SUCCINATE 100 MG/2 ML VIAL IV SCH ×3 (00:43→17:34)
[2021-04-05 06:07] LABS: Glucose,Whole Blood 139 mg/dL (75-99)
[2021-04-05 07:05] LABS: Anisocytosis Slight; Basophils % (A) 0 %; Eosinophils % (A) 0 %; HCT 23.2 % (39.0-53.0); HGB 7.8 gm/dL (13.0-17.5); Hypochromasia Slight; Lymphocytes # (A) 0.4 k/uL (1.0-4.8); Lymphocytes % (A) 13 %; MCH 32.7 pg (25.0-35.0); MCHC 33.5 g/dL (31.0-37.0); MCV 97.4 fL (80.0-100.0); Macrocytosis Slight; Monocytes # (A) 0.1 k/uL (0-1.0); Monocytes % (A) 4 %; Neutrophils # (A) 2.6 k/uL (1.3-7.7); Neutrophils % (A) 82 %; RBC 2.38 m/uL (4.30-5.90); RDW 17.3 % (11.5-15.5); WBC 3.2 k/uL (3.8-10.6)
[2021-04-05] MEDS: DEXTROSE 10% IN WATER 1,000 ML in EMPTY BAG 1 BAG IV SCH (07:07)
[2021-04-05 07:14] LABS: Platelet Count 72 k/uL (150-450)
[2021-04-05 07:23] LABS: ALT 22 U/L (4-49); AST 28 U/L (17-59); African American GFR (CKD) >90 (>60 ml/min/1.73 sqM); Albumin 2.1 g/dL (3.5-5.0); Alkaline Phosphatase 111 U/L (38-126); Anion Gap 4 mmol/L; Blood Urea Nitrogen 22 mg/dL (9-20); Calcium 7.9 mg/dL (8.4-10.2); Carbon Dioxide 19 mmol/L (22-30); Chloride 105 mmol/L (98-107); Glucose 122 mg/dL (74-99); Non-African American GFR(CKD) 85 (>60 ml/min/1.73 sqM); Potassium 3.7 mmol/L (3.5-5.1); Sodium 128 mmol/L (137-145); Total Bilirubin 0.3 mg/dL (0.2-1.3); Total Protein 4.5 g/dL (6.3-8.2)
[2021-04-05] MEDS: IPRATROPIUM-ALBUTEROL 3 ML NEB INHALATION SCH ×3 (08:18→18:56)
--- NOTE | 2021-04-05 08:59 | XR ---
EXAMINATION TYPE: XR chest 1V portable DATE OF EXAM: 04/05/2021 COMPARISON: 04/04/2021 HISTORY: Shortness of breath TECHNIQUE: Single frontal view of the chest is obtained. FINDINGS: There are bilateral pleural effusions with cardiomegaly and bibasilar infiltrate. There is a diffuse interstitial pattern. Underlying mass right upper lobe not excluded. [employer] shunt catheter and central line noted. Use osteopenia. IMPRESSION: 1. Stable diffuse pleural-parenchymal disease correlate for CHF versus diffuse pneumonia
[2021-04-05] MEDS: PANTOPRAZOLE 40 MG/10 ML VIAL IVP SCH ×2 (09:23→21:39)
[2021-04-05] MEDS: levETIRAcetam IV 500 MG in SODIUM CHLORIDE 0.9% 100 ML IVPB SCH ×2 (10:03→21:39)
[2021-04-05] MEDS: DEXTROSE 5%-0.9% NACL 1,000 ML IV SCH (10:05)
--- NOTE | 2021-04-05 10:30 | P.CONS ---
History of Present Illness - Reason for Consult Consult date: 04/04/21 pneumonia Requesting physician: Paco Ugarte - Chief Complaint difficulty breathing x few days - History of Present Illness History of Present Illness : Patient is a 35-year male with a past medical history significant for meningiomas seizure disorder developmental delay CVA in this patient recently did have a lithotripsy for the right-sided kidney stones patient presenting to the [facility] ER on 03/30/2021 in respiratory distress also noticed to be tachycardic and mildly hypoxic patient on presentation to the hospital was afebrile and no fever has been recorded subsequently patient did have a white count of 15.6 however the white count subsequently 2.8 BUN again was mildly elevated liver enzymes are normal patient did have a positive UA galdamez PCR was negative x2 patient did have a KUB x-ray redemonstration of right double-J ureteral stent redemonstration of additional right lower quadrant catheter terminating in the pelvis patient did have a CT angiogram of the chest no PE with extensive pulmonary changes with areas of consolidation with air bronchogram lower lobes on the left side consistent with pneumonia patient did have a blood cultures have been negative urine did grow Pseudomonas which was resistant to imipenem intermediate sensitivity to meropenem sputum however is showing resistant to cefepime as well as Zosyn and sensitivity to meropenem patient antibiotic was switched over to meropenem 1 g every 12 infectious was consulted for further management of antibiotic therapy most information has been obtained from review the chart and talking to the family has the patient sensitive provide any history patient is currently hem odynamically stable and is on 50% FiO2 Review of system: Positive points mentioned in history of present illness complete review could not be obtained because of his underlying medical condition Past medical history : Reviewed, documented below Past surgical history : Reviewed, documented below Social history: Reviewed, documented below Medications: Reviewed, as documented below EXAMINATION: Vital sigans= Reviewed and documented below GENERAL DESCRIPTION: Middle-aged male lying in bed, no distress. No tachypnea or accessory muscle of respiration use. HEENT: Shows Pallor , no scleral icterus. Oral mucous membrane is dry. NECK: Trachea central, no thyromegaly. LUNGS: Unlabored breathing. Coarse breath sounds bilaterally. No wheeze or crackle. HEART: S1, S2, regular rate and rhythm. ABDOMEN: Soft, no tenderness , guarding or rigidity EXTREMITIES: No edema feet SKIN: No rash, no masses palpable. NEUROLOGICAL: The patient is awake, orientation could not be done because of his underlying mental status LABS AND RADIOLOGY: Reviewed results see below Assessment : Patient presented to hospital with acute respiratory distress more likely related to underlying pneumonia this patient sputum is showing Pseudomonas with drug-resistant pattern patient also have recent urological procedure to have positive UA and also grew Pseudomonas with a different sensitivity pattern, blood culture has been negative so far Plan: 1-we will repeat a urine culture 2-continue with the meropenem dose has been adjusted the kidney function 3-gentle IV fluid We will follow on clinical condition and cultures to further adjust medication if needed Thank you for this consultation we will follow the patient along with you Past Medical History Past Medical History: CVA/TIA, Pneumonia, Seizure Disorder Additional Past Medical History / Comment(s): Pt had recent admission to [facility] on 07/19/17 with low abdominal pain-inflammation per cat scan and ended up with acute respiratory failure-possibly d/t aspiration-vented. Other HX: Benign brain tumors-meningiomas, spinal cord tumor, seizures which started 5 years ago, HYPOTHERMIA R/T BRAIN TUMOR, 2 recently new brain tumors per mother, CVA 2013 with slightly increased R sided weakness, prior R sided weakness, neuro care thru [facility], positive c diff 2015 & 2011 had fecal replacement at [facility], hypoglycemia, adrenal insufficiency. History of Any Multi-Drug Resistant Organisms: None Reported Past Surgical History: Ventriculoperitoneal Shunt Additional Past Surgical History / Comment(s): [employer] shunts (2) with 3 leads (one extra lead)-L sided shunt is nonfunctioning, shunt revisions, spinal cord tumor removal, peg tube, fecal transplant Past Anesthesia/Blood Transfusion Reactions: No Reported Reaction Past Psychological History: No Psychological Hx Reported Smoking Status: Never smoker Past Alcohol Use History: None Reported Past Drug Use History: None Reported - Past Family History Mother Family Medical History: No Reported History Father Family Medical History: No Reported History Medications and Allergies Home Medications Medication Instructions Recorded Confirmed Type Hydrocortisone [Cortef] 10 mg PEG/G-TUBE DAILY 07/07/13 03/30/21 History levETIRAcetam [Keppra Oral 500 mg PEG/G-TUBE BID 10/16/19 03/30/21 History Solution] Albuterol Nebulized [Ventolin 2.5 mg INHALATION RT-Q6H PRN 03/30/21 03/30/21 History Nebulized] Cephalexin [Keflex] 500 mg PEG/G-TUBE Q8H 03/30/21 03/30/21 History Hydrocortisone [Cortef] 20 mg PEG/G-TUBE HS 03/30/21 03/30/21 History LORazepam [Ativan] 0.5 mg PO TID PRN 03/30/21 03/30/21 History Montelukast [Singulair] 10 mg PEG/G-TUBE HS 03/30/21 03/30/21 History Morphine Sulfate [Morphine Sulfate 10 mg PO DAILY PRN 03/30/21 03/30/21 History 10 MG/5 ML] Phenazopyridine [Pyridium] 100 mg PEG/G-TUBE TID 03/30/21 03/30/21 History Tamsulosin [Flomax] 0.4 mg PEG/G-TUBE DAILY 03/30/21 03/30/21 History Allergies Allergy/AdvReac Type Severity Reaction Status Date / Time docusate sodium [From Colace] Allergy Rash/Hives Verified 03/30/21 11:46 lansoprazole [From Prevacid] Allergy Unknown Verified 03/30/21 11:46 metoclopramide HCl Allergy Unknown Verified 03/30/21 11:46 [From Reglan] peanut Allergy Rash/Hives Verified 03/30/21 11:46 Physical Exam Vitals: Vital Signs Temp Pulse Resp BP Pulse Ox 04/04/21 10:00 63 23 122/76 94 L 04/04/21 09:00 62 23 123/89 96 04/04/21 08:38 56 L 04/04/21 08:29 64 04/04/21 08:00 97.5 F L 61 22 129/71 95 04/04/21 07:00 70 24 120/86 92 L 04/04/21 06:00 58 L 26 H 123/84 96 04/04/21 05:00 56 L 17 112/77 94 L 04/04/21 04:00 97 F L 57 L 25 H 121/79 96 04/04/21 03:00 60 20 117/74 94 L 04/04/21 02:00 58 L 19 114/71 96 04/04/21 01:00 57 L 18 115/76 99 04/04/21 00:11 58 L 19 114/77 95 02/22/22 00:00 97.9 F 54 L 24 122/73 96 04/03/21 23:00 56 L 28 H 111/81 95 04/03/21 22:00 54 L 22 102/72 98 04/03/21 21:00 64 16 101/77 95 04/03/21 20:39 53 L 04/03/21 20:30 53 L 100 04/03/21 20:00 97.7 F 55 L 22 115/72 93 L 04/03/21 19:00 54 L 14 96/71 96 04/03/21 18:00 60 13 100/72 97 04/03/21 17:00 56 L 23 106/73 97 04/03/21 16:00 61 18 95/72 92 L 04/03/21 15:00 61 23 105/72 96 04/03/21 14:00 67 21 93/65 97 04/03/21 13:00 62 13 113/85 96 04/03/21 12:00 97.8 F 71 16 131/86 91 L Intake and Output 04/03/21 04/04/21 04/04/21 22:59 06:59 14:59 Intake Total 705 800 425 Output Total 280 315 240 Balance 425 485 185 Intake: IV 220 460 300 Dextrose 10% in Water 1, 120 460 300 000 ml In Empty Bag 1 bag @ 40 mls/hr IV .Q24H [facility] Rx#:[id number] levETIRAcetam IV 500 mg 100 In Sodium Chloride 0.9% 100 ml @ 400 mls/hr IVPB BID [facility] Rx#:[id number] Intake, IV Titration 200 Amount Dextrose 5%-0.9% NaCl 1, 200 000 ml @ 40 mls/hr IV . Q24H [facility] Rx#:[id number] Tube Feeding 255 280 125 Other 30 60 Output: Urine 280 315 240 Other: Voiding Method Indwelling Catheter Indwelling Catheter Indwelling Catheter Weight 58.2 kg Results CBC & Chem 7: 04/05/21 06:19 04/05/21 06:19 Labs: Abnormal Lab Results - Last 24 Hours (Table) 04/03/21 04/03/21 04/03/21 Range/Units 13:27 16:32 18:23 WBC (3.8-10.6) k/uL RBC (4.30-5.90) m/uL Hgb (13.0-17.5) gm/dL Hct (39.0-53.0) % RDW (11.5-15.5) % Plt Count (150-450) k/uL Lymphocytes # (1.0-4.8) k/uL Sodium (137-145) mmol/L Chloride (98-107) mmol/L Carbon Dioxide (22-30) mmol/L BUN (9-20) mg/dL Creatinine (0.66-1.25) mg/dL Glucose (74-99) mg/dL POC Glucose (mg/dL) 63 L 60 L 61 L (75-99) mg/dL Calcium (8.4-10.2) mg/dL Alkaline Phosphatase (38-126) U/L Total Protein (6.3-8.2) g/dL Albumin (3.5-5.0) g/dL 04/03/21 04/03/21 04/04/21 Range/Units 20:54 23:52 05:56 WBC 2.8 L (3.8-10.6) k/uL RBC 2.48 L (4.30-5.90) m/uL Hgb 7.9 L (13.0-17.5) gm/dL Hct 24.5 L (39.0-53.0) % RDW 18.1 H (11.5-15.5) % Plt Count 71 L D (150-450) k/uL Lymphocytes # 0.9 L (1.0-4.8) k/uL Sodium (137-145) mmol/L Chloride (98-107) mmol/L Carbon Dioxide (22-30) mmol/L BUN (9-20) mg/dL Creatinine (0.66-1.25) mg/dL Glucose (74-99) mg/dL POC Glucose (mg/dL) 63 L 74 L (75-99) mg/dL Calcium (8.4-10.2) mg/dL Alkaline Phosphatase (38-126) U/L Total Protein (6.3-8.2) g/dL Albumin (3.5-5.0) g/dL 04/04/21 Range/Units 05:56 WBC (3.8-10.6) k/uL RBC (4.30-5.90) m/uL Hgb (13.0-17.5) gm/dL Hct (39.0-53.0) % RDW (11.5-15.5) % Plt Count (150-450) k/uL Lymphocytes # (1.0-4.8) k/uL Sodium 132 L (137-145) mmol/L Chloride 108 H (98-107) mmol/L Carbon Dioxide 21 L (22-30) mmol/L BUN 25 H (9-20) mg/dL Creatinine 1.39 H (0.66-1.25) mg/dL Glucose 70 L (74-99) mg/dL POC Glucose (mg/dL) (75-99) mg/dL Calcium 7.7 L (8.4-10.2) mg/dL Alkaline Phosphatase 127 H (38-126) U/L Total Protein 4.4 L (6.3-8.2) g/dL Albumin 2.1 L (3.5-5.0) g/dL Microbiology - Last 24 Hours (Table) 03/30/21 10:05 Blood Culture - Preliminary Blood No Growth after 96 hours 03/30/21 10:00 Blood Culture - Preliminary Blood No Growth after 96 hours
[2021-04-05 11:38] LABS: Glucose,Whole Blood 106 mg/dL (75-99)
--- NOTE | 2021-04-05 12:03 | P.NPCON ---
History of Present Illness - Reason for Consult hyponatremia - History of Present Illness Patient is a 35-year-old male with history of astrocytoma and multiple brain surgeries during childhood. Patient has an underlying seizure disorder and also a history of nephrolithiasis with the recent placement of a ureteral stent at [facility]. Patient was admitted to the hospital with altered mentation increased drowsiness and shortness of breath. Patient was noted to have significant pneumonia, as well as urinary tract infection with hypotension and sepsis He was intubated for short period of time. Blood sugars were low and patient was started on D10. Sodium had dropped from 132-1 28 mg/L this morning. Serum creatinine had also increased to 1.39 from 0.96. Currently down to 1.1 again. Ultrasound of the kidneys does not show any evidence of hydronephrosis at this time. Left kidney could not be visualized Patient has had good urine output. Currently maintained on D5 0.9. Patient is awake. He does not communicate much. Contractures of the upper extremities are noted. Review of Systems As per HPI, other systems negative Past Medical History Past Medical History: CVA/TIA, Pneumonia, Seizure Disorder Additional Past Medical History / Comment(s): Pt had recent admission to [facility] on 07/19/17 with low abdominal pain-inflammation per cat scan and ended up with acute respiratory failure-possibly d/t aspiration-vented. Other HX: Benign brain tumors-meningiomas, spinal cord tumor, seizures which started 5 years ago, HYPOTHERMIA R/T BRAIN TUMOR, 2 recently new brain tumors per mother, CVA 2013 with slightly increased R sided weakness, prior R sided weakness, neuro care thru [facility], positive c diff 2015 & 2011 had fecal replacement at [facility], hypoglycemia, adrenal insufficiency. History of Any Multi-Drug Resistant Organisms: None Reported Past Surgical History: Ventriculoperitoneal Shunt Additional Past Surgical History / Comment(s): [employer] shunts (2) with 3 leads (one extra lead)-L sided shunt is nonfunctioning, shunt revisions, spinal cord tumor removal, peg tube, fecal transplant Past Anesthesia/Blood Transfusion Reactions: No Reported Reaction Past Psychological History: No Psychological Hx Reported Smoking Status: Never smoker Past Alcohol Use History: None Reported Past Drug Use History: None Reported - Past Family History Mother Family Medical History: No Reported History Father Family Medical History: No Reported History Medications and Allergies Home Medications Medication Instructions Recorded Confirmed Type Hydrocortisone [Cortef] 10 mg PEG/G-TUBE DAILY 07/07/13 03/30/21 History levETIRAcetam [Keppra Oral 500 mg PEG/G-TUBE BID 10/16/19 03/30/21 History Solution] Albuterol Nebulized [Ventolin 2.5 mg INHALATION RT-Q6H PRN 03/30/21 03/30/21 History Nebulized] Cephalexin [Keflex] 500 mg PEG/G-TUBE Q8H 03/30/21 03/30/21 History Hydrocortisone [Cortef] 20 mg PEG/G-TUBE HS 03/30/21 03/30/21 History LORazepam [Ativan] 0.5 mg PO TID PRN 03/30/21 03/30/21 History Montelukast [Singulair] 10 mg PEG/G-TUBE HS 03/30/21 03/30/21 History Morphine Sulfate [Morphine Sulfate 10 mg PO DAILY PRN 03/30/21 03/30/21 History 10 MG/5 ML] Phenazopyridine [Pyridium] 100 mg PEG/G-TUBE TID 03/30/21 03/30/21 History Tamsulosin [Flomax] 0.4 mg PEG/G-TUBE DAILY 03/30/21 03/30/21 History Allergies Allergy/AdvReac Type Severity Reaction Status Date / Time docusate sodium [From Colace] Allergy Rash/Hives Verified 03/30/21 11:46 lansoprazole [From Prevacid] Allergy Unknown Verified 03/30/21 11:46 metoclopramide HCl Allergy Unknown Verified 03/30/21 11:46 [From Reglan] peanut Allergy Rash/Hives Verified 03/30/21 11:46 Physical Exam Vitals: Vital Signs Temp Pulse Resp BP Pulse Ox 04/05/21 11:00 64 22 112/78 92 L 04/05/21 10:00 67 21 112/75 93 L 04/05/21 09:00 60 22 113/75 95 04/05/21 08:00 63 16 95 04/05/21 07:00 60 12 101/71 98 04/05/21 06:00 59 L 19 100/70 92 L 04/05/21 05:00 61 14 100/70 94 L 04/05/21 04:00 97.6 F 58 L 15 100/68 96 04/05/21 03:00 61 26 H 98 04/05/21 02:00 61 24 98 04/05/21 01:00 60 17 98 04/05/21 00:00 97.5 F L 61 16 97 04/04/21 23:00 54 L 17 97 04/04/21 22:00 64 14 93 L 04/04/21 21:00 58 L 22 91 L 04/04/21 20:42 52 L 04/04/21 20:28 52 L 04/04/21 20:00 97.5 F L 54 L 16 97 04/04/21 19:00 52 L 18 112/80 97 04/04/21 18:00 67 23 112/80 94 L 04/04/21 17:00 52 L 24 112/80 91 L 04/04/21 16:00 97.3 F L 56 L 13 112/80 91 L 04/04/21 15:00 57 L 21 112/80 95 04/04/21 14:00 86 14 110/50 96 04/04/21 13:00 58 L 16 93 L 04/04/21 12:00 97.5 F L 61 12 90/77 90 L Intake and Output 04/04/21 04/05/21 04/05/21 22:59 06:59 14:59 Intake Total 955 930 430 Output Total 460 500 325 Balance 495 430 105 Intake: IV 685 660 280 Dextrose 10% in Water 1, 375 000 ml In Empty Bag 1 bag @ 40 mls/hr IV .Q24H [facility] Rx#:[id number] Dextrose 10% in Water 1, 210 560 280 000 ml In Empty Bag 1 bag @ 40 mls/hr IV .Q24H [facility] Rx#:[id number] Meropenem 1 gm In Sodium 100 Chloride 0.9% 100 ml @ 33 .3 mls/hr IVPB Q12H [facility] Rx#:[id number] levETIRAcetam IV 500 mg 100 In Sodium Chloride 0.9% 100 ml @ 400 mls/hr IVPB BID [facility] Rx#:[id number] Tube Feeding 240 240 120 Other 30 30 30 Output: Urine 460 500 325 Other: Voiding Method Indwelling Catheter Indwelling Catheter Indwelling Catheter Weight 59 kg Patient is comfortable awake is not in any acute distress. Patient does not communicate much. Examination of the heart S1 and S2 examination lungs bilateral breath sounds are heard Bilateral upper extremity contractures noted. Abdomen is soft nontender Examination of lower extremity shows no evidence of edema Results - Lab Results Most recent lab results ABG pH 7.45 (7.35-7.45) 03/31/21 14:00 ABG pCO2 36 mmHg (35-45) 03/31/21 14:00 ABG pO2 117 mmHg (83-108) H 03/31/21 14:00 ABG HCO3 25 mmol/L (21-25) 03/31/21 14:00 ABG O2 Saturation 99.5 % (94-97) H 03/31/21 14:00 Calcium 7.9 mg/dL (8.4-10.2) L 04/05/21 06:19 04/05/21 06:19 04/05/21 06:19 Assessment and Plan Assessment: 1. Acute kidney injury, nonoliguric mostly secondary to hypotension and sepsis, currently improved. Continue with IV fluids 2. Hyponatremia associated with hypotonic fluid. IV fluids changed back to D5 0.9. We will continue to monitor 3. Urinary tract infection with urine culture growing pseudomonas aeruginosa with history of recent urology culture intervention with ureteral stent placement for nephrolithiasis. This was done at an outside facility. Urology has been consulted 4. Pneumonia with sputum culture also growing Pseudomonas, maintained on antibiotics 5. History of seizure disorder 6. Hypoglycemia now resolved 7. History of brain tumor status post surgeries during childhood Plan: Continue with current IV fluids Continue antibiotics Repeat labs in a.m.
--- NOTE | 2021-04-05 12:53 | P.PN ---
Subjective Progress Note Date: 04/05/21 Principal diagnosis: Acute hypoxic respiratory failure secondary to aspiration pneumonia 35-year-old white male patient with history of developmental delay, seizure disorder, benign brain meningiomas, spinal cord tumor, hydrocephalus, CNA CAREGIVER shunt placement, and revisions, dysphagia with history of PEG tube placement who was brought into the emergency department on 03/30/2021 by EMS for evaluation of abdominal pain. Most history was obtained from the ER physician, and ED recor ds. The patient's parents report the patient was having quite a bit of distress and they gave him morphine, they noted that his heart rate was 120, and patient is usually a little bit bradycardic. He wears home O2 on as-needed basis at home, however the parents noticed that on 4 L of oxygen and his pulse ox was only 90%. There is no reported fevers no vomiting or diarrhea. There is reported history of kidney stones on the right side. In the ED patient was noted to be tachycardic initially with a heart rate of 130 BPM. Initial chest x-ray showed redemonstration of right subclavian central venous catheter, mild chronic parenchymal changes with left basilar opacity, tiny bilateral pleural effusions, no pneumothorax. There was redemonstration of overlying CNA CAREGIVER shunt catheters bilaterally. Abdominal x-ray showed PEG tube, right double-J ureter stent, overall nonobstructive bowel gas pattern. Lab work evaluation showed leukocytosis with white blood cell count of 15.6, hemoglobin of 13.3, d-dimer was 2.57, sodium of 1:30, potassium is 4.2, chloride is 91, CO2 is 25, BUN of 38, and creatinine of 1.14. Glucose was 49, plasma lactic acid was 6.9, AST was 67 ALT was 45, alk phos was 450, troponin was 0.393, amylase was 506, lipase was 1565. Patient was afebrile, he was quite tachypneic and tachycardic, he was initially DO NOT RESUSCITATE CODE STATUS, he was being treated medically in the ED with antibiotics, IV fluids, and BiPAP support. CTA chest was completed showing no major or central pulmonary embolism, and scattered bilateral irregular opacities groundglass opacities, centrilobular nodules and areas of consolidation with air bronchograms most evident in the lower lobes and more on the left side consistent with acute inflammatory or infectious process including COVID-19 infection, but associated pulmonary edema could not be excluded. Subsequently patient went into SVT with a rate of 170, and having more respiratory difficulty, the family has reversed his DO NOT RESUSCITATE CODE STATUS and wanted everything done. At which point patient was intubated and placed on mechanical ventilator. He is currently on assist control mode of ventilation with a rate of 20, tidal lungs 400, FiO2 100% and PEEP of 5. He is sedated with Diprivan, he has received 3 L in IV fluid boluses, he is on Zosyn, nebulized bronchodilators, he did receive of 50% dextrose IV push for episode of hypoglycemia, he was tested for COVID-19 and was found to be negative. Ultrasound of the gallbladder has been completed showing hyperechoic lesions involving the liver that could be related to the hemangiomas. Progress note dated 04/02/2021. The patient is again seen in the intensive care unit, room 257. The patient is now been in the hospital for about 3 days. He was admitted with a diagnosis of acute hypoxemic respiratory failure, and did require intubation and mechanical ventilation. Currently, the patient's resting comfortably. He is on 3 L nasal cannula. He is receiving vital AF at 30 mL an hour, which is goal. In addition, the patient is getting D10, at 30 mL an hour, and saline at 10 mL an hour. No new labs today. Chest x-ray today shows continued improvement in the infiltrate in the right upper lobe, a small right-sided pleural effusion, and some right basilar atelectasis. The patient continues on Zosyn. Urine and sputum, on March 30, reveal Pseudomonas. Reevaluated today on 04/03/2021, patient remains in the ICU, he is on few liters nasal cannula, O2 saturation is in the 90s. He's actually now on 4 L nasal cannula. Patient does not seem to be in any distress, his chest x-ray continues to show bilateral infiltrates. Patient is receiving vital AF, his labs showed normal renal profile, potassium is a bit low at 2.9 being addressed as per pro tocol. WBC count is 2.4 hemoglobin is 7.8. Chest x-ray showed bilateral infiltrates, right more so than left, consistent with aspiration pneumonia presentation. Patient remains on Zosyn for presumptive aspiration pneumonia. Reevaluated today on 04/04/2021, patient remains in the ICU, patient is on 2 L nasal cannula, and his O2 saturation is 94%. His chest x-ray is showing slight improvement in his aspiration pneumonia. Patient had issues with hypoglycemia last night, had to place the patient on D10W overnight, found out today that his Cortef was discontinued on the , and that's mostly likely the cause of his hypoglycemia. I placed the patient back on Solu-Cortef as 100 mg IV push every 8 hours, and will eventually transitioned to his usual dose when the patient improves. For now the patient will receive stress doses of hydrocortisone, and I will recommend eventual transition to Cortef. Clinically the patient is feeling better, however his renal functioning is getting worse. And I have consulted nephrology, creatinine jumped up to 1.39. Considering the patient has history of nephrolithiasis and stent placement, went ahead and recommended an ultrasound of the kidneys, and I also recommended urology consultation, patient is noted to have hematuria in his urine, possibly traumatic from his Rodriguez catheter. However will go ahead and ask urology to evaluate. His CBC today showed a preserved 2.8 hemoglobin is 7.9. Electrodes are normal BUN is 25 creatinine 1.39. Sugars seem to be under better control, I believe we can safely discontinue D10 infusion once the patient is back on Solu-Cortef. Patient was reevaluated today on 04/05/2021, remains in the ICU, patient had an episode of desaturation today, required deep suctioning, presently on room air, he is hemodynamically stable, remains on Solu-Cortef, remains on Merrem and infectious disease recommended the Merrem to continue. Patient remains on D10 at 40 mL/h, and I will switch this to D5 0.9 today. Sugars seem to be better controlled. I plan to transfer the patient out of the ICU sometime today to a regular medical floor. Patient was seen by nephrology, his renal functioning improved. He is yet to be seen by urology, continues to have Rodriguez catheter in place, and continues to have hematuria. Father states that once the patient is discharged, he wanted to go and see his urologist at [facility] as soon as he gets discharged. Does not seem to be pleased with the Rodriguez catheter placement in this patient. I felt urology would have to make a decision on the Rodriguez catheter whether to stay or removed or whether he needs any further workup for his hematuria. Again this could be a traumatic hematuria or could be related to his recent stents placed at [facility] by urology. WBC count today is 3.2 hemoglobin is 7.8 hemoglobin on his initial presentation was around 10.2. Sodium today is 128, patient is receiving D10W and I'm changing that to D5 0.9. I also plan to change his Solu-Cortef to 50 mg IV push 3 times a day. Objective - Vital Signs Vital signs: Vital Signs Temp 96.8 F L 04/05/21 12:00 Pulse 55 L 04/05/21 12:00 Resp 19 04/05/21 12:00 BP 113/74 04/05/21 12:00 Pulse Ox 95 04/05/21 12:00 Intake & Output 04/04/21 04/05/21 04/05/21 18:59 06:59 18:59 Intake Total 1160 1465 660 Output Total 750 710 425 Balance 410 755 235 Weight 59 kg Intake: IV 825 1045 420 Dextrose 10% in Water 1, 825 75 000 ml In Empty Bag 1 bag @ 40 mls/hr IV .Q24H [facility] Rx#:[id number] Dextrose 10% in Water 1, 770 280 000 ml In Empty Bag 1 bag @ 40 mls/hr IV .Q24H [facility] M Rx#:[id number] Dextrose 5%-0.9% NaCl 1, 140 000 ml @ 40 mls/hr IV . Q24H [facility] Rx#:[id number] Meropenem 1 gm In Sodium 100 Chloride 0.9% 100 ml @ 33 .3 mls/hr IVPB Q12H [facility] Rx#:[id number] levETIRAcetam IV 500 mg 100 In Sodium Chloride 0.9% 100 ml @ 400 mls/hr IVPB BID [facility] Rx#:[id number] Tube Feeding 335 360 180 Other 60 60 Output: Urine 750 710 425 Other: Voiding Method Indwelling Catheter Indwelling Catheter Indwelling Catheter - Exam GENERAL EXAM: Revealed 35-year-old, on room air, not in distress. HEAD: Craniotomy scar is noted in his head. Normocephalic EYES: Normal reaction of pupils, equal size. Conjunctiva pink, sclera white. NOSE: Clear with pink turbinates. THROAT: No erythema or exudates. NECK: No masses, no JVD, no thyroid enlargement, no adenopathy. CHEST: No chest wall deformity. Symmetrical expansion. LUNGS: Crackles at the bases bilaterally. CVS: Regular rate and rhythm, normal S1 and S2, no gallops, no murmurs, no rubs ABDOMEN: Soft, nontender. No hepatosplenomegaly, normal bowel sounds, no guarding or rigidity. Patient has a PEG tube in place EXTREMITIES: No clubbing, no edema, no cyanosis, 2+ pulses and upper and lower extremities. SKIN: No rashes CENTRAL NERVOUS SYSTEM: Patient is nonverbal, does not seem to follow any instructions. - Labs CBC & Chem 7: 04/05/21 06:19 04/05/21 06:19 Labs: Abnormal Lab Results - Last 24 Hours (Table) 04/04/21 04/04/21 04/04/21 Range/Units 05:56 18:22 23:40 WBC (3.8-10.6) k/uL RBC (4.30-5.90) m/uL Hgb (13.0-17.5) gm/dL Hct (39.0-53.0) % RDW (11.5-15.5) % Plt Count (150-450) k/uL Lymphocytes # (1.0-4.8) k/uL Sodium (137-145) mmol/L Carbon Dioxide (22-30) mmol/L BUN (9-20) mg/dL Glucose (74-99) mg/dL POC Glucose (mg/dL) 112 H 165 H (75-99) mg/dL Calcium (8.4-10.2) mg/dL Total Protein (6.3-8.2) g/dL Albumin (3.5-5.0) g/dL Vitamin B12 1982.0 H (200.0-944.0) pg/mL 04/05/21 04/05/21 04/05/21 Range/Units 06:04 06:19 06:19 WBC 3.2 L (3.8-10.6) k/uL RBC 2.38 L (4.30-5.90) m/uL Hgb 7.8 L (13.0-17.5) gm/dL Hct 23.2 L (39.0-53.0) % RDW 17.3 H (11.5-15.5) % Plt Count 72 L (150-450) k/uL Lymphocytes # 0.4 L (1.0-4.8) k/uL Sodium 128 L (137-145) mmol/L Carbon Dioxide 19 L (22-30) mmol/L BUN 22 H (9-20) mg/dL Glucose 122 H (74-99) mg/dL POC Glucose (mg/dL) 139 H (75-99) mg/dL Calcium 7.9 L (8.4-10.2) mg/dL Total Protein 4.5 L (6.3-8.2) g/dL Albumin 2.1 L (3.5-5.0) g/dL Vitamin B12 (200.0-944.0) pg/mL 04/05/21 Range/Units 11:35 WBC (3.8-10.6) k/uL RBC (4.30-5.90) m/uL Hgb (13.0-17.5) gm/dL Hct (39.0-53.0) % RDW (11.5-15.5) % Plt Count (150-450) k/uL Lymphocytes # (1.0-4.8) k/uL Sodium (137-145) mmol/L Carbon Dioxide (22-30) mmol/L BUN (9-20) mg/dL Glucose (74-99) mg/dL POC Glucose (mg/dL) 106 H (75-99) mg/dL Calcium (8.4-10.2) mg/dL Total Protein (6.3-8.2) g/dL Albumin (3.5-5.0) g/dL Vitamin B12 (200.0-944.0) pg/mL Microbiology - Last 24 Hours (Table) 03/30/21 10:05 Blood Culture - Preliminary Blood No Growth after 120 hours 03/30/21 10:00 Blood Culture - Preliminary Blood No Growth after 120 hours Assessment and Plan Assessment: Impression: Acute hypoxic respiratory failure secondary to aspiration pneumonia intubated on 03/30 extubated on 03/31 2021. Acute aspiration pneumonia and sepsis. Sputum has been positive for Pseudomonas pneumonia which seems to be resistant to Zosyn and cefepime, patient is now on Merrem, infectious disease recommended that he stays on Merrem Acute pancreatitis resolved. History of ureteral stent placement , persistent hematuria. Urology was consulted. Acute hypoglycemia on his initial presentation secondary to sepsis and secondary to adrenal insufficiency. History of seizure disorder. Chronic dysphagia, has a PEG tube in place History of hydrocephalus and CNA CAREGIVER shunt placement History of developmental delay. History of adrenal insufficiency , we will change his Solu-Cortef now to 50 mg IV push every 8 hours. Acute kidney injury, resolved. Renal ultrasound was noted. Recommendation: Continue antibiotics/Merrem Urology consultation. Suction patient as needed, patient has very weak cough, cannot clear his secretions on his own. Continue bronchodilators. Change D10W to D5 0.9 Transfer patient out of the ICU to a regular medical floor. Continue aspiration precautions. Long-term prognosis remains relatively poor and guarded. We will follow the patient on when necessary basis once he is out of the ICU. Time with Patient: Less than 30
[2021-04-05 13:10] LABS: Appearance,Urine Turbid (Clear); Bilirubin,Urine Negative (Negative); Blood,Urine Large (Negative); Color,Urine Red; Glucose,Urine (UA) Negative (Negative); Ketones,Urine Trace (Negative); Leukocyte Esterase,Urine Large (Negative); Mucus,Urine Moderate /hpf; Nitrite,Urine Negative (Negative); PH, Urine 6.5 (5.0-8.0); Protein,Urine 1+ (Negative); RBC,Urine >182 /hpf (0-5); Specific Gravity,Urine 1.015 (1.001-1.035); Urobilinogen,Urine <2.0 mg/dL (<2.0); WBC,Urine >182 /hpf (0-5)
[2021-04-05 17:37] LABS: Glucose,Whole Blood 98 mg/dL (75-99)
--- NOTE | 2021-04-05 19:32 | P.PN ---
Subjective This is a 35 years old male was admitted to the intensive care unit in critical condition secondary to severe sepsis and hypoxia most likely secondary to aspiration pneumonia requiring intubation, currently patient is extubated and he maintained on 5 L oxygen via nasal cannula. His urine culture is growing Pseudomonas and sputum culture, gram-negative bacilli and is being covered with Zosyn. Also D5W at 30 mL/h. There wasn't evidence of seizure was placed on Keppra 500 mg. Patient is very lethargic. WBC is 8.9, hemoglobin 9.6, pledgeted 102. Patient is tachypneic at 43, blood pressure is 95/68. Also patient is with history of multiple meningioma status post bilateral craniotomy and intracranial shunt and chronic extra fluid collection in the brain with possible blood clots. EEG showing no epileptic form discharge. Severe encephalopathy and possible toxic encephalopathy given his triphasic electrical discharge. The renal ultrasound showing no hydronephrosis by right nephrolithiasis Ejection fraction is 55-60% on echocardiogram and there is no evidence of pulmonary embolism on CTA of the chest. 04/02/2021 Patient remains in the ICU due to the severe sepsis and infection with pneumonia and UTI secondary to Pseudomonas, he was on Zosyn and to the antibiotics change by pulmonary team and to meropenem. Also IV fluid was change to D5 normal saline at 40 mL per hour. Patient still mildly tachypneic, hypotensive and is requiring only 3 L/m of oxygen via nasal cannula. Chest x-ray showing improved right upper lobe radiation and right sided pleural effusion with adjacent atelectasis/consolidation. Continue with tube feeding via PEG 04/03/2021 Patient remains in the ICU in critical condition, his monitor Closely with help with critical care management by pulmonary/critical care team. History Knee area improved today blood pressure is slightly better 96/71 however he is on 6 L oxygen per minute which is worsened from 3-5 L the last 2 days. Chest x-ray showing progressive pneumonia versus CHF Also patient has evidence of hypoglycemia and hypokalemia which is been replaced. Also he was placed on D10 normal saline at 40 mL per hour. Patient remains on meropenem for severe sepsis secondary to Pseudomonas in his sputum and urine cultures Check vitamin B12 level 04/04/2021 Patient remains in the in his sputum and urine culture which is covered with meropenem. His blood pressure is better today 112/80, oxygen requirement dropped to 2 L/m, breathing rate 18 and he is afebrile. Labs showing stable pancytopenia with slightly improved platelet count 42 up to 71, hemoglobin 7.9 and WBC 2.8. Creatinine went up 1.0 and 21.3. B12 more than 1000 and just x-ray showing evidence of CHF versus pneumonia Patient was started on hydrocortisone 100 mg 3 times a day which helped improve his sugar and blood pressure as well. Neurology on the case and currently he is on Keppra. Infectious disease consulted 04/05/2021 Patient is in the ICU critical condition, as per my discussion with his father today patient is as basic mental status, usually he does not talk much 4 days and states he drops more than others. He does not look in distress. His respiratory rate is 18, blood pressure 95/71, his requiring only 2 L/m of oxygen therapy. Labs showing stable pancytopenia with WBC 3.2, hemoglobin 7.8 and platelet count 72. Creatinine 1.1, sodium 129. Urinalysis still showing evidence of infection. Chest x-ray: Stable diffuse pleural-parenchymal disease, related procedures versus diffuse pneumonia Today he was started with antibiotic with zerbaxa 3:28 hours per marketing operations assistant. He still getting D5 normal saline at 75 mL/h. Objective - Vital Signs Vital signs: Vital Signs Temp 97.6 F 04/05/21 04:00 Pulse 67 04/05/21 10:00 Resp 21 04/05/21 10:00 BP 112/75 04/05/21 10:00 Pulse Ox 93 L 04/05/21 10:00 Intake & Output 04/04/21 04/05/21 04/05/21 18:59 06:59 18:59 Intake Total 1160 1465 430 Output Total 750 710 325 Balance 410 755 105 Weight 59 kg Intake: IV 825 1045 280 Dextrose 10% in Water 1, 825 75 000 ml In Empty Bag 1 bag @ 40 mls/hr IV .Q24H [facility] Rx#:[id number] Dextrose 10% in Water 1, 770 280 000 ml In Empty Bag 1 bag @ 40 mls/hr IV .Q24H [facility] M Rx#:[id number] Meropenem 1 gm In Sodium 100 Chloride 0.9% 100 ml @ 33 .3 mls/hr IVPB Q12H [facility] Rx#:[id number] levETIRAcetam IV 500 mg 100 In Sodium Chloride 0.9% 100 ml @ 400 mls/hr IVPB BID [facility] Rx#:[id number] Tube Feeding 335 360 120 Other 60 30 Output: Urine 750 710 325 Other: Voiding Method Indwelling Catheter Indwelling Catheter Indwelling Catheter - Exam - GENERAL: The patient is awake at baseline of mentation as per father at bedside,. Very weak and lethargic, and both HEENT: Pupils are round and equally reacting to light. EOMI. No scleral icterus. No conjunctival pallor. Normocephalic, atraumatic. No pharyngeal erythema. No thyromegaly. CARDIOVASCULAR: S1 and S2 present. No murmurs, rubs, or gallops. PULMONARY: Chest is clear to auscultation, no wheezing or crackles. ABDOMEN: Soft, nontender, nondistended, normoactive bowel sounds. No palpable organomegaly. MUSCULOSKELETAL: No joint swelling or deformity. EXTREMITIES: No cyanosis, clubbing, or pedal edema. -NEUROLOGICAL: Cranial nerves are grossly intact.. Status post cranial shunt. Right hemiparesis (chronic). Spasticity SKIN: No rashes. no petechiae. - Labs CBC & Chem 7: 04/05/21 06:19 04/05/21 06:19 Labs: Abnormal Lab Results - Last 24 Hours (Table) 04/04/21 04/04/21 04/04/21 Range/Units 05:56 18:22 23:40 WBC (3.8-10.6) k/uL RBC (4.30-5.90) m/uL Hgb (13.0-17.5) gm/dL Hct (39.0-53.0) % RDW (11.5-15.5) % Plt Count (150-450) k/uL Lymphocytes # (1.0-4.8) k/uL Sodium (137-145) mmol/L Carbon Dioxide (22-30) mmol/L BUN (9-20) mg/dL Glucose (74-99) mg/dL POC Glucose (mg/dL) 112 H 165 H (75-99) mg/dL Calcium (8.4-10.2) mg/dL Total Protein (6.3-8.2) g/dL Albumin (3.5-5.0) g/dL Vitamin B12 1982.0 H (200.0-944.0) pg/mL 04/05/21 04/05/21 04/05/21 Range/Units 06:04 06:19 06:19 WBC 3.2 L (3.8-10.6) k/uL RBC 2.38 L (4.30-5.90) m/uL Hgb 7.8 L (13.0-17.5) gm/dL Hct 23.2 L (39.0-53.0) % RDW 17.3 H (11.5-15.5) % Plt Count 72 L (150-450) k/uL Lymphocytes # 0.4 L (1.0-4.8) k/uL Sodium 128 L (137-145) mmol/L Carbon Dioxide 19 L (22-30) mmol/L BUN 22 H (9-20) mg/dL Glucose 122 H (74-99) mg/dL POC Glucose (mg/dL) 139 H (75-99) mg/dL Calcium 7.9 L (8.4-10.2) mg/dL Total Protein 4.5 L (6.3-8.2) g/dL Albumin 2.1 L (3.5-5.0) g/dL Vitamin B12 (200.0-944.0) pg/mL Microbiology - Last 24 Hours (Table) 03/30/21 10:05 Blood Culture - Preliminary Blood No Growth after 120 hours 03/30/21 10:00 Blood Culture - Preliminary Blood No Growth after 120 hours Assessment and Plan Assessment: Severe sepsis secondary to possible aspiration pneumonia secondary to Pseudomonas and UTI secondary to Pseudomonas related to her right nephrolithiasis Acute hypoxic respiratory failure status post intubation and extubation. Pancytopenia and hyperglycemia, most likely related to sepsis Hypoglycemia on admission, now glucose level improved breakthrough seizure Status post intracranial shunt History of meningiomas, multiple status post bilateral craniotomy History of seizure Plan: This is a pleasant 35 years old who presents with multiple problems including sepsis secondary to pneumonia, UTI, kidney stone, hypoglycemia, breakthrough seizure Patient is started on a new antibiotic is zerbaxa. Continue with antibiotics per infectious incision Continue with cortisone and monitor glucose and blood pressure Continue with Protonix Continue with IV fluid Several consultants on the case including nephrology, urology, infectious disease and pulmonary/critical care team, and neurologist No anticoagulation given for possibility of blood clot in the brain Neurology team on the case Labs and medication were reviewed.. Continue same treatment. Continue with symptomatic treatment. Resume home medication. Monitor lytes and vitals. DVT and GI prophylaxis. Further recommendations as per clinical course of the patient DVT prophylaxis: No anticoagulation GI Prophylaxis: Ppi Prognosis is guarded. Also long-term prognosis is poor. Patient has prolonged and complicated illnesses that is slow to heal and respond to therapy.
[2021-04-06 00:09] LABS: Glucose,Whole Blood 129 mg/dL (75-99)
[2021-04-06] MEDS: DEXTROSE 5%-0.9% NACL 1,000 ML IV SCH (02:41)
[2021-04-06] MEDS: HYDROCORTISONE SUCCINATE 100 MG/2 ML VIAL IV SCH ×2 (02:41→08:28)
[2021-04-06 06:05] LABS: Glucose,Whole Blood 111 mg/dL (75-99)
[2021-04-06] MEDS: IPRATROPIUM-ALBUTEROL 3 ML NEB INHALATION SCH (07:45)
[2021-04-06] MEDS: levETIRAcetam IV 500 MG in SODIUM CHLORIDE 0.9% 100 ML IVPB SCH (08:29)
[2021-04-06] MEDS: PANTOPRAZOLE 40 MG/10 ML VIAL IVP SCH (08:29)
[2021-04-06 08:45] VITALS: TEMP 97
[2021-04-06] MEDS ORDERED: MIDAZOLAM 1 MG/ML 5 ML VIAL ONE (11:00)
[2021-04-06] MEDS ORDERED: SUCCINYLCHOLINE CHLORIDE VIAL 200 MG/10 ML VIAL IV ONE (11:00)
[2021-04-06] MEDS ORDERED: ETOMIDATE 2 MG/ML 10 ML VIAL ONE (11:00)
[2021-04-06] MEDS ORDERED: SODIUM CHLORIDE TAB 1 GM TAB PO STA (11:31)
[2021-04-06 11:35] LABS: African American GFR (CKD) >90 (>60 ml/min/1.73 sqM); Anion Gap 4 mmol/L; Blood Urea Nitrogen 18 mg/dL (9-20); Calcium 8.3 mg/dL (8.4-10.2); Carbon Dioxide 22 mmol/L (22-30); Chloride 110 mmol/L (98-107); Glucose 98 mg/dL (74-99); Non-African American GFR(CKD) >90 (>60 ml/min/1.73 sqM); Potassium 3.1 mmol/L (3.5-5.1); Sodium 136 mmol/L (137-145)
--- NOTE | 2021-04-06 11:40 | P.PN ---
Subjective Progress Note Date: 04/06/21 Principal diagnosis: Acute hypoxic respiratory failure secondary to aspiration pneumonia 35-year-old white male patient with history of developmental delay, seizure disorder, benign brain meningiomas, spinal cord tumor, hydrocephalus, [employer]ING [employer]CH[employer]ICIAN shunt placement, and revisions, dysphagia with history of PEG tube placement who was brought into the emergency department on 03/30/2021 by EMS for evaluation of abdominal pain. Most history was obtained from the ER physician, and ED recor ds. The patient's parents report the patient was having quite a bit of distress and they gave him morphine, they noted that his heart rate was 120, and patient is usually a little bit bradycardic. He wears home O2 on as-needed basis at home, however the parents noticed that on 4 L of oxygen and his pulse ox was only 90%. There is no reported fevers no vomiting or diarrhea. There is reported history of kidney stones on the right side. In the ED patient was noted to be tachycardic initially with a heart rate of 130 BPM. Initial chest x-ray showed redemonstration of right subclavian central venous catheter, mild chronic parenchymal changes with left basilar opacity, tiny bilateral pleural effusions, no pneumothorax. There was redemonstration of overlying [employer]ING [employer]CH[employer]ICIAN shunt catheters bilaterally. Abdominal x-ray showed PEG tube, right double-J ureter stent, overall nonobstructive bowel gas pattern. Lab work evaluation showed leukocytosis with white blood cell count of 15.6, hemoglobin of 13.3, d-dimer was 2.57, sodium of 1:30, potassium is 4.2, chloride is 91, CO2 is 25, BUN of 38, and creatinine of 1.14. Glucose was 49, plasma lactic acid was 6.9, AST was 67 ALT was 45, alk phos was 450, troponin was 0.393, amylase was 506, lipase was 1565. Patient was afebrile, he was quite tachypneic and tachycardic, he was initially DO NOT RESUSCITATE CODE STATUS, he was being treated medically in the ED with antibiotics, IV fluids, and BiPAP support. CTA chest was completed showing no major or central pulmonary embolism, and scattered bilateral irregular opacities groundglass opacities, centrilobular nodules and areas of consolidation with air bronchograms most evident in the lower lobes and more on the left side consistent with acute inflammatory or infectious process including COVID-19 infection, but associated pulmonary edema could not be excluded. Subsequently patient went into SVT with a rate of 170, and having more respiratory difficulty, the family has reversed his DO NOT RESUSCITATE CODE STATUS and wanted everything done. At which point patient was intubated and placed on mechanical ventilator. He is currently on assist control mode of ventilation with a rate of 20, tidal lungs 400, FiO2 100% and PEEP of 5. He is sedated with Diprivan, he has received 3 L in IV fluid boluses, he is on Zosyn, nebulized bronchodilators, he did receive of 50% dextrose IV push for episode of hypoglycemia, he was tested for COVID-19 and was found to be negative. Ultrasound of the gallbladder has been completed showing hyperechoic lesions involving the liver that could be related to the hemangiomas. Progress note dated 04/02/2021. The patient is again seen in the intensive care unit, room 257. The patient is now been in the hospital for about 3 days. He was admitted with a diagnosis of acute hypoxemic respiratory failure, and did require intubation and mechanical ventilation. Currently, the patient's resting comfortably. He is on 3 L nasal cannula. He is receiving vital AF at 30 mL an hour, which is goal. In addition, the patient is getting D10, at 30 mL an hour, and saline at 10 mL an hour. No new labs today. Chest x-ray today shows continued improvement in the infiltrate in the right upper lobe, a small right-sided pleural effusion, and some right basilar atelectasis. The patient continues on Zosyn. Urine and sputum, on March 30, reveal Pseudomonas. Reevaluated today on 04/03/2021, patient remains in the ICU, he is on few liters nasal cannula, O2 saturation is in the 90s. He's actually now on 4 L nasal cannula. Patient does not seem to be in any distress, his chest x-ray continues to show bilateral infiltrates. Patient is receiving vital AF, his labs showed normal renal profile, potassium is a bit low at 2.9 being addressed as per pro tocol. WBC count is 2.4 hemoglobin is 7.8. Chest x-ray showed bilateral infiltrates, right more so than left, consistent with aspiration pneumonia presentation. Patient remains on Zosyn for presumptive aspiration pneumonia. Reevaluated today on 04/04/2021, patient remains in the ICU, patient is on 2 L nasal cannula, and his O2 saturation is 94%. His chest x-ray is showing slight improvement in his aspiration pneumonia. Patient had issues with hypoglycemia last night, had to place the patient on D10W overnight, found out today that his Cortef was discontinued on the , and that's mostly likely the cause of his hypoglycemia. I placed the patient back on Solu-Cortef as 100 mg IV push every 8 hours, and will eventually transitioned to his usual dose when the patient improves. For now the patient will receive stress doses of hydrocortisone, and I will recommend eventual transition to Cortef. Clinically the patient is feeling better, however his renal functioning is getting worse. And I have consulted nephrology, creatinine jumped up to 1.39. Considering the patient has history of nephrolithiasis and stent placement, went ahead and recommended an ultrasound of the kidneys, and I also recommended urology consultation, patient is noted to have hematuria in his urine, possibly traumatic from his Rodriguez catheter. However will go ahead and ask urology to evaluate. His CBC today showed a preserved 2.8 hemoglobin is 7.9. Electrodes are normal BUN is 25 creatinine 1.39. Sugars seem to be under better control, I believe we can safely discontinue D10 infusion once the patient is back on Solu-Cortef. Patient was reevaluated today on 04/05/2021, remains in the ICU, patient had an episode of desaturation today, required deep suctioning, presently on room air, he is hemodynamically stable, remains on Solu-Cortef, remains on Merrem and infectious disease recommended the Merrem to continue. Patient remains on D10 at 40 mL/h, and I will switch this to D5 0.9 today. Sugars seem to be better controlled. I plan to transfer the patient out of the ICU sometime today to a regular medical floor. Patient was seen by nephrology, his renal functioning improved. He is yet to be seen by urology, continues to have Rodriguez catheter in place, and continues to have hematuria. Father states that once the patient is discharged, he wanted to go and see his urologist at [facility] as soon as he gets discharged. Does not seem to be pleased with the Rodriguez catheter placement in this patient. I felt urology would have to make a decision on the Rodriguez catheter whether to stay or removed or whether he needs any further workup for his hematuria. Again this could be a traumatic hematuria or could be related to his recent stents placed at [facility] by urology. WBC count today is 3.2 hemoglobin is 7.8 hemoglobin on his initial presentation was around 10.2. Sodium today is 128, patient is receiving D10W and I'm changing that to D5 0.9. I also plan to change his Solu-Cortef to 50 mg IV push 3 times a day. Reevaluated today on 04/02/2021, patient is doing much better today, breathing a lot easier, his Rodriguez catheter was discontinued yesterday, his father insisted on having the catheter removed, patient is able to urinate, and according to the father he would like to take him today and tomorrow what to see the urologist at [facility] to have the stents removed. Refused urology referral in our institution. At any rate his urine came back positive for pseudomonas aeruginosa, his sputum was positive for pseudomonas aeruginosa, however both have different sensitivities. One of them is sensitive to Merrem and the other one from the urine is not sensitive actually it is resistant to Merrem. Decision regarding antibiotics will be made by infectious disease on the case. Again the father is insisting on getting him discharged today so that he could take up to see the urologist at [facility]. I will let the admitting physician and infectious disease physician clear the patient for discharge. And decision would have to be made regarding his antibiotics and outpatient basis. May have to use Levaquin . Potassium was low today, and that was corrected as per protocol. Objective - Vital Signs Vital signs: Vital Signs Temp 97 F L 04/06/21 08:00 Pulse 41 L 04/06/21 08:00 Resp 21 04/06/21 08:00 BP 124/80 04/06/21 08:00 Pulse Ox 92 L 04/06/21 08:00 Intake & Output 04/05/21 04/06/21 04/06/21 18:59 06:59 18:59 Intake Total 1290 1325 520 Output Total 825 125 Balance 465 1200 520 Weight 59.4 kg Intake: IV 840 70 100 Dextrose 10% in Water 1, 280 000 ml In Empty Bag 1 bag @ 40 mls/hr IV .Q24H [facility] Rx#:[id number] Dextrose 5%-0.9% NaCl 1, 560 70 000 ml @ 40 mls/hr IV . Q24H [facility] Rx#:[id number] levETIRAcetam IV 500 mg 100 In Sodium Chloride 0.9% 100 ml @ 400 mls/hr IVPB BID [facility] Rx#:[id number] Intake, IV Titration 825 225 Amount Dextrose 5%-0.9% NaCl 1, 825 225 000 ml @ 75 mls/hr IV . [id number] [facility] Rx#:[id number] Tube Feeding 360 370 165 Other 90 60 30 Output: Urine 825 125 Other: Voiding Method Indwelling Catheter Indwelling Catheter Diaper # Voids 1 # Bowel Movements 1 - Exam GENERAL EXAM: Revealed 35-year-old, on room air, not in distress. HEAD: Craniotomy scar is noted in his head. Normocephalic EYES: Normal reaction of pupils, equal size. Conjunctiva pink, sclera white. NOSE: Clear with pink turbinates. THROAT: No erythema or exudates. NECK: No masses, no JVD, no thyroid enlargement, no adenopathy. CHEST: No chest wall deformity. Symmetrical expansion. LUNGS: Crackles at the bases bilaterally. CVS: Regular rate and rhythm, normal S1 and S2, no gallops, no murmurs, no rubs ABDOMEN: Soft, nontender. No hepatosplenomegaly, normal bowel sounds, no guarding or rigidity. Patient has a PEG tube in place EXTREMITIES: No clubbing, no edema, no cyanosis, 2+ pulses and upper and lower extremities. SKIN: No rashes CENTRAL NERVOUS SYSTEM: Patient is nonverbal, does not seem to follow any instructions. - Labs CBC & Chem 7: 04/05/21 06:19 04/05/21 06:19 Labs: Abnormal Lab Results - Last 24 Hours (Table) 04/05/21 04/05/21 04/06/21 Range/Units 10:30 11:35 00:06 POC Glucose (mg/dL) 106 H 129 H (75-99) mg/dL Urine Protein 1+ H (Negative) Urine Ketones Trace H (Negative) Urine Blood Large H (Negative) Ur Leukocyte Esterase Large H (Negative) Urine RBC >182 H (0-5) /hpf Urine WBC >182 H (0-5) /hpf Urine WBC Clumps Few H (None) /hpf Urine Mucus Moderate H (None) /hpf 04/06/21 Range/Units 06:02 POC Glucose (mg/dL) 111 H (75-99) mg/dL Urine Protein (Negative) Urine Ketones (Negative) Urine Blood (Negative) Ur Leukocyte Esterase (Negative) Urine RBC (0-5) /hpf Urine WBC (0-5) /hpf Urine WBC Clumps (None) /hpf Urine Mucus (None) /hpf Microbiology - Last 24 Hours (Table) 04/05/21 10:30 Urine Culture - Preliminary Urine,Voided 03/30/21 10:05 Blood Culture - Final Blood No Growth after 144 hours 03/30/21 10:00 Blood Culture - Final Blood No Growth after 144 hours Assessment and Plan Assessment: Impression: Acute hypoxic respiratory failure secondary to aspiration pneumonia intubated on 03/30 extubated on 03/31 2021. Acute aspiration pneumonia and sepsis. Sputum has been positive for Pseudomonas pneumonia which seems to be resistant to Zosyn and cefepime, patient is now on Merrem, infectious disease recommended that he stays on Merrem Acute pancreatitis resolved. History of ureteral stent placement , persistent hematuria. Urology was consulted. Acute hypoglycemia on his initial presentation secondary to sepsis and secondary to adrenal insufficiency. History of seizure disorder. Chronic dysphagia, has a PEG tube in place History of hydrocephalus and [employer]CH[employer]ICIAN shunt placement History of developmental delay. History of adrenal insufficiency , continue Solu-Cortef, however if the patient is to be discharged, recommend placing him back on his usual dose of Cortef via PEG tube. Acute kidney injury, resolved. Renal ultrasound was noted. Acute urinary tract infection secondary to pseudomonas aeruginosa. Recommendation: Continue antibiotics/Merrem however infectious disease to decide on the antibiotics that the patient is to be discharged home on. Urology consultation. This was declined by the father, he prefers to have a urologist at [facility] see him and remove his stent Suction patient as needed, patient has very weak cough, cannot clear his secretions on his own. Continue bronchodilators. Transfer patient out of the ICU to a regular medical floor. I will clear the patient for discharge if cleared by the admitting physician and by the infectious disease crop consultant on the case. Continue aspiration precautions. Long-term prognosis remains relatively poor and guarded. Time with Patient: Less than 30
[2021-04-06 11:54] LABS: Glucose,Whole Blood 93 mg/dL (75-99)
[2021-04-06] MEDS ORDERED: CEFTOLOZANE/TAZOBACTAM 3 GM in SODIUM CHLORIDE 0.9% 100 ML IV SCH (12:00)
--- NOTE | 2021-04-06 12:32 | P.PN ---
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 Patient has underlying seizure disorder and history of nephrolithiasis with recent placement of a right ureteral stent at [facility]. Patient was admitted to the hospital with altered mentation and increased drowsiness. He was found to have significant pneumonia as well as a urinary tract infection with hypotension and sepsis. He was intubated for a short period of time. Sodium was noted to be low yesterday at 128 and serum creatinine had increased to 1.39 from 0.96. Currently this has improved with good urine output. Patient is seen for follow-up for hyponatremia, mostly secondary to hypotonic fluid. Currently improved. Patient had been receiving D5W which was switched to D5 0.9 yesterday. Patient is maintained on tube feedings which he is tolerating fairly well. Objective - Vital Signs Vital signs: Vital Signs Temp 97 F L 04/06/21 08:00 Pulse 41 L 04/06/21 08:00 Resp 21 04/06/21 08:00 BP 124/80 04/06/21 08:00 Pulse Ox 92 L 04/06/21 08:00 Intake & Output 04/05/21 04/06/21 04/06/21 18:59 06:59 18:59 Intake Total 1290 1325 520 Output Total 825 125 Balance 465 1200 520 Weight 59.4 kg Intake: IV 840 70 100 Dextrose 10% in Water 1, 280 000 ml In Empty Bag 1 bag @ 40 mls/hr IV .Q24H [facility] Rx#:[id number] Dextrose 5%-0.9% NaCl 1, 560 70 000 ml @ 40 mls/hr IV . Q24H [facility] Rx#:[id number] levETIRAcetam IV 500 mg 100 In Sodium Chloride 0.9% 100 ml @ 400 mls/hr IVPB BID [facility] Rx#:[id number] Intake, IV Titration 825 225 Amount Dextrose 5%-0.9% NaCl 1, 825 225 000 ml @ 75 mls/hr IV . [id number] [facility] Rx#:[id number] Tube Feeding 360 370 165 Other 90 60 30 Output: Urine 825 125 Other: Voiding Method Indwelling Catheter Indwelling Catheter Diaper # Voids 1 # Bowel Movements 1 - Exam Awake comfortable. Not in any acute distress. Not able to communicate much. Father present at bedside patient did smile. Examination of the heart S1 and S2 Examination lungs bilateral breath sounds are heard Abdomen is soft nontender Examination of lower extremities shows no significant edema contractors are noted in bilateral upper extremities. Patient does not move his extremities much. - Labs CBC & Chem 7: 04/05/21 06:19 04/06/21 10:49 Labs: Abnormal Lab Results - Last 24 Hours (Table) 04/05/21 04/06/21 04/06/21 Range/Units 10:30 00:06 06:02 Sodium (137-145) mmol/L Potassium (3.5-5.1) mmol/L Chloride (98-107) mmol/L POC Glucose (mg/dL) 129 H 111 H (75-99) mg/dL Calcium (8.4-10.2) mg/dL Urine Protein 1+ H (Negative) Urine Ketones Trace H (Negative) Urine Blood Large H (Negative) Ur Leukocyte Esterase Large H (Negative) Urine RBC >182 H (0-5) /hpf Urine WBC >182 H (0-5) /hpf Urine WBC Clumps Few H (None) /hpf Urine Mucus Moderate H (None) /hpf 04/06/21 Range/Units 10:49 Sodium 136 L (137-145) mmol/L Potassium 3.1 L (3.5-5.1) mmol/L Chloride 110 H (98-107) mmol/L POC Glucose (mg/dL) (75-99) mg/dL Calcium 8.3 L (8.4-10.2) mg/dL Urine Protein (Negative) Urine Ketones (Negative) Urine Blood (Negative) Ur Leukocyte Esterase (Negative) Urine RBC (0-5) /hpf Urine WBC (0-5) /hpf Urine WBC Clumps (None) /hpf Urine Mucus (None) /hpf Microbiology - Last 24 Hours (Table) 04/05/21 10:30 Urine Culture - Preliminary Urine,Voided 03/30/21 10:05 Blood Culture - Final Blood No Growth after 144 hours 03/30/21 10:00 Blood Culture - Final Blood No Growth after 144 hours Assessment and Plan Assessment: 1. Acute kidney injury, nonoliguric mostly secondary to hypotension and sepsis, currently improved. Continue with IV fluids 2. Hyponatremia associated with hypotonic fluid. IV fluids changed back to D5 0.9. Now improved. We will continue to monitor 3. Urinary tract infection with urine culture growing pseudomonas aeruginosa with history of recent urology culture intervention with ureteral stent placement for nephrolithiasis. This was done at an outside facility. Urology has been consulted 4. Pneumonia with sputum culture also growing Pseudomonas, maintained on a ntibiotics 5. History of seizure disorder 6. Hypoglycemia now resolved 7. History of brain tumor status post surgeries during childhood Plan: Patient received a dose of sodium chloride tab prior to the labs from today. We will continue with the free water flushes with the tube feeding. Repeat labs in a.m. if patient is not discharged expect sodium to stabilize and remained within normal range with continued tube feeding. Continue antibiotics as per ID
[2021-04-06 12:48] VITALS: BMI 22.4
[2021-04-06] MEDS: POTASSIUM BICARBONATE/CIT AC 20 MEQ TABLET.EFF NG-TUBE SCH ×2 (13:56→15:00)
[2021-04-06 14:09] VITALS: BP 119/82; PULSE 42; RESP 19
[2021-04-06] MEDS ORDERED: Magnesium Replacement Protocol 1 EACH MISC MISCELLANE PRN (14:44)
[2021-04-06] MEDS ORDERED: CEFTOLOZANE/TAZOBACTAM 1.5 GM in SODIUM CHLORIDE 0.9% 100 ML IV SCH (16:30)
--- NOTE | 2021-04-06 23:31 | P.DS ---
Providers Date of admission: 03/30/21 14:50 Attending physician: Roberto Floyd Consults: 03/30/21 14:07 Consult Physician Stat Consulting Provider: Ian Hay Consult Reason/Comments: Siezure Do you want consulting provider notified?: Yes 03/30/21 15:15 Consult Physician Stat Consulting Provider: Earl Hay Consult Reason/Comments: Critical care management Do you want consulting provider notified?: Yes 04/04/21 10:35 Consult Physician Routine Consulting Provider: Dejuan Lundberg Consult Reason/Comments: pneumonia Do you want consulting provider notified?: Yes 04/04/21 10:36 Consult Physician Routine Consulting Provider: Carlos Suresh Consult Reason/Comments: hematuria nephrolithiasis Do you want consulting provider notified?: Yes 04/04/21 10:49 Consult Physician Routine Consulting Provider: Afsaneh Stout Consult Reason/Comments: bisi Do you want consulting provider notified?: Yes Primary care physician: Whitney Ruiz Hospital Course: Please note patient was not discharged but his father who is the legal guardian signed him out AMA Diagnoses: Severe sepsis secondary to possible aspiration pneumonia secondary to Pseudomonas and UTI secondary to Pseudomonas related to her right nephrolithiasis Acute hypoxic respiratory failure status post intubation and extubation. Pancytopenia and hyperglycemia, most likely related to sepsis Hypoglycemia on admission, now glucose level improved breakthrough seizure secondary to hypoglycemia. Status post intracranial shunt History of meningiomas, multiple status post bilateral craniotomy History of seizure History of hydrocephalus and [employer]PER[employer] shunt placement History of developmental delay. History of adrenal insufficiency Hospital course: This is a 35 years old male was admitted to the intensive care unit in critical condition secondary to severe sepsis and hypoxia most likely secondary to aspiration pneumonia requiring intubation, currently patient is extubated and he maintained on 2 L oxygen via nasal cannula. His urine culture is growing Pseudomonas and sputum culture Pseudomonas as well. He is being treated with antibiotics with infectious disease team were consulted, who received several courses of antibiotics including Zosyn, meropenem and lastly he was placed on zarbaxa With midline placed for outpatient IV antibiotics. However patient father did not want to wait for the prior authorization for antibiotics to be delivered for the patient and he signed him out AMA. Patient also found on admission to have a seizure secondary to hypoglycemia, evaluated by neurologist and kept on Keppra because his seizure was due to hypoglycemia. Patient kept on his home dose of Keppra 500 mg twice a day. Patient also with evidence of adrenal insufficiency on Cortef at home was placed on hydro-Cortizone intravenously which is expected to be switched to Cortef back upon discharge. Patient also with history of [employer] SUPER[employer]OR shunt, his medication was at baseline as confirmed by his father to me yesterday and today. PEG tube is already placed prior to hospitalization, patient father thinking his patient did not tolerate infusion rates more than 30 mL/h, his wound was 50 mL/h. The plan for him was to be increased gradually as an outpatient. Patient father also did not want to wait to check for pancreatic enzyme deficiency which might contribute to his food intolerance. Since morning patient's father was adamant to go home today no matter what according to him, I asked the patient father is there anything I can do to make you a change in her mind and he said no. As such and for improvement compliance to management we planned to discharge the patient today after he was cleared by pulmonary service, nephrology service and infectious disease service. As well as by internal medicine primary care team. However as stated above, we were awaiting his medical insurance provider to approve his IV antibiotics upon discharge, rehabilitation caseworker was on the case, I was informed this process may not happen today, after rounding I was told that his father who is the legal guardian (he confirmed this to us and to the bedside nurse this morning) decided to sign him AMA and he did not want to wait for the antibiotic approval, a also I was informed that the mother who is also legal guardian was at the bedside. of note Earlier today the morning I informed the patient father with the risksof leaving AMA including but not limited to worsening sepsis, organ dysfunction and loss of function, and/or , he verbalized understanding at that time. also earlier this morning father told me he wants to take him to his urologist to take the stent out from his right kidney system. Physical exam prior to leaving AMA - GENERAL: The patient is awake at baseline of mentation as per father at beds omar,. Very weak , but improved compared to yesterday HEENT: Pupils are round and equally reacting to light. EOMI. No scleral icterus. No conjunctival pallor. Normocephalic, atraumatic. No pharyngeal erythema. No thyromegaly. CARDIOVASCULAR: S1 and S2 present. No murmurs, rubs, or gallops. PULMONARY: Chest is clear to auscultation, no wheezing or crackles. ABDOMEN: Soft, nontender, nondistended, normoactive bowel sounds. No palpable organomegaly. PEG tube in a Place MUSCULOSKELETAL: No joint swelling or deformity. EXTREMITIES: No cyanosis, clubbing, or pedal edema. -NEUROLOGICAL: Cranial nerves are grossly intact.. Status post cranial shunt. Right hemiparesis (chronic). SKIN: No rashes. no petechiae. Time spent more than 35 minutes Patient Condition at Discharge: Fair Plan - Discharge Summary Discharge Rx Participant: No New Discharge Prescriptions: New Pantoprazole Sodium [Protonix] 40 mg PO HS #30 tab Pantoprazole Sodium [Protonix] 40 mg PEG/G-TUBE DAILY #30 tab Continue Hydrocortisone [Cortef] 10 mg PEG/G-TUBE DAILY levETIRAcetam [Keppra Oral Solution] 500 mg PEG/G-TUBE BID Montelukast [Singulair] 10 mg PEG/G-TUBE HS Albuterol Nebulized [Ventolin Nebulized] 2.5 mg INHALATION RT-Q6H PRN PRN Reason: Shortness Of Breath Tamsulosin [Flomax] 0.4 mg PEG/G-TUBE DAILY Morphine Sulfate [Morphine Sulfate 10 MG/5 ML] 10 mg PO DAILY PRN PRN Reason: Pain Hydrocortisone [Cortef] 20 mg PEG/G-TUBE HS LORazepam [Ativan] 0.5 mg PO TID PRN PRN Reason: Agitation Discontinued Phenazopyridine [Pyridium] 100 mg PEG/G-TUBE TID Cephalexin [Keflex] 500 mg PEG/G-TUBE Q8H Discharge Medication List Hydrocortisone [Cortef] 10 mg PEG/G-TUBE DAILY 07/07/13 [History] levETIRAcetam [Keppra Oral Solution] 500 mg PEG/G-TUBE BID 10/16/19 [History] Albuterol Nebulized [Ventolin Nebulized] 2.5 mg INHALATION RT-Q6H PRN 03/30/21 [History] Hydrocortisone [Cortef] 20 mg PEG/G-TUBE HS 03/30/21 [History] LORazepam [Ativan] 0.5 mg PO TID PRN 03/30/21 [History] Montelukast [Singulair] 10 mg PEG/G-TUBE HS 03/30/21 [History] Morphine Sulfate [Morphine Sulfate 10 MG/5 ML] 10 mg PO DAILY PRN 03/30/21 [History] Tamsulosin [Flomax] 0.4 mg PEG/G-TUBE DAILY 03/30/21 [History] Pantoprazole Sodium [Protonix] 40 mg PEG/G-TUBE DAILY #30 tab 04/06/21 [Rx] Pantoprazole Sodium [Protonix] 40 mg PO HS #30 tab 04/06/21 [Rx] Follow up Appointment(s)/Referral(s): Afsaneh Stout MD [STAFF PHYSICIAN] - 2 Weeks ( Kidney physician-licensed psychiatric technician ) Carlos Suresh MD [STAFF PHYSICIAN] - 1 Week (kidney surgeon -urologist ) Earl Hay DO [Doctor of Osteopathic Medicine] - 10 Days (lung doctor ) Whitney Ruiz MD [Primary Care Provider] - 1-2 days Soto Olmsteda MD [Medical Doctor] - 10 Days (Neurologist) Dejuan Lundberg MD [STAFF PHYSICIAN] - 1 Week (Infectious disease doctor) Patient Instructions/Handouts: Aspiration Pneumonia (DC), Sepsis (GEN) Activity/Diet/Wound Care/Special Instructions: Discontinue midline after finishing IV antibiotic course Discharge Disposition: HOME SELF-CARE Care Plan Goals (MU): Tube Feeding Plan= Vital 1.2 at 55 mL/hr, free water 75 mL every 4 hours.
--- NOTE | 2021-04-07 08:41 | P.PN ---
Subjective Progress Note Date: 04/05/21 Principal diagnosis: Multidrug-resistant Pseudomonas pneumonia and UTI Patient is a 35-year-old male with a past medical history significant for meningiomas severe developmental delay with a recent lithotripsy of the right side admitted to the hospital with sepsis secondary to complicated UTI and pneumonia, the patient usually as a respite admission the drug resistant Pseudomonas currently being treated with the meropenem with the patient's father is refusing as the patient was noted to have some shaking which she is attributing to meropenem. On today's evaluation that is 04/05/2021, the patient is afebrile, the patient is breathing comfortably currently on nasal cannula oxygen no vomiting diarrhea or any the chills reported by the nursing staff, patient himself could not provide any history Objective - Vital Signs Vital signs: Vital Signs Temp 96.8 F L 04/05/21 12:00 Pulse 64 04/05/21 13:00 Resp 21 04/05/21 13:00 BP 117/83 04/05/21 13:00 Pulse Ox 91 L 04/05/21 13:00 Intake & Output 04/04/21 04/05/21 04/05/21 18:59 06:59 18:59 Intake Total 1160 1465 760 Output Total 750 710 475 Balance 410 755 285 Weight 59 kg Intake: IV 825 1045 490 Dextrose 10% in Water 1, 825 75 000 ml In Empty Bag 1 bag @ 40 mls/hr IV .Q24H ROSA M Rx#:[id number] Dextrose 10% in Water 1, 770 280 000 ml In Empty Bag 1 bag @ 40 mls/hr IV .Q24H ROSA M Rx#:[id number] Dextrose 5%-0.9% NaCl 1, 210 000 ml @ 40 mls/hr IV . Q24H ROSA M Rx#:[id number] Meropenem 1 gm In Sodium 100 Chloride 0.9% 100 ml @ 33 .3 mls/hr IVPB Q12H ROSA M Rx#:[id number] levETIRAcetam IV 500 mg 100 In Sodium Chloride 0.9% 100 ml @ 400 mls/hr IVPB BID ROSA M Rx#:[id number] Tube Feeding 335 360 210 Other 60 60 Output: Urine 750 710 475 Other: Voiding Method Indwelling Catheter Indwelling Catheter Indwelling Catheter - Exam GENERAL DESCRIPTION: Middle-age male lying in bed in no distress RESPIRATORY SYSTEM: Unlabored breathing , decreased breath sounds at bases HEART: S1 S2 regular rate and rhythm , ABDOMEN: Soft , no tenderness EXTREMITIES: No edema feet each - Labs CBC & Chem 7: 04/05/21 06:19 04/06/21 10:49 Labs: Abnormal Lab Results - Last 24 Hours (Table) 04/04/21 04/04/21 04/04/21 Range/Units 05:56 18:22 23:40 WBC (3.8-10.6) k/uL RBC (4.30-5.90) m/uL Hgb (13.0-17.5) gm/dL Hct (39.0-53.0) % RDW (11.5-15.5) % Plt Count (150-450) k/uL Lymphocytes # (1.0-4.8) k/uL Sodium (137-145) mmol/L Carbon Dioxide (22-30) mmol/L BUN (9-20) mg/dL Glucose (74-99) mg/dL POC Glucose (mg/dL) 112 H 165 H (75-99) mg/dL Calcium (8.4-10.2) mg/dL Total Protein (6.3-8.2) g/dL Albumin (3.5-5.0) g/dL Vitamin B12 1982.0 H (200.0-944.0) pg/mL Urine Protein (Negative) Urine Ketones (Negative) Urine Blood (Negative) Ur Leukocyte Esterase (Negative) Urine RBC (0-5) /hpf Urine WBC (0-5) /hpf Urine WBC Clumps (None) /hpf Urine Mucus (None) /hpf 04/05/21 04/05/21 04/05/21 Range/Units 06:04 06:19 06:19 WBC 3.2 L (3.8-10.6) k/uL RBC 2.38 L (4.30-5.90) m/uL Hgb 7.8 L (13.0-17.5) gm/dL Hct 23.2 L (39.0-53.0) % RDW 17.3 H (11.5-15.5) % Plt Count 72 L (150-450) k/uL Lymphocytes # 0.4 L (1.0-4.8) k/uL Sodium 128 L (137-145) mmol/L Carbon Dioxide 19 L (22-30) mmol/L BUN 22 H (9-20) mg/dL Glucose 122 H (74-99) mg/dL POC Glucose (mg/dL) 139 H (75-99) mg/dL Calcium 7.9 L (8.4-10.2) mg/dL Total Protein 4.5 L (6.3-8.2) g/dL Albumin 2.1 L (3.5-5.0) g/dL Vitamin B12 (200.0-944.0) pg/mL Urine Protein (Negative) Urine Ketones (Negative) Urine Blood (Negative) Ur Leukocyte Esterase (Negative) Urine RBC (0-5) /hpf Urine WBC (0-5) /hpf Urine WBC Clumps (None) /hpf Urine Mucus (None) /hpf 04/05/21 04/05/21 Range/Units 10:30 11:35 WBC (3.8-10.6) k/uL RBC (4.30-5.90) m/uL Hgb (13.0-17.5) gm/dL Hct (39.0-53.0) % RDW (11.5-15.5) % Plt Count (150-450) k/uL Lymphocytes # (1.0-4.8) k/uL Sodium (137-145) mmol/L Carbon Dioxide (22-30) mmol/L BUN (9-20) mg/dL Glucose (74-99) mg/dL POC Glucose (mg/dL) 106 H (75-99) mg/dL Calcium (8.4-10.2) mg/dL Total Protein (6.3-8.2) g/dL Albumin (3.5-5.0) g/dL Vitamin B12 (200.0-944.0) pg/mL Urine Protein 1+ H (Negative) Urine Ketones Trace H (Negative) Urine Blood Large H (Negative) Ur Leukocyte Esterase Large H (Negative) Urine RBC >182 H (0-5) /hpf Urine WBC >182 H (0-5) /hpf Urine WBC Clumps Few H (None) /hpf Urine Mucus Moderate H (None) /hpf Microbiology - Last 24 Hours (Table) 03/30/21 10:05 Blood Culture - Preliminary Blood No Growth after 120 hours 03/30/21 10:00 Blood Culture - Preliminary Blood No Growth after 120 hours Assessment and Plan (1) Aspiration pneumonia Status: Acute Code(s): J69.0 - PNEUMONITIS DUE TO INHALATION OF FOOD AND VOMIT SNOMED Code(s): 874381269 Plan: Patient presented to hospital with acute respiratory distress concerning for aspiration pneumonia in this patient also have multidrug-resistant pseudomonas in the sputum as well as in the urine currently being treated with meropenem however the patient father is refusing because of possible shaking which she is attributing to the meropenem detailed discussion with the father more likely not a ALLERGIC reaction however the patient father is adamant in refusing to give meropenem to the patient, we will switch over to Zerbaxa and the patient tolerates to get a midline and continue with Zerbexa to finish his course of therapy, time spent has been More Than 25 Minutes discussing different options with patient's father Time with Patient: Greater than 30
--- NOTE | 2021-04-07 08:44 | P.PN ---
Subjective Progress Note Date: 04/06/21 Principal diagnosis: Multidrug-resistant Pseudomonas pneumonia and UTI Patient is a 35-year-old male with a past medical history significant for meningiomas severe developmental delay with a recent lithotripsy of the right side admitted to the hospital with sepsis secondary to complicated UTI and pneumonia, the patient usually as a respite admission the drug resistant Pseudomonas currently being treated with the meropenem with the patient's father is refusing as the patient was noted to have some shaking which she is attributing to meropenem. On today's evaluation that is 04/06/2021, the patient remains to be afebrile, the patient is breathing comfortably currently on nasal cannula oxygen , no worsening cough or sputum production reported by the nursing staff, no vomiting diarrhea or any the chills reported by the nursing staff, patient himself could not provide any history, patient antibiotics were switched over to Zerbexa yesterday however the patient has not received a dose yet Objective - Vital Signs Vital signs: Vital Signs Temp 97 F L 04/06/21 08:00 Pulse 41 L 04/06/21 08:00 Resp 21 04/06/21 08:00 BP 124/80 04/06/21 08:00 Pulse Ox 92 L 04/06/21 08:00 Intake & Output 04/05/21 04/06/21 04/06/21 18:59 06:59 18:59 Intake Total 1290 1325 520 Output Total 825 125 Balance 465 1200 520 Weight 59.4 kg 59.4 kg Intake: IV 840 70 100 Dextrose 10% in Water 1, 280 000 ml In Empty Bag 1 bag @ 40 mls/hr IV .Q24H ROSA M Rx#:[id number] Dextrose 5%-0.9% NaCl 1, 560 70 000 ml @ 40 mls/hr IV . Q24H ROSA M Rx#:[id number] levETIRAcetam IV 500 mg 100 In Sodium Chloride 0.9% 100 ml @ 400 mls/hr IVPB BID ROSA M Rx#:[id number] Intake, IV Titration 825 225 Amount Dextrose 5%-0.9% NaCl 1, 825 225 000 ml @ 75 mls/hr IV . [id number] ROSA M Rx#:[id number] Tube Feeding 360 370 165 Other 90 60 30 Output: Urine 825 125 Other: Voiding Method Indwelling Catheter Indwelling Catheter Diaper # Voids 1 # Bowel Movements 1 - Exam GENERAL DESCRIPTION: Middle-age male lying in bed in no distress RESPIRATORY SYSTEM: Unlabored breathing , decreased breath sounds at bases HEART: S1 S2 regular rate and rhythm , ABDOMEN: Soft , no tenderness EXTREMITIES: No edema feet each - Labs CBC & Chem 7: 04/05/21 06:19 04/06/21 10:49 Labs: Abnormal Lab Results - Last 24 Hours (Table) 04/06/21 04/06/21 04/06/21 Range/Units 00:06 06:02 10:49 Sodium 136 L (137-145) mmol/L Potassium 3.1 L (3.5-5.1) mmol/L Chloride 110 H (98-107) mmol/L POC Glucose (mg/dL) 129 H 111 H (75-99) mg/dL Calcium 8.3 L (8.4-10.2) mg/dL Microbiology - Last 24 Hours (Table) 04/05/21 10:30 Urine Culture - Preliminary Urine,Voided 03/30/21 10:05 Blood Culture - Final Blood No Growth after 144 hours 03/30/21 10:00 Blood Culture - Final Blood No Growth after 144 hours Assessment and Plan (1) Aspiration pneumonia Status: Acute Code(s): J69.0 - PNEUMONITIS DUE TO INHALATION OF FOOD AND VOMIT SNOMED Code(s): 014834337 Plan: Patient presented to hospital with acute respiratory distress concerning for aspiration pneumonia in this patient also have multidrug-resistant pseudomonas in the sputum as well as in the urine currently being treated with meropenem however the patient father is refusing because of possible shaking which she is attributing to the meropenem detailed discussion with the father more likely not a ALLERGIC reaction however the patient father was adamant and refused to give meropenem to the patient, the patient antibiotics were switched over to Zerbaxa yesterday however the patient unfortunately has not received a dose yet because of computer glitch discuss with the pharmacist again he will get a dose right now. The patient tolerates it to get a midline and continue for 10 days in outpatient setting and close out patient follow-up Time with Patient: Less than 30
--- NOTE | 2021-04-08 22:52 | P.PN ---
Subjective Progress Note Date: 04/06/21 04/06/2021: Patient's parents were present today. Patient has not had any more seizures. Patient's family wants to take him home. Patient is laying comfortably in the bed. He smiled. 04/03/2021: Patient initially seen by Dr. Ian Hay. Please refer to his note for details. Patient has history of developmental delay, seizure disorder, also with history of meningioma, status post craniotomy and shunt placement in the past. Patient had some seizures in the ER. Her blood glucose was 33 as noted in the ER, likely the cause of seizure. Patient's parents were present today. They states that he has not had any seizures since admission to the hospital. He is currently on Keppra 500 mg twice a day. Patient is here for kidney stones, and hematuria. Patient follows up with Dr. Nelson, who is the neurosurgeon, and Dr. Wang, his neurologist. Patient had seizures off and on. Sometimes he has no seizures for weeks and then may have couple in a day. Patient's family states that he sometimes talks in sentences, but is not very conversational. He usually gives thumb up. Objective - Vital Signs Vital signs: Vital Signs Temp 97 F L 04/06/21 08:00 Pulse 42 L 04/06/21 14:00 Resp 19 04/06/21 14:00 BP 119/82 04/06/21 14:00 Pulse Ox 97 04/06/21 14:00 - Exam GENERAL: The patient is lying in bed and does not seem in acute distress. 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 NEUROLOGICAL: Limited because of his condition Higher mental function: Patient is alert and awake, makes eye contact, but often stares, Cranial nerves: Primary gaze is midline. Extraocular muscles are intact. No obvious facial weakness. Motor: Patient usually communicates with left thumb (up or down) Cerebellum: Could not assess. Sensation: Could not assess. Reflexes (right/left): 1+ throughout. WORK-UP: Initial vital signs his blood pressure 151/90, heart rate of 124, respiratory of 34, temperature of 97.8 Fahrenheit oral and pulse ox of 90% on 4 L of nasal cannula. Initial white blood cells 50.6 and repeated 6.3. MCV is 94. His sodium was 130, creatinine is 1.14, plasma lactic acid is 6.9. Because the patient was tachypneic and tachycardia a He was given Mrophine in the ED. As resut of respiratory issues was intubated and on ventilator. CT of the head is reported as previous craniotomy flap on both left and right side. Chronic underlying extra axial fluid collection, the left-containing shunt catheter. The left-sided extra-axial collection is slightly larger at 1.9 cm thick versus 1.7 cm previously. Some nodule area of intermediate density at present within the fluid and could represent subacute blood product. The anterior right frontal extra-axial fluid collection is smaller from 2018 at 1.4 cm thick versus 1.5 cm, previously and contain some intermediate density area that could represent subacute blood product. No definite acute intracranial hemorrhage. No midline shift. There is a new right parietal [employer] MANAGER shunt catheter compared to 2018 tip in the posterior body of the left lateral ventricle. The hydrocephalus seen on 2007 he has resolved. Abandoned anterior right frontal shunt catheter. I personally reviewed the CT of the head and there is no acute subacute ischemia and there is no acute intraperitoneal hemorrhage. Patient does have history of craniotomy as well as he does have a shunt placed. He does have chronic underlying left extra-axial fluid collection and it's in the f rontal region area. Chest x-rays reported as right lower lobe infiltrate with small effusion correla te for interstitial pneumonitis or mild venous congestion. His lipase level is 1565 amylase is 506 troponin is 0.39. AST 67 and ALT is 45. Outcome phosphorus is 450. Arreaga virus PCR was not detected. u/a: color is red and appears bloody, wbc is 112, rbc >182, - Labs CBC & Chem 7: 04/05/21 06:19 04/06/21 10:49 Assessment and Plan Assessment: Breakthrough seizure (it was questionable per ED nurse) and likely provoked due to hypoglycemia as low as 33---no further seizures since admitted to the hospital. Significant hypoglycemia on presentation (as low as 33)--improved Acute hypoxic respiratory failure related to possibly sepsis possibly due to acute pancreatitis History of seizure Multiple brain meningioma s/p bilateral craniotomy (had multiple surgeries and first was 1989 and last 2018). 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 He is tolerating Keppra 500 mg twice a day very well. Patient's Keppra level is therapeutic 41.5(2-15). We will continue same dose of Keppra. Informed patient's parents about the Keppra level. * EEG reported as abnormal routine EEG. The background slowing is suggestive of severe encephalopathy. The triphasic morphology is likely due to toxic metabolic abnormalities. The breach rhythm is consistent with patient's history of skull defect. Otherwise there is no focal slowing, epileptiform discharges or seizure on the EEG. Clinical correlation is recommended. Continue Keppra 500 twice a day which is home dose. * Please avoid any further hypoglycemia will defer the management to the ICU as well as the primary team * If patient has seizure increase Keppra to 750mg bid. * We'll defer the rest of the medical management to the primary and ICU team. * Patient going home today. Patient's family recommended to have him follow-up with a neurologist in 2-4 weeks. Neurologically clear.
== END 2021-04-06 15:15 | disposition left against medical advice (07) | DRG 871 ==
LOC: EC 09:30 → 2SICU 14:50
PROVIDERS: ADMIT Hospitalist; ATTEND Hospitalist
PROC: 5A1945Z Respiratory Ventilation, 24-96 Consecutive Hours (ICD-10-PCS; principal; 2021-03-30)
PROC: 0BH17EZ Insertion of Endotracheal Airway into Trachea, Via Natural or Artificial Opening (ICD-10-PCS; principal; 2021-03-30)
PROC: 3E0G76Z Introduction of Nutritional Substance into Upper GI, Via Natural or Artificial Opening (ICD-10-PCS; 2021-03-31)
PROC: 02HV33Z Insertion of Infusion Device into Superior Vena Cava, Percutaneous Approach (ICD-10-PCS; 2021-04-03)
DX: A41.52 Sepsis due to Pseudomonas (principal); J69.0 Pneumonitis due to inhalation of food and vomit; J96.01 Acute respiratory failure with hypoxia; K85.90 Acute pancreatitis without necrosis or infection, unspecified; R65.21 Severe sepsis with septic shock; C71.9 Malignant neoplasm of brain, unspecified; D61.818 Other pancytopenia; E27.40 Unspecified adrenocortical insufficiency; E87.1 Hypo-osmolality and hyponatremia; E87.2 Acidosis; I47.1 Supraventricular tachycardia; I69.351 Hemiplegia and hemiparesis following cerebral infarction affecting right dominant side; K90.49 Malabsorption due to intolerance, not elsewhere classified; J98.11 Atelectasis; J90 Pleural effusion, not elsewhere classified; J81.1 Chronic pulmonary edema; N17.9 Acute kidney failure, unspecified; N39.0 Urinary tract infection, site not specified; Z16.11 Resistance to penicillins; Z16.24 Resistance to multiple antibiotics; G91.9 Hydrocephalus, unspecified; I69.391 Dysphagia following cerebral infarction; G40.909 Epilepsy, unspecified, not intractable, without status epilepticus; Z20.822 Contact with and (suspected) exposure to COVID-19; Z66 Do not resuscitate; Z94.89 Other transplanted organ and tissue status; D49.7 Neoplasm of unspecified behavior of endocrine glands and other parts of nervous system; E16.2 Hypoglycemia, unspecified; R73.9 Hyperglycemia, unspecified; M24.50 Contracture, unspecified joint; N20.0 Calculus of kidney; R13.10 Dysphagia, unspecified; Z79.899 Other long term (current) drug therapy; Z85.841 Personal history of malignant neoplasm of brain; Z87.01 Personal history of pneumonia (recurrent); Z87.442 Personal history of urinary calculi; Z93.1 Gastrostomy status; Z98.2 Presence of cerebrospinal fluid drainage device; Z86.011 Personal history of benign neoplasm of the brain; Z98.890 Other specified postprocedural states; Z88.8 Allergy status to other drugs, medicaments and biological substances; Z91.010 Allergy to peanuts; Z71.3 Dietary counseling and surveillance
CPT/HCPCS: 31500; 36410; 36415; 36556; 36600; 70450; 71045; 71046; 71275; 74018; 76705; 76770; 76937; 80048; 80053; 80177; 81001; 82150; 82607; 82746; 82805; 83605; 83690; 83880; 84132; 84484; 85025; 85027; 85379; 87040; 87070; 87077; 87086; 87186; 87205; 87635; 93005; 93306; 94002; 94003; 94640; 94660; 95822; 96361; 96374; 96375; 99291